=== PATIENT | male | born 1960 ===

== ENCOUNTER 2024-10-18 16:15 | Inpatient (IN) | payer MEDICAID, SELFPAY ==
--- NOTE | ~2024-10-18 | CT_ITS ---
EXAMINATION: CT HEAD WITHOUT CONTRAST CLINICAL INFORMATION: Altered mental status, anticoagulated, Eloquis COMPARISON: 01/27/2016 TECHNIQUE: Contiguous axial imaging was performed from the skull base to vertex without intravenous administration of contrast. This CT examination was performed using dose optimization techniques as appropriate, variously including the following: *Automated exposure control *Adjustment of mA and/or kV according to patient size (this includes techniques or standardized protocols for targeted exams where dose is matched to indication/reason for exam; i.e. extremities or head) *Use of iterative reconstruction technique DLP: 703 mGY*cm FINDINGS: Chronic encephalomalacia is present in the posterior left frontal lobe, not present on the prior from 9 years ago. Bilobed fluid attenuation is present in the right thalamus, consistent with chronic lacunar infarct. Focal hypoattenuation in the left thalamus is indeterminate. There is no intracranial hemorrhage. There is no mass-effect or midline shift. Basal cisterns and ventricles are within normal limits for age/cerebral volume. Orbits are symmetrical and unremarkable. Paranasal sinuses and mastoid air cells are pneumatized. There are no bony abnormalities. CT/CT head/brain wo IV con IMPRESSION: Focal hypoattenuation in the left thalamus is consistent with an age indeterminate lacunar infarct, acute versus chronic. There is evidence of chronic encephalomalacia the posterior left frontal lobe and a focal right thalamic fluid attenuation, that have developed since the prior study 9 years ago. Electronically signed by: Forrest Hauser MD 10/24/2024 02:15 PM EDT
[2024-10-18 16:31] VITALS: BP 130/97; BP 160/94; PULSE 74; PULSE 77; RESP 16; TEMP 36.3; O2SAT 98; O2SAT 99; BMI 18.6
--- NOTE | 2024-10-18 17:25 | ED.GENADULT ---
HPI - General Adult General Chief complaint: Behavioral Concerns Stated complaint: BEHAVIORAL EVAL FROM SNF PER EMS Time Seen by Provider: 10/18/24 17:25 Source: patient and EMS Mode of arrival: EMS Limitations: no limitations History of Present Illness ED Provider: Frieda Castro PA-C HPI narrative: Patient is a 64 year old assigned male at with a history of CVA with left-sided hemiparesis, A-fib on Eliquis, nonischemic cardiomyopathy, peptic ulcer disease, hypertension, history of polysubstance use, CKD, DVT, type II DM, and tobacco use presenting to the emergency department today after [facility] out [facility] and getting aggressive with staff when asked to come back inside. Patient states that he doesn't like it there and does not want to be there. Patient states that he would like to be somewhere that allows him to smoke cigarettes. Patient was at [facility] before he was transferred to [facility]. Patient denies any dizziness, lightheadedness, abdominal pain, nausea, vomiting, fever, chills, blurry vision, double vision, loss of vision, chest pain, difficulty breathing, shortness of breath, back pain, night sweats, pain with urination, increased urinary frequency, increased urinary urgency, blood in his urine or stool, syncope or a near syncopal episode, recent trauma or falls, bowel incontinence, bladder incontinence, or any other complaints at this time. Relieving factors: none Exacerbating factors: none Associated symptoms: denies other symptoms Treatments prior to arrival: none Related Data Home Medications ?Medication ?Instructions ?Recorded ?Confirmed alprazolam 1 mg tablet 1 mg PO BID 10/18/24 10/18/24 alprazolam 1 mg tablet 2 mg PO BEDTIME 10/18/24 10/18/24 aluminum-mag hydroxide-simethicone 15 ml Q6H 10/18/24 10/18/24 200 mg-200 mg-20 mg/5 mL oral susp apixaban 5 mg tablet (Eliquis) 5 mg PO BID 10/18/24 10/18/24 atorvastatin 80 mg tablet 80 mg PO BEDTIME 10/18/24 10/18/24 bisacodyl 10 mg rectal suppository 10 mg SC DAILY PRN Constipation 10/18/24 10/18/24 brimonidine 0.2 % eye drops 1 drp ophthalmic (eye) BID 10/18/24 10/18/24 carvedilol 25 mg tablet 25 mg PO BID 10/18/24 10/18/24 dapagliflozin propanediol 10 mg 10 mg PO DAILY 10/18/24 10/18/24 tablet (Farxiga) dicyclomine 10 mg capsule 10 mg PO QID 10/18/24 10/18/24 duloxetine 30 mg capsule,delayed 30 mg PO DAILY 10/18/24 10/18/24 release esomeprazole magnesium 40 mg 40 mg PO DAILY 10/18/24 10/18/24 capsule,delayed release gabapentin 800 mg tablet 800 mg PO TID 10/18/24 10/18/24 hydralazine 10 mg tablet 10 mg PO BID 10/18/24 10/18/24 latanoprost 0.005 % eye drops 1 drp ophthalmic (eye) BEDTIME 10/18/24 10/18/24 magnesium hydroxide 400 mg/5 mL 30 ml PO DAILY PRN Constipation 10/18/24 10/18/24 oral suspension (Milk of Magnesia) melatonin 3 mg tablet 3 mg PO BEDTIME PRN Sleep 10/18/24 10/18/24 nicotine (polacrilex) 2 mg gum 2 mg PO Q2H PRN Smoking Cessation 10/18/24 10/18/24 oxycodone 5 mg tablet 2.5 mg PO Q6H PRN severe pain 10/18/24 10/19/24 prednisolone acetate 1 % eye 1 drp ophthalmic (eye) QID 10/18/24 10/18/24 drops,suspension simethicone 180 mg capsule 180 mg PO BID 10/18/24 10/18/24 sodium phosphates 19 gram-7 118 ml SC DAILY PRN Constipation 10/18/24 10/18/24 gram/118 mL enema (Fleet Enema) Allergies Allergy/AdvReac Type Severity Reaction Status Date / Time acetaminophen [From TYLENOL] Allergy Unknown CAN'T TAKE Verified 10/18/24 16:35 PER PT aspirin [ASPIRIN] Allergy Unknown BLEEDING Verified 10/18/24 16:35 calcium carbonate Allergy Unknown Unknown Verified 10/18/24 17:37 fish derived [fish] Allergy Unknown Unknown Verified 10/18/24 17:37 NSAIDS (Non-Steroidal AdvReac Severe STOMACH Verified 06/04/25 16:35 Anti-Inflamma UPSET [NSAIDS (NON-STEROIDAL ANTI-INFLAMMA] Review of Systems Constitutional: Constitutional: Reports no additional constitutional complaints, Denies chills, Denies fever(s) and Denies night sweats Eyes: Eyes: Reports no additional eye complaints, Denies blurry vision, Denies change in vision, Denies diplopia, Denies eye discharge, Denies loss of vision and Denies eye pain ENT: Denies dizziness Cardiovascular: Cardiovascular: Reports no additional cardiovascular complaints, Denies chest pain, Denies lightheadedness, Denies Loss of Consciousness and Denies dyspnea Respiratory: Respiratory: Reports no additional respiratory complaints and Denies dyspnea Gastrointestinal: Gastrointestinal: Reports no additional gastrointestinal complaints, Denies abdominal pain, Denies melena, Denies hematochezia, Denies change in bowel habits and Denies change in stool character Genitourinary: Genitourinary: Reports no additional male genitourinary complaints, Denies hematuria, Denies oliguria, Denies difficulty urinating, Denies dysuria, Denies urinary frequency, Denies urinary hesitancy, Denies urinary incontinence and Denies urinary urgency Musculoskeletal: Musculoskeletal: Reports no additional musculoskeletal complaints, Denies numbness and Denies tingling Neurologic: Denies dizziness, Denies loss of vision, Denies numbness and Denies tingling Psychiatric: Psychiatric: Reports no additional psychiatric complaints Endocrine: Endocrine: Reports no additional endocrine complaints Hematologic/Lymphatic: Hematologic/Lymphatic: Reports no additional hematologic/lymphatic complaints Allergic/Immunologic: Allergic/Immunologic: Reports no additional allergic/immunologic complaints [facility] Past Medical History Attestation statement: The following information was validated with the patient. Source: old records reviewed and nursing notes reviewed Medical History (Updated 10/29/24 @ 14:57 by Jc Govea DO) Depression GERD (gastroesophageal reflux disease) Atrial fibrillation CVA (cerebral vascular accident) Polysubstance abuse CKD (chronic kidney disease), stage IV HFrEF (heart failure with reduced ejection fraction) Essential hypertension Type 2 diabetes mellitus Social History Social History Household Members: Other Housing: Assisted Living Facility Do you presently have visiting nurse or other home services: No Comment: has a sitter Patient Tobacco Use Status: Tobacco use Unknown Smoked in Last 30 Days: Yes Use of substances other than those prescribed or required for medical reasons: Yes Substance Use Type: Crack/Cocaine Substance Use Frequency: Occasionally Currently Displaying Signs/Symptoms of Drug Intoxication Withdrawal: No Advance Directives: Yes Advance Directives on File: Yes Advance Directives Date on File: 10/19/24 Do you have a plan to hurt others: No Plan Nutrition Risks: On aspiration precautions service: No Physical Exam ED Vital Signs: Vital Signs - 24 hr 10/25/24 14:15 10/25/24 15:30 10/25/24 22:00 Temperature 97.3 F Pulse Rate 100 96 Respiratory Rate 16 18 16 Blood Pressure 144/102 H 144/105 H Pulse Oximetry 93 96 Oxygen Delivery Method Room Air Room Air 10/26/24 06:45 10/26/24 07:17 Temperature Pulse Rate 114 H Respiratory Rate 20 18 Blood Pressure 132/99 H Pulse Oximetry 95 Oxygen Delivery Method Room Air BMI result Body Mass Index 18.6 Const General: cooperative, no acute distress, alert and awake Nutritional Appearance: well nourished Orientation/consciousness: patient oriented x3 HENMT Head: Yes normal to inspection and Yes atraumatic Ears: hearing grossly normal bilaterally and external ears normal General nose exam: Normal external nose present, no nasal discharge noted and no epistaxis Face and sinus: Yes normal facial exam, No abrasion and No laceration Mouth: Normal oral and palatal mucosa present, no drooling and no muffled voice Eyes General: appearance normal, both eyes and all related structures Periorbital: periorbital findings normal Eyelids: Yes eyelids normal Conjunctivae: conjunctivae normal Pupils: Equal, round and reactive pupils present EOM: EOMs intact bilaterally Neck Neck: Yes normal visual inspection, Yes full ROM and Yes no lymphadenopathy Resp Effort & Inspection: normal respiratory effort and able to speak in complete sentences Neuro General: patient oriented x3, moves all extremities and CN's II-XI intact bilaterally Cranial nerves: Yes Equal, round and reactive pupils present Cognition (Neuro): normal cognition Extrem General: Yes normal to inspection, Yes full ROM and Yes capillary refill normal Psych Appearance: grossly normal Mental Status: mental status grossly normal Affect: normal affect Attitude: cooperative Thought process: Normal thought process present Thought content: Normal thought content present Insight: Good insight present (Psych) Course Reevaluation(s) Reevaluation #1: Physician observation continued. Vital signs remained stable. Patient is complaining of back pain and requesting lidocaine patch and morphine. They report that the oxycodone does not work as good as morphine. Given his likely chronic kidney disease & elevated SCr will avoid using morphine and continue oxycodone. Will add lidocaine patches daily. There is an allergy listed to Tylenol, unclear reaction. Case management on board and additional referrals broad casted locally to other assisted facilities. [facility]. Will continue to monitor. Time: 11:08 Reevaluation #2: Nursing reported inappropriate behaviors today, aggression, sexually inappropriate comments. Psych was consulted. They are recommending olanzapine p.r.n. agitation Security was called for aggression and inappropriate behaviors. He was willing to take oral Zyprexa. Time: 16:00 Reevaluation #3: Time: 11:11 Date: 10/20/24 Provider: Danita Javed CNP Patient in physician observation for case management needs.? overnight had agitation and restlessness overnight which she willingly accepted ODT Zyprexa remained otherwise calm without acute events. No current complaints. VS stable.? psychiatry was consulted yesterday recommendation at this time did not meet criteria for inpatient psychiatric admission, not currently delirious but should have outpatient assessment for cognitive impairment, advised olanzapine 10 mg every 6 hours as needed for agitation. pending placement. Will continue to monitor. Time: 20:17 Additional Reevaluation(s): At 8:17 p.m. on October 20, the patient became quite combative, he has a attempted multiple times to physically strike staff, he is yelling profanities at staff, we are having to medicate, giving 5 mg of intramuscular Haldol and 2.5 mg of intramuscular Versed Time: 17:50 Date: 10/21/24 Provider: ASHLEY Douglas Patient in physician observation for case management needs. No acute events reported overnight.? No current issues or complaints. VS stable. Pending case management disposition. Will continue to monitor. Time: 11:09 Date: 10/22/24 Provider: ASHLEY Douglas Patient in physician observation for case management needs.Patient escalating, trying to assault staff, unable to be redirected, given this, Zyprexa 10 mg IM ordered. 10/23/24 09:45 Rajesh, DEBEAKER: Physician observation continued, no overnight events reported by nursing. No current behavioral issues. CM following for disposition. it is 630 pm on October 23, nursing staff just brought to my attention that the patient has not voided today, he is retaining urine, per their bladder scan he is just under 500 mL, placing a Ponce. Amendment, it is midnight on October 24, the Ponce catheter did not require placement, the patient was able to void appropriately Time: 15:51 Date: 10/24/24 Provider: ASHLEY Douglas Patient in physician observation for case management needs. Patient was very aggressive this morning, requiring to be medicated with IM Haldol, Versed, and Benadryl. I did order a head CT as patient has not been seen here, and concerned for changes in agitation per transition social worker per case management. Patient is on anticoagulation therefore ordered a dry CT to rule out ICH. Head CT reveals focal hypoattenuation in the left thalamus consistent with an age indeterminate lacunar infarct acute versus chronic. Patient is already on anticoagulation. I discussed case with my attending physician, Dr. Titus, Unclear if this is acute or chronic however there is no additional medical management at this time if this were to be acute. He is already on anticoagulation and this is a small lacunar infarct and this would not be the source of causing change in mental status and aggression. We will continue to monitor pending overall case management and disposition. 221 am on October 25, the patient's behaviors escalating, he does have p.r.n. meds for his agitation, he has already received them, we are going to try oral Geodon at this time. Can not use Geodon we do not have it in the picks his, we will give a mix of Haldol and Ativan p.o. Time: 10:25 Date: 10/25/24 Provider: ASHLEY Herring Patient in physician observation for case management needs. Patient has been more combative, psychiatry evaluated patient yesterday, medication recommendations in provider note. VS stable. Patient is pending placement/CM. Will continue to monitor. Time: 08:21 Date: 10/26/24 Provider: ASHLEY Herring Patient in physician observation for case management needs. VS stable. Patient became agitated/combative yesterday, multiple IM medications given. [facility] will take patient back when he has not received IM medications for 24 hours. IM restrained should be avoided. Patient is pending placement. Will continue to monitor. patient is more delerious today not eating or drinking was getting multiple medications it looks like he was not getting his typical benzo dose. He is having mild AVIS and dehydration. Rigo DEBEAKER put him on TID valium. He is very aggressive but is more delerious than yesterday this could be med related. His VS are concerning for some form of benzo withdrawal. SHON 10/26/24 216pm, I think the patient needs IVF and possible admit for delerium and IV benzos. Will discuss with hospitalist end physician observation at 223pm 11/04/24 Consultations Consultation #1: Psychiatry Time: 13:13 Consultation #2: patient with increased aggression, combative with staff, unable to calm down. Security at bedside, not redirectable, trying to get out of bed. Ordered 2mg Versed, 5mL haloperidol, 2 mL midazolam, 50mL Benadryl for sedation Medications Administered Generic Name Dose Route Start Last Admin Trade Name Freq PRN Reason Stop Dose Admin Al Hydroxide/Mg Hydroxide 15 ml 10/18/24 19:00 10/30/24 09:04 Magnesium Hydrox/Alum Hydrox 30 Ml Oral.Susp PO Not Given Q6H AAMIR Amlodipine Besylate 10 mg 10/28/24 13:55 10/30/24 10:05 Amlodipine Besylate 10 Mg Tablet PO Not Given DAILY AAMIR Protocol Apixaban 5 mg 10/18/24 21:00 10/30/24 09:14 Apixaban 5 Mg Tablet PO 5 mg BID AAMIR Administration Atorvastatin Calcium 80 mg 10/18/24 21:00 10/29/24 20:43 Atorvastatin Calcium 80 Mg Tablet PO 80 mg BEDTIME AAMIR Administration Brimonidine Tartrate 1 drop 10/18/24 21:00 10/30/24 09:18 Brimonidine Tartrate 0.2% Oph 5 Ml Bottle EYE-BOTH 1 drop BID AAMIR Administration Carvedilol 25 mg 10/18/24 21:00 10/30/24 10:05 Carvedilol 25 Mg Tablet PO Not Given BID AAMIR Protocol Dextrose 25 gm 10/26/24 19:36 10/29/24 19:48 Dextrose 50 % 25 Gm/50 Ml Syringe IVPUSH 25 gm Q15M PRN Administration per Hypoglycemia Standing Ord. Protocol Diazepam 5 mg 10/26/24 15:00 10/30/24 09:14 Diazepam 5 Mg Tablet PO 5 mg TID AAMIR Administration Dicyclomine HCl 10 mg 10/18/24 21:00 10/30/24 09:14 Dicyclomine Hcl 10 Mg Capsule PO 10 mg QID AAMIR Administration Divalproex Sodium 250 mg 10/27/24 21:00 10/30/24 09:15 Divalproex Sodium Sprinkles 125 Mg Cap.Spr PO 250 mg BID AAMIR Administration Duloxetine HCl 30 mg 10/19/24 09:00 10/30/24 09:14 Duloxetine Hcl 30 Mg Capsule.Dr PO 30 mg DAILY AAMIR Administration Empagliflozin 10 mg 10/19/24 09:00 10/30/24 09:14 Empagliflozin 10 Mg Tablet PO 10 mg DAILY AAMIR Administration Gabapentin 800 mg 10/18/24 21:00 10/30/24 09:14 Gabapentin 400 Mg Capsule PO 800 mg TID AAMIR Administration Haloperidol 2 mg 10/26/24 10:35 10/30/24 10:05 Haloperidol 1 Mg Tablet PO Not Given TID AAMIR Hydralazine HCl 10 mg 10/18/24 21:00 10/30/24 10:05 Hydralazine Hcl 10 Mg Tablet PO Not Given BID [facility] Protocol Insulin Human Lispro 0 unit 10/26/24 21:00 10/30/24 07:58 Insulin Lispro 100 Unit/Ml 3 Ml Vial SUBCUT Not Given QIDACHS [facility] Protocol Latanoprost 1 drop 10/18/24 21:00 10/29/24 21:07 Latanoprost 0.005 % Ophth Shanti 2.5 Ml Drops EYE-BOTH 1 drop BEDTIME AAMIR Administration Lidocaine 1 patch 10/19/24 11:10 10/30/24 09:35 Lidocaine 4 % Patch Adh..Patch TRANSDERMA 1 patch DAILY AAMIR Administration Protocol Melatonin 3 mg 10/18/24 18:59 10/25/24 01:52 Melatonin 3 Mg Tablet PO 3 mg BEDTIME PRN Administration Sleep Nicotine Polacrilex 2 mg 10/18/24 18:59 10/25/24 06:07 Nicotine Polacrilex 2 Mg Gum BUCCAL 2 mg Q2H PRN Administration Smoking Cessation Olanzapine 10 mg 10/19/24 15:27 10/27/24 04:16 Olanzapine Odt 10 Mg Tab.Rapdis TRANSLINGU 10 mg Q6H PRN Administration agitation Omeprazole 20 mg 10/19/24 06:30 10/30/24 07:11 Omeprazole 20 Mg Capsule.Dr PO 20 mg DAILY@0630 AAMIR Administration Prednisolone Acetate 1 drop 10/18/24 21:00 10/30/24 09:36 Prednisolone Acetate 1 % Oph Susp 5 Ml Drpbtl EYE-BOTH 1 drop QID AAMIR Administration Simethicone 160 mg 10/18/24 21:00 10/30/24 11:01 Simethicone 80 Mg Tab.Chew PO Not Given BID AAMIR Discontinued Medications Generic Name Dose Route Start Last Admin Trade Name Freq PRN Reason Stop Dose Admin Alprazolam 1 mg 10/18/24 21:00 10/23/24 08:07 Alprazolam 0.5 Mg Tablet PO 1 mg BID AAMIR Administration Alprazolam 2 mg 10/18/24 21:00 10/22/24 23:27 Alprazolam 0.5 Mg Tablet PO 2 mg BEDTIME AAMIR Administration Alprazolam 2 mg 10/20/24 22:27 10/20/24 22:38 Alprazolam 0.5 Mg Tablet PO 10/20/24 22:28 2 mg ONCE ONE Administration Diazepam 2.5 mg 10/26/24 14:22 10/26/24 15:16 Diazepam 10 Mg/2 Ml Cartridge IM 10/26/24 14:23 2.5 mg STAT STA Administration Diazepam 2.5 mg 10/26/24 16:41 10/26/24 16:45 Diazepam 10 Mg/2 Ml Cartridge IVPUSH 10/26/24 16:42 2.5 mg STAT STA Administration Diazepam 2.5 mg 10/26/24 20:00 10/27/24 12:10 Diazepam 10 Mg/2 Ml Cartridge IVPUSH Not Given Q8H AAMIR Diazepam 5 mg 10/27/24 04:03 10/27/24 04:10 Diazepam 10 Mg/2 Ml Cartridge IVPUSH 10/27/24 04:04 5 mg STAT STA Administration Diazepam 5 mg 10/27/24 06:28 10/27/24 06:35 Diazepam 10 Mg/2 Ml Cartridge IM 10/27/24 06:29 5 mg STAT STA Administration Diphenhydramine HCl 50 mg 10/24/24 08:57 10/24/24 09:08 Diphenhydramine Hcl 50 Mg/Ml Vial IM 10/24/24 08:58 50 mg ONCE ONE Administration Diphenhydramine HCl 50 mg 10/25/24 13:16 10/25/24 13:15 Diphenhydramine Hcl 50 Mg/Ml Vial IM 10/25/24 13:17 50 mg ONCE ONE Administration Divalproex Sodium 250 mg 10/23/24 21:00 10/26/24 10:47 Divalproex Sodium 250 Mg Tablet.Dr PO Not Given BID AAMIR Haloperidol 5 mg 10/25/24 02:25 10/25/24 02:33 Haloperidol 5 Mg Tablet PO 10/25/24 02:26 5 mg ONCE ONE Administration Haloperidol Lactate 5 mg 10/20/24 20:16 10/20/24 20:20 Haloperidol Lactate 5 Mg/Ml Vial IM 10/20/24 20:17 5 mg STAT STA Administration Haloperidol Lactate 10 mg 10/24/24 08:57 10/24/24 09:09 Haloperidol Lactate 5 Mg/Ml Vial IM 10/24/24 08:58 10 mg ONCE ONE Administration Haloperidol Lactate 5 mg 10/25/24 13:16 10/25/24 13:15 Haloperidol Lactate 5 Mg/Ml Vial IM 10/25/24 13:17 5 mg ONCE ONE Administration Haloperidol Lactate 5 mg 10/27/24 05:55 10/27/24 06:00 Haloperidol Lactate 5 Mg/Ml Vial IM 10/27/24 05:56 5 mg STAT STA Administration Sodium Chloride 500 mls @ 500 mls/hr 10/18/24 18:45 10/19/24 05:54 Ns IV 10/18/24 19:44 Infused .Q1H AAMIR Infusion Lactated Ringer's 1,000 mls @ 80 mls/hr 10/26/24 14:30 10/27/24 23:10 Lr IVCONT Infused .[id number] AAMIR Infusion Lactated Ringer's 1,000 mls @ 999 mls/hr 10/26/24 16:14 10/26/24 18:36 Lr IV 10/26/24 17:14 Infused .Q1H1M ONE Infusion Sodium Chloride 500 mls @ 500 mls/hr 10/26/24 16:52 10/26/24 18:35 Ns IV 10/26/24 17:51 Infused .Q1H STA Infusion Valproic Acid 250 mg/ Dextrose 52.5 mls @ 52.5 mls/hr 10/26/24 21:00 10/27/24 11:39 IV Not Given Q12H AAMIR Lorazepam 2 mg 10/25/24 02:25 10/25/24 02:34 Lorazepam 1 Mg Tablet PO 10/25/24 02:26 2 mg ONCE ONE Administration Lorazepam 2 mg 10/26/24 09:52 10/26/24 10:03 Lorazepam 1 Mg Tablet PO 10/26/24 09:53 2 mg ONCE ONE Administration Midazolam HCl 2.5 mg 10/20/24 20:16 10/20/24 20:20 Midazolam Hcl 5 Mg/Ml Vial IM 10/20/24 20:17 2.5 mg ONCE ONE Administration Midazolam HCl 4 mg 10/24/24 08:57 10/24/24 09:08 Midazolam Hcl 2 Mg/2 Ml Vial IM 10/24/24 08:58 4 mg ONCE ONE Administration Midazolam HCl 2 mg 10/25/24 13:16 10/25/24 13:15 Midazolam Hcl 2 Mg/2 Ml Vial IM 10/25/24 13:17 2 mg ONCE ONE Administration Nicotine 14 mg 10/18/24 17:36 10/18/24 18:26 Nicotine 14 Mg Patch.Td24 TRANSDERMA 10/18/24 17:37 Not Given ONCE ONE Olanzapine 10 mg 10/22/24 11:01 10/22/24 11:05 Olanzapine 10 Mg Vial IM 10/22/24 11:02 10 mg ONCE ONE Administration Olanzapine 5 mg 10/24/24 15:00 10/26/24 08:17 Olanzapine Odt 10 Mg Tab.Rapdis TRANSLINGU 5 mg TID AAMIR Administration Olanzapine 5 mg 10/27/24 04:56 10/27/24 05:05 Olanzapine 10 Mg Vial IM 10/27/24 04:57 5 mg STAT STA Administration Oxycodone HCl 5 mg 10/18/24 17:32 10/18/24 18:25 Oxycodone Hcl Immed Release 5 Mg Tablet PO 10/18/24 17:33 5 mg ONCE ONE Administration Oxycodone HCl 5 mg 10/18/24 18:59 10/19/24 08:57 Oxycodone Hcl Immed Release 5 Mg Tablet PO 5 mg Q8H PRN Administration severe pain Oxycodone HCl 5 mg 10/19/24 17:00 10/23/24 21:51 Oxycodone Hcl Immed Release 5 Mg Tablet PO 5 mg Q8H PRN Administration severe pain Quetiapine Fumarate 50 mg 10/23/24 15:00 10/24/24 07:54 Quetiapine Fumarate 50 Mg Tablet PO 50 mg TID AAMIR Administration Sodium Chloride 3 ml 10/27/24 00:00 10/29/24 17:18 0.9 % Sodium Chloride Flush 3 Ml Syringe IVFLUSH Not Given QSHIFT AAMIR Tramadol HCl 50 mg 10/30/24 05:45 10/30/24 07:12 Tramadol Hcl 50 Mg Tablet PO 10/30/24 05:46 50 mg ONCE ONE Administration Medical Decision Making Medical Decision Making [facility] Narrative: Patient is a 64 year old assigned male at with a history of CVA with left-sided hemiparesis, A-fib on Eliquis, nonischemic cardiomyopathy, peptic ulcer disease, hypertension, history of polysubstance use, CKD, DVT, type II DM, and tobacco use presenting to the emergency department today after walking out of [facility] and getting aggressive with staff when asked to come back inside. Patient's physical exam was unremarkable. Patient's blood work showed an elevated CR of 2.19 (was 1.66 on 10/17/2024) but were otherwise unremarkable. Patient's urine showed no acute process. Given patient's mildly elevated CR - small fluid bolus ordered. I spoke with the hospitalist team who stated upon further review of [facility] records - the patient's baseline CR is 2 and they do not feel he has an AVIS at this time or needs hospital admission. Patient will remain in the department to be evaluated by physical therapy and case management for placement outside of [facility] given his request not to return there. I explained my physical exam findings as well as all test results to the patient. I answered all questions asked by the patient. Patient verbalized agreement and understanding with this treatment plan and remaining in the department to be evaluated by physical therapy and case management. Differential Diagnosis Differential Diagnoses: The differential diagnosis associated with the presentation includes Aggression Unhappiness with living situation Chronic kidney disease Admission/Observation Consideration of admission/observation: Escalation of care including admission/observation considered Attempted to admit the patient for possible AVIS however - was declined by hospitalist team upon further review of outside hospital records. Patient to remain in the department for physical therapy and case management evaluation. Consult Healthcare Provider Management of the patient was discussed with: Hospitalist (Declined admission citing the patient's outside records have his baseline CR around 2.0 ) Lab Data [facility] Lab Attestation statement: I reviewed the patient's lab results. My interpretation of these results are in the MDM Rationale portion of this note. 10/29/24 05:31 10/29/24 05:31 Labs: Lab Results 10/18/24 10/18/24 10/18/24 Range/Units 18:06 18:15 20:15 WBC 4.5 L (4.8-10.8) X10*3/uL RBC 4.80 (4.60-5.80) X10*6/uL Hgb 15.1 (14.0-18.0) g/dl Hct 44.2 (42.0-52.0) % MCV 92.1 (80.0-98.0) fL MCH 31.5 (27.0-33.0) pg MCHC 34.2 (31.0-36.0) g/dl RDW 15.0 (11.0-16.0) % Plt Count 120 L (160-400) X10*3/uL MPV 11.3 (9.4-12.4) fL Immature Gran % (Auto) 0.2 (0.0-0.4) % Neut % (Auto) 53.6 (45-73) % Lymph % (Auto) 29.5 (20-40) % [place] % (Auto) 10.5 (2-11) % Eos % (Auto) 5.8 H (0-4) % Baso % (Auto) 0.4 (0-2) % Lymph # (Auto) 1.3 (1.2-4.9) X10*3/uL [place] # (Auto) 0.5 (0.1-1.2) X10*3/uL Eos # (Auto) 0.3 (0.0-0.4) X10*3/uL Baso # (Auto) 0.0 (0.0-0.2) X10*3/uL Abs Immat Gran (auto) 0.01 (0.00-0.03) X10*3/uL Absolute Neuts (auto) 2.4 (2.0-8.3) x10*3/uL Absolute Nucleated RBC 0.000 (0.0-0.012) X10*3/uL Nucleated RBC % (auto) 0.0 (0.0-0.2) /100WBC Sodium 140 141 (135-145) mmol/L Potassium 4.9 4.5 (3.3-5.1) mmol/L Chloride 109 H 108 (96-108) mmol/L Carbon Dioxide 26 29 (22-29) mmol/L Anion Gap 10 L 9 L (12-20) BUN 12 12 (9-16) mg/dL Creatinine 2.19 H 2.20 H (0.5-1.4) mg/dL Estim Creat Clear Calc 25.1 25.0 Estimated GFR 30 30 POC Glucose 112 (60-115) mg/dL Random Glucose 94 77 (60-115) mg/dL Calcium 8.5 8.3 L (8.4-10.2) mg/dL Total Bilirubin 0.6 0.6 (0.0-1.0) mg/dL AST 21 22 (5-37) U/L ALT 13 12 (0-40) U/L Alkaline Phosphatase 109 109 (39-117) U/L Ammonia (13-55) umol/L Total Protein 6.1 L 6.2 L (6.5-8.0) g/dL Albumin 3.4 L 3.3 L (3.5-5.0) g/dL TSH (0.32-4.0) uIU/mL Urine Color Yellow Urine Appearance Clear Urine pH 5.5 (5.0-9.0) Ur Specific [place] 1.010 (1.005-1.025) Urine Protein 300 (3+) H (Neg-Trace) mg/dL Urine Glucose (UA) Negative (Negative) mg/dL Urine Ketones Negative (Negative) mg/dL Urine Blood Negative (Negative) Urine Nitrite Negative (Negative) Ur Leukocyte Esterase Negative (Negative) Urine RBC 0-2 (0-2) /HPF Urine WBC 0-5 (0-5) /HPF Ur Squamous Epith Cells 0-2 (0-2) /HPF Urine Bacteria None Seen (None Seen) Hyaline Casts 0-2 (0-2) /LPF Influenza Type A (PCR) (Negative) Influenza Type B (PCR) (Negative) RSV RNA Qual (PCR) (Negative) SARS-CoV-2 RNA (RT-PCR) (Negative) 10/19/24 10/23/24 10/23/24 Range/Units 11:25 07:10 17:30 WBC (4.8-10.8) X10*3/uL RBC (4.60-5.80) X10*6/uL Hgb (14.0-18.0) g/dl Hct (42.0-52.0) % MCV (80.0-98.0) fL MCH (27.0-33.0) pg MCHC (31.0-36.0) g/dl RDW (11.0-16.0) % Plt Count (160-400) X10*3/uL MPV (9.4-12.4) fL Immature Gran % (Auto) (0.0-0.4) % Neut % (Auto) (45-73) % Lymph % (Auto) (20-40) % [place] % (Auto) (2-11) % Eos % (Auto) (0-4) % Baso % (Auto) (0-2) % Lymph # (Auto) (1.2-4.9) X10*3/uL [place] # (Auto) (0.1-1.2) X10*3/uL Eos # (Auto) (0.0-0.4) X10*3/uL Baso # (Auto) (0.0-0.2) X10*3/uL Abs Immat Gran (auto) (0.00-0.03) X10*3/uL Absolute Neuts (auto) (2.0-8.3) x10*3/uL Absolute Nucleated RBC (0.0-0.012) X10*3/uL Nucleated RBC % (auto) (0.0-0.2) /100WBC Sodium (135-145) mmol/L Potassium (3.3-5.1) mmol/L Chloride (96-108) mmol/L Carbon Dioxide (22-29) mmol/L Anion Gap (12-20) BUN (9-16) mg/dL Creatinine (0.5-1.4) mg/dL Estim Creat Clear Calc Estimated GFR POC Glucose 98 89 (60-115) mg/dL Random Glucose (60-115) mg/dL Calcium (8.4-10.2) mg/dL Total Bilirubin (0.0-1.0) mg/dL AST (5-37) U/L ALT (0-40) U/L Alkaline Phosphatase (39-117) U/L Ammonia (13-55) umol/L Total Protein (6.5-8.0) g/dL Albumin (3.5-5.0) g/dL TSH (0.32-4.0) uIU/mL Urine Color Urine Appearance Urine pH (5.0-9.0) Ur Specific [place] (1.005-1.025) Urine Protein (Neg-Trace) mg/dL Urine Glucose (UA) (Negative) mg/dL Urine Ketones (Negative) mg/dL Urine Blood (Negative) Urine Nitrite (Negative) Ur Leukocyte Esterase (Negative) Urine RBC (0-2) /HPF Urine WBC (0-5) /HPF Ur Squamous Epith Cells (0-2) /HPF Urine Bacteria (None Seen) Hyaline Casts (0-2) /LPF Influenza Type A (PCR) NEGATIVE (Negative) Influenza Type B (PCR) NEGATIVE (Negative) RSV RNA Qual (PCR) NEGATIVE (Negative) SARS-CoV-2 RNA (RT-PCR) NEGATIVE (Negative) 10/24/24 10/26/24 Range/Units 12:55 08:02 WBC (4.8-10.8) X10*3/uL RBC (4.60-5.80) X10*6/uL Hgb (14.0-18.0) g/dl Hct (42.0-52.0) % MCV (80.0-98.0) fL MCH (27.0-33.0) pg MCHC (31.0-36.0) g/dl RDW (11.0-16.0) % Plt Count (160-400) X10*3/uL MPV (9.4-12.4) fL Immature Gran % (Auto) (0.0-0.4) % Neut % (Auto) (45-73) % Lymph % (Auto) (20-40) % [place] % (Auto) (2-11) % Eos % (Auto) (0-4) % Baso % (Auto) (0-2) % Lymph # (Auto) (1.2-4.9) X10*3/uL [place] # (Auto) (0.1-1.2) X10*3/uL Eos # (Auto) (0.0-0.4) X10*3/uL Baso # (Auto) (0.0-0.2) X10*3/uL Abs Immat Gran (auto) (0.00-0.03) X10*3/uL Absolute Neuts (auto) (2.0-8.3) x10*3/uL Absolute Nucleated RBC (0.0-0.012) X10*3/uL Nucleated RBC % (auto) (0.0-0.2) /100WBC Sodium 142 143 (135-145) mmol/L Potassium 4.2 4.7 (3.3-5.1) mmol/L Chloride 110 H 107 (96-108) mmol/L Carbon Dioxide 22 21 L (22-29) mmol/L Anion Gap 14 20 (12-20) BUN 26 H 31 H (9-16) mg/dL Creatinine 2.20 H 2.63 H (0.5-1.4) mg/dL Estim Creat Clear Calc 25.0 20.9 Estimated GFR 30 25 POC Glucose (60-115) mg/dL Random Glucose 98 79 (60-115) mg/dL Calcium 9.0 D 9.5 (8.4-10.2) mg/dL Total Bilirubin 1.1 H 1.3 H (0.0-1.0) mg/dL AST 40 H 79 H (5-37) U/L ALT 15 21 (0-40) U/L Alkaline Phosphatase 121 H 119 H (39-117) U/L Ammonia 32 (13-55) umol/L Total Protein 6.9 7.5 (6.5-8.0) g/dL Albumin 3.8 4.1 (3.5-5.0) g/dL TSH 0.66 (0.32-4.0) uIU/mL Urine Color Urine Appearance Urine pH (5.0-9.0) Ur Specific [place] (1.005-1.025) Urine Protein (Neg-Trace) mg/dL Urine Glucose (UA) (Negative) mg/dL Urine Ketones (Negative) mg/dL Urine Blood (Negative) Urine Nitrite (Negative) Ur Leukocyte Esterase (Negative) Urine RBC (0-2) /HPF Urine WBC (0-5) /HPF Ur Squamous Epith Cells (0-2) /HPF Urine Bacteria (None Seen) Hyaline Casts (0-2) /LPF Influenza Type A (PCR) (Negative) Influenza Type B (PCR) (Negative) RSV RNA Qual (PCR) (Negative) SARS-CoV-2 RNA (RT-PCR) (Negative) Independent Historian Clinical information obtained from an independent historian. History obtained from or confirmed by: EMS (EMS provided additional history and confirmed the history provided by the patient. ) External Record Review External record reviewed: Inpatient record ([facility] records), Outpatient record ([facility] records) and Outside ED record ([facility] records) Chronic Conditions Patient?s care impacted by: Diabetes and Other (Chronic Kidney disease) Critical Care Time Critical Care Time Critical Care Time: Yes Total Critical Care Time: 31 Attestation: I spent 31 minutes of Critical Care Time with this patient. This does not include time spent on separately reported billable procedures. Discharge Plan Discharge Clinical Impression: Cognitive impairment, Mood disorder, Acute kidney injury superimposed on chronic kidney disease, Delirium due to another medical condition, acute, hyperactive Patient Disposition: Admitted As Inpatient Interventions: Admission Worksheet (ED) Last Done: 10/26/24 17:24 Discharge Date/Time: 10/26/24 18:16
[2024-10-18 18:09] LABS: MANUAL DIFF FLAG NO
[2024-10-18 18:17] VITALS: BP 126/92; PULSE 92; RESP 16; TEMP 36.8; O2SAT 96
[2024-10-18 18:18] LABS: Basophils Percent Auto 0.4 % (0-2); Eosinophils Absolute Auto 0.3 X10*3/uL (0.0-0.4); Eosinophils Percent Auto 5.8 % (0-4); Hematocrit 44.2 % (42.0-52.0); Hemoglobin 15.1 g/dl (14.0-18.0); Imm Gran Abs Auto 0.01 X10*3/uL (0.00-0.03); Imm Gran Pct Auto 0.2 % (0.0-0.4); Lymphocytes Absolute Auto 1.3 X10*3/uL (1.2-4.9); Lymphocytes Percent Auto 29.5 % (20-40); Mean Corpuscular HGB Conc 34.2 g/dl (31.0-36.0); Mean Corpuscular Hemoglobin 31.5 pg (27.0-33.0); Mean Corpuscular Volume 92.1 fL (80.0-98.0); Mean Platelet Volume 11.3 fL (9.4-12.4); Monocytes Absolute Auto 0.5 X10*3/uL (0.1-1.2); Monocytes Percent Auto 10.5 % (2-11); Neutrophils Absolute Auto 2.4 x10*3/uL (2.0-8.3); Neutrophils Percent Auto 53.6 % (45-73); Platelet Count 120 X10*3/uL (160-400); White Blood Count 4.5 X10*3/uL (4.8-10.8)
[2024-10-18] MEDS: oxyCODONE HCl Immed Release 5 MG TABLET PO (18:25)
[2024-10-18 18:27] LABS: Appearance Urine Clear; Color Urine Yellow; Glucose Urine UA Negative (Negative); Leukocyte Esterase Urine Negative (Negative); Nitrite Urine Negative (Negative); PH 5.5 (5.0-9.0); UMIC TRIGGER UACC YES; Urine Blood Negative (Negative); Urine Ketones Negative (Negative); Urine Protein 300 (3+) mg/dL (Neg-Trace)
[2024-10-18 18:29] LABS: Alanine Aminotransferase 13 U/L (0-40); Albumin Level 3.4 g/dL (3.5-5.0); Alkaline Phosphatase 109 U/L (39-117); Anion Gap 10 (12-20); Aspartate Amino Transferase 21 U/L (5-37); Bilirubin Total 0.6 mg/dL (0.0-1.0); Blood Urea Nitrogen 12 mg/dL (9-16); Calcium 8.5 mg/dL (8.4-10.2); Carbon Dioxide 26 mmol/L (22-29); Chloride 109 mmol/L (96-108); Creatinine Clr Calc Pharmacy 25.1; Estimated Glomerular Filt Rate 30; Glucose Random 94 mg/dL (60-115); Potassium 4.9 mmol/L (3.3-5.1); Sodium 140 mmol/L (135-145); Total Protein 6.1 g/dL (6.5-8.0)
[2024-10-18 18:33] LABS: Bacteria Urine None Seen (None Seen); Hyaline Casts Urine 0-2 /LPF (0-2); RBC Urine 0-2 /HPF (0-2); Squamous Epithelial Cell Urine 0-2 /HPF (0-2); WBC Urine 0-5 /HPF (0-5)
--- NOTE | 2024-10-18 18:50 | MHC.EDTECH ---
Patient was biba from snf ,Vitals taken ,blood drawn ,urine sample collected and sent to lab .Patient was given dinner ,Patient very un cooperative and yelling and cursing at staff ,Patient kept on getting out of bed ,with out help was about fall 2 times , ,demanding to smoke ,Security was called to bedside 1 :[address] .
--- NOTE | 2024-10-18 18:54 | P.EN_ITS ---
Event Note Date of Service: 10/18/24 Event Note: Pt is a 64-year-old male with a PMH significant for AFib on Eliquis, CVA with residual left-sided hemiparesis, nonischemic cardiomyopathy, PUD, HTN, CKD 3, and hx of polysubstance use disorder who had recent admission to [facility] for workup for chest, abdominal, and back pain. Serial troponins were flat, EKG nonischemic, and nuclear stress test negative. Pt was discharged yesterday to [facility] where pt apparently became agitated and aggr essive toward staff when he attempted to go outside to smoke. Pt was sent to the ED due to aggressiveness where his obly complaint was requesting IV morphine for chronic lower back pain. Workup in the ED was unremarkable except for an elevated creatinine of 2.19. However, review of records from [facility] for the past year indicate pt's baseline creatinine around 1.9-2.0, even though last reading 1.66. Currently no indication to admit for inpatient hospitalization due to AVIS. If pt does not wish to go back to [facility], then should be seen and evaluated by case management for possible placement elsewhere. Time Spent With Patient Time: Total time managing care of this patient today ____ minutes.
--- NOTE | 2024-10-18 19:07 | PC.NURSE ---
Delayed note by this RN: Around 17:30, upon entering the room with ASHLEY Castro, patient was found to have left the room (ED 28). Bed rails were up, call francisco was within reach, patient appears to have left the bed via the foot of the bed and used the door and walked into the waiting room. Patient was able to be redirected back into the room for examination. Patient voided urine on himself/bedding, and he changed. Unsteady gait (baseline d/t TIA with left side deficit), but no fall with 1-2 assist by this RN & Luanne FOSTER. Redirected back to bed. Verbalized expectations at that time. Since then, patient is frequently demanding, yelling occasionally. Requested sitter, but no staff available. Moved to ED 27 for safety (no door with direct access to waiting room). Medicated with Oxycodone 5mg for chronic pain, refused Nicotine patch stating it makes me sick, can I have a jig boring machine operator for metal and a cigarette ? Explained that that's not safe or allowed on hospital grounds. At approximately 19:00, security called to bedside due to patient standing, yelling at staff (especially Katerin) regarding his diabetic diet order tray. Pt states I'm not a diabetic! Look at my records! explained that on file, per facility, he is a Type 2 Diabetic, and offered to speak with provider regarding order changes. Patient continues arguing with staff, at times inappropriately touching female staff (rubbing arms, rubbing legs during lab draw, grabbing shoulders, making comments such as you are a beautiful looking woman, you know that? I'm trying to get myself a ! ). Explained that per labs, IV access & IV fluids were ordered by provider due to worsening kidney function. Pt continues arguing stating that my kidneys are always bad . Kept referring to [facility] as [facility]. Eventually, able to calm patient, but patient refused to let staff obtain IV access. Sitter (Habiba) available and came to bedside during this interaction. ASHLEY Castro aware of all incidents. Moved to [facility] 6 via wheelchair, by transport staff (Darwin), Luanne FOSTER, & security (Curtis). Report given to Madhavi Buckley RN & Oksana Segovia RN, who assumes care of the patient at this time.
[2024-10-18 19:09] LABS: Glucose, Whole Blood 112 mg/dL (60-115)
[2024-10-18] MEDS: 0.9 % Sodium Chloride 500 ML IV (19:32)
[2024-10-18 20:04] VITALS: BP 153/107; PULSE 84; RESP 20; TEMP 36.6; O2SAT 95
[2024-10-18 20:06] VITALS: BP 153/107; PULSE 84
[2024-10-18] MEDS: Dicyclomine HCl 10 MG CAPSULE PO (20:06)
[2024-10-18] MEDS: Simethicone 80 MG TAB.CHEW 160 MG PO (20:06)
[2024-10-18] MEDS: carvediloL 25 MG TABLET PO (20:06)
[2024-10-18] MEDS: Apixaban 5 MG TABLET PO (20:06)
[2024-10-18] MEDS: Atorvastatin Calcium 80 MG TABLET PO (20:07)
[2024-10-18] MEDS: Magnesium Hydrox/Alum Hydrox 30 ML ORAL.SUSP 15 ML PO (20:07)
[2024-10-18 20:34] LABS: Alanine Aminotransferase 12 U/L (0-40); Albumin Level 3.3 g/dL (3.5-5.0); Alkaline Phosphatase 109 U/L (39-117); Anion Gap 9 (12-20); Aspartate Amino Transferase 22 U/L (5-37); Bilirubin Total 0.6 mg/dL (0.0-1.0); Blood Urea Nitrogen 12 mg/dL (9-16); Calcium 8.3 mg/dL (8.4-10.2); Carbon Dioxide 29 mmol/L (22-29); Chloride 108 mmol/L (96-108); Estimated Glomerular Filt Rate 30; Glucose Random 77 mg/dL (60-115); Potassium 4.5 mmol/L (3.3-5.1); Sodium 141 mmol/L (135-145); Total Protein 6.2 g/dL (6.5-8.0)
[2024-10-18] MEDS: Latanoprost 0.005 % Ophth Sol 2.5 ML DROPS 1 DROP EYE-BOTH (20:45)
[2024-10-18] MEDS: Brimonidine Tartrate 0.2% Oph 5 ML BOTTLE 1 DROP EYE-BOTH (20:45)
[2024-10-18] MEDS: prednisoLONE Acetate 1 % Oph Susp 5 ML DRPBTL 1 DROP EYE-BOTH (20:45)
[2024-10-18] MEDS: ALPRAZolam 0.5 MG TABLET 1 MG PO (20:56)
[2024-10-18] MEDS: ALPRAZolam 0.5 MG TABLET 2 MG PO (20:56)
[2024-10-18 20:57] VITALS: BP 153/107
[2024-10-18] MEDS: Gabapentin 400 MG CAPSULE 800 MG PO (20:57)
[2024-10-18] MEDS: hydrALAZINE HCl 10 MG TABLET PO (20:57)
--- NOTE | 2024-10-19 00:26 | PC.NURSE ---
late entry from 1900. patient cigarettes were taken by security. patient can have them returned upon DC.
[2024-10-19 04:44] VITALS: BP 142/111; PULSE 91; RESP 18; TEMP 36.8; O2SAT 97
[2024-10-19] MEDS: Magnesium Hydrox/Alum Hydrox 30 ML ORAL.SUSP 15 ML PO ×3 (05:22→19:58)
[2024-10-19] MEDS: Omeprazole 20 MG CAPSULE.DR PO (05:22)
--- NOTE | 2024-10-19 08:50 | MHC.CM.ED ---
Addendum entered by Bev Davis 10/19/24 12:55: Psych consult ordered at this time. Original Note: Received case management consult overnight. Patient came to the ER d/t behavioral issues from SNF . Patient was inpatient at [facility] from 10/12/24-10/17/24. Patient was [facility]. Patient came to ER from [facility]. Patient states he was told her could smoke at SNF and facility would not let him smoke. Work up essentially negative. Patient was moved to overflow overnight. No sitter bedside as previously documented. Patient stated to Frieda RAMIREZ that he does not want to return to [facility]. Referral will be broadcasted locally. Continue to monitor for d/c needs.
[2024-10-19 08:51] VITALS: BP 142/111; PULSE 91
[2024-10-19] MEDS: Gabapentin 400 MG CAPSULE 800 MG PO ×3 (08:51→22:06)
[2024-10-19] MEDS: Dicyclomine HCl 10 MG CAPSULE PO ×3 (08:51→19:58)
[2024-10-19] MEDS: Apixaban 5 MG TABLET PO ×2 (08:51→21:49)
[2024-10-19] MEDS: DULoxetine HCl 30 MG CAPSULE.DR PO (08:51)
[2024-10-19] MEDS: carvediloL 25 MG TABLET PO ×2 (08:51→21:49)
[2024-10-19] MEDS: hydrALAZINE HCl 10 MG TABLET PO ×2 (08:51→21:49)
[2024-10-19] MEDS: ALPRAZolam 0.5 MG TABLET 1 MG PO ×2 (08:52→21:48)
[2024-10-19] MEDS: Simethicone 80 MG TAB.CHEW 160 MG PO (08:52)
[2024-10-19] MEDS: Brimonidine Tartrate 0.2% Oph 5 ML BOTTLE 1 DROP EYE-BOTH (08:53)
[2024-10-19] MEDS: prednisoLONE Acetate 1 % Oph Susp 5 ML DRPBTL 1 DROP EYE-BOTH ×3 (08:53→19:58)
[2024-10-19] MEDS: oxyCODONE HCl Immed Release 5 MG TABLET PO ×2 (08:57→15:43)
--- NOTE | 2024-10-19 09:07 | PC.NURSE ---
awaiting missing med from pharmacy
--- NOTE | 2024-10-19 09:42 | PC.NURSE ---
messaged pharmacy for missing medication
--- NOTE | 2024-10-19 09:42 | PC.NURSE ---
patient a&ox2, rr equal/non labored, lungs clear, pt medicated per order- requesting pain medication for 9-1010 back pain, pt medicated with oxycodone per his request. Pt also stated can you get me a lidocaine patch and some morphine for my back, I have too much pain the provider was notified of the patient request, call fracnisco within reach, plan of care ongoing.
--- NOTE | 2024-10-19 10:24 | PC.NURSE ---
patient refusing the jardiance, pt states Im not taking that shit, I have no blood sugar problems and if I take it I will
--- NOTE | 2024-10-19 12:44 | PC.NURSE ---
behaviors throughout this shift pt has been sexually inappropriate with staff especially the tech that was working 7a-11a, additionally has become inappropriately aggressive- pt grabbed this nurses arm trying to pull this nurse into the bed with him- this nurse had just brought the patient safety camera into the room as patient repeatedly has been attempting to get oob and setting off the bed alarm- the patient was grabbing at this nurse and was being told no that he had to let this nurse go as the camera activated. He was also told that this nurse does NOT wish to have a hug or be pulled into his bed. Additionally the new tech from the ED that started in the floor at 11 stated the patient was being inappropriate with her as well. The provider and charge nurse were notified of this. Camera is in tact, a sitter will be coming to the floor for the patient and a psych consult to be ordered by provider.
--- NOTE | 2024-10-19 12:52 | MHC.EDTECH ---
Patient was yelling for help when I arrived on shift. I went to see what the patient need and he was trying to grab my arm and wanted me to get close to him. I said please don't do that or I will call security. He continues to try and get out of bed repeatedly and almost fell 2x. Nurse aware of the situation. She requested a sitter to charge nurse.
[2024-10-19 12:57] LABS: Influenza A PCR NEGATIVE (Negative); Influenza B PCR NEGATIVE (Negative); Resp Syncy Virus RNA Qual PCR NEGATIVE (Negative); SARS COV2 PCR INHOUSE NEGATIVE (Negative)
[2024-10-19] MEDS: Lidocaine 4 % Patch ADH..PATCH 1 PATCH TRANSDERMA (13:10)
--- NOTE | 2024-10-19 13:15 | PC.NURSE ---
pt asking this nurse to get into his bed and give him a back massage. this nurse told the patient we do not do that in the hospital. additionaly, pt stated with all these beautiful girls here, I need to get my game on there is now a female sitter at bedside, this nurse inquired to the [facility] about possibly having a male sitter- have not yet heard back from them. additionally charge was made aware we have a female sitter.
[2024-10-19 13:27] VITALS: BP 141/114; PULSE 88; RESP 16; TEMP 36.4; O2SAT 100
[2024-10-19 13:28] VITALS: BP 140/100
--- NOTE | 2024-10-19 13:31 | MHC.EDTECH ---
Went to do patient vitals and he tried to pull on me but I moved my arm
--- NOTE | 2024-10-19 14:23 | P.CNPS_ITS ---
History of Present Illness Date of Service: 10/19/2024 Chief Complaint: BEHAVIORAL EVAL FROM SNF PER EMS Requesting physician: Mary Lou Quezada Discussed with referring provider: Yes Sources of Information: patient interviewed, chart reviewed and crisis/core team assessment reviewed HPI Narrative: Mr. Finney is a 64 year-old male with hx of CVA with left side hemeparesis, polysubstance hx in remission (hx of cocaine/alcohol use) who was sent via EMS from [facility] where he was receiving STR due to increase combative behaviors, attempting to leave the facility and demanding to smoke a cigarette. He was sent there from [facility] on the day he was sent here to [facility]. Pertinent labs include cbc without leukocytosis, mild leukopenia (4.5), no anemia, mild thrombocytopenia (120). CMP without electrolyte abnormalities, BUN 12, Cr 2.12 (Hx of CKD stage 3, unclear baseline creatinine). LFTs wnl. UA without signs UTI, with protein. Utox not completed. In the ED, pt has been presenting with poor boundaries with females (attepting to yoon LOBO, inviting to lay in bed with him, overly friendly and flirtatious with female staff), asking to let him go to smoke. Somewhat impulsive attempting to ambulate when he is not safe to do so on his own. Pt seen in his bed. He reports he is at [facility]. He tells this insurance underwriter that he was supposed to have knee surgery but was told he needs to stop using substances, although he reports he has not used in some years. He also reports he had hypertension. He is not sure where he was prior to coming to the hospital. Initially reporting he came from home in [place], which is not the case. He then reports he was at [facility] which is a dual dx program, but again he did not come from that facility. He is not sure why he is here. He does know the month, October and the year. He was reoriented to place, [place].He does not appear with s/s of psychosis. No overt delusional content noted or reported but he does seem to confabulate. He denies SI/HI. He continues to ask to go outside to smoke. He reports he does not like the patch nor nicotine gum. He is attempting to get out of bed and asking this insurance underwriter to assist him get out of bed, despite reminding him that he is not safe to ambulate on his own and that he can't smoke in the hospital. Collateral information gathered from his mother, Polina ([phone]): Mother reports that he had extensive hx of substance use and until in the past 3 years after the CVA he stopped. She reports she has not seen him in a while and is not sure about changes in memory or cognition. She reports she does not know much about his psychiatric hx as he was not in contact with them when he was using substances. Discussed with mother that patient presents with s/s of memory/cog impairments but unclear extend of it. 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 He did not report hx of inpt psychiatric admission. He is currently prescribed xanax bt his PCP Tanvir Shi MD. He does have services through [facility] with field nurse case manager- Yael ([phone])-> called unable to reach her. No know hx of suicide attempts. Medical Evaluation Reviewed: Yes Diagnostics Vital Signs (24Hr): Vital Signs - 24 hr 10/18/24 16:31 10/18/24 18:17 10/18/24 20:04 Temperature 97.4 F 98.2 F 97.8 F Pulse Rate 77 92 84 Respiratory Rate 16 16 20 Blood Pressure 130/97 H 126/92 H 153/107 H Pulse Oximetry 98 96 95 Oxygen Delivery Method Room Air Room Air Room Air 10/18/24 20:06 10/18/24 20:57 10/19/24 04:44 Temperature 98.2 F Pulse Rate 84 91 Respiratory Rate 18 Blood Pressure 153/107 H 153/107 H 142/111 H Pulse Oximetry 97 Oxygen Delivery Method Room Air 10/19/24 08:51 10/19/24 08:51 10/19/24 13:27 Temperature 97.5 F Pulse Rate 91 88 Respiratory Rate 16 Blood Pressure 142/111 H 142/111 H 141/114 H Pulse Oximetry 100 Oxygen Delivery Method Room Air 10/19/24 13:28 Temperature Pulse Rate Respiratory Rate Blood Pressure 140/100 H Pulse Oximetry Oxygen Delivery Method BMI result Body Mass Index 18.6 Labs 10/18/24 18:06 10/18/24 20:15 Labs: Laboratory Results - last 48 hr 10/18/24 10/18/24 10/18/24 18:06 18:15 20:15 WBC 4.5 L RBC 4.80 Hgb 15.1 Hct 44.2 MCV 92.1 MCH 31.5 MCHC 34.2 RDW 15.0 Plt Count 120 L MPV 11.3 Immature Gran % (Auto) 0.2 Neut % (Auto) 53.6 Lymph % (Auto) 29.5 Heard % (Auto) 10.5 Eos % (Auto) 5.8 H Baso % (Auto) 0.4 Lymph # (Auto) 1.3 Heard # (Auto) 0.5 Eos # (Auto) 0.3 Baso # (Auto) 0.0 Abs Immat Gran (auto) 0.01 Absolute Neuts (auto) 2.4 Absolute Nucleated RBC 0.000 Nucleated RBC % (auto) 0.0 Sodium 140 141 Potassium 4.9 4.5 Chloride 109 H 108 Carbon Dioxide 26 29 Anion Gap 10 L 9 L BUN 12 12 Creatinine 2.19 H 2.20 H Estim Creat Clear Calc 25.1 25.0 Estimated GFR 30 30 POC Glucose 112 Random Glucose 94 77 Calcium 8.5 8.3 L Total Bilirubin 0.6 0.6 AST 21 22 ALT 13 12 Alkaline Phosphatase 109 109 Total Protein 6.1 L 6.2 L Albumin 3.4 L 3.3 L Urine Color Yellow Urine Appearance Clear Urine pH 5.5 Ur Specific [place] 1.010 Urine Protein 300 (3+) H Urine Glucose (UA) Negative Urine Ketones Negative Urine Blood Negative Urine Nitrite Negative Ur Leukocyte Esterase Negative Urine RBC 0-2 Urine WBC 0-5 Ur Squamous Epith Cells 0-2 Urine Bacteria None Seen Hyaline Casts 0-2 Influenza Type A (PCR) Influenza Type B (PCR) RSV RNA Qual (PCR) SARS-CoV-2 RNA (RT-PCR) 10/19/24 11:25 WBC RBC Hgb Hct MCV MCH MCHC RDW Plt Count MPV Immature Gran % (Auto) Neut % (Auto) Lymph % (Auto) Heard % (Auto) Eos % (Auto) Baso % (Auto) Lymph # (Auto) Heard # (Auto) Eos # (Auto) Baso # (Auto) Abs Immat Gran (auto) Absolute Neuts (auto) Absolute Nucleated RBC Nucleated RBC % (auto) Sodium Potassium Chloride Carbon Dioxide Anion Gap BUN Creatinine Estim Creat Clear Calc Estimated GFR POC Glucose Random Glucose Calcium Total Bilirubin AST ALT Alkaline Phosphatase Total Protein Albumin Urine Color Urine Appearance Urine pH Ur Specific [place] Urine Protein Urine Glucose (UA) Urine Ketones Urine Blood Urine Nitrite Ur Leukocyte Esterase Urine RBC Urine WBC Ur Squamous Epith Cells Urine Bacteria Hyaline Casts Influenza Type A (PCR) NEGATIVE Influenza Type B (PCR) NEGATIVE RSV RNA Qual (PCR) NEGATIVE SARS-CoV-2 RNA (RT-PCR) NEGATIVE Mental Status Exam Mental Status Exam Narrative: Appearance: wearing hospital gown, fair hygiene, in NAD Behavior:cooperative, friendly Psychomotor:no agitation or retardation noted, only towards the end that he attempted to get out of bed and needed redirection. Speech:mostly clear, regular rate/rhythm/volume, spontaneous TP:disorganized at times. some confabulation noted TC: wanting to smoke Mood: good Affect:brighter, somewhat expanded Si:none HI: none VH/AH: no signs Delusions: no overt delusional content Insight/judgment: impaired x 2. Memory/cog: alert, oriented to month and year, not to place (other than knowing he is at a hospital setting), not to situation, difficulty telling events leading to this admission including why he is here, where he was prior to coming here. Pending MOCA/ACL. Medications Medications Current Medications Al Hydroxide/Mg Hydroxide (Magnesium Hydrox/Alum Hydrox 30 Ml Oral.Susp) 15 ml PO Q6H [facility] Last Admin: 10/19/24 13:09 Dose: 15 ml Alprazolam (Alprazolam 0.5 Mg Tablet) 1 mg PO BID [facility] Last Admin: 10/19/24 08:52 Dose: 1 mg Alprazolam (Alprazolam 0.5 Mg Tablet) 2 mg PO BEDTIME [facility] Last Admin: 10/18/24 20:56 Dose: 2 mg Apixaban (Apixaban 5 Mg Tablet) 5 mg PO BID [facility] Last Admin: 10/19/24 08:51 Dose: 5 mg Atorvastatin Calcium (Atorvastatin Calcium 80 Mg Tablet) 80 mg PO BEDTIME [facility] Last Admin: 10/18/24 20:07 Dose: 80 mg Bisacodyl (Bisacodyl 10 Mg Supp.Rect) 10 mg MI DAILY PRN PRN Reason: Constipation Brimonidine Tartrate (Brimonidine Tartrate 0.2% Oph 5 Ml Bottle) 1 drop EYE- BOTH BID [facility] Last Admin: 10/19/24 08:53 Dose: 1 drop Carvedilol (Carvedilol 25 Mg Tablet) 25 mg PO BID [facility]; Protocol Last Admin: 10/19/24 08:51 Dose: 25 mg Dicyclomine HCl (Dicyclomine Hcl 10 Mg Capsule) 10 mg PO QID [facility] Last Admin: 10/19/24 13:09 Dose: 10 mg Duloxetine HCl (Duloxetine Hcl 30 Mg Capsule.Dr) 30 mg PO DAILY [facility] Last Admin: 10/19/24 08:51 Dose: 30 mg Empagliflozin (Empagliflozin 10 Mg Tablet) 10 mg PO DAILY [facility] Last Admin: 10/19/24 10:21 Dose: Not Given Gabapentin (Gabapentin 400 Mg Capsule) 800 mg PO TID [facility] Last Admin: 10/19/24 08:51 Dose: 800 mg Hydralazine HCl (Hydralazine Hcl 10 Mg Tablet) 10 mg PO BID [facility]; Protocol Last Admin: 10/19/24 08:51 Dose: 10 mg Latanoprost (Latanoprost 0.005 % Ophth Shanti 2.5 Ml Drops) 1 drop EYE-BOTH BEDTIME [facility] Last Admin: 10/18/24 20:45 Dose: 1 drop Lidocaine (Lidocaine 4 % Patch Adh..Patch) 1 patch TRANSDERMA DAILY [facility]; Protocol Last Admin: 10/19/24 13:10 Dose: 1 patch Magnesium Hydroxide (Milk Of Magnesia 30 Ml Oral.Susp) 30 ml PO DAILY PRN PRN Reason: Constipation Melatonin (Melatonin 3 Mg Tablet) 3 mg PO BEDTIME PRN PRN Reason: Sleep Nicotine Polacrilex (Nicotine Polacrilex 2 Mg Gum) 2 mg BUCCAL Q2H PRN PRN Reason: Smoking Cessation Omeprazole (Omeprazole 20 Mg Capsule.Dr) 20 mg PO DAILY@0630 [facility] Last Admin: 10/19/24 05:22 Dose: 20 mg Oxycodone HCl (Oxycodone Hcl Immed Release 5 Mg Tablet) 5 mg PO Q8H PRN PRN Reason: severe pain Prednisolone Acetate (Prednisolone Acetate 1 % Oph Susp 5 Ml Drpbtl) 1 drop EYE-BOTH QID [facility] Last Admin: 10/19/24 13:12 Dose: 1 drop Simethicone (Simethicone 80 Mg Tab.Chew) 160 mg PO BID [facility] Last Admin: 10/19/24 08:52 Dose: 160 mg Sodium Biphosphate/Sodium Phosphate (Sodium Phosphate,Heard-Dibasic 133 Ml Enema) 118 ml MI DAILY PRN PRN Reason: Constipation Allergies Allergies Allergy/AdvReac Type Severity Reaction Status Date / Time acetaminophen [From TYLENOL] Allergy Unknown CAN'T TAKE Verified 10/18/24 16:35 PER PT aspirin [ASPIRIN] Allergy Unknown BLEEDING Verified 10/18/24 16:35 calcium carbonate Allergy Unknown Unknown Verified 10/18/24 17:37 fish derived [fish] Allergy Unknown Unknown Verified 10/18/24 17:37 NSAIDS (Non-Steroidal AdvReac Severe STOMACH Verified 10/18/24 16:35 Anti-Inflamma UPSET [NSAIDS (NON-STEROIDAL ANTI-INFLAMMA] Assessment & Plan Assessment & Plan (1) Mood disorder: Status: Acute Code(s): F39 - Unspecified mood [affective] disorder (2) Cognitive impairment: Status: Acute Code(s): R41.89 - Other symptoms and signs involving cognitive functions and awareness Plan Mr. Finney is a 64 year-old male with hx of CVA w/left hemiparesis, who was sent from [facility] to [facility] ED due to increase combative behaviors, attempting to leave the facility demanding to let him smoke. In the ED, pt presents with memory/cognitive issues, including not oriented to situation nor able to tell events leading to this ED admission. He does not remember where he came from. He does appear with impulsive and poor boundaries with female staff. He does not present as delirium. He does not appear with s/s of psychosis or overt delusional content. He does seem to confabulate at times. Collateral information from mother who reports he stopped using substance for the past 3 years after CVA. She does not see him regularly and can't tell if he has underlying memory/cognitive impairments.Called A worker Yael but unable to reach her for additional information. Per mother no prior psych hx but extensive substance use. PLAN 1. I do not recommend inpatient psychiatric admission at this time. No acute psychosis or delusions. No SI/HI. 2. Underlying cognitive impairments- extend unknown at this point but he should follow up with OP to assess memory/cog. He does not present as delirious. 3. Olanzapine 10mg po q6h prn agitation. He may benefit from referral to psychiartic provider and work on impulsive/explosive behaviors seems related to sequela of CVA. May benefit from mood stabilizer. Total time managing care of this patient today ____ minutes.
--- NOTE | 2024-10-19 14:55 | MHC.EDTECH ---
patient sheets was changed and jose armando
--- NOTE | 2024-10-19 15:00 | PC.NURSE ---
behaviors with sitter the 1:1 sitter Lynn stated the patient was inappropriate with her, stating he wanted her to be his and making other statements to her. the observer states he wasnt appropriate with her.
[2024-10-19] MEDS: OLANZapine ODT 10 MG TAB.RAPDIS TRANSLINGU (15:40)
--- NOTE | 2024-10-19 15:40 | MHC.EDTECH ---
Patient is very unsteady with ambulation. Patient insists that he can walk and moved the sitter out the way so he can walk. I walked him and told him he can't walk due to being unsteady. He started yelling and being combative. Security was called and patient still being aggressive. PA ordered meds for patient
--- NOTE | 2024-10-19 15:59 | PC.NURSE ---
security security was called for increased aggressiveness, pt was oob- unsteady- helicopter technician/observer was attempting to prevent patient from falling- pt was pushing the sitter to let him go, this nurse and the tech attempted to calm the patient and have him sit on the bed, patients aggressiveness continued as he was threatening to staff, this nurse pressed the badge button for assistance, additionally provider was notified via tiger text for medicaitons for the patient. security arrived to assist in de-escalating the situation, our transportation department head as well as CC and provider came to bedside. pt was willing to take po zyprexa for increased agitation and pain medicaiton. additionally it was told to CC by psych provider that the patient does not have capacity- provider was notified that we need to envoke the HCP.
--- NOTE | 2024-10-19 16:12 | MHC.CM.ED ---
No bed offers at this time. Referral resent to [facility].
--- NOTE | 2024-10-19 17:17 | PC.NURSE ---
patient currently sleeping 1:1 sitter at bedside, patient safety camera intact, this nurse opted against waking the patient for dinner- it will be saved for him, additionally the 5pm medications are being held- provider [place] notified. call francisco within reach, plan of care ongoing
--- NOTE | 2024-10-19 18:12 | PHA.MEDREC ---
Pharmacy Consult ? Medication Reconciliation Pharmacy has reviewed the medication reconciliation completed by nursing. Edited the oxycodone order based on [facility] list to oxycodone 2.5mg q6h prn pain.
--- NOTE | 2024-10-19 19:39 | PC.NURSE ---
sleepy but arousable, calm. security on standby. transporter taking to ED21 now
--- NOTE | 2024-10-19 21:04 | MHC.EDTECH ---
patient was incontinent of urine as well as urine in the urinal. Bed change was completed and repositioned. RN aware
[2024-10-19 21:06] VITALS: BP 159/116; PULSE 73; RESP 18; TEMP 36.7; O2SAT 95
[2024-10-19] MEDS: ALPRAZolam 0.5 MG TABLET 2 MG PO (21:48)
[2024-10-20] MEDS: OLANZapine ODT 10 MG TAB.RAPDIS TRANSLINGU ×2 (02:43→17:41)
--- NOTE | 2024-10-20 02:52 | PC.NURSE ---
pt had two large episodes of urinary incontinence. cleaned up. purewick in place. pt restless, agitated. accepted willingly odt zyprexa. now in bed calmly watching tv in semi fowlers. sitter remains in place
[2024-10-20] MEDS: Omeprazole 20 MG CAPSULE.DR PO (06:59)
[2024-10-20 07:18] VITALS: BP 177/116; PULSE 70; RESP 18; O2SAT 96
[2024-10-20 07:23] VITALS: BP 164/117
[2024-10-20] MEDS: Magnesium Hydrox/Alum Hydrox 30 ML ORAL.SUSP 15 ML PO ×2 (07:42→17:13)
--- NOTE | 2024-10-20 07:48 | PC.NURSE ---
Addendum entered by Melyssa Sutton RN 10/20/24 07:49: Patient is a 64 year-old male with hx of CVA with left side hemeparesis, polysubstance hx in remission (hx of cocaine/alcohol use) who was sent via EMS from [facility] where he was receiving STR due to increase combative behaviors, attempting to leave the facility and demanding to smoke a cigarette. In the ED, pt has been presenting with poor boundaries with females (attempting to grab RN, inviting to lay in bed with him, overly friendly and flirtatious with female staff), asking to let him go to smoke. Somewhat impulsive attempting to ambulate when he is not safe to do so on his own. He denies SI/HI. He continues to ask to go outside to smoke. Patient resting quietly. Lungs coarse throughout. Respirations even and non-labored. Abdomen flat, soft, non-tender with positive bowel sounds. No LE edema noted. Pending PT/Case managment. Remains on constant observation for patient safety. Original Note: PMH of CVA with left-sided hemiparesis, A-fib on Eliquis, nonischemic cardiomyopathy, peptic ulcer disease, hypertension, history of polysubstance use, CKD, DVT, type II DM, and tobacco use
[2024-10-20] MEDS: ALPRAZolam 0.5 MG TABLET 1 MG PO (08:19)
[2024-10-20] MEDS: Dicyclomine HCl 10 MG CAPSULE PO ×3 (08:20→22:38)
[2024-10-20] MEDS: Apixaban 5 MG TABLET PO ×2 (08:20→22:38)
[2024-10-20] MEDS: Empagliflozin 10 MG TABLET PO (08:20)
[2024-10-20] MEDS: Simethicone 80 MG TAB.CHEW 160 MG PO ×2 (08:20→22:38)
[2024-10-20] MEDS: Gabapentin 400 MG CAPSULE 800 MG PO ×3 (08:20→22:38)
[2024-10-20] MEDS: carvediloL 25 MG TABLET PO ×2 (08:20→22:46)
[2024-10-20] MEDS: hydrALAZINE HCl 10 MG TABLET PO ×2 (08:20→22:46)
[2024-10-20] MEDS: DULoxetine HCl 30 MG CAPSULE.DR PO (08:20)
[2024-10-20] MEDS: prednisoLONE Acetate 1 % Oph Susp 5 ML DRPBTL 1 DROP EYE-BOTH ×3 (08:21→22:39)
[2024-10-20] MEDS: Brimonidine Tartrate 0.2% Oph 5 ML BOTTLE 1 DROP EYE-BOTH ×2 (08:21→22:40)
[2024-10-20] MEDS: Lidocaine 4 % Patch ADH..PATCH 1 PATCH TRANSDERMA (08:34)
--- NOTE | 2024-10-20 12:49 | MHC.CM.ED ---
Addendum entered by Bev Davis 10/20/24 13:10: DON of [facility] is requesting to monitor patient over the weekend. Facility will re-eval on Wednesday. Original Note: Patient remains in ER. Psych consult completed. PO zyprexa started. [facility] Facility is reviewing to see if they can accept patient back. Continue to monitor for d/c needs.
--- NOTE | 2024-10-20 14:04 | MHC.CM.ED ---
Patient's outpatient case checker,Dang at bedside. T/W met with Dang, gave update of plan. Dang's telephone number is [phone]. Continue to monitor for d/c needs.
--- NOTE | 2024-10-20 14:34 | PC.NURSE ---
Afternoon meds held d/t pt being somnolent/lethargic, arousable to verbal stimuli. Speech mumbled/soft tone, not responding to questions appropriately. PERSONAL CARE AIDE Aayush made aware. Attempt to sit pt upright in bed/wake up, pt remains drowsy/sleeping. 0% of breakfast eaten, pt offered lunch tray- 0% eaten at this time. 1:1 sitter at bedside, call francisco within reach, all needs met at this time.
--- NOTE | 2024-10-20 17:34 | PC.NURSE ---
Pt becoming verbally abusive/demanding with staff, attempting to get out of bed. 1:1 sitter at bedside able to redirect patient- pt becomes agitated/yelling and swearing at staff. Pt medicated with afternoon meds, frequent redirection needed to swallow pills. Took pills whole with water. MD aware.
--- NOTE | 2024-10-20 17:45 | PC.NURSE ---
Pt agitated/irritated with staff, unable to obtain vitals d/t increasing agitation. Pt medicated per MAR with PRN zyprexa, will re-attempt vitals when pt is calm.
--- NOTE | 2024-10-20 17:50 | MHC.EDTECH ---
Patient repositioned and bed pad changed
[2024-10-20] MEDS: Haloperidol Lactate 5 MG/ML VIAL IM (20:20)
[2024-10-20] MEDS: Midazolam HCl 5 MG/ML VIAL 2.5 MG IM (20:20)
--- NOTE | 2024-10-20 20:20 | PC.NURSE ---
pt trying to get oob, swinging feet over side rails, attempting to kick staff. slightly struck the hand of another staff. making inappropriate statements to staff like let me grab your puss and attempt to reach over side rail. refused po meds. multiple attempts for verbal redirection with no improvement in behavior. IM meds given per jul. 1:1 sitter has been at bedside. pt also had been refusing vitals. able to obtain vitals after medicated.
[2024-10-20 20:24] VITALS: BP 180/133; PULSE 98; RESP 16; O2SAT 96
[2024-10-20 22:00] VITALS: BP 188/143; PULSE 84; RESP 16; TEMP 36.1; O2SAT 96
[2024-10-20] MEDS: Atorvastatin Calcium 80 MG TABLET PO (22:38)
[2024-10-20] MEDS: ALPRAZolam 0.5 MG TABLET 2 MG PO (22:38)
[2024-10-20] MEDS: Latanoprost 0.005 % Ophth Sol 2.5 ML DROPS 1 DROP EYE-BOTH (22:39)
[2024-10-20 22:46] VITALS: BP 141/90
--- NOTE | 2024-10-20 22:50 | PC.NURSE ---
pt woke up became agitated again, trying to get oob/kick staff. Per Lynsey RAMIREZ to try po meds again, pt took po meds. 1mg po xanax not given d/t not available in pyxis waiting for pharmacy to bring down to ed. while giving po meds pt became physically aggressive with security stating we took his phone but redirected. pt continues to make inappropriate statements to female staff. 1:1 sitter at bedside.
[2024-10-21 06:00] VITALS: RESP 20
[2024-10-21] MEDS: Magnesium Hydrox/Alum Hydrox 30 ML ORAL.SUSP 15 ML PO ×2 (07:23→13:24)
[2024-10-21] MEDS: Omeprazole 20 MG CAPSULE.DR PO (07:23)
--- NOTE | 2024-10-21 07:38 | PC.NURSE ---
Addendum entered by Melyssa Sutton RN 10/21/24 07:41: PMH of CVA with left-sided hemiparesis, A-fib on Eliquis, nonischemic cardiomyopathy, peptic ulcer disease, hypertension, history of polysubstance use, CKD, DVT, type II DM, and tobacco use Original Note: Patient is a 64 year-old male with hx of CVA w/left hemiparesis, who was sent from [facility] to [facility] ED due to increase combative behaviors, attempting to leave the facility demanding to let him smoke. In the ED, pt presents with memory/cognitive issues, including not oriented to situation nor able to tell events leading to this ED admission. He does not remember where he came from. He does appear with impulsive and poor boundaries with female staff. He does not present as delirium. He does not appear with s/s of psychosis or overt delusional content. He does seem to confabulate at times. Patient resting comfortably at this time. Respirations even and non-labored. Abdomen flat, soft, non-tender with positive bowel sounds. Positive pedal pulses with no edema noted. PLAN 1. I do not recommend inpatient psychiatric admission at this time. No acute psychosis or delusions. No SI/HI. 2. Underlying cognitive impairments- extend unknown at this point but he should follow up with OP to assess memory/cog. He does not present as delirious. 3. Olanzapine 10mg po q6h prn agitation. He may benefit from referral to psychiartic provider and work on impulsive/explosive behaviors seems related to sequela of CVA. May benefit from mood stabilizer.
[2024-10-21] MEDS: Dicyclomine HCl 10 MG CAPSULE PO ×4 (09:03→20:18)
[2024-10-21] MEDS: Gabapentin 400 MG CAPSULE 800 MG PO ×2 (09:03→20:18)
[2024-10-21] MEDS: Simethicone 80 MG TAB.CHEW 160 MG PO ×2 (09:03→20:18)
[2024-10-21] MEDS: Empagliflozin 10 MG TABLET PO (09:04)
[2024-10-21] MEDS: Apixaban 5 MG TABLET PO ×2 (09:04→20:18)
[2024-10-21] MEDS: DULoxetine HCl 30 MG CAPSULE.DR PO (09:04)
[2024-10-21] MEDS: hydrALAZINE HCl 10 MG TABLET PO ×2 (09:04→20:18)
[2024-10-21] MEDS: carvediloL 25 MG TABLET PO ×2 (09:04→20:18)
[2024-10-21] MEDS: ALPRAZolam 0.5 MG TABLET 1 MG PO ×2 (09:04→20:18)
[2024-10-21] MEDS: prednisoLONE Acetate 1 % Oph Susp 5 ML DRPBTL 1 DROP EYE-BOTH ×4 (09:05→20:19)
[2024-10-21] MEDS: Brimonidine Tartrate 0.2% Oph 5 ML BOTTLE 1 DROP EYE-BOTH ×2 (09:05→20:19)
[2024-10-21] MEDS: Lidocaine 4 % Patch ADH..PATCH 1 PATCH TRANSDERMA (09:06)
--- NOTE | 2024-10-21 13:29 | MHC.CM.PN ---
PT REMAINS A BOARDER IN THE ED. PVR WILL RE-ASSESS BEHAVIORS ON WEDNESDAY PT ADJUSTS TO HIS NEW MEDICATION. CM WILL CONTINUE TO UPDATE.
[2024-10-21 14:26] VITALS: BP 148/119; PULSE 80; RESP 16; TEMP 36.6; O2SAT 96
[2024-10-21 19:40] VITALS: BP 165/130; PULSE 96; RESP 18; O2SAT 96
--- NOTE | 2024-10-21 19:41 | PC.NURSE ---
this rn assumed care of pt, pt in hospital bed eating dinner at this time, sitter remains at bedside for safety.
[2024-10-21] MEDS: Atorvastatin Calcium 80 MG TABLET PO (20:18)
[2024-10-21] MEDS: ALPRAZolam 0.5 MG TABLET 2 MG PO (20:18)
[2024-10-21] MEDS: Latanoprost 0.005 % Ophth Sol 2.5 ML DROPS 1 DROP EYE-BOTH (20:19)
--- NOTE | 2024-10-21 20:23 | PC.NURSE ---
pt medicated per jul, pt took pills whole with apple sauce at this time, tolerated well. vss.
--- NOTE | 2024-10-21 23:15 | PC.NURSE ---
camera placed on pt at this time for safety, form faxed, camera room contacted and aware
[2024-10-22] VITALS (7 sets, daily range): BP systolic 139–171; BP diastolic 113–132; PULSE 70–90; RESP 15–18; TEMP 36.3–36.6; O2SAT 95–98
--- NOTE | 2024-10-22 05:41 | PC.NURSE ---
pt screaming out for help, pt assisted with urinal, helped with repositioning in bed,pt requesting breakfast but explained to pt it is too early
--- NOTE | 2024-10-22 06:34 | PC.NURSE ---
pt assisted to bedside commode with 3 person assit. pt had large bowel movement, when pt was getting back into the bed pt got agitated at staff swearing and yelling. staff called to bedside, pt threw self into bed. pt assisted with repositioning and given warm blankets and call francisco
[2024-10-22] MEDS: Magnesium Hydrox/Alum Hydrox 30 ML ORAL.SUSP 15 ML PO ×2 (07:33→15:13)
--- NOTE | 2024-10-22 07:36 | PC.NURSE ---
This Rn assumed care of patient @ 0700. Patient A&O x 3. Upright eating breakfast. Patient accepted and tolerated Maalox. No aggressive behaviors noted at this time. Sitter in place.
[2024-10-22] MEDS: Gabapentin 400 MG CAPSULE 800 MG PO ×3 (08:36→23:35)
[2024-10-22] MEDS: hydrALAZINE HCl 10 MG TABLET PO ×2 (08:36→23:27)
[2024-10-22] MEDS: Dicyclomine HCl 10 MG CAPSULE PO ×4 (08:39→23:28)
[2024-10-22] MEDS: DULoxetine HCl 30 MG CAPSULE.DR PO (08:39)
[2024-10-22] MEDS: Empagliflozin 10 MG TABLET PO (08:39)
[2024-10-22] MEDS: carvediloL 25 MG TABLET PO ×2 (08:39→23:27)
[2024-10-22] MEDS: Apixaban 5 MG TABLET PO ×2 (08:39→23:28)
[2024-10-22] MEDS: Simethicone 80 MG TAB.CHEW 160 MG PO (08:40)
[2024-10-22] MEDS: ALPRAZolam 0.5 MG TABLET 1 MG PO ×2 (08:40→23:27)
[2024-10-22] MEDS: prednisoLONE Acetate 1 % Oph Susp 5 ML DRPBTL 1 DROP EYE-BOTH ×3 (08:41→23:31)
[2024-10-22] MEDS: Brimonidine Tartrate 0.2% Oph 5 ML BOTTLE 1 DROP EYE-BOTH ×2 (08:41→23:32)
[2024-10-22] MEDS: Lidocaine 4 % Patch ADH..PATCH 1 PATCH TRANSDERMA (08:42)
[2024-10-22] MEDS: OLANZapine ODT 10 MG TAB.RAPDIS TRANSLINGU ×2 (10:19→15:29)
--- NOTE | 2024-10-22 10:22 | PC.NURSE ---
pt noted to be increasingly agitated/difficult to redirect. pt continuously attempting to get OOB w/o assistance despite being a high fall risk. prn medication utilized. bed alarm, camera, 1:[address] medication administration effectiveness pending. plan of care ongoing. call francisco placed within reach.
[2024-10-22] MEDS: OLANZapine 10 MG VIAL IM (11:05)
--- NOTE | 2024-10-22 11:40 | PC.NURSE ---
Patient continuously trying to self transfer unassisted, not easily redirectable. Unsteady gait noted, when staff attempted redirected and assist patient became more agitated and aggressive. Patient began throwing punches toward staff and exhibiting aggressive behaviors. Chemical restraint of 10mg zyprexa IM performed @ 1105 in left deltoid. See restraint paperwork for further details. Patient VSS and up to date.
--- NOTE | 2024-10-22 11:45 | PC.NURSE ---
patient having re-evaluation with psych at this time.
[2024-10-22] MEDS: oxyCODONE HCl Immed Release 5 MG TABLET PO (15:28)
--- NOTE | 2024-10-22 15:32 | PC.NURSE ---
Patient displaying signs of restlessness and agitation. Patient attempting to stand up unassisted. Offered patient snacks, toileting, and repositioned patient in bed with no success. Notified provider, early administration of zyprexa sub ling approved. effectiveness pending. 1:[address] with tele monitor.
--- NOTE | 2024-10-22 15:46 | PC.NURSE ---
patient attempted to get out of bed w/ assistance to utilize urinal. patient missed the urinal and became incontinent all over self/bed. full bed change completed. pericare performed. new linens/clothing applied to patient. assisted back into bed. bed alarm/camera/1:[address]
--- NOTE | 2024-10-22 23:25 | PC.NURSE ---
Addendum entered by Adin Serrano RN 10/23/24 01:44: VMT camera also remains in place Original Note: pt unable to follow directions. clenches and moves arm despite request to stay still during BP measurement. otherwise has episodes of ability to lie still on back watching tv and others where he is rambling to himself and tossing back and forth in bed. sitter remains in place. bed alarm on. pills were tolerated whole
[2024-10-22] MEDS: ALPRAZolam 0.5 MG TABLET 2 MG PO (23:27)
[2024-10-22] MEDS: Atorvastatin Calcium 80 MG TABLET PO (23:28)
[2024-10-22] MEDS: Latanoprost 0.005 % Ophth Sol 2.5 ML DROPS 1 DROP EYE-BOTH (23:32)
[2024-10-23] VITALS (9 sets, daily range): BP systolic 141–192; BP diastolic 92–136; PULSE 76–95; RESP 16–20; TEMP 35.9–37; O2SAT 94–96
[2024-10-23] MEDS: oxyCODONE HCl Immed Release 5 MG TABLET PO ×3 (01:02→21:51)
[2024-10-23] MEDS: OLANZapine ODT 10 MG TAB.RAPDIS TRANSLINGU ×3 (01:07→21:51)
[2024-10-23] MEDS: Melatonin 3 MG TABLET PO (01:07)
[2024-10-23 07:16] LABS: Glucose, Whole Blood 98 mg/dL (60-115)
[2024-10-23] MEDS: Magnesium Hydrox/Alum Hydrox 30 ML ORAL.SUSP 15 ML PO ×2 (08:06→20:25)
[2024-10-23] MEDS: Simethicone 80 MG TAB.CHEW 160 MG PO ×2 (08:07→21:37)
[2024-10-23] MEDS: Gabapentin 400 MG CAPSULE 800 MG PO ×2 (08:07→21:38)
[2024-10-23] MEDS: Omeprazole 20 MG CAPSULE.DR PO (08:07)
[2024-10-23] MEDS: ALPRAZolam 0.5 MG TABLET 1 MG PO (08:07)
[2024-10-23] MEDS: Dicyclomine HCl 10 MG CAPSULE PO ×2 (08:07→21:39)
[2024-10-23] MEDS: DULoxetine HCl 30 MG CAPSULE.DR PO (08:07)
[2024-10-23] MEDS: carvediloL 25 MG TABLET PO ×2 (08:08→21:40)
[2024-10-23] MEDS: Apixaban 5 MG TABLET PO ×2 (08:08→21:39)
[2024-10-23] MEDS: Empagliflozin 10 MG TABLET PO (08:08)
[2024-10-23] MEDS: hydrALAZINE HCl 10 MG TABLET PO ×2 (08:08→21:40)
[2024-10-23] MEDS: Brimonidine Tartrate 0.2% Oph 5 ML BOTTLE 1 DROP EYE-BOTH ×2 (08:09→21:41)
[2024-10-23] MEDS: prednisoLONE Acetate 1 % Oph Susp 5 ML DRPBTL 1 DROP EYE-BOTH ×2 (08:09→21:41)
[2024-10-23] MEDS: Lidocaine 4 % Patch ADH..PATCH 1 PATCH TRANSDERMA (08:10)
--- NOTE | 2024-10-23 08:20 | MHC.CM.ED ---
Patient remains in ER. [facility] Patient recieved IM Zyprexa on 10/22 due to attempting to get out of bed while in the ER. Unlikely that [facility] will accept patient back until IM free for 24-48 hours. Shelli, dance historian made aware. Continue to monitor for d/c needs.
--- NOTE | 2024-10-23 10:08 | PC.NURSE ---
BP recheck 141/105, Mellissa CASCARA BARK CUTTER aware Pt more restful s/p Zyprexa given.
--- NOTE | 2024-10-23 10:54 | P.CNPS_ITS ---
History of Present Illness Date of Service: 10/23/2024 Chief Complaint: BEHAVIORAL EVAL FROM SNF PER EMS Reason for Consult: combative behaviors Discussed with referring provider: Yes Sources of Information: patient interviewed, chart reviewed and crisis/core team assessment reviewed HPI Narrative: Interim Hx: pt presenting as more combative and agitated towards staff this morning. He required IM olanzapine, with good effect. At time of assessment pt was asleep after IM medication. Discussed with staff, pt impulsive at times, attempting to ambulate without awareness of unteady gait and risk for falls. Pt does have tendency to impulsive behaviors, poor boundaries, which may be signs of undiagnosed mood disorder in addition to memory/cog impairments secondary to CVA. 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 He did not report hx of inpt psychiatric admission. He is currently prescribed xanax bt his PCP Tanvir Shi MD. He does have services through [facility] with transplant case manager- Yael ([phone])-> called unable to reach her. No know hx of suicide attempts. Diagnostics Vital Signs (24Hr): Vital Signs - 24 hr 10/22/24 11:12 10/22/24 14:10 10/22/24 18:25 Temperature 97.3 F Pulse Rate 90 80 73 Respiratory Rate 18 15 Blood Pressure 151/115 H 139/119 H Pulse Oximetry 98 95 98 Oxygen Delivery Method Room Air Room Air Room Air 10/22/24 23:23 10/23/24 02:02 10/23/24 05:52 Temperature 97.8 F 98 F Pulse Rate 70 76 Respiratory Rate 16 16 16 Blood Pressure 171/126 H 146/92 H Pulse Oximetry 98 96 Oxygen Delivery Method Room Air 10/23/24 07:51 10/23/24 08:03 10/23/24 08:08 Temperature 98.6 F Pulse Rate 87 92 92 Respiratory Rate 20 16 Blood Pressure 147/116 H 192/136 H 192/136 H Pulse Oximetry 95 Oxygen Delivery Method Room Air 10/23/24 08:08 10/23/24 10:05 Temperature Pulse Rate 88 Respiratory Rate 16 Blood Pressure 192/136 H 141/105 H Pulse Oximetry Oxygen Delivery Method BMI result Body Mass Index 18.6 Labs 10/18/24 18:06 10/18/24 20:15 Labs: Laboratory Results - last 48 hr 10/23/24 07:10 POC Glucose 98 Mental Status Exam Mental Status Exam Narrative: Pt asleep. Medications Medications Current Medications Al Hydroxide/Mg Hydroxide (Magnesium Hydrox/Alum Hydrox 30 Ml Oral.Susp) 15 ml PO Q6H [facility] Last Admin: 10/23/24 08:06 Dose: 15 ml Alprazolam (Alprazolam 0.5 Mg Tablet) 1 mg PO BID [facility] Last Admin: 10/23/24 08:07 Dose: 1 mg Alprazolam (Alprazolam 0.5 Mg Tablet) 2 mg PO BEDTIME [facility] Last Admin: 10/22/24 23:27 Dose: 2 mg Apixaban (Apixaban 5 Mg Tablet) 5 mg PO BID [facility] Last Admin: 10/23/24 08:08 Dose: 5 mg Atorvastatin Calcium (Atorvastatin Calcium 80 Mg Tablet) 80 mg PO BEDTIME [facility] Last Admin: 10/22/24 23:28 Dose: 80 mg Bisacodyl (Bisacodyl 10 Mg Supp.Rect) 10 mg ND DAILY PRN PRN Reason: Constipation Brimonidine Tartrate (Brimonidine Tartrate 0.2% Oph 5 Ml Bottle) 1 drop EYE- BOTH BID [facility] Last Admin: 10/23/24 08:09 Dose: 1 drop Carvedilol (Carvedilol 25 Mg Tablet) 25 mg PO BID [facility]; Protocol Last Admin: 10/23/24 08:08 Dose: 25 mg Dicyclomine HCl (Dicyclomine Hcl 10 Mg Capsule) 10 mg PO QID [facility] Last Admin: 10/23/24 08:07 Dose: 10 mg Duloxetine HCl (Duloxetine Hcl 30 Mg Capsule.Dr) 30 mg PO DAILY [facility] Last Admin: 10/23/24 08:07 Dose: 30 mg Empagliflozin (Empagliflozin 10 Mg Tablet) 10 mg PO DAILY [facility] Last Admin: 10/23/24 08:08 Dose: 10 mg Gabapentin (Gabapentin 400 Mg Capsule) 800 mg PO TID [facility] Last Admin: 10/23/24 08:07 Dose: 800 mg Hydralazine HCl (Hydralazine Hcl 10 Mg Tablet) 10 mg PO BID [facility]; Protocol Last Admin: 10/23/24 08:08 Dose: 10 mg Latanoprost (Latanoprost 0.005 % Ophth Shanti 2.5 Ml Drops) 1 drop EYE-BOTH BEDTIME [facility] Last Admin: 06/08/25 23:32 Dose: 1 drop Lidocaine (Lidocaine 4 % Patch Adh..Patch) 1 patch TRANSDERMA DAILY [facility]; Protocol Last Admin: 10/23/24 08:10 Dose: 1 patch Magnesium Hydroxide (Milk Of Magnesia 30 Ml Oral.Susp) 30 ml PO DAILY PRN PRN Reason: Constipation Melatonin (Melatonin 3 Mg Tablet) 3 mg PO BEDTIME PRN PRN Reason: Sleep Last Admin: 10/23/24 01:07 Dose: 3 mg Nicotine Polacrilex (Nicotine Polacrilex 2 Mg Gum) 2 mg BUCCAL Q2H PRN PRN Reason: Smoking Cessation Olanzapine (Olanzapine Odt 10 Mg Tab.Rapdis) 10 mg TRANSLINGU Q6H PRN PRN Reason: agitation Last Admin: 10/23/24 09:11 Dose: 10 mg Omeprazole (Omeprazole 20 Mg Capsule.Dr) 20 mg PO DAILY@0630 [facility] Last Admin: 10/23/24 08:07 Dose: 20 mg Oxycodone HCl (Oxycodone Hcl Immed Release 5 Mg Tablet) 5 mg PO Q8H PRN PRN Reason: severe pain Last Admin: 10/23/24 09:11 Dose: 5 mg Prednisolone Acetate (Prednisolone Acetate 1 % Oph Susp 5 Ml Drpbtl) 1 drop EYE-BOTH QID [facility] Last Admin: 10/23/24 08:09 Dose: 1 drop Simethicone (Simethicone 80 Mg Tab.Chew) 160 mg PO BID [facility] Last Admin: 10/23/24 08:07 Dose: 160 mg Sodium Biphosphate/Sodium Phosphate (Sodium Phosphate,[place]-Dibasic 133 Ml Enema) 118 ml ND DAILY PRN PRN Reason: Constipation Allergies Allergies Allergy/AdvReac Type Severity Reaction Status Date / Time acetaminophen [From TYLENOL] Allergy Unknown CAN'T TAKE Verified 10/18/24 16:35 PER PT aspirin [ASPIRIN] Allergy Unknown BLEEDING Verified 10/18/24 16:35 calcium carbonate Allergy Unknown Unknown Verified 10/18/24 17:37 fish derived [fish] Allergy Unknown Unknown Verified 10/18/24 17:37 NSAIDS (Non-Steroidal AdvReac Severe STOMACH Verified 10/18/24 16:35 Anti-Inflamma UPSET [NSAIDS (NON-STEROIDAL ANTI-INFLAMMA] Assessment & Plan Assessment & Plan (1) Mood disorder: Status: Acute Code(s): F39 - Unspecified mood [affective] disorder (2) Cognitive impairment: Status: Acute Code(s): R41.89 - Other symptoms and signs involving cognitive functions and awareness Plan Mr. Finney is a 64 year-old male with hx of CVA w/left hemiparesis, who was sent from [facility] [place] [facility] [place] due to increase combative behaviors, attempting to leave the facility demanding to let him smoke. In the ED, pt presents with memory/cognitive issues, including not oriented to situation nor able to tell events leading to this ED admission. He does not remember where he came from. He does appear with impulsive and poor boundaries with female staff. He does not present as delirium. He does not appear with s/s of psychosis or overt delusional content. He does seem to confabulate at times. Collateral information from mother who reports he stopped using substance for the past 3 years after CVA. She does not see him regularly and can't tell if he has underlying memory/cognitive impairments.Called [facility] worker Yael but unable to reach her for additional information. Per mother no prior psych hx but extensive substance use. PLAN 10/23 pt combative towards staff attempting to ambulate without awareness of unsteady gait and risk of fall. * start depakote 250mg po BID- for impulsive/explosive behaviors and poor boundaries with females- check level and ammonia within a week. * schedule seroquel 50mg po TID for mood stabilization- irritability/impulsive behaviors. monitor over sedation, monitor EKG, maintain K>4, Mg>2, Qtc<500ms. Total time managing care of this patient today ____ minutes.
--- NOTE | 2024-10-23 14:38 | PC.NURSE ---
Pt resting comfortably in bed, respirations even and unlabored. No apparent s/s of distress, will medicate upon awakening.
--- NOTE | 2024-10-23 17:22 | PC.NURSE ---
Pt resting comfortably in bed, ok per ED provider to not wake pt for scheduled medications.
[2024-10-23 17:33] LABS: Glucose, Whole Blood 89 mg/dL (60-115)
--- NOTE | 2024-10-23 18:15 | PC.NURSE ---
Pt bladder scanned at 1800 for 490mL, pt denies feeling the need to void. Attempting to toilet pt.
--- NOTE | 2024-10-23 19:08 | PC.NURSE ---
Bladder scan 490, attempted to put warren but pt to aggressive and unsafe. Attempted to stand pt with assist and void in urinal however pt remains agressive and difficult to redirect. Unsteady with assist. Attempting to void in bed in urinal and unable at this time. Lynsey BOBBIN FIXER aware and will give pt more time to void.
[2024-10-23] MEDS: Atorvastatin Calcium 80 MG TABLET PO (21:37)
[2024-10-23] MEDS: QUEtiapine Fumarate 50 MG TABLET PO (21:38)
[2024-10-23] MEDS: Divalproex Sodium 250 MG TABLET.DR PO (21:39)
[2024-10-23] MEDS: Latanoprost 0.005 % Ophth Sol 2.5 ML DROPS 1 DROP EYE-BOTH (21:41)
--- NOTE | 2024-10-23 22:00 | PC.NURSE ---
Assumed care of pt at 1900. 1:1 at bedside. PT needing several redirection, unsteady on feet, periods of disorientation and agitation. PT redirectable at times but throwing self into bed, getting up and angry that sitter and tw are holding him due to his unsteadiness. PT medicated as per jul. Two attempts made to urinate however pt reported he urinated earlier- bedside sitter report they did not witness such attempt.
--- NOTE | 2024-10-23 22:17 | PC.NURSE ---
475mls of urine output. noted. pt able to use urinal with success.
--- NOTE | 2024-10-24 00:38 | PC.NURSE ---
PT currently sleeping. respirations even and unlabored. medication not given. provider aware. Plan of care ongoing
[2024-10-24 01:28] VITALS: BP 147/110; PULSE 76; RESP 17
[2024-10-24] MEDS: Melatonin 3 MG TABLET PO (03:00)
[2024-10-24] MEDS: Omeprazole 20 MG CAPSULE.DR PO (07:44)
[2024-10-24 07:48] VITALS: BP 177/142; PULSE 80; RESP 20
[2024-10-24] MEDS: QUEtiapine Fumarate 50 MG TABLET PO (07:54)
[2024-10-24] MEDS: Empagliflozin 10 MG TABLET PO (07:54)
[2024-10-24] MEDS: DULoxetine HCl 30 MG CAPSULE.DR PO (07:55)
[2024-10-24] MEDS: Divalproex Sodium 250 MG TABLET.DR PO (07:56)
[2024-10-24] MEDS: hydrALAZINE HCl 10 MG TABLET PO (07:57)
[2024-10-24] MEDS: carvediloL 25 MG TABLET PO (07:57)
[2024-10-24] MEDS: Apixaban 5 MG TABLET PO (07:58)
[2024-10-24] MEDS: Gabapentin 400 MG CAPSULE 800 MG PO (07:59)
[2024-10-24] MEDS: Dicyclomine HCl 10 MG CAPSULE PO (07:59)
[2024-10-24 08:00] VITALS: PULSE 90; O2SAT 98
[2024-10-24] MEDS: Simethicone 80 MG TAB.CHEW 160 MG PO (08:00)
[2024-10-24] MEDS: Lidocaine 4 % Patch ADH..PATCH 1 PATCH TRANSDERMA (08:01)
--- NOTE | 2024-10-24 08:04 | PC.NURSE ---
64 M presented to ED with aggrasive behavior at his facility after not being able to smoke a cigarette. A+Ox1, refusing to answer questions, confused. RR even and unlabored, denies CP. Pt denies SOB. c/o bilateral knee pain, ongoing. Pt awaiting return to facility.
[2024-10-24] MEDS: Magnesium Hydrox/Alum Hydrox 30 ML ORAL.SUSP 15 ML PO (08:14)
[2024-10-24] MEDS: diphenhydrAMINE HCL 50 MG/ML VIAL IM (09:08)
[2024-10-24] MEDS: Midazolam HCl 2 MG/2 ML VIAL 4 MG IM (09:08)
[2024-10-24] MEDS: Haloperidol Lactate 5 MG/ML VIAL 10 MG IM (09:09)
--- NOTE | 2024-10-24 09:10 | PC.NURSE ---
Pt has been aggressive, swinging at staff and trying to climb out of bed. Pt unable to be consoled at this time, verbal de-escalation not effective. Pt was medicated for agitation and aggressive behavior.
--- NOTE | 2024-10-24 09:15 | PC.NURSE ---
PT agitated and attempting to climb out of bed with poor redirection. he was pushing the tech and was swinging at her. Security was present and pt was resistant to return to his bed. he continued to swing and hit at staff. Pt was medicated as charted with IM medications
--- NOTE | 2024-10-24 10:00 | PC.NURSE ---
pt put on oxygen via nasal cannula at 2l because oxygen dropped to 90% on room air, pt is sleeping comfortably, respirations even and unlabored , sitter in place
--- NOTE | 2024-10-24 12:02 | MHC.CM.ED ---
Addendum entered by Bev Davis 10/24/24 12:51: Patient's community program assistant, Dang, updated via telephone about plan of care. Dang feels patient is not safe to return home at this time. Does receive 40 hours of [facility] hours. However, does not have 24/7 care. Original Note: Patient remains in ER. Received multiple IM medication this morning. Shelli, ingredient mixer aware. Seroquel d/c'd. Scheduled Zyprexa ordered. [facility] unable to accept patient until IM med free for 24-48 hours. Continue to monitor for d/c needs.
[2024-10-24 13:16] LABS: Alanine Aminotransferase 15 U/L (0-40); Albumin Level 3.8 g/dL (3.5-5.0); Alkaline Phosphatase 121 U/L (39-117); Anion Gap 14 (12-20); Aspartate Amino Transferase 40 U/L (5-37); Bilirubin Total 1.1 mg/dL (0.0-1.0); Blood Urea Nitrogen 26 mg/dL (9-16); Carbon Dioxide 22 mmol/L (22-29); Chloride 110 mmol/L (96-108); Estimated Glomerular Filt Rate 30; Glucose Random 98 mg/dL (60-115); Potassium 4.2 mmol/L (3.3-5.1); Sodium 142 mmol/L (135-145); Total Protein 6.9 g/dL (6.5-8.0)
[2024-10-24 14:00] VITALS: BP 120/81; PULSE 90; RESP 16; TEMP 36.3; O2SAT 98
[2024-10-24 16:44] VITALS: BP 98/77; PULSE 78; RESP 18; O2SAT 98
--- NOTE | 2024-10-24 16:45 | PC.NURSE ---
Pt is calm, resting with eyes closed. RR even and unlabored. No visible s/s of distress.
--- NOTE | 2024-10-24 16:52 | PC.NURSE ---
Pt has not urinated all day. Bladder scanned, 539 ml. Printer not working on bladder scanner. Provider aware and requested straight cath.
--- NOTE | 2024-10-24 17:07 | PM.PSYCN ---
History of Present Illness Date of Service: 10/24/2024 Chief Complaint: BEHAVIORAL EVAL FROM SNF PER EMS Sources of Information: patient interviewed, chart reviewed and crisis/core team assessment reviewed HPI Narrative: Interim Hx: pt combative this morning requiring IM Haldol, benadryl, diazepam. He has been asleep all day. Per staff olanzapine seem to work better than seroquel. therefore, will switch seroquel to olanzapine schedule. continue depakote 250mg po BID, will check ammonia level and LFTs within 5 days. 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 He did not report hx of inpt psychiatric admission. He is currently prescribed xanax bt his PCP Tanvir Shi MD. He does have services through [facility] with behavioral health case manager- Yael ([phone])-> called unable to reach her. No know hx of suicide attempts. Review of Systems Constitutional: Reports no additional constitutional complaints, Denies chills, Denies fever(s) and Denies night sweats Eyes: Reports no additional eye complaints, Denies blurry vision, Denies change in vision, Denies diplopia, Denies eye discharge, Denies loss of vision and Denies eye pain Denies dizziness Cardiovascular: Reports no additional cardiovascular complaints, Denies chest pain, Denies lightheadedness, Denies Loss of Consciousness and Denies dyspnea Respiratory: Reports no additional respiratory complaints and Denies dyspnea Gastrointestinal: Reports no additional gastrointestinal complaints, Denies abdominal pain, Denies melena, Denies hematochezia, Denies change in bowel habits and Denies change in stool character Genitourinary: Reports no additional male genitourinary complaints, Denies hematuria, Denies oliguria, Denies difficulty urinating, Denies dysuria, Denies urinary frequency, Denies urinary hesitancy, Denies urinary incontinence and Denies urinary urgency Musculoskeletal: Reports no additional musculoskeletal complaints, Denies numbness and Denies tingling Denies dizziness, Denies loss of vision, Denies numbness and Denies tingling Psychiatric: Reports no additional psychiatric complaints Endocrine: Reports no additional endocrine complaints Hematologic/Lymphatic: Reports no additional hematologic/lymphatic complaints Allergic/Immunologic: Reports no additional allergic/immunologic complaints Diagnostics Vital Signs (24Hr): Vital Signs - 24 hr 10/23/24 17:11 10/23/24 17:28 10/23/24 21:40 Temperature 96.6 F L Pulse Rate 80 95 Respiratory Rate 16 Blood Pressure 148/121 H 143/108 H 166/134 H Pulse Oximetry 94 Oxygen Delivery Method Room Air Oxygen Flow Rate 10/23/24 21:40 10/24/24 01:28 10/24/24 07:48 Temperature Pulse Rate 76 80 Respiratory Rate 17 20 Blood Pressure 166/134 H 147/110 H 177/142 H Pulse Oximetry Oxygen Delivery Method Room Air Oxygen Flow Rate 10/24/24 08:00 10/24/24 14:00 10/24/24 16:44 Temperature 97.4 F Pulse Rate 90 90 78 Respiratory Rate 16 18 Blood Pressure 120/81 98/77 Pulse Oximetry 98 98 98 Oxygen Delivery Method Nasal Cannula Room Air Oxygen Flow Rate 2 BMI result Body Mass Index 18.6 Labs 10/18/24 18:06 10/24/24 12:55 Labs: Laboratory Results - last 48 hr 10/23/24 10/23/24 10/24/24 07:10 17:30 12:55 Sodium 142 Potassium 4.2 Chloride 110 H Carbon Dioxide 22 Anion Gap 14 BUN 26 H Creatinine 2.20 H Estim Creat Clear Calc 25.0 Estimated GFR 30 POC Glucose 98 89 Random Glucose 98 Calcium 9.0 D Total Bilirubin 1.1 H AST 40 H ALT 15 Alkaline Phosphatase 121 H Total Protein 6.9 Albumin 3.8 Imaging Radiology Impressions: ITS Impressions Head CT 10/24/24 12:47 IMPRESSION: Focal hypoattenuation in the left thalamus is consistent with an age indeterminate lacunar infarct, acute versus chronic. There is evidence of chronic encephalomalacia the posterior left frontal lobe and a focal right thalamic fluid attenuation, that have developed since the prior study 9 years ago. Electronically signed by: Forrest Hauser MD 10/24/2024 02:15 PM EDT Mental Status Exam Mental Status Exam Narrative: Pt asleep. Medications Medications Current Medications Al Hydroxide/Mg Hydroxide (Magnesium Hydrox/Alum Hydrox 30 Ml Oral.Susp) 15 ml PO Q6H [facility] Last Admin: 10/24/24 15:02 Dose: Not Given Apixaban (Apixaban 5 Mg Tablet) 5 mg PO BID [facility] Last Admin: 10/24/24 07:58 Dose: 5 mg Atorvastatin Calcium (Atorvastatin Calcium 80 Mg Tablet) 80 mg PO BEDTIME [facility] Last Admin: 10/23/24 21:37 Dose: 80 mg Bisacodyl (Bisacodyl 10 Mg Supp.Rect) 10 mg [place] DAILY PRN PRN Reason: Constipation Brimonidine Tartrate (Brimonidine Tartrate 0.2% Oph 5 Ml Bottle) 1 drop EYE-BOTH BID [facility] Last Admin: 10/24/24 10:55 Dose: Not Given Carvedilol (Carvedilol 25 Mg Tablet) 25 mg PO BID [facility]; Protocol Last Admin: 10/24/24 07:57 Dose: 25 mg Dicyclomine HCl (Dicyclomine Hcl 10 Mg Capsule) 10 mg PO QID [facility] Last Admin: 10/24/24 15:02 Dose: Not Given Divalproex Sodium (Divalproex Sodium 250 Mg Tablet.) 250 mg PO BID [facility] Last Admin: 10/24/24 07:56 Dose: 250 mg Duloxetine HCl (Duloxetine Hcl 30 Mg Capsule.) 30 mg PO DAILY [facility] Last Admin: 10/24/24 07:55 Dose: 30 mg Empagliflozin (Empagliflozin 10 Mg Tablet) 10 mg PO DAILY [facility] Last Admin: 10/24/24 07:54 Dose: 10 mg Gabapentin (Gabapentin 400 Mg Capsule) 800 mg PO TID [facility] Last Admin: 10/24/24 15:03 Dose: Not Given Hydralazine HCl (Hydralazine Hcl 10 Mg Tablet) 10 mg PO BID [facility]; Protocol Last Admin: 10/24/24 07:57 Dose: 10 mg Latanoprost (Latanoprost 0.005 % Ophth Shanti 2.5 Ml Drops) 1 drop EYE-BOTH BEDTIME [facility] Last Admin: 10/23/24 21:41 Dose: 1 drop Lidocaine (Lidocaine 4 % Patch Adh..Patch) 1 patch TRANSDERMA DAILY [facility]; Protocol Last Admin: 10/24/24 08:01 Dose: 1 patch Magnesium Hydroxide (Milk Of Magnesia 30 Ml Oral.Susp) 30 ml PO DAILY PRN PRN Reason: Constipation Melatonin (Melatonin 3 Mg Tablet) 3 mg PO BEDTIME PRN PRN Reason: Sleep Last Admin: 10/24/24 03:00 Dose: 3 mg Nicotine Polacrilex (Nicotine Polacrilex 2 Mg Gum) 2 mg BUCCAL Q2H PRN PRN Reason: Smoking Cessation Olanzapine (Olanzapine Odt 10 Mg Tab.Rapdis) 10 mg TRANSLINGU Q6H PRN PRN Reason: agitation Last Admin: 10/23/24 21:51 Dose: 10 mg Olanzapine (Olanzapine Odt 10 Mg Tab.Rapdis) 5 mg TRANSLINGU TID [facility] Omeprazole (Omeprazole 20 Mg Capsule.Dr) 20 mg PO DAILY@0630 [facility] Last Admin: 10/24/24 07:44 Dose: 20 mg Prednisolone Acetate (Prednisolone Acetate 1 % Oph Susp 5 Ml Drpbtl) 1 drop EYE-BOTH QID [facility] Last Admin: 10/24/24 15:03 Dose: Not Given Simethicone (Simethicone 80 Mg Tab.Chew) 160 mg PO BID [facility] Last Admin: 10/24/24 08:00 Dose: 160 mg Sodium Biphosphate/Sodium Phosphate (Sodium Phosphate,[place]-Dibasic 133 Ml Enema) 118 ml [place] DAILY PRN PRN Reason: Constipation Allergies Allergies Allergy/AdvReac Type Severity Reaction Status Date / Time acetaminophen [From TYLENOL] Allergy Unknown CAN'T TAKE Verified 10/18/24 16:35 PER PT aspirin [ASPIRIN] Allergy Unknown BLEEDING Verified 10/18/24 16:35 calcium carbonate Allergy Unknown Unknown Verified 10/18/24 17:37 fish derived [fish] Allergy Unknown Unknown Verified 10/18/24 17:37 NSAIDS (Non-Steroidal AdvReac Severe STOMACH Verified 10/18/24 16:35 Anti-Inflamma UPSET [NSAIDS (NON-STEROIDAL ANTI-INFLAMMA] Assessment & Plan Assessment & Plan (1) Mood disorder: Status: Acute Code(s): F39 - Unspecified mood [affective] disorder (2) Cognitive impairment: Status: Acute Code(s): R41.89 - Other symptoms and signs involving cognitive functions and awareness Plan Mr. Finney is a 64 year-old male with hx of CVA w/left hemiparesis, who was sent from [facility] to [facility] due to increase combative behaviors, attempting to leave the facility demanding to let him smoke. In the ED, pt presents with memory/cognitive issues, including not oriented to situation nor able to tell events leading to this ED admission. He does not remember where he came from. He does appear with impulsive and poor boundaries with female staff. He does not present as delirium. He does not appear with s/s of psychosis or overt delusional content. He does seem to confabulate at times. Collateral information from mother who reports he stopped using substance for the past 3 years after CVA. She does not see him regularly and can't tell if he has underlying memory/cognitive impairments.Called [facility] worker Yael but unable to reach her for additional information. Per mother no prior psych hx but extensive substance use. PLAN 10/23 pt combative towards staff attempting to ambulate without awareness of unsteady gait and risk of fall. start depakote 250mg po BID- for impulsive/explosive behaviors and poor boundaries with females- check level and ammonia within a week. schedule seroquel 50mg po TID for mood stabilization- irritability/impulsive behaviors. monitor over sedation, monitor EKG, maintain K>4, Mg>2, Qtc<500ms. 10/24 pt more combative this morning, given IM haldol, benadryl. He has been asleep since 9:40am (seen later in afternoon). per staff olanzapine seemed more effective than seroquel, will d/c seroquel and schedule olanzapine 5mg po TID. continue depakote. AVOID OVER SEDATION- it will increase risk of delirium, decrease oral intake, dehydration, AVIS. Total time managing care of this patient today ____ minutes.
--- NOTE | 2024-10-24 17:15 | PC.NURSE ---
Pt was straight cathed, 550 ml voided. Pt bathed and dressed in clean clothes.
[2024-10-25] VITALS (7 sets, daily range): BP systolic 144; BP diastolic 102–105; PULSE 96–100; RESP 16–18; TEMP 36.3; O2SAT 93–96
[2024-10-25] MEDS: hydrALAZINE HCl 10 MG TABLET PO (01:10)
[2024-10-25] MEDS: Gabapentin 400 MG CAPSULE 800 MG PO (01:15)
[2024-10-25] MEDS: OLANZapine ODT 10 MG TAB.RAPDIS 5 MG TRANSLINGU ×3 (01:15→20:32)
[2024-10-25] MEDS: Melatonin 3 MG TABLET PO (01:52)
[2024-10-25] MEDS: carvediloL 25 MG TABLET PO (01:52)
[2024-10-25] MEDS: Apixaban 5 MG TABLET PO (01:52)
[2024-10-25] MEDS: Divalproex Sodium 250 MG TABLET.DR PO (01:52)
[2024-10-25] MEDS: HaloperidoL 5 MG TABLET PO (02:33)
[2024-10-25] MEDS: LORazepam 1 MG TABLET 2 MG PO (02:34)
--- NOTE | 2024-10-25 03:25 | PC.NURSE ---
see mar. pt awoke with agitation, climbing OOB, nonredirectable, loud/disruptive. denies pain. verbally deescalated and willingly accepted PO meds. sitter remains in place. bed alarm on. camera in place.
--- NOTE | 2024-10-25 05:17 | PC.NURSE ---
remains restless. redirectable
[2024-10-25] MEDS: OLANZapine ODT 10 MG TAB.RAPDIS TRANSLINGU (06:07)
[2024-10-25] MEDS: Nicotine Polacrilex 2 MG GUM BUCCAL (06:07)
--- NOTE | 2024-10-25 06:19 | PC.NURSE ---
pt lying at end of bed. when attempting to assist pt gets agitated. states he is comfortable at end of bed at this time. sitter in room
[2024-10-25] MEDS: Midazolam HCl 2 MG/2 ML VIAL IM (13:15)
[2024-10-25] MEDS: Haloperidol Lactate 5 MG/ML VIAL IM (13:15)
[2024-10-25] MEDS: diphenhydrAMINE HCL 50 MG/ML VIAL IM (13:15)
--- NOTE | 2024-10-25 13:15 | PC.NURSE ---
patient increasingly agitated with staff, combative. security at bedside - unable to redirect patient, attempting to get out of bed. verbal order for IM medications, medicated per the MAR
--- NOTE | 2024-10-25 16:07 | MHC.EDTECH ---
Patient inc therefore patient total bed changed
[2024-10-26] MEDS: OLANZapine ODT 10 MG TAB.RAPDIS TRANSLINGU (03:12)
[2024-10-26 06:45] VITALS: RESP 20
[2024-10-26 07:17] VITALS: BP 132/99; PULSE 114; RESP 18; O2SAT 95
[2024-10-26 08:15] LABS: Ammonia 32 umol/L (13-55)
[2024-10-26] MEDS: OLANZapine ODT 10 MG TAB.RAPDIS 5 MG TRANSLINGU (08:17)
[2024-10-26 08:24] LABS: Alanine Aminotransferase 21 U/L (0-40); Albumin Level 4.1 g/dL (3.5-5.0); Alkaline Phosphatase 119 U/L (39-117); Anion Gap 20 (12-20); Aspartate Amino Transferase 79 U/L (5-37); Bilirubin Total 1.3 mg/dL (0.0-1.0); Blood Urea Nitrogen 31 mg/dL (9-16); Calcium 9.5 mg/dL (8.4-10.2); Carbon Dioxide 21 mmol/L (22-29); Chloride 107 mmol/L (96-108); Creatinine Clr Calc Pharmacy 20.9; Estimated Glomerular Filt Rate 25; Glucose Random 79 mg/dL (60-115); Potassium 4.7 mmol/L (3.3-5.1); Sodium 143 mmol/L (135-145); Total Protein 7.5 g/dL (6.5-8.0)
--- NOTE | 2024-10-26 08:47 | MHC.CM.ED ---
Addendum entered by Bev Davis 10/26/24 14:19: Patient's assistant community manager, Dang, bedside. Update given. Original Note: Patient remains in ER. Received IM Haldol, Benadryl and Versed on 10/25 at 1315. Will not be able to return to [facility] until IM free for 24-48 hours. Breanna ER PA and Shelli plate former aware. [facility] aware. Continue to monitor for d/c needs.
--- NOTE | 2024-10-26 09:42 | P.CNPS_ITS ---
History of Present Illness Date of Service: 10/25/2024 Chief Complaint: BEHAVIORAL EVAL FROM SNF PER EMS Discussed with referring provider: Yes Sources of Information: patient interviewed, chart reviewed and crisis/core team assessment reviewed HPI Narrative: Interim Hx: pt seen after receiving haldol, benadryl and versed. Pt had been asleep/very somnolent after receiving haldol 10mg IM, benadryl 50mg IM and versed 4mg IM on 10/24/24 around 8am. Pt somnolent and drowsy, but awake, mumbling words, difficulty to understand, not sure why he is where, does think he is at [facility] but then does say [facility]. Pt presents as deliriuos now, which he was not when he first came in. 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 He did not report hx of inpt psychiatric admission. He is currently prescribed xanax bt his PCP Tanvir Shi MD. He does have services through [facility] with case loader operator- Yael ([phone])-> called unable to reach her. No know hx of suicide attempts. Review of Systems Constitutional: Reports no additional constitutional complaints, Denies chills, Denies fever(s) and Denies night sweats Eyes: Reports no additional eye complaints, Denies blurry vision, Denies change in vision, Denies diplopia, Denies eye discharge, Denies loss of vision and Denies eye pain Denies dizziness Cardiovascular: Reports no additional cardiovascular complaints, Denies chest pain, Denies lightheadedness, Denies Loss of Consciousness and Denies dyspnea Respiratory: Reports no additional respiratory complaints and Denies dyspnea Gastrointestinal: Reports no additional gastrointestinal complaints, Denies abdominal pain, Denies melena, Denies hematochezia, Denies change in bowel habits and Denies change in stool character Genitourinary: Reports no additional male genitourinary complaints, Denies hematuria, Denies oliguria, Denies difficulty urinating, Denies dysuria, Denies urinary frequency, Denies urinary hesitancy, Denies urinary incontinence and Denies urinary urgency Musculoskeletal: Reports no additional musculoskeletal complaints, Denies numbness and Denies tingling Denies dizziness, Denies loss of vision, Denies numbness and Denies tingling Psychiatric: Reports no additional psychiatric complaints Endocrine: Reports no additional endocrine complaints Hematologic/Lymphatic: Reports no additional hematologic/lymphatic complaints Allergic/Immunologic: Reports no additional allergic/immunologic complaints Diagnostics Vital Signs (24Hr): Vital Signs - 24 hr 10/25/24 13:15 10/25/24 13:30 10/25/24 13:45 Temperature Pulse Rate Respiratory Rate 18 16 18 Blood Pressure Pulse Oximetry Oxygen Delivery Method 10/25/24 14:00 10/25/24 14:15 10/25/24 15:30 Temperature Pulse Rate 100 Respiratory Rate 18 16 18 Blood Pressure 144/102 H Pulse Oximetry 93 Oxygen Delivery Method Room Air 10/25/24 22:00 10/26/24 06:45 10/26/24 07:17 Temperature 97.3 F Pulse Rate 96 114 H Respiratory Rate 16 20 18 Blood Pressure 144/105 H 132/99 H Pulse Oximetry 96 95 Oxygen Delivery Method Room Air Room Air BMI result Body Mass Index 18.6 Labs 10/18/24 18:06 10/26/24 08:02 Labs: Laboratory Results - last 48 hr 10/24/24 10/26/24 12:55 08:02 Sodium 142 143 Potassium 4.2 4.7 Chloride 110 H 107 Carbon Dioxide 22 21 L Anion Gap 14 20 BUN 26 H 31 H Creatinine 2.20 H 2.63 H Estim Creat Clear Calc 25.0 20.9 Estimated GFR 30 25 Random Glucose 98 79 Calcium 9.0 D 9.5 Total Bilirubin 1.1 H 1.3 H AST 40 H 79 H ALT 15 21 Alkaline Phosphatase 121 H 119 H Ammonia 32 Total Protein 6.9 7.5 Albumin 3.8 4.1 Imaging Radiology Impressions: ITS Impressions Head CT 10/24/24 12:47 IMPRESSION: Focal hypoattenuation in the left thalamus is consistent with an age indeterminate lacunar infarct, acute versus chronic. There is evidence of chronic encephalomalacia the posterior left frontal lobe and a focal right thalamic fluid attenuation, that have developed since the prior study 9 years ago. Electronically signed by: Forrest Hauser MD 10/24/2024 02:15 PM EDT RP Mental Status Exam Mental Status Exam Narrative: Pt asleep. Medications Medications Current Medications Al Hydroxide/Mg Hydroxide (Magnesium Hydrox/Alum Hydrox 30 Ml Oral.Susp) 15 ml PO Q6H [facility] Last Admin: 10/26/24 00:33 Dose: Not Given Apixaban (Apixaban 5 Mg Tablet) 5 mg PO BID [facility] Last Admin: 10/25/24 20:35 Dose: Not Given Atorvastatin Calcium (Atorvastatin Calcium 80 Mg Tablet) 80 mg PO BEDTIME [facility] Last Admin: 10/25/24 20:35 Dose: Not Given Bisacodyl (Bisacodyl 10 Mg Supp.Rect) 10 mg MD DAILY PRN PRN Reason: Constipation Brimonidine Tartrate (Brimonidine Tartrate 0.2% Oph 5 Ml Bottle) 1 drop EYE- BOTH BID [facility] Last Admin: 10/25/24 20:35 Dose: Not Given Carvedilol (Carvedilol 25 Mg Tablet) 25 mg PO BID [facility]; Protocol Last Admin: 10/25/24 20:36 Dose: Not Given Dicyclomine HCl (Dicyclomine Hcl 10 Mg Capsule) 10 mg PO QID [facility] Last Admin: 10/25/24 20:36 Dose: Not Given Divalproex Sodium (Divalproex Sodium 250 Mg Tablet.) 250 mg PO BID [facility] Last Admin: 10/25/24 20:36 Dose: Not Given Duloxetine HCl (Duloxetine Hcl 30 Mg Capsule.) 30 mg PO DAILY [facility] Last Admin: 10/25/24 13:44 Dose: Not Given Empagliflozin (Empagliflozin 10 Mg Tablet) 10 mg PO DAILY [facility] Last Admin: 10/25/24 13:44 Dose: Not Given Gabapentin (Gabapentin 400 Mg Capsule) 800 mg PO TID [facility] Last Admin: 10/25/24 20:36 Dose: Not Given Hydralazine HCl (Hydralazine Hcl 10 Mg Tablet) 10 mg PO BID [facility]; Protocol Last Admin: 10/25/24 20:36 Dose: Not Given Latanoprost (Latanoprost 0.005 % Ophth Shanti 2.5 Ml Drops) 1 drop EYE-BOTH BEDTIME [facility] Last Admin: 10/25/24 20:36 Dose: Not Given Lidocaine (Lidocaine 4 % Patch Adh..Patch) 1 patch TRANSDERMA DAILY [facility]; Protocol Last Admin: 10/25/24 13:44 Dose: Not Given Magnesium Hydroxide (Milk Of Magnesia 30 Ml Oral.Susp) 30 ml PO DAILY PRN PRN Reason: Constipation Melatonin (Melatonin 3 Mg Tablet) 3 mg PO BEDTIME PRN PRN Reason: Sleep Last Admin: 10/25/24 01:52 Dose: 3 mg Nicotine Polacrilex (Nicotine Polacrilex 2 Mg Gum) 2 mg BUCCAL Q2H PRN PRN Reason: Smoking Cessation Last Admin: 10/25/24 06:07 Dose: 2 mg Olanzapine (Olanzapine Odt 10 Mg Tab.Rapdis) 10 mg TRANSLINGU Q6H PRN PRN Reason: agitation Last Admin: 10/26/24 03:12 Dose: 10 mg Olanzapine (Olanzapine Odt 10 Mg Tab.Rapdis) 5 mg TRANSLINGU TID [facility] Last Admin: 10/26/24 08:17 Dose: 5 mg Omeprazole (Omeprazole 20 Mg Capsule.Dr) 20 mg PO DAILY@30 [facility] Last Admin: 10/26/24 05:43 Dose: Not Given Prednisolone Acetate (Prednisolone Acetate 1 % Oph Susp 5 Ml Drpbtl) 1 drop EYE-BOTH QID [facility] Last Admin: 10/25/24 20:36 Dose: Not Given Simethicone (Simethicone 80 Mg Tab.Chew) 160 mg PO BID [facility] Last Admin: 10/25/24 20:36 Dose: Not Given Sodium Biphosphate/Sodium Phosphate (Sodium Phosphate,Yancey-Dibasic 133 Ml Enema) 118 ml MD DAILY PRN PRN Reason: Constipation Allergies Allergies Allergy/AdvReac Type Severity Reaction Status Date / Time acetaminophen [From TYLENOL] Allergy Unknown CAN'T TAKE Verified 10/18/24 16:35 PER PT aspirin [ASPIRIN] Allergy Unknown BLEEDING Verified 10/18/24 16:35 calcium carbonate Allergy Unknown Unknown Verified 10/18/24 17:37 fish derived [fish] Allergy Unknown Unknown Verified 10/18/24 17:37 NSAIDS (Non-Steroidal AdvReac Severe STOMACH Verified 10/18/24 16:35 Anti-Inflamma UPSET [NSAIDS (NON-STEROIDAL ANTI-INFLAMMA] Assessment & Plan Assessment & Plan (1) Mood disorder: Status: Acute Code(s): F39 - Unspecified mood [affective] disorder (2) Cognitive impairment: Status: Acute Code(s): R41.89 - Other symptoms and signs involving cognitive functions and awareness Plan Mr. Finney is a 64 year-old male with hx of CVA w/left hemiparesis, who was sent from [facility] to [facility] [place] [place] ED due to increase combative behaviors, attempting to leave the facility demanding to let him smoke. In the ED, pt presents with memory/cognitive issues, including not oriented to situation nor able to tell events leading to this ED admission. He does not remember where he came from. He does appear with impulsive and poor boundaries with female staff. He does not present as delirium. He does not appear with s/s of psychosis or overt delusional content. He does seem to confabulate at times. Collateral information from mother who reports he stopped using substance for the past 3 years after CVA. She does not see him regularly and can't tell if he has underlying memory/cognitive impairments.Called [facility] worker Yael but unable to reach her for additional information. Per mother no prior psych hx but extensive substance use. PLAN 10/23 pt combative towards staff attempting to ambulate without awareness of unsteady gait and risk of fall. * start depakote 250mg po BID- for impulsive/explosive behaviors and poor boundaries with females- check level and ammonia within a week. * schedule seroquel 50mg po TID for mood stabilization- irritability/impulsive behaviors. monitor over sedation, monitor EKG, maintain K>4, Mg>2, Qtc<500ms. 10/24 pt more combative this morning, given IM haldol, benadryl. He has been asleep since 9:40am (seen later in afternoon). per staff olanzapine seemed more effective than seroquel, will d/c seroquel and schedule olanzapine 5mg po TID. continue depakote. AVOID OVER SEDATION- it will increase risk of delirium, decrease oral intake, dehydration, AVIS. 10/25 overly medicated, NOW delirious. Has been confined to bed, minimal ambulation while in the ED. poor oral intake. decompensating. Delirium Protocol: * promote daily ambulation, maintain proper hydration and oral intake Total time managing care of this patient today ____ minutes.
[2024-10-26] MEDS: LORazepam 1 MG TABLET 2 MG PO (10:03)
--- NOTE | 2024-10-26 10:27 | P.CNPS_ITS ---
History of Present Illness Date of Service: 10/26/2024 Chief Complaint: BEHAVIORAL EVAL FROM SNF PER EMS Requesting physician: Nanette Cordero Discussed with referring provider: Yes Sources of Information: patient interviewed, chart reviewed and crisis/core team assessment reviewed HPI Narrative: Pt awake, poor attention, disorganized thought process, pointing at floor and wall reporting there is someone there when there is no one standing next to him. Pt paranoid thinking this comic writer trying to kill him and staff having affair with his partner. Very poor attention. Thought process disorganized and overall non sensical. Not oriented to situation. 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 He did not report hx of inpt psychiatric admission. He is currently prescribed xanax bt his PCP Tanvir Shi MD. He does have services through [facility] with piano case maker- Yael ([phone])-> called unable to reach her. No know hx of suicide attempts. Diagnostics Vital Signs (24Hr): Vital Signs - 24 hr 10/25/24 13:15 10/25/24 13:30 10/25/24 13:45 Temperature Pulse Rate Respiratory Rate 18 16 18 Blood Pressure Pulse Oximetry Oxygen Delivery Method 10/25/24 14:00 10/25/24 14:15 10/25/24 15:30 Temperature Pulse Rate 100 Respiratory Rate 18 16 18 Blood Pressure 144/102 H Pulse Oximetry 93 Oxygen Delivery Method Room Air 10/25/24 22:00 10/26/24 06:45 10/26/24 07:17 Temperature 97.3 F Pulse Rate 96 114 H Respiratory Rate 16 20 18 Blood Pressure 144/105 H 132/99 H Pulse Oximetry 96 95 Oxygen Delivery Method Room Air Room Air BMI result Body Mass Index 18.6 Labs 10/18/24 18:06 10/26/24 08:02 Labs: Laboratory Results - last 48 hr 10/24/24 10/26/24 12:55 08:02 Sodium 142 143 Potassium 4.2 4.7 Chloride 110 H 107 Carbon Dioxide 22 21 L Anion Gap 14 20 BUN 26 H 31 H Creatinine 2.20 H 2.63 H Estim Creat Clear Calc 25.0 20.9 Estimated GFR 30 25 Random Glucose 98 79 Calcium 9.0 D 9.5 Total Bilirubin 1.1 H 1.3 H AST 40 H 79 H ALT 15 21 Alkaline Phosphatase 121 H 119 H Ammonia 32 Total Protein 6.9 7.5 Albumin 3.8 4.1 Imaging Radiology Impressions: ITS Impressions Head CT 10/24/24 12:47 IMPRESSION: Focal hypoattenuation in the left thalamus is consistent with an age indeterminate lacunar infarct, acute versus chronic. There is evidence of chronic encephalomalacia the posterior left frontal lobe and a focal right thalamic fluid attenuation, that have developed since the prior study 9 years ago. Electronically signed by: Forrest Hauser MD 10/24/2024 02:15 PM EDT Mental Status Exam Mental Status Exam Narrative: Pt in bed, grabbing at things that are not there. He is alert, not oriented to situation. He presents with paranoid delusions. Very poor attention. TP: disorganized. TC: paranoid ideas. Insight/judgment: impaired x 2. Psychomotor: intermittent agitation attempting to get up of bed. VH/AH: internally preoccupied Delusions: paranoid delusions Medications Medications Current Medications Al Hydroxide/Mg Hydroxide (Magnesium Hydrox/Alum Hydrox 30 Ml Oral.Susp) 15 ml PO Q6H [facility] Last Admin: 10/26/24 00:33 Dose: Not Given Apixaban (Apixaban 5 Mg Tablet) 5 mg PO BID [facility] Last Admin: 10/25/24 20:35 Dose: Not Given Atorvastatin Calcium (Atorvastatin Calcium 80 Mg Tablet) 80 mg PO BEDTIME [facility] Last Admin: 10/25/24 20:35 Dose: Not Given Bisacodyl (Bisacodyl 10 Mg Supp.Rect) 10 mg OK DAILY PRN PRN Reason: Constipation Brimonidine Tartrate (Brimonidine Tartrate 0.2% Oph 5 Ml Bottle) 1 drop EYE- BOTH BID [facility] Last Admin: 10/25/24 20:35 Dose: Not Given Carvedilol (Carvedilol 25 Mg Tablet) 25 mg PO BID [facility]; Protocol Last Admin: 10/25/24 20:36 Dose: Not Given Dicyclomine HCl (Dicyclomine Hcl 10 Mg Capsule) 10 mg PO QID [facility] Last Admin: 10/25/24 20:36 Dose: Not Given Divalproex Sodium (Divalproex Sodium 250 Mg Tablet.) 250 mg PO BID [facility] Last Admin: 10/25/24 20:36 Dose: Not Given Duloxetine HCl (Duloxetine Hcl 30 Mg Capsule.) 30 mg PO DAILY [facility] Last Admin: 10/25/24 13:44 Dose: Not Given Empagliflozin (Empagliflozin 10 Mg Tablet) 10 mg PO DAILY [facility] Last Admin: 10/25/24 13:44 Dose: Not Given Gabapentin (Gabapentin 400 Mg Capsule) 800 mg PO TID [facility] Last Admin: 10/25/24 20:36 Dose: Not Given Hydralazine HCl (Hydralazine Hcl 10 Mg Tablet) 10 mg PO BID [facility]; Protocol Last Admin: 10/25/24 20:36 Dose: Not Given Latanoprost (Latanoprost 0.005 % Ophth Shanti 2.5 Ml Drops) 1 drop EYE-BOTH BEDTIME [facility] Last Admin: 10/25/24 20:36 Dose: Not Given Lidocaine (Lidocaine 4 % Patch Adh..Patch) 1 patch TRANSDERMA DAILY [facility]; Protocol Last Admin: 10/25/24 13:44 Dose: Not Given Magnesium Hydroxide (Milk Of Magnesia 30 Ml Oral.Susp) 30 ml PO DAILY PRN PRN Reason: Constipation Melatonin (Melatonin 3 Mg Tablet) 3 mg PO BEDTIME PRN PRN Reason: Sleep Last Admin: 10/25/24 01:52 Dose: 3 mg Nicotine Polacrilex (Nicotine Polacrilex 2 Mg Gum) 2 mg BUCCAL Q2H PRN PRN Reason: Smoking Cessation Last Admin: 10/25/24 06:07 Dose: 2 mg Olanzapine (Olanzapine Odt 10 Mg Tab.Rapdis) 10 mg TRANSLINGU Q6H PRN PRN Reason: agitation Last Admin: 10/26/24 03:12 Dose: 10 mg Olanzapine (Olanzapine Odt 10 Mg Tab.Rapdis) 5 mg TRANSLINGU TID [facility] Last Admin: 10/26/24 08:17 Dose: 5 mg Omeprazole (Omeprazole 20 Mg Capsule.Dr) 20 mg PO DAILY@0630 [facility] Last Admin: 10/26/24 05:43 Dose: Not Given Prednisolone Acetate (Prednisolone Acetate 1 % Oph Susp 5 Ml Drpbtl) 1 drop EYE-BOTH QID [facility] Last Admin: 10/25/24 20:36 Dose: Not Given Simethicone (Simethicone 80 Mg Tab.Chew) 160 mg PO BID [facility] Last Admin: 10/25/24 20:36 Dose: Not Given Sodium Biphosphate/Sodium Phosphate (Sodium Phosphate,Barbour-Dibasic 133 Ml Enema) 118 ml OK DAILY PRN PRN Reason: Constipation Allergies Allergies Allergy/AdvReac Type Severity Reaction Status Date / Time acetaminophen [From TYLENOL] Allergy Unknown CAN'T TAKE Verified 10/18/24 16:35 PER PT aspirin [ASPIRIN] Allergy Unknown BLEEDING Verified 10/18/24 16:35 calcium carbonate Allergy Unknown Unknown Verified 10/18/24 17:37 fish derived [fish] Allergy Unknown Unknown Verified 10/18/24 17:37 NSAIDS (Non-Steroidal AdvReac Severe STOMACH Verified 10/18/24 16:35 Anti-Inflamma UPSET [NSAIDS (NON-STEROIDAL ANTI-INFLAMMA] Assessment & Plan Assessment & Plan (1) Delirium due to another medical condition, acute, hyperactive: Status: Acute Code(s): F05 - Delirium due to known physiological condition (2) Cognitive impairment: Status: Acute Code(s): R41.89 - Other symptoms and signs involving cognitive functions and awareness (3) Mood disorder: Status: Acute Code(s): F39 - Unspecified mood [affective] disorder Plan Mr. Finney is a 64 year-old male with hx of CVA w/left hemiparesis, who was sent from [facility] to [facility] due to increase combative behaviors, attempting to leave the facility demanding to let him smoke. In the ED, pt presents with memory/cognitive issues, including not oriented to situation nor able to tell events leading to this ED admission. He does not remember where he came from. He does appear with impulsive and poor boundaries with female staff. He does not present as delirium. He does not appear with s/s of psychosis or overt delusional content. He does seem to confabulate at times. Collateral information from mother who reports he stopped using substance for the past 3 years after CVA. She does not see him regularly and can't tell if he has underlying memory/cognitive impairments.Called [facility] worker Yael but unable to reach her for additional information. Per mother no prior psych hx but extensive substance use. PLAN 10/23 pt combative towards staff attempting to ambulate without awareness of unsteady gait and risk of fall. * start depakote 250mg po BID- for impulsive/explosive behaviors and poor boundaries with females- check level and ammonia within a week. * schedule seroquel 50mg po TID for mood stabilization- irritability/impulsive behaviors. monitor over sedation, monitor EKG, maintain K>4, Mg>2, Qtc<500ms. 10/24 pt more combative this morning, given IM haldol, benadryl. He has been asleep since 9:40am (seen later in afternoon). per staff olanzapine seemed more effective than seroquel, will d/c seroquel and schedule olanzapine 5mg po TID. continue depakote. AVOID OVER SEDATION- it will increase risk of delirium, decrease oral intake, dehydration, AVIS. 10/25 overly medicated, NOW delirious. Has been confined to bed, minimal ambulation while in the ED. poor oral intake. decompensating. Delirium Protocol: * promote daily ambulation, maintain proper hydration and oral intake 10/26 pt presents as delirious. Note that pt has had rx for xanax 2mg PO BID for years. It appears it felt off the JUL. Noted tachycardia. I would recommend to switch to diazepam 5mg po TID and monitor s/s of benzo withdrawal. * pt with limited oral intake, elevation in BUN, Cr. HYDRATION IS PARAMOUNT. * AVOID OVER SEDATION- IF NEED IM medication for agitation, can do haldol 5mg IM q6h prn, diazepam 5mg IM BUT DO NOT ADD BENADRYL. * d/c olanzapine scheduled. Start low dose of haldol (this is for perceptual disturbances related to DELIRIUM) 2mg TID. I do not expect pt to be on this medication long-term. Monitor EPS/ dystonic reactions, monitor EKG, maintain Qtc <500ms, K>4, Mg >2. hold DOSE if over sedation noted * D/C depakote for now. * ambulate patient as possible twice or more daily---> this intervention will go a VERY LONG WAY IN HELPING WITH RESOLUTION OF DELIRIUM. Total time managing care of this patient today ____ minutes.
--- NOTE | 2024-10-26 11:51 | PC.NURSE ---
This RN and RN Amber attempt to medicate Pt with scheduled 1035 Haldol 2mg. Pt combative and uncooperative. Unable to medicate Pt as this time. Will attempt at later time. Haldol 2mg wasted in Pyxis.
[2024-10-26] MEDS: diazePAM 10 MG/2 ML CARTRIDGE 2.5 MG IM (15:16)
[2024-10-26] MEDS: Lactated Ringers 1,000 ML 80 ML IVCONT (16:08)
[2024-10-26 16:12] VITALS: PULSE 78; RESP 16; TEMP 37.1; O2SAT 92
[2024-10-26] MEDS: diazePAM 10 MG/2 ML CARTRIDGE 2.5 MG IVPUSH ×2 (16:45→20:16)
--- NOTE | 2024-10-26 17:18 | PC.NURSE ---
Pt aggitated and striking staff. Uncooperative with care, not able to tolerate PO meds at this time. MD aware, orders to place IV and medications ordered. #20 placed to LUE.
[2024-10-26] MEDS: 0.9 % Sodium Chloride 500 ML IV (17:35)
[2024-10-26] MEDS: Lactated Ringers 1,000 ML 999 ML IV (17:35)
[2024-10-26 17:38] VITALS: BP 148/119
--- NOTE | 2024-10-26 18:14 | PC.NURSE ---
ED Charge called BMT room to DC ED camera at this time d/t pt being brought up stairs
[2024-10-26 18:19] VITALS: BMI 24.6
--- NOTE | 2024-10-26 18:21 | P.HPHOSP_ITS ---
History of Present Illness Date of Service: 10/26/24 Attending physician on admission: Romeo Segal Chief Complaint: Agitation Mitchell Finney 64 years old man with PMHx significant for CVA with left-sided hemiparesis, atrial fibrillation, GERD/PUD, HFrEF, nonischemic cardiomyopathy due to cocaine, depression, essential hypertension, type 2 diabetes mellitus anxiety and erythrocytosis was brought to the ED 8 days ago from his rehab ([facility] center for agitation evaluation. HPI was obtained from ED provider and medical record review. On my evaluation patient was sedated after receiving Valium IV. The patient has been followed by psychiatry service. But has been asked to admit this patient by Dr. Cordero for delirium evaluation. It was also mentioned that patient's Xanax dropped off so there was a concern open so diazepam withdrawals. Treatment with Valium t.i.d. was started by ED. He was also mentioned that his creatinine has been increasing over the last 8 days from 2.1 to 2.6. On admission to the emergency department a CT scan of the head was performed showing possible lacunar infarct chronic versus acute. No evidence of acute infection has been found so far. I was informed that the patient mental status has been getting worse despite be receiving multiple doses psych meds. And IV access was obtained today and the patient received 2.5 mg IV on Valium which was successful in controlling patient's agitation. I have expressed my concern about admitting this patient to the medical service/regular as it seems that patient's agitation is secondary to cognitive issues with behavioral disturbances possibly triggered by a recent stroke. [facility] discharge summary 10/12/2024: Recent hospitalization due to abdominal pain, typical chest pain and nausea. Abdominal pelvis CT scan showed no acute abnormalities, LFTs were unremarkable, troponins were flat. New medication started was oxycodone and Eliquis was resumed. Medication list according to [facility] discharge summary: Xanax 1 mg in the afternoon 2 at bedtime Eliquis 5 mg p.o. b.i.d. Atorvastatin 80 mg at bedtime Brimonidine ophthalmic 1 drop both eyes twice daily. Carvedilol 25 mg p.o. b.i.d. Farxiga 10 mg p.o. daily Dicyclomine tid 10 mg TID X 7 daily Duloxetine 30 mg p.o. daily Esomeprazole 40 mg p.o. daily Gabapentin 800 mg p.o. t.i.d. Hydralazine 10 mg p.o. b.i.d. Latanoprost ophthalmic 0.005% 1 drop both eyes at bedtime Melatonin 3 mg p.o. bedtime oxycodone 2.5 mg every 6 hours Prednisolone ophthalmic 1 drop affected eye t.i.d. Vital signs on admission: BP 143/113, heart rate 93, respiratory rate 18, temperature 97.2 degrees, oxygen saturation 94% on RA. Review of Systems 2 Review of Systems: Yes Unobtainable due to mental status [facility] Medical History (Updated 10/26/24 @ 19:47 by Romeo Segal MD) Depression GERD (gastroesophageal reflux disease) Atrial fibrillation CVA (cerebral vascular accident) Polysubstance abuse CKD (chronic kidney disease), stage IV HFrEF (heart failure with reduced ejection fraction) Essential hypertension Type 2 diabetes mellitus Social History Smoked in Last 30 Days: Yes Use of substances other than those prescribed or required for medical reasons: Yes Substance Use Type: Crack/Cocaine Substance Use Frequency: Occasionally Advance Directives: Yes Advance Directives on File: Yes Advance Directives Date on File: 10/19/24 Meds Allergies Allergy/AdvReac Type Severity Reaction Status Date / Time acetaminophen [From TYLENOL] Allergy Unknown CAN'T TAKE Verified 10/18/24 16:35 PER PT aspirin [ASPIRIN] Allergy Unknown BLEEDING Verified 10/18/24 16:35 calcium carbonate Allergy Unknown Unknown Verified 10/18/24 17:37 fish derived [fish] Allergy Unknown Unknown Verified 10/18/24 17:37 NSAIDS (Non-Steroidal AdvReac Severe STOMACH Verified 10/18/24 16:35 Anti-Inflamma UPSET [NSAIDS (NON-STEROIDAL ANTI-INFLAMMA] Active Medications: Current Medications Acetaminophen (Acetaminophen 325 Mg Tablet) 650 mg PO Q6H PRN PRN Reason: Pain, Mild 1-3,fever,headache Al Hydroxide/Mg Hydroxide (Magnesium Hydrox/Alum Hydrox 30 Ml Oral.Susp) 15 ml PO Q6H [facility] Last Admin: 10/26/24 14:09 Dose: Not Given Apixaban (Apixaban 5 Mg Tablet) 5 mg PO BID [facility] Last Admin: 10/26/24 10:46 Dose: Not Given Atorvastatin Calcium (Atorvastatin Calcium 80 Mg Tablet) 80 mg PO BEDTIME [facility] Last Admin: 10/25/24 20:35 Dose: Not Given Bisacodyl (Bisacodyl 10 Mg Supp.Rect) 10 mg CO DAILY PRN PRN Reason: Constipation Brimonidine Tartrate (Brimonidine Tartrate 0.2% Oph 5 Ml Bottle) 1 drop EYE- BOTH BID [facility] Last Admin: 10/26/24 10:46 Dose: Not Given Calcium Carbonate (Calcium Carbonate 750 Mg Tab.Chew) 750 mg PO Q4H PRN PRN Reason: Heartburn Carvedilol (Carvedilol 25 Mg Tablet) 25 mg PO BID [facility]; Protocol Last Admin: 10/26/24 10:46 Dose: Not Given Diazepam (Diazepam 5 Mg Tablet) 5 mg PO TID [facility] Last Admin: 10/26/24 16:09 Dose: Not Given Diazepam (Diazepam 10 Mg/2 Ml Cartridge) 2.5 mg IVPUSH Q8H [facility] Dicyclomine HCl (Dicyclomine Hcl 10 Mg Capsule) 10 mg PO QID [facility] Last Admin: 10/26/24 18:16 Dose: Not Given Duloxetine HCl (Duloxetine Hcl 30 Mg Capsule.Dr) 30 mg PO DAILY [facility] Last Admin: 10/26/24 10:47 Dose: Not Given Empagliflozin (Empagliflozin 10 Mg Tablet) 10 mg PO DAILY [facility] Last Admin: 10/26/24 10:47 Dose: Not Given Gabapentin (Gabapentin 400 Mg Capsule) 800 mg PO TID [facility] Last Admin: 10/26/24 16:09 Dose: Not Given Haloperidol (Haloperidol 1 Mg Tablet) 2 mg PO TID [facility] Last Admin: 10/26/24 16:09 Dose: Not Given Hydralazine HCl (Hydralazine Hcl 10 Mg Tablet) 10 mg PO BID [facility]; Protocol Last Admin: 10/26/24 10:46 Dose: Not Given Lactated Ringer's (Lr) 1,000 mls @ 80 mls/hr IVCONT .[id number] [facility] Last Admin: 10/26/24 16:08 Dose: 80 mls/hr Latanoprost (Latanoprost 0.005 % Ophth Shanti 2.5 Ml Drops) 1 drop EYE-BOTH BEDTIME [facility] Last Admin: 10/25/24 20:36 Dose: Not Given Lidocaine (Lidocaine 4 % Patch Adh..Patch) 1 patch TRANSDERMA DAILY [facility]; Protocol Last Admin: 10/26/24 10:47 Dose: Not Given Magnesium Hydroxide (Milk Of Magnesia 30 Ml Oral.Susp) 30 ml PO DAILY PRN PRN Reason: Constipation Melatonin (Melatonin 3 Mg Tablet) 3 mg PO BEDTIME PRN PRN Reason: Sleep Last Admin: 10/25/24 01:52 Dose: 3 mg Nicotine Polacrilex (Nicotine Polacrilex 2 Mg Gum) 2 mg BUCCAL Q2H PRN PRN Reason: Smoking Cessation Last Admin: 10/25/24 06:07 Dose: 2 mg Olanzapine (Olanzapine Odt 10 Mg Tab.Rapdis) 10 mg TRANSLINGU Q6H PRN PRN Reason: agitation Last Admin: 10/26/24 03:12 Dose: 10 mg Omeprazole (Omeprazole 20 Mg Capsule.Dr) 20 mg PO DAILY@0630 [facility] Last Admin: 10/26/24 05:43 Dose: Not Given Prednisolone Acetate (Prednisolone Acetate 1 % Oph Susp 5 Ml Drpbtl) 1 drop EYE-BOTH QID [facility] Last Admin: 10/26/24 18:16 Dose: Not Given Simethicone (Simethicone 80 Mg Tab.Chew) 160 mg PO BID [facility] Last Admin: 10/26/24 10:46 Dose: Not Given Sodium Biphosphate/Sodium Phosphate (Sodium Phosphate,[place]-Dibasic 133 Ml Enema) 118 ml CO DAILY PRN PRN Reason: Constipation Sodium Chloride (0.9 % Sodium Chloride Flush 3 Ml Syringe) 3 ml IVFLUSH QSHIFT [facility] Home Medications ?Medication ?Instructions ?Recorded ?Confirmed ?Last Taken ?Type alprazolam 1 mg tablet 1 mg PO BID 10/18/24 10/18/24 10/18/24 13:46 History alprazolam 1 mg tablet 2 mg PO BEDTIME 10/18/24 10/18/24 Unknown History aluminum-mag hydroxide-simethicone 15 ml Q6H 10/18/24 10/18/24 10/18/24 13:46 History 200 mg-200 mg-20 mg/5 mL oral susp apixaban 5 mg tablet (Eliquis) 5 mg PO BID 10/18/24 10/18/24 10/18/24 09:42 History atorvastatin 80 mg tablet 80 mg PO BEDTIME 10/18/24 10/18/24 10/17/24 19:34 History bisacodyl 10 mg rectal suppository 10 mg CO DAILY PRN Constipation 10/18/24 10/18/24 Unknown History brimonidine 0.2 % eye drops 1 drp ophthalmic (eye) BID 10/18/24 10/18/24 10/18/24 12:30 History carvedilol 25 mg tablet 25 mg PO BID 10/18/24 10/18/24 10/18/24 09:41 History dapagliflozin propanediol 10 mg 10 mg PO DAILY 10/18/24 10/18/24 Unknown History tablet (Farxiga) dicyclomine 10 mg capsule 10 mg PO QID 10/18/24 10/18/24 10/18/24 13:46 History duloxetine 30 mg capsule,delayed 30 mg PO DAILY 10/18/24 10/18/24 10/18/24 09:42 History release esomeprazole magnesium 40 mg 40 mg PO DAILY 10/18/24 10/18/24 10/18/24 09:42 History capsule,delayed release gabapentin 800 mg tablet 800 mg PO TID 10/18/24 10/18/24 10/18/24 13:46 History hydralazine 10 mg tablet 10 mg PO BID 10/18/24 10/18/24 10/18/24 09:43 History latanoprost 0.005 % eye drops 1 drp ophthalmic (eye) BEDTIME 10/18/24 10/18/24 Unknown History magnesium hydroxide 400 mg/5 mL 30 ml PO DAILY PRN Constipation 10/18/24 10/18/24 Unknown History oral suspension (Milk of Magnesia) melatonin 3 mg tablet 3 mg PO BEDTIME PRN Sleep 10/18/24 10/18/24 Unknown History nicotine (polacrilex) 2 mg gum 2 mg PO Q2H PRN Smoking Cessation 10/18/24 10/18/24 Unknown History oxycodone 5 mg tablet 2.5 mg PO Q6H PRN severe pain 10/18/24 10/19/24 10/18/24 13:46 History prednisolone acetate 1 % eye 1 drp ophthalmic (eye) QID 10/18/24 10/18/24 10/18/24 12:30 History drops,suspension simethicone 180 mg capsule 180 mg PO BID 10/18/24 10/18/24 Unknown History sodium phosphates 19 gram-7 118 ml CO DAILY PRN Constipation 10/18/24 10/18/24 Unknown History gram/118 mL enema (Fleet Enema) Physical Exam 2 Vital Signs and Narrative: Vital Signs: Last Vital Signs Temp 98.7 F 10/26/24 16:12 Pulse 78 10/26/24 16:12 Resp 16 10/26/24 16:12 BP 148/119 H 10/26/24 17:38 Pulse Ox 92 10/26/24 16:12 O2 Del Method Room Air 10/26/24 16:12 O2 Flow Rate 2 10/24/24 14:00 BMI result Body Mass Index 18.6 Patient is sedated. Unable to perform a meaningful physical examination. Results Labs 10/18/24 18:06 10/26/24 08:02 Labs: Laboratory Results - last 24 hr 10/26/24 08:02 Anion Gap 20 Estim Creat Clear Calc 20.9 Estimated GFR 25 Random Glucose 79 Calcium 9.5 Total Bilirubin 1.3 H AST 79 H ALT 21 Alkaline Phosphatase 119 H Ammonia 32 Total Protein 7.5 Albumin 4.1 Assessment and Plan (1) Agitation: Status: Acute (2) Acute kidney injury superimposed on chronic kidney disease: Status: Acute Plan Mitchell Finney 64 years old man with admitted with: * Agitation, currently sedated after Ativan IV by ED. on Valium 5 mg p.o. b.i.d. (switched to IV, due to agitation patient is not tolerating p.o.). Will also switch divalproex to IV form.. Patient had received multiple doses of Haldol, benzodiazepine, olanzapine, Ativan, Seroquel, Xanax, Benadryl and divalproex. Continue to monitor for symptoms. Psychiatry consult, appreciate daily follow- ups. * Acute on chronic CKD. Likely secondary to poor p.o. intake. NS 500 mL bolus. Continue to monitor renal function. Avoid nephrotoxic agents. * Hx of CVA with residual left hemiparesis. Head CT scan - age indeterminate lacunar infarct to the thalamus acute versus chronic. Continue Eliquis and statin. * Essential hypertension. Continue hydralazine and carvedilol. * Type 2 diabetes mellitus. BG checks before meals at bedtime. Insulin sliding scale. * HFrEF, EF 35-40%/Nonischemic cardiomyopathy due to cocaine. Continue carvedilol, atorvastatin, hydralazine. * Atrial fibrillation. Continue Eliquis and carvedilol. * Depression. Continue duloxetine. * PUD. Continue PPI. * DVT. Continue Eliquis. * History of polysubstance abuse. DVT prophylaxis: On Eliquis Code status: Full Patient will need hospitalization for at least 2 midnights for agitation management, ongoing evaluation by psychiatric service and close monitoring mental status. Quality Stroke Does the patient have a stroke diagnosis?: No VTE Prior VTE?: No VTE Risk Level:: Medical - moderate - high VTE Device Contraindication: Treatment Not Indicated VTE Drug Contraindication: Treatment Not Indicated
[2024-10-26 18:36] VITALS: BP 143/113; PULSE 93; RESP 18; TEMP 36.2; O2SAT 94
--- NOTE | 2024-10-26 19:10 | PC.NURSE ---
Patient arrived to unit in hospital bed sleeping, but arousable. Vital signs obtained. Skin warm and dry. Patient medicated in ED for behavioral outbursts and aggressive behaviors prior to admission to medical floor. Dr. Miguel Clark notified of patient status. IVF infusing at ordered rate. Unable to perform full physical assessment at this time. Respirations even and unlabored. No signs or symptoms of distress present. 1:1 sitter at bedside. Report given to oncoming RN Niki Baxter
[2024-10-26 19:36] LABS: Thyroid Stimulating Hormone 0.66 uIU/mL (0.32-4.0)
[2024-10-26 20:00] VITALS: BP 120/89; PULSE 96; RESP 18; TEMP 36.1; O2SAT 95
[2024-10-26] MEDS: 0.9 % Sodium Chloride Flush 3 ML SYRINGE IVFLUSH (20:16)
[2024-10-26 21:08] LABS: Glucose, Whole Blood 96 mg/dL (60-115)
[2024-10-26] MEDS: Valproic Acid (as Sodium Salt) 250 MG in Dextrose 5 % 50 ML 52.5 MG IV (21:22)
[2024-10-27] MEDS: Lactated Ringers 1,000 ML 80 ML IVCONT (03:54)
[2024-10-27] MEDS: diazePAM 10 MG/2 ML CARTRIDGE 2.5 MG IVPUSH (03:56)
[2024-10-27] MEDS: diazePAM 10 MG/2 ML CARTRIDGE 5 MG IVPUSH (04:10)
[2024-10-27] MEDS: OLANZapine ODT 10 MG TAB.RAPDIS TRANSLINGU (04:16)
[2024-10-27] MEDS: OLANZapine 10 MG VIAL 5 MG IM (05:05)
--- NOTE | 2024-10-27 05:42 | PC.NURSE ---
Addendum entered by Niki Cordero RN 10/27/24 06:46: Pt threw himself over the bed railings onto the floor around 0625, staff able to assist him back into bed. Dr. Patterson made aware. 5 mg IM Valium given at 0635. Dr. Patterson at bedside. Addendum entered by Niki Cordero RN 10/27/24 06:10: 5 mg IM haldol given at 0600. Addendum entered by Niki Cordero RN 10/27/24 05:56: pt pulled IV out at some point, unable to get another IV d/t him being combative, Dr. Patterson aware. Original Note: pt became agitated around 0350, scheduled 2.5 mg IV valium given at 0356 with no effect. pt became more agitated and became combative with staff - kicking, hitting, punching, biting. Dr. Patterson made aware and one time dose of 5 mg IV valium given with not much pt became more agitated and prn 10 mg PO zyprexa given at 0416. pt became more agitated, 5 mg IM Zyprexa given at 0505. Pt settled down somewhat unitl 0545 when pt got up out of bed, tried to hit the DEPUTY CHIEF MAGISTRATE and the RN and then fell onto the floor, we were able to get him up with assistance and back into bed. pt refusing vitals, hitting and kicking again. Dr. Patterson made aware.
[2024-10-27] MEDS: Haloperidol Lactate 5 MG/ML VIAL IM (06:00)
[2024-10-27] MEDS: diazePAM 10 MG/2 ML CARTRIDGE 5 MG IM (06:35)
[2024-10-27 07:36] LABS: Glucose, Whole Blood 113 mg/dL (60-115)
[2024-10-27 08:00] VITALS: TEMP 37.1
[2024-10-27 09:27] VITALS: RESP 20
--- NOTE | 2024-10-27 09:41 | P.PNIM_ITS ---
Subjective Subjective Date of Service: 10/27/24 Interval History: annoyed that he is in hospital, had APPLICATION PACKAGER for vomiting/choking event, per report appeared to be swallowing without enough chewing. recovered quicklty Physical Exam 2 Vital Signs: Vital Signs: Last Vital Signs Temp 98.8 F 10/27/24 08:00 Pulse 96 10/26/24 20:00 Resp 18 10/26/24 20:00 BP 120/89 10/26/24 20:00 Pulse Ox 95 10/26/24 20:00 O2 Del Method Room Air 10/26/24 20:00 O2 Flow Rate 2 10/24/24 14:00 BMI result Body Mass Index 24.6 alert, oriented to person, place, inconsistent with time, knows year, president, various details of admission, but has pressured speech, tangential, occasionally non sensical. lungs clear, abd soft non tender, no acute distress Objective Data Active Medications Acetaminophen (Acetaminophen 325 Mg Tablet) 650 mg PO Q6H PRN PRN Reason: Pain, Mild 1-3,fever,headache Al Hydroxide/Mg Hydroxide (Magnesium Hydrox/Alum Hydrox 30 Ml Oral.Susp) 15 ml PO Q6H [facility] Last Admin: 10/27/24 06:11 Dose: Not Given Documented By: FLASH Non-Admin Reason: Patient Refused Apixaban (Apixaban 5 Mg Tablet) 5 mg PO BID [facility] Last Admin: 10/26/24 20:36 Dose: Not Given Documented By: FLASH Non-Admin Reason: pt too drowsy, unable to foow directions. Atorvastatin Calcium (Atorvastatin Calcium 80 Mg Tablet) 80 mg PO BEDTIME [facility] Last Admin: 10/26/24 20:37 Dose: Not Given Documented By: FLASH Non-Admin Reason: pt too drowsy, unable to follow directions. Bisacodyl (Bisacodyl 10 Mg Supp.Rect) 10 mg CO DAILY PRN PRN Reason: Constipation Brimonidine Tartrate (Brimonidine Tartrate 0.2% Oph 5 Ml Bottle) 1 drop EYE- BOTH BID [facility] Last Admin: 10/26/24 22:54 Dose: Not Given Documented By: FLASH Non-Admin Reason: Patient Refused Calcium Carbonate (Calcium Carbonate 750 Mg Tab.Chew) 750 mg PO Q4H PRN PRN Reason: Heartburn Carvedilol (Carvedilol 25 Mg Tablet) 25 mg PO BID [facility]; Protocol Last Admin: 10/26/24 20:37 Dose: Not Given Documented By: FLASH Non-Admin Reason: pt too drowsy, unable to follow directions. Dextrose (Dextrose 50 % 25 Gm/50 Ml Syringe) 25 gm IVPUSH Q15M PRN; Protocol PRN Reason: per Hypoglycemia Standing Ord. Diazepam (Diazepam 5 Mg Tablet) 5 mg PO TID [facility] Last Admin: 10/26/24 16:09 Dose: Not Given Documented By: MARGARET Non-Admin Reason: Previously Administered Diazepam (Diazepam 10 Mg/2 Ml Cartridge) 2.5 mg IVPUSH Q8H [facility] Last Admin: 10/27/24 03:56 Dose: 2.5 mg Documented By: FLASH Dicyclomine HCl (Dicyclomine Hcl 10 Mg Capsule) 10 mg PO QID [facility] Last Admin: 10/26/24 20:37 Dose: Not Given Documented By: FLASH Non-Admin Reason: pt too drowsy, unable to follow directions. Duloxetine HCl (Duloxetine Hcl 30 Mg Capsule.Dr) 30 mg PO DAILY [facility] Last Admin: 10/26/24 10:47 Dose: Not Given Documented By: MARGARET Non-Admin Reason: Agitation Empagliflozin (Empagliflozin 10 Mg Tablet) 10 mg PO DAILY [facility] Last Admin: 10/26/24 10:47 Dose: Not Given Documented By: MARGARET Non-Admin Reason: Agitation Gabapentin (Gabapentin 400 Mg Capsule) 800 mg PO TID [facility] Last Admin: 10/26/24 20:38 Dose: Not Given Documented By: FLASH Non-Admin Reason: pt too drowsy, unable to follow directions. Glucose (Glucose Gel 15 Gm Gel..Gram.) 15 gm PO Q15M PRN; Protocol PRN Reason: per Hypoglycemia Standing Ord. Haloperidol (Haloperidol 1 Mg Tablet) 2 mg PO TID [facility] Last Admin: 10/26/24 20:38 Dose: Not Given Documented By: FLASH Non-Admin Reason: pt too drowsy, unable to follow directions. Hydralazine HCl (Hydralazine Hcl 10 Mg Tablet) 10 mg PO BID [facility]; Protocol Last Admin: 10/26/24 20:38 Dose: Not Given Documented By: FLASH Non-Admin Reason: pt too drowsy, unable to follow directions. Lactated Ringer's (Lr) 1,000 mls @ 80 mls/hr IVCONT .[id number] [facility] Last Infusion: 10/27/24 06:23 Dose: 0 mls/hr Documented By: FLASH Valproic Acid 250 mg/ Dextrose 52.5 mls @ 52.5 mls/hr IV Q12H [facility] Last Infusion: 10/26/24 22:29 Dose: Infused Documented By: FLASH Insulin Human Lispro (Insulin Lispro 100 Unit/Ml 3 Ml Vial) 0 unit SUBCUT QIDACHS [facility]; Protocol Last Admin: 10/27/24 08:36 Dose: Not Given Documented By: CB Non-Admin Reason: No Insulin Coverage Latanoprost (Latanoprost 0.005 % Ophth Shanti 2.5 Ml Drops) 1 drop EYE-BOTH BEDTIME [facility] Last Admin: 10/26/24 22:54 Dose: Not Given Documented By: FLASH Non-Admin Reason: Patient Refused Lidocaine (Lidocaine 4 % Patch Adh..Patch) 1 patch TRANSDERMA DAILY [facility]; Protocol Last Admin: 10/26/24 10:47 Dose: Not Given Documented By: MARGARET Non-Admin Reason: Agitation Magnesium Hydroxide (Milk Of Magnesia 30 Ml Oral.Susp) 30 ml PO DAILY PRN PRN Reason: Constipation Melatonin (Melatonin 3 Mg Tablet) 3 mg PO BEDTIME PRN PRN Reason: Sleep Last Admin: 10/25/24 01:52 Dose: 3 mg Documented By: SARA Nicotine Polacrilex (Nicotine Polacrilex 2 Mg Gum) 2 mg BUCCAL Q2H PRN PRN Reason: Smoking Cessation Last Admin: 10/25/24 06:07 Dose: 2 mg Documented By: SARA Olanzapine (Olanzapine Odt 10 Mg Tab.Rapdis) 10 mg TRANSLINGU Q6H PRN PRN Reason: agitation Last Admin: 10/27/24 04:16 Dose: 10 mg Documented By: FLASH Omeprazole (Omeprazole 20 Mg Capsule.Dr) 20 mg PO DAILY@0630 [facility] Last Admin: 10/27/24 05:55 Dose: Not Given Documented By: FLASH Non-Admin Reason: Patient Refused Prednisolone Acetate (Prednisolone Acetate 1 % Oph Susp 5 Ml Drpbtl) 1 drop EYE-BOTH QID [facility] Last Admin: 10/26/24 22:55 Dose: Not Given Documented By: FLASH Non-Admin Reason: Patient Refused Simethicone (Simethicone 80 Mg Tab.Chew) 160 mg PO BID [facility] Last Admin: 10/26/24 20:39 Dose: Not Given Documented By: FLASH Non-Admin Reason: pt too drowsy, unable to follow directions. Sodium Biphosphate/Sodium Phosphate (Sodium Phosphate,[place]-Dibasic 133 Ml Enema) 118 ml CO DAILY PRN PRN Reason: Constipation Sodium Chloride (0.9 % Sodium Chloride Flush 3 Ml Syringe) 3 ml IVFLUSH QSHIFT [facility] Last Admin: 10/27/24 09:09 Dose: Not Given Documented By: CB Non-Admin Reason: No Access Labs 10/18/24 18:06 10/26/24 08:02 Labs: Laboratory Results - last 24 hr 10/26/24 10/26/24 10/27/24 08:02 20:54 07:15 POC Glucose 96 113 TSH 0.66 Assessment and Plan (1) Acute kidney injury superimposed on chronic kidney disease: Status: Acute Plan 64M PMH cva with left hemiparesis, paroxysmal AFib, GERD/peptic ulcer disease, history of DVT, chronic systolic CHF, polysubstance dependence, mood disorder, hypertension, diabetes, initially presented on 10/18/2024 to ER from [facility] for agitation. In ED patient became increasingly delirious and creatinine increased so medical admission was requested. Acute delirium Suspicion for benzodiazepine withdrawal Recommendations to avoid over-sedation, psychiatry following Depakote discontinued, continue Haldol p.r.n., diazepam Avoid Benadryl Ambulation encouraged Acute kidney injury on CKD 3 IV hydration, monitor Choking episode Resolved, likely due to impulsive eating, speech eval History of CVA Continue Eliquis and statin Hypertension Hydralazine and carvedilol Diabetes Insulin sliding scale Chronic systolic CHF with nonischemic cardiomyopathy Coreg, atorvastatin, hydralazine Paroxysmal AFib Eliquis and carvedilol Depression Duloxetine History of DVT Apixaban Full code reason for continued hospitalization:agitation Quality Stroke Does the patient have a stroke diagnosis?: No VTE Prior VTE?: No VTE Risk Level:: Medical - moderate - high VTE Device Contraindication: Treatment Not Indicated VTE Drug Contraindication: Treatment Not Indicated
[2024-10-27 09:46] VITALS: BP 144/93; PULSE 121; RESP 18; O2SAT 96
--- NOTE | 2024-10-27 10:05 | PC.NURSE ---
Addendum entered by Jose Henderson RN 10/27/24 10:11: 0946- patient allowed DEBI Ba to obtain vital signs. Dr. Mojica notified. Patient resting in bed with HOB elevated. Patient is requesting to eat. Educated on NPO status until further evaluated by speech therapy. Speech is clear. Respirations even and unlabored. Original Note: 914- SLICE CUTTING MACHINE OPERATOR called due to patient observed to be choking on breakfast and vomiting. HOB further elevated and patient repositioned. Continued actively vomiting and coughing. Dr. Mary Ann Moser, Dr. Mojica, and RT Esperanza Vaughn arrived to bedside. dental assistant Kailash Baxter setup suction. Patient with strong cough and able to clear contents and secretions. Suction not needed. Attempted to obtain vitals signs during and upon completion of event, patient refused. 1:1 sitter reports patient was taking large bites of his breakfast and not chewing thoroughly prior to event. Patient temporarily made NPO. No signs of respiratory distress upon completion of SLICE CUTTING MACHINE OPERATOR. Respirations even and unlabored. Speech clear with patient demanding staff to leave the room. Patient uncooperative and agitated throughout and upon completion of event. 1:1 sitter remains at bedside and patient's HOB elevated. Speech Therapy consult placed by Dr. Mojica.
--- NOTE | 2024-10-27 11:14 | MHC.SL.SWA ---
Speech Pathologist Impression: Risk of Aspiration, Oral Phase Dysphagia Risk of Aspiration Due to: Behavioral Challenges, Hx CVA Dysphasia Diet Status: Start on NDD3/THIN Liquid Consistency and Strategies for Safe Swallow: Liquid Intake Recommendation: Thin Solid Food Consistency: Dietary Recommendations: Chopped/Advanced (NDD3) Additional Modifications to Solid Foods: Patient presents with moderate oral phase dysphagia in setting of previous CVA w/ L-hemiparesis, GERD, and polysubstance dependence. Difficulties are characterized by weak labial seal and poor oral control with spillage on both sides of the mouth when drinking from a cup and slowed/ incomplete mastication. Most notably, patient is very impulsive with feeding and behaviorally difficult to redirect. SAMPLE DYE MIXER was called early this a.m. after patient choked/vomited on breakfast, w/ staff reporting patient was taking large bites and not adequately chewing food. On assessment today, patient was speaking with solid, unchewed food in his mouth, packing mouth, and attempting to take large quantities. Patient is at heightened risk of choking/aspiration d/t behavioral challenges. Recommend upgrade from NPO, start on CHOPPED/ADVANCED (NDD3) diet and THIN liquids, pills WHOLE in LIQUID. It is crucial patient be directly supervised at meals, manage tray as needed (i.e. only make small quantities available at a time by pouring small amount of liquid in cup, replenishing cup once patient consumed). Ensure patient is sitting upright at 90 degrees while eating, cue as needed for small bites, chew food, alternate with sips of liquid, swallow before speaking. Per RN, is more responsive and less combative with male staff. Oral Medication Intake: Whole with Liquid Please contact the pharmacy regarding appropriate crushable or liquid drug formulations that are available whenever modified delivery is recommended. Supervision While Eating and Drinking for Safe Swallow: Total Assistance (1:1) Recommendation for Speech: Inpatient Speech Therapy Comment: DIGITAL ASSOCIATE will continue to follow to monitor tolerance of PO diet and re-assess feeding needs. Frequency/Duration: M-F daily Date Range for Service Req: Timeline to reassess: Customer Solutions Supervisor Clinican/Clinical Fellow: No Supervisory Statement: I have reviewed and agree with the student/clinical fellow's documentation: N/A Speech Language Pathologist: Esther Lomax M.A., CCC-DIGITAL ASSOCIATE
[2024-10-27 11:21] LABS: Glucose, Whole Blood 130 mg/dL (60-115)
--- NOTE | 2024-10-27 11:37 | MHC.CM.PN ---
CM assessment completed via chart review and via telephone conversation w/ mother/HCP Polina [phone] and [facility] ([facility] Community CM Dang [phone]. Patient comes [facility], where he [facility] for [facility] after an admission at [facility]. Patient lives alone in an apartment provided by [facility] (hx depression/JOSETTE). 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 Hx CVA 3 years ago w/ L sided weakness. Per Dang, patient ambulates w/ walker and cane. Mostly independent w/ care. [employer] assists w/ cleaning, shopping, etc. HCP on file listing patient's mother, Polina, as HCA. PCP Tanvir Shi MD Per Polina, patient's adult son has been missing for 3 weeks, and she is wondering if behaviors may be related to this. DP: Goal is return to [facility], +bed hold, once behaviors controlled. Must be without IM's 24-48 hrs. If refuses rehab and returns home, [facility] CM will transport. CM will continue to follow.
--- NOTE | 2024-10-27 13:25 | PM.PSYCN ---
History of Present Illness Date of Service: 10/27/2024 Chief Complaint: Acute on Chronic AVIS Requesting physician: Thomas Mojica Discussed with referring provider: Yes Sources of Information: patient interviewed, chart reviewed and crisis/core team assessment reviewed HPI Narrative: Interim hx: pt sitting in bed. He asks this teletypewriter installer that he wants to drink johnathon ahmet. He also ask this teletypewriter installer about food- reports feeling very hungry. His attention is slightly improved, but still showing signs of delirium. He is not sure why he is here. He is able to tell he is in a hospital, he is not sure which one and asks if it is Wing. He does not know the day nor how long he has been here. He reports he has to make phone calls. when asked what phone calls he has to do, he states Ok, I see, you can't help me. He asked this teletypewriter installer again what the day is this teletypewriter installer oriented him to day, he asked again and then stated oh, my mind is messed up! Pt reassured he is getting better. He tells this teletypewriter installer that he knows the staff who is with him for a long time and that he thought he was trying to harm him, none of that is true. 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 He did not report hx of inpt psychiatric admission. He is currently prescribed xanax by his PCP Tanvir Shi MD. He does have services through [facility] with case manager- Estee; DARLENE Yael ([phone]). No know hx of suicide attempts. [facility] Medical History (Updated 10/26/24 @ 19:47 by Romeo Segal MD) Depression GERD (gastroesophageal reflux disease) Atrial fibrillation CVA (cerebral vascular accident) Polysubstance abuse CKD (chronic kidney disease), stage IV HFrEF (heart failure with reduced ejection fraction) Essential hypertension Type 2 diabetes mellitus Diagnostics Vital Signs (24Hr): Vital Signs - 24 hr 10/26/24 16:12 10/26/24 17:38 10/26/24 18:36 Temperature 98.7 F 97.2 F Pulse Rate 78 93 Respiratory Rate 16 18 Blood Pressure 148/119 H 143/113 H Pulse Oximetry 92 94 Oxygen Delivery Method Room Air Room Air 10/26/24 20:00 10/27/24 08:00 10/27/24 09:27 Temperature 96.9 F 98.8 F Pulse Rate 96 Respiratory Rate 18 20 Blood Pressure 120/89 Pulse Oximetry 95 Oxygen Delivery Method Room Air Room Air 10/27/24 09:46 Temperature Pulse Rate 121 H Respiratory Rate 18 Blood Pressure 144/93 H Pulse Oximetry 96 Oxygen Delivery Method Room Air BMI result Body Mass Index 24.6 Labs 10/18/24 18:06 10/26/24 08:02 Labs: Laboratory Results - last 48 hr 10/26/24 10/26/24 10/27/24 08:02 20:54 07:15 Sodium 143 Potassium 4.7 Chloride 107 Carbon Dioxide 21 L Anion Gap 20 BUN 31 H Creatinine 2.63 H Estim Creat Clear Calc 20.9 Estimated GFR 25 POC Glucose 96 113 Random Glucose 79 Calcium 9.5 Total Bilirubin 1.3 H AST 79 H ALT 21 Alkaline Phosphatase 119 H Ammonia 32 Total Protein 7.5 Albumin 4.1 TSH 0.66 10/27/24 11:07 Sodium Potassium Chloride Carbon Dioxide Anion Gap BUN Creatinine Estim Creat Clear Calc Estimated GFR POC Glucose 130 H Random Glucose Calcium Total Bilirubin AST ALT Alkaline Phosphatase Ammonia Total Protein Albumin TSH Imaging Radiology Impressions: ITS Impressions Head CT 10/24/24 12:47 IMPRESSION: Focal hypoattenuation in the left thalamus is consistent with an age indeterminate lacunar infarct, acute versus chronic. There is evidence of chronic encephalomalacia the posterior left frontal lobe and a focal right thalamic fluid attenuation, that have developed since the prior study 9 years ago. Electronically signed by: Forrest Hauser MD 10/24/2024 02:15 PM EDT RP Mental Status Exam Mental Status Exam Narrative: Appearance: wearing hospital gown, sitting in bed, in NAD Behavior: guarded but more cooperative Psychomotor: less agitation Speech: mumbles at times, hyperverbal, loud at times, spontaneous TP: disorganized TC: feeling hungry Mood: hungry Affect: smiles at times, some irritability and suspiciousness SI: none HI: none VH/AH: less reports of seeing someone who is not there Delusions: some residual suspiciousness. Insight/judgment: impaired x 2. memory/cog: alert, not oriented to month, day/date, or situation. does know on and off that he is in the hospital but doesn't know which one or why. continues to present with poor attention. Medications Medications Current Medications Acetaminophen (Acetaminophen 325 Mg Tablet) 650 mg PO Q6H PRN PRN Reason: Pain, Mild 1-3,fever,headache Al Hydroxide/Mg Hydroxide (Magnesium Hydrox/Alum Hydrox 30 Ml Oral.Susp) 15 ml PO Q6H [facility] Last Admin: 10/27/24 06:11 Dose: Not Given Apixaban (Apixaban 5 Mg Tablet) 5 mg PO BID [facility] Last Admin: 10/27/24 12:08 Dose: Not Given Atorvastatin Calcium (Atorvastatin Calcium 80 Mg Tablet) 80 mg PO BEDTIME [facility] Last Admin: 10/26/24 20:37 Dose: Not Given Bisacodyl (Bisacodyl 10 Mg Supp.Rect) 10 mg WV DAILY PRN PRN Reason: Constipation Brimonidine Tartrate (Brimonidine Tartrate 0.2% Oph 5 Ml Bottle) 1 drop EYE-BOTH BID [facility] Last Admin: 10/27/24 12:09 Dose: Not Given Calcium Carbonate (Calcium Carbonate 750 Mg Tab.Chew) 750 mg PO Q4H PRN PRN Reason: Heartburn Carvedilol (Carvedilol 25 Mg Tablet) 25 mg PO BID [facility]; Protocol Last Admin: 10/27/24 12:09 Dose: Not Given Dextrose (Dextrose 50 % 25 Gm/50 Ml Syringe) 25 gm IVPUSH Q15M PRN; Protocol PRN Reason: per Hypoglycemia Standing Ord. Diazepam (Diazepam 5 Mg Tablet) 5 mg PO TID [facility] Last Admin: 10/26/24 16:09 Dose: Not Given Diazepam (Diazepam 10 Mg/2 Ml Cartridge) 2.5 mg IVPUSH Q8H [facility] Last Admin: 10/27/24 12:10 Dose: Not Given Dicyclomine HCl (Dicyclomine Hcl 10 Mg Capsule) 10 mg PO QID [facility] Last Admin: 10/27/24 12:09 Dose: Not Given Duloxetine HCl (Duloxetine Hcl 30 Mg Capsule.Dr) 30 mg PO DAILY [facility] Last Admin: 10/27/24 12:09 Dose: Not Given Empagliflozin (Empagliflozin 10 Mg Tablet) 10 mg PO DAILY [facility] Last Admin: 10/27/24 12:09 Dose: Not Given Gabapentin (Gabapentin 400 Mg Capsule) 800 mg PO TID [facility] Last Admin: 10/27/24 12:09 Dose: Not Given Glucose (Glucose Gel 15 Gm Gel..Gram.) 15 gm PO Q15M PRN; Protocol PRN Reason: per Hypoglycemia Standing Ord. Haloperidol (Haloperidol 1 Mg Tablet) 2 mg PO TID [facility] Last Admin: 10/27/24 12:09 Dose: Not Given Hydralazine HCl (Hydralazine Hcl 10 Mg Tablet) 10 mg PO BID [facility]; Protocol Last Admin: 10/27/24 12:09 Dose: Not Given Lactated Ringer's (Lr) 1,000 mls @ 80 mls/hr IVCONT .[id number] [facility] Last Infusion: 10/27/24 06:23 Dose: 0 mls/hr Valproic Acid 250 mg/ Dextrose 52.5 mls @ 52.5 mls/hr IV Q12H [facility] Last Admin: 10/27/24 11:39 Dose: Not Given Insulin Human Lispro (Insulin Lispro 100 Unit/Ml 3 Ml Vial) 0 unit SUBCUT QIDACHS [facility]; Protocol Last Admin: 10/27/24 08:36 Dose: Not Given Latanoprost (Latanoprost 0.005 % Ophth Shanti 2.5 Ml Drops) 1 drop EYE-BOTH BEDTIME [facility] Last Admin: 10/26/24 22:54 Dose: Not Given Lidocaine (Lidocaine 4 % Patch Adh..Patch) 1 patch TRANSDERMA DAILY [facility]; Protocol Last Admin: 10/27/24 12:09 Dose: Not Given Magnesium Hydroxide (Milk Of Magnesia 30 Ml Oral.Susp) 30 ml PO DAILY PRN PRN Reason: Constipation Melatonin (Melatonin 3 Mg Tablet) 3 mg PO BEDTIME PRN PRN Reason: Sleep Last Admin: 10/25/24 01:52 Dose: 3 mg Nicotine Polacrilex (Nicotine Polacrilex 2 Mg Gum) 2 mg BUCCAL Q2H PRN PRN Reason: Smoking Cessation Last Admin: 10/25/24 06:07 Dose: 2 mg Olanzapine (Olanzapine Odt 10 Mg Tab.Rapdis) 10 mg TRANSLINGU Q6H PRN PRN Reason: agitation Last Admin: 10/27/24 04:16 Dose: 10 mg Omeprazole (Omeprazole 20 Mg Capsule.Dr) 20 mg PO DAILY@0630 [facility] Last Admin: 10/27/24 05:55 Dose: Not Given Prednisolone Acetate (Prednisolone Acetate 1 % Oph Susp 5 Ml Drpbtl) 1 drop EYE-BOTH QID [facility] Last Admin: 10/27/24 12:10 Dose: Not Given Simethicone (Simethicone 80 Mg Tab.Chew) 160 mg PO BID [facility] Last Admin: 10/27/24 12:10 Dose: Not Given Sodium Biphosphate/Sodium Phosphate (Sodium Phosphate,[place]-Dibasic 133 Ml Enema) 118 ml WV DAILY PRN PRN Reason: Constipation Sodium Chloride (0.9 % Sodium Chloride Flush 3 Ml Syringe) 3 ml IVFLUSH QSHIFT [facility] Last Admin: 10/27/24 09:09 Dose: Not Given Allergies Allergies Allergy/AdvReac Type Severity Reaction Status Date / Time acetaminophen [From TYLENOL] Allergy Unknown CAN'T TAKE Verified 10/18/24 16:35 PER PT aspirin [ASPIRIN] Allergy Unknown BLEEDING Verified 10/18/24 16:35 calcium carbonate Allergy Unknown Unknown Verified 10/18/24 17:37 fish derived [fish] Allergy Unknown Unknown Verified 10/18/24 17:37 NSAIDS (Non-Steroidal AdvReac Severe STOMACH Verified 10/18/24 16:35 Anti-Inflamma UPSET [NSAIDS (NON-STEROIDAL ANTI-INFLAMMA] Assessment & Plan Assessment & Plan (1) Delirium due to another medical condition, acute, hyperactive: Status: Acute Code(s): F05 - Delirium due to known physiological condition (2) Cognitive impairment: Status: Acute Code(s): R41.89 - Other symptoms and signs involving cognitive functions and awareness (3) Mood disorder: Status: Acute Code(s): F39 - Unspecified mood [affective] disorder Plan Mr. Finney is a 64 year-old male with hx of CVA w/left hemiparesis, who was sent from [facility] to [facility] ED due to increase combative behaviors, attempting to leave the facility demanding to let him smoke. In the ED, pt presents with memory/cognitive issues, including not oriented to situation nor able to tell events leading to this ED admission. He does not remember where he came from. He does appear with impulsive and poor boundaries with female staff. He does not present as delirium. He does not appear with s/s of psychosis or overt delusional content. He does seem to confabulate at times. Collateral information from mother who reports he stopped using substance for the past 3 years after CVA. She does not see him regularly and can't tell if he has underlying memory/cognitive impairments.Called A worker Yael but unable to reach her for additional information. Per mother no prior psych hx but extensive substance use. PLAN 10/23 pt combative towards staff attempting to ambulate without awareness of unsteady gait and risk of fall. start depakote 250mg po BID- for impulsive/explosive behaviors and poor boundaries with females- check level and ammonia within a week. schedule seroquel 50mg po TID for mood stabilization- irritability/impulsive behaviors. monitor over sedation, monitor EKG, maintain K>4, Mg>2, Qtc<500ms. 10/24 pt more combative this morning, given IM haldol, benadryl. He has been asleep since 9:40am (seen later in afternoon). per staff olanzapine seemed more effective than seroquel, will d/c seroquel and schedule olanzapine 5mg po TID. continue depakote. AVOID OVER SEDATION- it will increase risk of delirium, decrease oral intake, dehydration, AVIS. 10/25 overly medicated, NOW delirious. Has been confined to bed, minimal ambulation while in the ED. poor oral intake. decompensating. Delirium Protocol: promote daily ambulation, maintain proper hydration and oral intake 10/26 pt presents as delirious. Note that pt has had rx for xanax 2mg PO BID for years. It appears it felt off the JUL. Noted tachycardia. I would recommend to switch to diazepam 5mg po TID and monitor s/s of benzo withdrawal. pt with limited oral intake, elevation in BUN, Cr. HYDRATION IS PARAMOUNT. AVOID OVER SEDATION- IF NEED IM medication for agitation, can do haldol 5mg IM q6h prn, diazepam 5mg IM BUT DO NOT ADD BENADRYL. d/c olanzapine scheduled. Start low dose of haldol (this is for perceptual disturbances related to DELIRIUM) 2mg TID. I do not expect pt to be on this medication half-way. Monitor EPS/ dystonic reactions, monitor EKG, maintain Qtc <500ms, K>4, Mg >2. hold DOSE if over sedation noted D/C depakote for now. ambulate patient as possible twice or more daily---> this intervention will go a VERY LONG WAY IN HELPING WITH RESOLUTION OF DELIRIUM. 10/27 attention slightly improved. still presenting with s/s of delirium. Pending CBC, CMP- monitor renal function, liver function (given poor oral intake) Continue haldol 2mg po TID. Monnitor EKG, Qtc<500ms, K>4, Mg>2. MOnitor s/s of dystonia or EPS. diazepam 2mg po TID- used to be on xanax scheduled, abrupt discontinuation will lead to benzo withdrawal. can re try depakote 250mg po BID- sprinkle can be mixed with apple sauce. monitor BIlirubin, LFT, ammonia levels. Adequate nutrition and hydration ambulation with assistance as he is not steady on his feet. avoid benadryl for sedation Total time managing care of this patient today __45__ minutes.
[2024-10-27] MEDS: Gabapentin 400 MG CAPSULE 800 MG PO (15:14)
[2024-10-27] MEDS: diazePAM 5 MG TABLET PO (15:14)
[2024-10-27 16:00] VITALS: BP 148/102; PULSE 113; RESP 18; TEMP 36.6; O2SAT 100
[2024-10-27 16:55] LABS: Glucose, Whole Blood 172 mg/dL (60-115)
--- NOTE | 2024-10-27 17:22 | PC.NURSE ---
Pt throwing feces after BM. Security called.
--- NOTE | 2024-10-27 19:12 | PC.NURSE ---
1715- patient incontinent of large bowel movement. CNAs and 1:1 at bedside notified this RN that patient was covering self in feces and threatening to throw feces at staff. Security called and arrived to bedside. Staff applied PPE and cleaned patient. Patient agitated during care. Initially resistive to care, but allowed staff to clean him up. Dr. Mojica notified. Patient resting comfortably in bed after care.
[2024-10-27 20:00] VITALS: BP 138/87; PULSE 95; RESP 18; TEMP 36.6; O2SAT 98
[2024-10-27 20:12] LABS: Glucose, Whole Blood 146 mg/dL (60-115)
--- NOTE | 2024-10-27 20:35 | MHC.PIE ---
p; pt refused any care or meds once again tonight i; dr winchester notified e; will cont to monitor
[2024-10-28 03:05] VITALS: RESP 16
[2024-10-28] MEDS: Omeprazole 20 MG CAPSULE.DR PO (05:47)
[2024-10-28 06:19] LABS: Hematocrit 54.2 % (42.0-52.0); Hemoglobin 18.2 g/dl (14.0-18.0); Mean Corpuscular HGB Conc 33.6 g/dl (31.0-36.0); Mean Corpuscular Hemoglobin 30.6 pg (27.0-33.0); Mean Corpuscular Volume 91.2 fL (80.0-98.0); Mean Platelet Volume 11.3 fL (9.4-12.4); Platelet Count 154 X10*3/uL (160-400); Red Blood Count 5.94 X10*6/uL (4.60-5.80); Red Cell Distribution Width 15.4 % (11.0-16.0)
[2024-10-28 06:39] LABS: Albumin Level 4.2 g/dL (3.5-5.0); Alkaline Phosphatase 135 U/L (39-117); Anion Gap 14 (12-20); Aspartate Amino Transferase 69 U/L (5-37); Bilirubin Direct 0.5 mg/dL (0.0-0.5); Bilirubin Total 1.2 mg/dL (0.0-1.0); Blood Urea Nitrogen 23 mg/dL (9-16); Calcium 9.6 mg/dL (8.4-10.2); Carbon Dioxide 26 mmol/L (22-29); Chloride 106 mmol/L (96-108); Creatinine Clr Calc Pharmacy 33.3; Estimated Glomerular Filt Rate 33; Glucose Random 89 mg/dL (60-115); Magnesium 2.2 mg/dL (1.6-2.6); Potassium 4.1 mmol/L (3.3-5.1); Sodium 142 mmol/L (135-145); Total Protein 7.8 g/dL (6.5-8.0)
[2024-10-28 06:41] LABS: Alanine Aminotransferase 32 U/L (0-40); Albumin Level 4.1 g/dL (3.5-5.0); Alkaline Phosphatase 123 U/L (39-117); Anion Gap 15 (12-20); Aspartate Amino Transferase 69 U/L (5-37); Bilirubin Total 1.2 mg/dL (0.0-1.0); Blood Urea Nitrogen 23 mg/dL (9-16); Calcium 9.7 mg/dL (8.4-10.2); Carbon Dioxide 25 mmol/L (22-29); Chloride 106 mmol/L (96-108); Creatinine Clr Calc Pharmacy 32.8; Estimated Glomerular Filt Rate 33; Glucose Random 89 mg/dL (60-115); Magnesium 2.3 mg/dL (1.6-2.6); Potassium 4.2 mmol/L (3.3-5.1); Sodium 142 mmol/L (135-145); Total Protein 7.8 g/dL (6.5-8.0)
[2024-10-28 06:50] LABS: Alanine Aminotransferase 34 U/L (0-40)
[2024-10-28 07:12] LABS: Folate 5.1 ng/mL (> or = 4.0); Vitamin B12 742 pg/mL (200-900)
[2024-10-28 07:27] LABS: Glucose, Whole Blood 119 mg/dL (60-115)
--- NOTE | 2024-10-28 08:18 | P.CNPS_ITS ---
History of Present Illness Date of Service: [id number] Chief Complaint: Acute on Chronic AVIS Reason for Consult: follow up on delerium- Discussed with referring provider: No Sources of Information: patient interviewed and chart reviewed HPI Narrative: Patient reports feeling much more himself - went on to tell long story of having been sober since stroke but recent conflicts with 45 yo son- who came to stay and patient had to throw out immediately- and then phone call with son's mother- threw him into mental breakdown denied si but did relapse ? with cocaine- Reports it is October and he is at [facility], and is in having medical issues- but can't specify beyond s/p cva, chf.. 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 He did not report hx of inpt psychiatric admission. He is currently prescribed xanax by his PCP Tanvir Shi MD. He does have services through [facility] with machine adjuster leader case trim- Est[place]; DARLENE Yael ([phone]). No know hx of suicide attempts. 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- denies current PI around cadd manager feels it was the situation he was in Review of Systems Psychiatric: Reports anxiety (stress) and Reports paranoia (feels it is resolved) Comments: denies si/hi [facility] Medical History (Updated 10/28/24 @ 14:03 by Jc Govea DO) Depression GERD (gastroesophageal reflux disease) Atrial fibrillation CVA (cerebral vascular accident) Polysubstance abuse CKD (chronic kidney disease), stage IV HFrEF (heart failure with reduced ejection fraction) Essential hypertension Type 2 diabetes mellitus Family History: son with substance? mental health issues Social History: hx of substance used never found AA helpful due to those who attended ; he found praying and going to latter day helpful-= sober since cva - Substance History: hx alcohol, hx of cocaine Trauma History: not reviewed this visit Diagnostics Vital Signs (24Hr): Vital Signs - 24 hr 10/27/24 09:27 10/27/24 09:46 10/27/24 16:00 Temperature 97.9 F Pulse Rate 121 H 113 H Respiratory Rate 20 18 18 Blood Pressure 144/93 H 148/102 H Pulse Oximetry 96 100 Oxygen Delivery Method Room Air Room Air Room Air 10/27/24 20:00 10/28/24 03:05 Temperature 97.8 F Pulse Rate 95 Respiratory Rate 18 16 Blood Pressure 138/87 Pulse Oximetry 98 Oxygen Delivery Method Room Air BMI result Body Mass Index 24.6 Labs 10/28/24 05:56 10/28/24 05:56 Labs: Laboratory Results - last 48 hr 10/26/24 10/26/24 10/27/24 08:02 20:54 07:15 WBC RBC Hgb Hct MCV MCH MCHC RDW Plt Count MPV Absolute Nucleated RBC Nucleated RBC % (auto) Sodium 143 Potassium 4.7 Chloride 107 Carbon Dioxide 21 L Anion Gap 20 BUN 31 H Creatinine 2.63 H Estim Creat Clear Calc 20.9 Estimated GFR 25 POC Glucose 96 113 Random Glucose 79 Calcium 9.5 Magnesium Total Bilirubin 1.3 H Direct Bilirubin AST 79 H ALT 21 Alkaline Phosphatase 119 H Total Protein 7.5 Albumin 4.1 Vitamin B12 Folate TSH 0.66 10/27/24 10/27/24 10/27/24 11:07 16:51 19:59 WBC RBC Hgb Hct MCV MCH MCHC RDW Plt Count MPV Absolute Nucleated RBC Nucleated RBC % (auto) Sodium Potassium Chloride Carbon Dioxide Anion Gap BUN Creatinine Estim Creat Clear Calc Estimated GFR POC Glucose 130 H 172 H 146 H Random Glucose Calcium Magnesium Total Bilirubin Direct Bilirubin AST ALT Alkaline Phosphatase Total Protein Albumin Vitamin B12 Folate TSH 10/28/24 10/28/24 10/28/24 05:56 05:56 05:56 WBC 6.0 RBC 5.94 H D Hgb 18.2 H D Hct 54.2 H D MCV 91.2 MCH 30.6 MCHC 33.6 RDW 15.4 Plt Count 154 L D MPV 11.3 Absolute Nucleated RBC 0.000 Nucleated RBC % (auto) 0.0 Sodium 142 142 Potassium 4.2 4.1 Chloride 106 Carbon Dioxide Anion Gap BUN Creatinine Estim Creat Clear Calc Estimated GFR POC Glucose Random Glucose Calcium Magnesium Total Bilirubin Direct Bilirubin AST ALT Alkaline Phosphatase Total Protein Albumin Vitamin B12 Folate TSH 10/28/24 10/28/24 10/28/24 05:56 05:56 05:56 WBC RBC Hgb Hct MCV MCH MCHC RDW Plt Count MPV Absolute Nucleated RBC Nucleated RBC % (auto) Sodium Potassium Chloride 106 Carbon Dioxide 25 26 Anion Gap 15 14 BUN 23 H Creatinine Estim Creat Clear Calc Estimated GFR POC Glucose Random Glucose Calcium Magnesium Total Bilirubin Direct Bilirubin AST ALT Alkaline Phosphatase Total Protein Albumin Vitamin B12 Folate [facility] 10/28/24 10/28/24 10/28/24 05:56 05:56 05:56 WBC RBC Hgb Hct MCV MCH MCHC RDW Plt Count MPV Absolute Nucleated RBC Nucleated RBC % (auto) Sodium Potassium Chloride Carbon Dioxide Anion Gap BUN 23 H Creatinine 2.05 H 2.02 H Estim Creat Clear Calc 32.8 33.3 Estimated GFR 33 POC Glucose Random Glucose Calcium Magnesium Total Bilirubin Direct Bilirubin AST ALT Alkaline Phosphatase Total Protein Albumin Vitamin B12 Folate [facility] 10/28/24 10/28/24 10/28/24 05:56 05:56 05:56 WBC RBC Hgb Hct MCV MCH MCHC RDW Plt Count MPV Absolute Nucleated RBC Nucleated RBC % (auto) Sodium Potassium Chloride Carbon Dioxide Anion Gap BUN Creatinine Estim Creat Clear Calc Estimated GFR 33 POC Glucose Random Glucose 89 89 Calcium 9.7 9.6 Magnesium 2.3 Total Bilirubin Direct Bilirubin AST ALT Alkaline Phosphatase Total Protein Albumin Vitamin B12 Folate [facility] 10/28/24 10/28/24 10/28/24 05:56 05:56 05:56 WBC RBC Hgb Hct MCV MCH MCHC RDW Plt Count MPV Absolute Nucleated RBC Nucleated RBC % (auto) Sodium Potassium Chloride Carbon Dioxide Anion Gap BUN Creatinine Estim Creat Clear Calc Estimated GFR POC Glucose Random Glucose Calcium Magnesium 2.2 Total Bilirubin 1.2 H 1.2 H Direct Bilirubin 0.5 AST 69 H 69 H ALT 32 Alkaline Phosphatase Total Protein Albumin Vitamin B12 Folate [facility] 10/28/24 10/28/24 10/28/24 05:56 05:56 05:56 WBC RBC Hgb Hct MCV MCH MCHC RDW Plt Count MPV Absolute Nucleated RBC Nucleated RBC % (auto) Sodium Potassium Chloride Carbon Dioxide Anion Gap BUN Creatinine Estim Creat Clear Calc Estimated GFR POC Glucose Random Glucose Calcium Magnesium Total Bilirubin Direct Bilirubin AST ALT 34 Alkaline Phosphatase 123 H 135 H Total Protein 7.8 7.8 Albumin 4.1 Vitamin B12 Folate [facility] 10/28/24 10/28/24 05:56 07:22 WBC RBC Hgb Hct MCV MCH MCHC RDW Plt Count MPV Absolute Nucleated RBC Nucleated RBC % (auto) Sodium Potassium Chloride Carbon Dioxide Anion Gap BUN Creatinine Estim Creat Clear Calc Estimated GFR POC Glucose 119 H Random Glucose Calcium Magnesium Total Bilirubin Direct Bilirubin AST ALT Alkaline Phosphatase Total Protein Albumin 4.2 Vitamin B12 742 Folate 5.1 TSH Imaging Radiology Impressions: ITS Impressions Head CT 10/24/24 12:47 IMPRESSION: Focal hypoattenuation in the left thalamus is consistent with an age indeterminate lacunar infarct, acute versus chronic. There is evidence of chronic encephalomalacia the posterior left frontal lobe and a focal right thalamic fluid attenuation, that have developed since the prior study 9 years ago. Electronically signed by: Forrest Hauser MD 10/24/2024 02:15 PM EDT RP Mental Status Exam Mental Status Exam Narrative: Older than state age looking male in bed- dressed in Nathan, cooperative engaging, with provider and with 1:1- Talkative and gesturing- seems appropriate- non combatiave at moment Judgement and Insight: fair Medications Medications Current Medications Acetaminophen (Acetaminophen 325 Mg Tablet) 650 mg PO Q6H PRN PRN Reason: Pain, Mild 1-3,fever,headache Al Hydroxide/Mg Hydroxide (Magnesium Hydrox/Alum Hydrox 30 Ml Oral.Susp) 15 ml PO Q6H [facility] Last Admin: 10/27/24 23:09 Dose: Not Given Apixaban (Apixaban 5 Mg Tablet) 5 mg PO BID [facility] Last Admin: 10/27/24 20:32 Dose: Not Given Atorvastatin Calcium (Atorvastatin Calcium 80 Mg Tablet) 80 mg PO BEDTIME [facility] Last Admin: 10/27/24 20:32 Dose: Not Given Bisacodyl (Bisacodyl 10 Mg Supp.Rect) 10 mg OH DAILY PRN PRN Reason: Constipation Brimonidine Tartrate (Brimonidine Tartrate 0.2% Oph 5 Ml Bottle) 1 drop EYE- BOTH BID [facility] Last Admin: 10/27/24 20:32 Dose: Not Given Calcium Carbonate (Calcium Carbonate 750 Mg Tab.Chew) 750 mg PO Q4H PRN PRN Reason: Heartburn Carvedilol (Carvedilol 25 Mg Tablet) 25 mg PO BID [facility]; Protocol Last Admin: 10/27/24 20:32 Dose: Not Given Dextrose (Dextrose 50 % 25 Gm/50 Ml Syringe) 25 gm IVPUSH Q15M PRN; Protocol PRN Reason: per Hypoglycemia Standing Ord. Diazepam (Diazepam 5 Mg Tablet) 5 mg PO TID [facility] Last Admin: 10/27/24 20:32 Dose: Not Given Dicyclomine HCl (Dicyclomine Hcl 10 Mg Capsule) 10 mg PO QID [facility] Last Admin: 10/27/24 20:33 Dose: Not Given Divalproex Sodium (Divalproex Sodium Sprinkles 125 Mg Cap.) 250 mg PO BID [facility] Last Admin: 10/27/24 20:33 Dose: Not Given Duloxetine HCl (Duloxetine Hcl 30 Mg Capsule.Dr) 30 mg PO DAILY [facility] Last Admin: 10/27/24 12:09 Dose: Not Given Empagliflozin (Empagliflozin 10 Mg Tablet) 10 mg PO DAILY [facility] Last Admin: 10/27/24 12:09 Dose: Not Given Gabapentin (Gabapentin 400 Mg Capsule) 800 mg PO TID [facility] Last Admin: 10/27/24 20:33 Dose: Not Given Glucose (Glucose Gel 15 Gm Gel..Gram.) 15 gm PO Q15M PRN; Protocol PRN Reason: per Hypoglycemia Standing Ord. Haloperidol (Haloperidol 1 Mg Tablet) 2 mg PO TID [facility] Last Admin: 10/27/24 20:33 Dose: Not Given Hydralazine HCl (Hydralazine Hcl 10 Mg Tablet) 10 mg PO BID [facility]; Protocol Last Admin: 10/27/24 20:33 Dose: Not Given Lactated Ringer's (Lr) 1,000 mls @ 80 mls/hr IVCONT .[id number] [facility] Last Infusion: 10/27/24 23:10 Dose: Infused Insulin Human Lispro (Insulin Lispro 100 Unit/Ml 3 Ml Vial) 0 unit SUBCUT QIDACHS [facility]; Protocol Last Admin: 10/27/24 20:15 Dose: Not Given Latanoprost (Latanoprost 0.005 % Ophth Shanti 2.5 Ml Drops) 1 drop EYE-BOTH BEDTIME [facility] Last Admin: 10/27/24 20:33 Dose: Not Given Lidocaine (Lidocaine 4 % Patch Adh..Patch) 1 patch TRANSDERMA DAILY [facility]; Protocol Last Admin: 10/27/24 12:09 Dose: Not Given Magnesium Hydroxide (Milk Of Magnesia 30 Ml Oral.Susp) 30 ml PO DAILY PRN PRN Reason: Constipation Melatonin (Melatonin 3 Mg Tablet) 3 mg PO BEDTIME PRN PRN Reason: Sleep Last Admin: 10/25/24 01:52 Dose: 3 mg Nicotine Polacrilex (Nicotine Polacrilex 2 Mg Gum) 2 mg BUCCAL Q2H PRN PRN Reason: Smoking Cessation Last Admin: 10/25/24 06:07 Dose: 2 mg Olanzapine (Olanzapine Odt 10 Mg Tab.Rapdis) 10 mg TRANSLINGU Q6H PRN PRN Reason: agitation Last Admin: 10/27/24 04:16 Dose: 10 mg Omeprazole (Omeprazole 20 Mg Capsule.Dr) 20 mg PO DAILY@0630 [facility] Last Admin: 10/28/24 05:47 Dose: 20 mg Prednisolone Acetate (Prednisolone Acetate 1 % Oph Susp 5 Ml Drpbtl) 1 drop EYE-BOTH QID [facility] Last Admin: 10/27/24 20:33 Dose: Not Given Simethicone (Simethicone 80 Mg Tab.Chew) 160 mg PO BID [facility] Last Admin: 10/27/24 20:33 Dose: Not Given Sodium Biphosphate/Sodium Phosphate (Sodium Phosphate,[place]-Dibasic 133 Ml Enema) 118 ml OH DAILY PRN PRN Reason: Constipation Sodium Chloride (0.9 % Sodium Chloride Flush 3 Ml Syringe) 3 ml IVFLUSH QSHIFT [facility] Last Admin: 10/27/24 20:34 Dose: Not Given Allergies Allergies Allergy/AdvReac Type Severity Reaction Status Date / Time acetaminophen [From TYLENOL] Allergy Unknown CAN'T TAKE Verified 10/18/24 16:35 PER PT aspirin [ASPIRIN] Allergy Unknown BLEEDING Verified 10/18/24 16:35 calcium carbonate Allergy Unknown Unknown Verified 10/18/24 17:37 fish derived [fish] Allergy Unknown Unknown Verified 10/18/24 17:37 NSAIDS (Non-Steroidal AdvReac Severe STOMACH Verified 10/18/24 16:35 Anti-Inflamma UPSET [NSAIDS (NON-STEROIDAL ANTI-INFLAMMA] Assessment & Plan Assessment & Plan (1) Acute kidney injury superimposed on chronic kidney disease: Status: Acute Code(s): N17.9 - Acute kidney failure, unspecified; N18.9 - Chronic kidney disease, unspecified Assessment and Plan: 3+ protein in urine (2) Cognitive impairment: Status: Acute Code(s): R41.89 - Other symptoms and signs involving cognitive functions and awareness Assessment and Plan: hx cva- (3) Delirium due to another medical condition, acute, hyperactive: Status: Acute Code(s): F05 - Delirium due to known physiological condition Assessment and Plan: seems to be resolving- on depakote low dose, haldol low dose and diazepam low dose continuing to follow with you Plan no acute change , keep 1:1 keep current meds will follow Total time managing care of this patient today ____ minutes. Patient educated on: medical condition Informed Consent: further education needed
[2024-10-28 09:49] VITALS: BP 160/122; PULSE 95; RESP 20; TEMP 37; O2SAT 95
[2024-10-28] MEDS: HaloperidoL 1 MG TABLET 2 MG PO ×3 (10:01→19:55)
[2024-10-28] MEDS: Apixaban 5 MG TABLET PO ×2 (10:02→19:55)
[2024-10-28] MEDS: carvediloL 25 MG TABLET PO ×2 (10:02→19:56)
[2024-10-28] MEDS: Dicyclomine HCl 10 MG CAPSULE PO ×4 (10:02→19:56)
[2024-10-28] MEDS: diazePAM 5 MG TABLET PO ×3 (10:02→19:55)
[2024-10-28] MEDS: Gabapentin 400 MG CAPSULE 800 MG PO ×3 (10:02→19:55)
[2024-10-28] MEDS: hydrALAZINE HCl 10 MG TABLET PO ×2 (10:02→19:56)
[2024-10-28 11:28] LABS: Glucose, Whole Blood 165 mg/dL (60-115)
[2024-10-28 12:40] VITALS: PULSE 95; O2SAT 95
--- NOTE | 2024-10-28 13:50 | HO.PM.IMPN ---
Subjective Subjective Date of Service: 10/28/24 Interval History: No acute issues overnight. No IM given Review of Systems Denies chest pain Denies shortness of breath Denies nausea vomiting diarrhea Denies fever and chills Physical Exam Vital Signs: Vital Signs: Last Vital Signs Temp 98.6 F 10/28/24 09:49 Pulse 95 10/28/24 12:40 Resp 20 10/28/24 09:49 BP 160/122 H 10/28/24 09:49 Pulse Ox 95 10/28/24 12:40 O2 Del Method Room Air 10/28/24 09:49 O2 Flow Rate 2 10/24/24 14:00 BMI result Body Mass Index 24.6 Const: Other: Awake alert no acute distress Resp: Other: Clear to auscultation bilaterally no rales rhonchi or wheezes Cardio: Other: No S4; positive S1-S2; no S3 murmurs rubs or gallops GI: Other: Soft nontender nondistended normoactive bowel sounds Extrem: Other: No edema bilaterally Objective Data Active Medications Acetaminophen (Acetaminophen 325 Mg Tablet) 650 mg PO Q6H PRN PRN Reason: Pain, Mild 1-3,fever,headache Al Hydroxide/Mg Hydroxide (Magnesium Hydrox/Alum Hydrox 30 Ml Oral.Susp) 15 ml PO Q6H [facility] Last Admin: 10/28/24 10:13 Dose: Not Given Documented By: CUBA Non-Admin Reason: Patient Refused Apixaban (Apixaban 5 Mg Tablet) 5 mg PO BID [facility] Last Admin: 10/28/24 10:02 Dose: 5 mg Documented By: CUBA Atorvastatin Calcium (Atorvastatin Calcium 80 Mg Tablet) 80 mg PO BEDTIME [facility] Last Admin: 10/27/24 20:32 Dose: Not Given Documented By: PASHA Non-Admin Reason: Patient Refused Bisacodyl (Bisacodyl 10 Mg Supp.Rect) 10 mg NM DAILY PRN PRN Reason: Constipation Brimonidine Tartrate (Brimonidine Tartrate 0.2% Oph 5 Ml Bottle) 1 drop EYE-BOTH BID [facility] Last Admin: 10/28/24 10:14 Dose: Not Given Documented By: CUBA Non-Admin Reason: Patient Refused Calcium Carbonate (Calcium Carbonate 750 Mg Tab.Chew) 750 mg PO Q4H PRN PRN Reason: Heartburn Carvedilol (Carvedilol 25 Mg Tablet) 25 mg PO BID [facility]; Protocol Last Admin: 10/28/24 10:02 Dose: 25 mg Documented By: CUBA Dextrose (Dextrose 50 % 25 Gm/50 Ml Syringe) 25 gm IVPUSH Q15M PRN; Protocol PRN Reason: per Hypoglycemia Standing Ord. Diazepam (Diazepam 5 Mg Tablet) 5 mg PO TID [facility] Last Admin: 10/28/24 10:02 Dose: 5 mg Documented By: CUBA Dicyclomine HCl (Dicyclomine Hcl 10 Mg Capsule) 10 mg PO QID [facility] Last Admin: 10/28/24 10:02 Dose: 10 mg Documented By: CUBA Divalproex Sodium (Divalproex Sodium Sprinkles 125 Mg Cap.Spr) 250 mg PO BID [facility] Last Admin: 10/28/24 10:10 Dose: Not Given Documented By: CUBA Non-Admin Reason: Patient Refused Duloxetine HCl (Duloxetine Hcl 30 Mg Tez.) 30 mg PO DAILY [facility] Last Admin: 10/28/24 10:09 Dose: Not Given Documented By: CUBA Non-Admin Reason: Patient Refused Empagliflozin (Empagliflozin 10 Mg Tablet) 10 mg PO DAILY [facility] Last Admin: 10/28/24 10:10 Dose: Not Given Documented By: CUBA Non-Admin Reason: Patient Refused Gabapentin (Gabapentin 400 Mg Capsule) 800 mg PO TID [facility] Last Admin: 10/28/24 10:02 Dose: 800 mg Documented By: CUBA Glucose (Glucose Gel 15 Gm Gel..Gram.) 15 gm PO Q15M PRN; Protocol PRN Reason: per Hypoglycemia Standing Ord. Haloperidol (Haloperidol 1 Mg Tablet) 2 mg PO TID [facility] Last Admin: 10/28/24 10:01 Dose: 2 mg Documented By: CUBA Hydralazine HCl (Hydralazine Hcl 10 Mg Tablet) 10 mg PO BID [facility]; Protocol Last Admin: 10/28/24 10:02 Dose: 10 mg Documented By: CUBA Lactated Ringer's (Lr) 1,000 mls @ 80 mls/hr IVCONT .[id number] [facility] Last Admin: 10/27/24 23:10 Dose: Not Given Documented By: PASHA Non-Admin Reason: No Access Insulin Human Lispro (Insulin Lispro 100 Unit/Ml 3 Ml Vial) 0 unit SUBCUT QIDACHS [facility]; Protocol Last Admin: 10/28/24 12:31 Dose: Not Given Documented By: CUBA Non-Admin Reason: Patient Refused Latanoprost (Latanoprost 0.005 % Ophth Shanti 2.5 Ml Drops) 1 drop EYE-BOTH BEDTIME [facility] Last Admin: 10/27/24 20:33 Dose: Not Given Documented By: PASHA Non-Admin Reason: Patient Refused Lidocaine (Lidocaine 4 % Patch Adh..Patch) 1 patch TRANSDERMA DAILY [facility]; Protocol Last Admin: 10/28/24 10:14 Dose: Not Given Documented By: CUBA Non-Admin Reason: Patient Refused Magnesium Hydroxide (Milk Of Magnesia 30 Ml Oral.Susp) 30 ml PO DAILY PRN PRN Reason: Constipation Melatonin (Melatonin 3 Mg Tablet) 3 mg PO BEDTIME PRN PRN Reason: Sleep Last Admin: 10/25/24 01:52 Dose: 3 mg Documented By: SARA Nicotine Polacrilex (Nicotine Polacrilex 2 Mg Gum) 2 mg BUCCAL Q2H PRN PRN Reason: Smoking Cessation Last Admin: 10/25/24 06:07 Dose: 2 mg Documented By: SARA Olanzapine (Olanzapine Odt 10 Mg Tab.Rapdis) 10 mg TRANSLINGU Q6H PRN PRN Reason: agitation Last Admin: 10/27/24 04:16 Dose: 10 mg Documented By: FLASH Omeprazole (Omeprazole 20 Mg Capsule.Dr) 20 mg PO DAILY@0630 [facility] Last Admin: 10/28/24 05:47 Dose: 20 mg Documented By: PASHA Prednisolone Acetate (Prednisolone Acetate 1 % Oph Susp 5 Ml Drpbtl) 1 drop EYE-BOTH QID [facility] Last Admin: 10/28/24 10:14 Dose: Not Given Documented By: CUBA Non-Admin Reason: Patient Refused Simethicone (Simethicone 80 Mg Tab.Chew) 160 mg PO BID [facility] Last Admin: 10/28/24 10:14 Dose: Not Given Documented By: CUBA Non-Admin Reason: Patient Refused Sodium Biphosphate/Sodium Phosphate (Sodium Phosphate,[place]-Dibasic 133 Ml Enema) 118 ml NM DAILY PRN PRN Reason: Constipation Sodium Chloride (0.9 % Sodium Chloride Flush 3 Ml Syringe) 3 ml IVFLUSH QSHIFT [facility] Last Admin: 10/28/24 10:14 Dose: Not Given Documented By: CUBA Non-Admin Reason: No Access Labs 10/28/24 05:56 10/28/24 05:56 Labs: Laboratory Results - last 24 hr 10/27/24 10/27/24 10/28/24 16:51 19:59 05:56 MCV 91.2 MCH 30.6 MCHC 33.6 RDW 15.4 Plt Count 154 L D MPV 11.3 Absolute Nucleated RBC 0.000 Nucleated RBC % (auto) 0.0 Anion Gap 15 Estim Creat Clear Calc Estimated GFR POC Glucose 172 H 146 H Random Glucose Calcium Magnesium Total Bilirubin Direct Bilirubin AST ALT Alkaline Phosphatase Total Protein Albumin Vitamin B12 Folate 10/28/24 10/28/24 10/28/24 05:56 05:56 05:56 MCV MCH MCHC RDW Plt Count MPV Absolute Nucleated RBC Nucleated RBC % (auto) Anion Gap 14 Estim Creat Clear Calc 32.8 33.3 Estimated GFR 33 33 POC Glucose Random Glucose 89 Calcium Magnesium Total Bilirubin Direct Bilirubin AST ALT Alkaline Phosphatase Total Protein Albumin Vitamin B12 Folate 10/28/24 10/28/24 10/28/24 05:56 05:56 05:56 MCV MCH MCHC RDW Plt Count MPV Absolute Nucleated RBC Nucleated RBC % (auto) Anion Gap Estim Creat Clear Calc Estimated GFR POC Glucose Random Glucose 89 Calcium 9.7 9.6 Magnesium 2.3 2.2 Total Bilirubin 1.2 H Direct Bilirubin AST ALT Alkaline Phosphatase Total Protein Albumin Vitamin B12 Folate 10/28/24 10/28/24 10/28/24 05:56 05:56 05:56 MCV MCH MCHC RDW Plt Count MPV Absolute Nucleated RBC Nucleated RBC % (auto) Anion Gap Estim Creat Clear Calc Estimated GFR POC Glucose Random Glucose Calcium Magnesium Total Bilirubin 1.2 H Direct Bilirubin 0.5 AST 69 H 69 H ALT 32 34 Alkaline Phosphatase 123 H Total Protein Albumin Vitamin B12 Folate 10/28/24 10/28/24 10/28/24 05:56 05:56 05:56 MCV MCH MCHC RDW Plt Count MPV Absolute Nucleated RBC Nucleated RBC % (auto) Anion Gap Estim Creat Clear Calc Estimated GFR POC Glucose Random Glucose Calcium Magnesium Total Bilirubin Direct Bilirubin AST ALT Alkaline Phosphatase 135 H Total Protein 7.8 7.8 Albumin 4.1 4.2 Vitamin B12 742 Folate 5.1 10/28/24 10/28/24 07:22 11:24 MCV MCH MCHC RDW Plt Count MPV Absolute Nucleated RBC Nucleated RBC % (auto) Anion Gap Estim Creat Clear Calc Estimated GFR POC Glucose 119 H 165 H Random Glucose Calcium Magnesium Total Bilirubin Direct Bilirubin AST ALT Alkaline Phosphatase Total Protein Albumin Vitamin B12 Folate Assessment and Plan (1) Delirium due to another medical condition, acute, hyperactive: Status: Acute (2) Acute kidney injury superimposed on chronic kidney disease: Status: Acute (3) CKD (chronic kidney disease), stage IV: Status: Acute (4) Atrial fibrillation: Status: Acute Plan 64M PMH cva with left hemiparesis, paroxysmal AFib, GERD/peptic ulcer disease, history of DVT, chronic systolic CHF, polysubstance dependence, mood disorder, hypertension, diabetes, initially presented on 10/18/2024 to ER from [facility] for agitation. In ED patient became increasingly delirious and creatinine increased so medical admission was requested. 1.Acute delirium (resolving; likely secondary to benzo withdrawal) -continue Valium 5 mg t.i.d. -continue Haldol; Depakote -ambulated with PT; will require rehab (please see note) 2.Acute kidney injury on CKD 3 -stabilize with volume -follow renal/divalents 3.Dysphagia -seen by speech; NDD3 advanced/thin 4.History of CVA -stable and well compensated -continue Eliquis/statin 5.Hypertension -acceptable control on current therapies -adjust as indicated 5.Diabetes Type II -lispro correctional scale -Jardiance as ordered -adjust as indicated 6.Chronic systolic CHF/nonischemic cardiomyopathy -stable and well compensated 7.Paroxysmal AFib -remains in sinus rhythm -Eliquis as ordered Eliquis Full code reason for continued hospitalization:agitation Quality Stroke Does the patient have a stroke diagnosis?: No VTE Prior VTE?: No VTE Risk Level:: Medical - moderate - high VTE Device Contraindication: Treatment Not Indicated VTE Drug Contraindication: Treatment Not Indicated
[2024-10-28 14:31] VITALS: BP 118/84
[2024-10-28] MEDS: amLODIPine Besylate 10 MG TABLET PO (14:31)
[2024-10-28 15:14] VITALS: BP 112/88; PULSE 94; RESP 16; TEMP 37.4; O2SAT 96
[2024-10-28 16:11] LABS: Glucose, Whole Blood 116 mg/dL (60-115)
[2024-10-28] MEDS: prednisoLONE Acetate 1 % Oph Susp 5 ML DRPBTL 1 DROP EYE-BOTH (18:24)
[2024-10-28 19:39] VITALS: BP 116/69; PULSE 100; RESP 18; TEMP 36.2; O2SAT 96
[2024-10-28] MEDS: Atorvastatin Calcium 80 MG TABLET PO (19:55)
[2024-10-28] MEDS: Divalproex Sodium Sprinkles 125 MG CAP.DR.SPR 250 MG PO (19:56)
[2024-10-28 20:10] LABS: Glucose, Whole Blood 123 mg/dL (60-115)
[2024-10-29 03:09] VITALS: RESP 16
[2024-10-29 05:45] LABS: MANUAL DIFF FLAG NO
[2024-10-29 05:48] LABS: Basophils Percent Auto 0.6 % (0-2); Eosinophils Absolute Auto 0.4 X10*3/uL (0.0-0.4); Eosinophils Percent Auto 6.8 % (0-4); Hematocrit 41.9 % (42.0-52.0); Hemoglobin 14.4 g/dl (14.0-18.0); Lymphocytes Absolute Auto 1.9 X10*3/uL (1.2-4.9); Lymphocytes Percent Auto 35.6 % (20-40); Mean Corpuscular HGB Conc 34.4 g/dl (31.0-36.0); Mean Corpuscular Hemoglobin 30.8 pg (27.0-33.0); Mean Corpuscular Volume 89.7 fL (80.0-98.0); Mean Platelet Volume 10.7 fL (9.4-12.4); Monocytes Absolute Auto 0.7 X10*3/uL (0.1-1.2); Monocytes Percent Auto 13.6 % (2-11); Neutrophils Absolute Auto 2.3 x10*3/uL (2.0-8.3); Neutrophils Percent Auto 43.4 % (45-73); Platelet Count 131 X10*3/uL (160-400); Red Blood Count 4.67 X10*6/uL (4.60-5.80); White Blood Count 5.3 X10*3/uL (4.8-10.8)
[2024-10-29 06:07] LABS: Alanine Aminotransferase 19 U/L (0-40); Albumin Level 2.9 g/dL (3.5-5.0); Alkaline Phosphatase 88 U/L (39-117); Anion Gap 11 (12-20); Aspartate Amino Transferase 36 U/L (5-37); Bilirubin Total 0.7 mg/dL (0.0-1.0); Blood Urea Nitrogen 20 mg/dL (9-16); Calcium 8.4 mg/dL (8.4-10.2); Carbon Dioxide 24 mmol/L (22-29); Chloride 110 mmol/L (96-108); Creatinine Clr Calc Pharmacy 31.3; Estimated Glomerular Filt Rate 31; Glucose Fasting 94 mg/dL (60-99); Potassium 4.1 mmol/L (3.3-5.1); Sodium 141 mmol/L (135-145); Total Protein 5.8 g/dL (6.5-8.0)
[2024-10-29] MEDS: Omeprazole 20 MG CAPSULE.DR PO (06:26)
[2024-10-29 07:46] LABS: Glucose, Whole Blood 97 mg/dL (60-115)
[2024-10-29 08:00] VITALS: BP 119/80; PULSE 93; RESP 18; TEMP 36.7; O2SAT 96
[2024-10-29] MEDS: HaloperidoL 1 MG TABLET 2 MG PO ×3 (09:17→20:48)
[2024-10-29] MEDS: Gabapentin 400 MG CAPSULE 800 MG PO ×3 (09:17→20:48)
[2024-10-29] MEDS: Dicyclomine HCl 10 MG CAPSULE PO ×4 (09:18→20:43)
[2024-10-29] MEDS: hydrALAZINE HCl 10 MG TABLET PO (09:18)
[2024-10-29] MEDS: diazePAM 5 MG TABLET PO ×3 (09:18→20:43)
[2024-10-29] MEDS: Divalproex Sodium Sprinkles 125 MG CAP.DR.SPR 250 MG PO ×2 (09:18→20:48)
[2024-10-29] MEDS: Empagliflozin 10 MG TABLET PO (09:18)
[2024-10-29] MEDS: amLODIPine Besylate 10 MG TABLET PO (09:18)
[2024-10-29] MEDS: carvediloL 25 MG TABLET PO (09:18)
[2024-10-29] MEDS: Apixaban 5 MG TABLET PO ×2 (09:19→20:48)
--- NOTE | 2024-10-29 09:46 | PC.NURSE ---
0930 Pt eating breakfast with supervision of ASSISTANCE SPECIALIST, at this time pt began choking, pt was able top clear food with back slaps and coughing. MD Govea made aware, per MD Govea follow o2 saturations, report any low readings. Pt currently 95-98% on room air. Pt continues to cough periodically after incident. No new orders at this time, on going education with pt regarding eating slowly.
[2024-10-29 10:00] VITALS: RESP 18; O2SAT 95
[2024-10-29 11:36] LABS: Glucose, Whole Blood 146 mg/dL (60-115)
[2024-10-29] MEDS: prednisoLONE Acetate 1 % Oph Susp 5 ML DRPBTL 1 DROP EYE-BOTH ×3 (14:12→21:07)
[2024-10-29 14:16] VITALS: BP 132/97
--- NOTE | 2024-10-29 14:54 | HO.PM.IMPN ---
Subjective Subjective Date of Service: 10/29/24 Interval History: No behavioral issues overnight. Last translingual PRN 48 hours prior Review of Systems Denies chest pain Denies shortness of breath Denies nausea vomiting diarrhea Denies fever and chills Physical Exam Vital Signs: Vital Signs: Last Vital Signs Temp 98.1 F 10/29/24 08:00 Pulse 93 10/29/24 08:00 Resp 18 10/29/24 10:00 BP 132/97 H 10/29/24 14:16 Pulse Ox 95 10/29/24 10:00 O2 Del Method Room Air 10/29/24 10:00 O2 Flow Rate 2 10/24/24 14:00 BMI result Body Mass Index 24.6 Const: Other: Awake alert no acute distress Resp: Other: Clear to auscultation bilaterally no rales rhonchi or wheezes Cardio: Other: No S4; positive S1-S2; no S3 murmurs rubs or gallops GI: Other: Soft nontender nondistended normoactive bowel sounds Extrem: Other: No edema bilaterally Objective Data Active Medications Acetaminophen (Acetaminophen 325 Mg Tablet) 650 mg PO Q6H PRN PRN Reason: Pain, Mild 1-3,fever,headache Al Hydroxide/Mg Hydroxide (Magnesium Hydrox/Alum Hydrox 30 Ml Oral.Susp) 15 ml PO Q6H [facility] Last Admin: 10/29/24 14:06 Dose: Not Given Documented By: CUBA Non-Admin Reason: Patient Refused Amlodipine Besylate (Amlodipine Besylate 10 Mg Tablet) 10 mg PO DAILY [facility]; Protocol Last Admin: 10/29/24 09:18 Dose: 10 mg Documented By: CUBA Apixaban (Apixaban 5 Mg Tablet) 5 mg PO BID [facility] Last Admin: 10/29/24 09:19 Dose: 5 mg Documented By: CUBA Atorvastatin Calcium (Atorvastatin Calcium 80 Mg Tablet) 80 mg PO BEDTIME [facility] Last Admin: 10/28/24 19:55 Dose: 80 mg Documented By: PASHA Bisacodyl (Bisacodyl 10 Mg Supp.Rect) 10 mg KS DAILY PRN PRN Reason: Constipation Brimonidine Tartrate (Brimonidine Tartrate 0.2% Oph 5 Ml Bottle) 1 drop EYE-BOTH BID [facility] Last Admin: 10/29/24 09:54 Dose: Not Given Documented By: CUBA Non-Admin Reason: Patient Refused Calcium Carbonate (Calcium Carbonate 750 Mg Tab.Chew) 750 mg PO Q4H PRN PRN Reason: Heartburn Carvedilol (Carvedilol 25 Mg Tablet) 25 mg PO BID [facility]; Protocol Last Admin: 10/29/24 09:18 Dose: 25 mg Documented By: CUBA Dextrose (Dextrose 50 % 25 Gm/50 Ml Syringe) 25 gm IVPUSH Q15M PRN; Protocol PRN Reason: per Hypoglycemia Standing Ord. Diazepam (Diazepam 5 Mg Tablet) 5 mg PO TID [facility] Last Admin: 10/29/24 14:07 Dose: 5 mg Documented By: CUBA Dicyclomine HCl (Dicyclomine Hcl 10 Mg Capsule) 10 mg PO QID [facility] Last Admin: 10/29/24 14:07 Dose: 10 mg Documented By: CUBA Divalproex Sodium (Divalproex Sodium Sprinkles 125 Mg Cap.Spr) 250 mg PO BID [facility] Last Admin: 10/29/24 09:18 Dose: 250 mg Documented By: CUBA Duloxetine HCl (Duloxetine Hcl 30 Mg Capsule.Dr) 30 mg PO DAILY [facility] Last Admin: 10/29/24 09:54 Dose: Not Given Documented By: CUBA Non-Admin Reason: Patient Refused Empagliflozin (Empagliflozin 10 Mg Tablet) 10 mg PO DAILY [facility] Last Admin: 10/29/24 09:18 Dose: 10 mg Documented By: CUBA Gabapentin (Gabapentin 400 Mg Capsule) 800 mg PO TID [facility] Last Admin: 10/29/24 14:07 Dose: 800 mg Documented By: CUBA Glucose (Glucose Gel 15 Gm Gel..Gram.) 15 gm PO Q15M PRN; Protocol PRN Reason: per Hypoglycemia Standing Ord. Haloperidol (Haloperidol 1 Mg Tablet) 2 mg PO TID [facility] Last Admin: 10/29/24 14:07 Dose: 2 mg Documented By: CUBA Hydralazine HCl (Hydralazine Hcl 10 Mg Tablet) 10 mg PO BID [facility]; Protocol Last Admin: 10/29/24 09:18 Dose: 10 mg Documented By: CUBA Insulin Human Lispro (Insulin Lispro 100 Unit/Ml 3 Ml Vial) 0 unit SUBCUT QIDACHS [facility]; Protocol Last Admin: 10/29/24 12:31 Dose: Not Given Documented By: CUBA Non-Admin Reason: No Insulin Coverage Latanoprost (Latanoprost 0.005 % Ophth Shanti 2.5 Ml Drops) 1 drop EYE-BOTH BEDTIME [facility] Last Admin: 10/28/24 20:22 Dose: Not Given Documented By: PASHA Non-Admin Reason: Patient Refused Lidocaine (Lidocaine 4 % Patch Adh..Patch) 1 patch TRANSDERMA DAILY [facility]; Protocol Last Admin: 10/29/24 09:54 Dose: Not Given Documented By: CUBA Non-Admin Reason: Patient Refused Magnesium Hydroxide (Milk Of Magnesia 30 Ml Oral.Susp) 30 ml PO DAILY PRN PRN Reason: Constipation Melatonin (Melatonin 3 Mg Tablet) 3 mg PO BEDTIME PRN PRN Reason: Sleep Last Admin: 10/25/24 01:52 Dose: 3 mg Documented By: SARA Nicotine Polacrilex (Nicotine Polacrilex 2 Mg Gum) 2 mg BUCCAL Q2H PRN PRN Reason: Smoking Cessation Last Admin: 10/25/24 06:07 Dose: 2 mg Documented By: SARA Olanzapine (Olanzapine Odt 10 Mg Tab.Rapdis) 10 mg TRANSLINGU Q6H PRN PRN Reason: agitation Last Admin: 10/27/24 04:16 Dose: 10 mg Documented By: FLASH Omeprazole (Omeprazole 20 Mg Capsule.Dr) 20 mg PO DAILY@0630 [facility] Last Admin: 10/29/24 06:26 Dose: 20 mg Documented By: PASHA Prednisolone Acetate (Prednisolone Acetate 1 % Oph Susp 5 Ml Drpbtl) 1 drop EYE-BOTH QID [facility] Last Admin: 10/29/24 14:12 Dose: 1 drop Documented By: CUBA Simethicone (Simethicone 80 Mg Tab.Chew) 160 mg PO BID [facility] Last Admin: 10/29/24 09:55 Dose: Not Given Documented By: CUBA Non-Admin Reason: Patient Refused Sodium Biphosphate/Sodium Phosphate (Sodium Phosphate,Coryell-Dibasic 133 Ml Enema) 118 ml KS DAILY PRN PRN Reason: Constipation Sodium Chloride (0.9 % Sodium Chloride Flush 3 Ml Syringe) 3 ml IVFLUSH QSHIFT [facility] Last Admin: 10/29/24 09:27 Dose: Not Given Documented By: CUBA Non-Admin Reason: No Access Labs 10/29/24 05:31 10/29/24 05:31 Labs: Laboratory Results - last 24 hr 10/28/24 10/28/24 10/29/24 16:08 19:43 05:31 MCV 89.7 MCH 30.8 MCHC 34.4 RDW 15.0 Plt Count 131 L MPV 10.7 Immature Gran % (Auto) 0.0 Neut % (Auto) 43.4 L Lymph % (Auto) 35.6 Coryell % (Auto) 13.6 H Eos % (Auto) 6.8 H Baso % (Auto) 0.6 Lymph # (Auto) 1.9 Coryell # (Auto) 0.7 Eos # (Auto) 0.4 Baso # (Auto) 0.0 Abs Immat Gran (auto) 0.00 Absolute Neuts (auto) 2.3 Absolute Nucleated RBC 0.000 Nucleated RBC % (auto) 0.0 Anion Gap 11 L Estim Creat Clear Calc 31.3 Estimated GFR 31 POC Glucose 116 H 123 H Fasting Glucose 94 Calcium 8.4 D Total Bilirubin 0.7 AST 36 ALT 19 Alkaline Phosphatase 88 Total Protein 5.8 L Albumin 2.9 L 10/29/24 10/29/24 07:36 11:31 MCV MCH MCHC RDW Plt Count MPV Immature Gran % (Auto) Neut % (Auto) Lymph % (Auto) Coryell % (Auto) Eos % (Auto) Baso % (Auto) Lymph # (Auto) Coryell # (Auto) Eos # (Auto) Baso # (Auto) Abs Immat Gran (auto) Absolute Neuts (auto) Absolute Nucleated RBC Nucleated RBC % (auto) Anion Gap Estim Creat Clear Calc Estimated GFR POC Glucose 97 146 H Fasting Glucose Calcium Total Bilirubin AST ALT Alkaline Phosphatase Total Protein Albumin Assessment and Plan (1) Delirium due to another medical condition, acute, hyperactive: Status: Acute (2) CKD (chronic kidney disease), stage IV: Status: Acute (3) Type 2 diabetes mellitus: Status: Acute Plan 64M PMH cva with left hemiparesis, paroxysmal AFib, GERD/peptic ulcer disease, history of DVT, chronic systolic CHF, polysubstance dependence, mood disorder, hypertension, diabetes, initially presented on 10/18/2024 to ER from [facility] for agitation. In ED patient became increasingly delirious and creatinine increased so medical admission was requested. 1.Acute delirium (resolving; likely secondary to benzo withdrawal) -continue Valium 5 mg t.i.d. -continue Haldol; Depakote.. No PRN times 48 hours -ambulated with PT; will require rehab (please see note) 2.Acute kidney injury on CKD 3 -stabilize with volume -follow renal/divalents 3.Dysphagia -seen by speech; NDD3 advanced/thin 4.History of CVA -stable and well compensated -continue Eliquis/statin 5.Hypertension -acceptable control on current therapies -adjust as indicated 5.Diabetes Type II -lispro correctional scale -Jardiance as ordered -adjust as indicated 6.Chronic systolic CHF/nonischemic cardiomyopathy -stable and well compensated 7.Paroxysmal AFib -remains in sinus rhythm -Eliquis as ordered Eliquis Full code reason for continued hospitalization:agitation Quality Stroke Does the patient have a stroke diagnosis?: No VTE Prior VTE?: No VTE Risk Level:: Medical - moderate - high VTE Device Contraindication: Treatment Not Indicated VTE Drug Contraindication: Treatment Not Indicated
--- NOTE | 2024-10-29 17:19 | PC.NURSE ---
Pt refusing vital signs and blood sugar check pt educated on importance of both for monitoring changes. Pt also refusing thorough skin assessment this AM and again later in shift, pt is able to change position in bed but requires frequent boots up in the bed. Pt was offered to get OOB to chair with assistance, is currently refusing. All safety measures in place.
--- NOTE | 2024-10-29 18:56 | PC.NURSE ---
Pt agreeable to pericare, pt spilled urinal on self. Skin on backside appears intact upon assessment, heels intact. One small abrasion noted on left leggett.
[2024-10-29 19:34] VITALS: BP 97/57; PULSE 91; RESP 18; TEMP 36.2; O2SAT 93
[2024-10-29 19:48] LABS: Glucose, Whole Blood 85 mg/dL (60-115)
[2024-10-29] MEDS: Dextrose 50 % 25 GM/50 ML SYRINGE IVPUSH (19:48)
[2024-10-29 20:36] LABS: Glucose, Whole Blood 144 mg/dL (60-115)
[2024-10-29] MEDS: Atorvastatin Calcium 80 MG TABLET PO (20:43)
[2024-10-29] MEDS: Magnesium Hydrox/Alum Hydrox 30 ML ORAL.SUSP 15 ML PO (20:57)
[2024-10-29] MEDS: Brimonidine Tartrate 0.2% Oph 5 ML BOTTLE 1 DROP EYE-BOTH (21:04)
[2024-10-29] MEDS: Latanoprost 0.005 % Ophth Sol 2.5 ML DROPS 1 DROP EYE-BOTH (21:07)
[2024-10-29] MEDS: Simethicone 80 MG TAB.CHEW 160 MG PO (21:34)
[2024-10-30 03:36] VITALS: BP 124/84; PULSE 77; RESP 18; TEMP 36.5; O2SAT 94
--- NOTE | 2024-10-30 05:51 | PC.NURSE ---
at 1940 blood sugar was 85 but pt was lethargic, clammy not able to take any snack d/t risk of aspiration. given dextrose 25 G PER PROTOCOL . After received dextrose he was awake more talkative rechecke blood sugar was 144 will monitor
--- NOTE | 2024-10-30 06:35 | PC.NURSE ---
held HS bp meds coreg and hydralazine d/t B/P 97/57
[2024-10-30 07:06] LABS: Glucose, Whole Blood 113 mg/dL (60-115)
[2024-10-30 07:09] VITALS: BP 107/70; PULSE 74; RESP 17; TEMP 36.3; O2SAT 93
[2024-10-30] MEDS: Omeprazole 20 MG CAPSULE.DR PO (07:11)
[2024-10-30] MEDS: traMADoL HCL 50 MG TABLET PO (07:12)
[2024-10-30] MEDS: Empagliflozin 10 MG TABLET PO (09:14)
[2024-10-30] MEDS: Gabapentin 400 MG CAPSULE 800 MG PO ×2 (09:14→14:49)
[2024-10-30] MEDS: Dicyclomine HCl 10 MG CAPSULE PO ×2 (09:14→12:43)
[2024-10-30] MEDS: DULoxetine HCl 30 MG CAPSULE.DR PO (09:14)
[2024-10-30] MEDS: Apixaban 5 MG TABLET PO (09:14)
[2024-10-30] MEDS: diazePAM 5 MG TABLET PO ×2 (09:14→14:49)
[2024-10-30] MEDS: Divalproex Sodium Sprinkles 125 MG CAP.DR.SPR 250 MG PO (09:15)
[2024-10-30] MEDS: Brimonidine Tartrate 0.2% Oph 5 ML BOTTLE 1 DROP EYE-BOTH (09:18)
[2024-10-30] MEDS: Lidocaine 4 % Patch ADH..PATCH 1 PATCH TRANSDERMA (09:35)
[2024-10-30] MEDS: prednisoLONE Acetate 1 % Oph Susp 5 ML DRPBTL 1 DROP EYE-BOTH ×2 (09:36→12:44)
[2024-10-30] MEDS: oxyCODONE HCl Immed Release 5 MG TABLET PO (12:43)
[2024-10-30 13:11] LABS: Glucose, Whole Blood 130 mg/dL (60-115)
--- NOTE | 2024-10-30 13:15 | MHC.CM.PN ---
PT CLEARED TO DC BACK TO [facility] TO COMPLETE STR TODAY MOTHER/HCP, [place], NOTIFIED VIA T/C BLS TRANSPORT BOOKED WITH [facility] FOR 1500 HOURS
--- NOTE | 2024-10-30 13:21 | P.DS_ITS ---
DS: Providers Provider Date of Service: 10/30/24 Date of admission: 10/26/24 16:46 Date of discharge: 10/30/24 Primary care physician: Tanvir Shi MD Consults: 10/19/24 12:33 Consult to Psychiatry Stat Consulting Provider: Shelli Sierra Reason for consultation: aggressive behavior Has provider been notified: Yes 10/22/24 11:00 Consult to Psychiatry Stat Consulting Provider: [facility] [place] Psych Covering Reason for consultation: meds - aggression 10/26/24 17:19 Consult to Psychiatry Routine Consulting Provider: [facility] [place] Psych Covering Reason for consultation: Agitation Has provider been notified: Yes DS: Diagnosis Discharge Diagnosis (1) Delirium due to another medical condition, acute, hyperactive: Status: Acute (2) CKD (chronic kidney disease), stage IV: Status: Acute (3) Type 2 diabetes mellitus: Status: Acute DS: Summary Hospital Course Hospital Course: 64 years old man with PMHx significant for CVA with left-sided hemiparesis, atrial fibrillation, GERD/PUD, HFrEF, 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 HPI was obtained from ED provider and medical record review. On my evaluation patient was sedated after receiving Valium IV. The patient has been followed by psychiatry service. But has been asked to admit this patient by Dr. Cordero for delirium evaluation. It was also mentioned that patient's Xanax dropped off so there was a concern open so diazepam withdrawals. Treatment with Valium t.i.d. was started by ED. He was also mentioned that his creatinine has been increasing over the last 8 days from 2.1 to 2.6. On admission to the emergency department a CT scan of the head was performed showing possible lacunar infarct chronic versus acute. No evidence of acute infection has been found so far. I was informed that the patient mental status has been getting worse despite be receiving multiple doses psych meds. And IV access was obtained today and the patient received 2.5 mg IV on Valium which was successful in controlling patient's agitation. Hospital course Patient admitted to general medical floor. Seen by Psychiatry and started on olanzapine and Seroquel. Initially exhibited behaviors that required sitter; information obtained that patient has been on Xanax 2 mg t.i.d. for several years and had not taken it recently. Timeframe unclear. It was thought that his symptoms were related to benzodiazepine withdrawal. He was started on t.i.d. Valium with marked improvement of his behaviors. Over the last several days he has been cooperative but mildly confused. At this point in time believe he is back to baseline he is medically acceptable for discharge to nursing home facility. He will be discharged on Valium as ordered and a small script of oxycodone for bilateral knee pain. Time Attestation Discharge Coordination Time (in mins): 35 Quality: Safe Use of Opioids Does Pt have an Active Cancer Diagnosis on the Problem List?: No Quality: Stroke Does the patient have a stroke diagnosis?: No Physical Exam Vital Signs: Vital Signs: Last Vital Signs Temp 97.3 F 10/30/24 07:09 Pulse 74 10/30/24 07:09 Resp 17 10/30/24 07:09 BP 107/70 10/30/24 07:09 Pulse Ox 93 10/30/24 07:09 O2 Del Method Room Air 10/30/24 07:09 O2 Flow Rate 2 10/24/24 14:00 BMI result Body Mass Index 24.6 Const: Other: Awake alert no acute distress Resp: Other: Clear to auscultation bilaterally no rales rhonchi or wheezes Cardio: Other: No S4; positive S1-S2; no S3 murmurs rubs or gallops GI: Other: Soft nontender nondistended normoactive bowel sounds Extrem: Other: No edema bilaterally DS: Data Data Completed and Pending Labs on day of discharge: Laboratory Results - last 24 hr 10/29/24 10/29/24 10/30/24 19:40 20:32 07:03 POC Glucose 85 144 H 113 10/30/24 13:08 POC Glucose 130 H Discharge Plan Discharge Anticipated Discharge Date/Time: 10/30/24 13:13 Patient Disposition: [facility] Discharge Diagnosis: Delirium Referrals: [facility] [Outside] Tanvir Shi MD [Primary Care Provider] - 1 Week Discharge Medications: New haloperidol 1 mg Tablet 2 mg PO TID Qty: 90 0RF diazepam 2 mg Tablet 5 mg PO TID Qty: 90 0RF amlodipine 10 mg Tablet 10 mg PO DAILY Qty: 30 0RF Protocol: Hold for SBP< HOLD for SBP < : 90 divalproex 125 mg Capsule, Delayed Rel Sprinkle 250 mg PO BID Qty: 60 0RF oxycodone 5 mg Tablet 5 mg PO Q4H PRN (Reason: Pain, Moderate(Pain Scale 4-6)) Qty: 30 0RF Rx Instructions: Partial Fill upon patient request. Continued latanoprost 0.005 % drops 1 drp ophthalmic (eye) BEDTIME hydralazine 10 mg tablet 10 mg PO BID atorvastatin 80 mg tablet 80 mg PO BEDTIME carvedilol 25 mg tablet 25 mg PO BID nicotine (polacrilex) 2 mg gum 2 mg PO Q2H PRN (Reason: Smoking Cessation) simethicone 180 mg capsule 180 mg PO BID prednisolone acetate 1 % drops,suspension 1 drp ophthalmic (eye) QID magnesium hydroxide [Milk of Magnesia] 400 mg/5 mL Suspension 30 ml PO DAILY PRN (Reason: Constipation) gabapentin 800 mg tablet 800 mg PO TID bisacodyl 10 mg Suppository 10 mg UT DAILY PRN (Reason: Constipation) esomeprazole magnesium 40 mg capsule,delayed release(DR/EC) 40 mg PO DAILY brimonidine 0.2 % drops 1 drp ophthalmic (eye) BID Fleet Enema 19-7 gram/118 mL Enema 118 ml UT DAILY PRN (Reason: Constipation) alum-mag hydroxide-simeth 200-200-20 mg/5 mL Suspension 15 ml Q6H dicyclomine 10 mg capsule 10 mg PO QID duloxetine 30 mg capsule,delayed release(DR/EC) 30 mg PO DAILY Eliquis 5 mg tablet 5 mg PO BID dapagliflozin propanediol [Farxiga] 10 mg tablet 10 mg PO DAILY Discontinued alprazolam 1 mg tablet 1 mg PO BID alprazolam 1 mg tablet 2 mg PO BEDTIME melatonin 3 mg Tablet 3 mg PO BEDTIME PRN (Reason: Sleep) oxycodone 5 mg tablet 2.5 mg PO Q6H PRN (Reason: severe pain) Discharge Orders: Discharge Order (Routine); Ordered 10/30/24 Ordered By: Jc Govea Diet: Advance to usual diet Activity on Discharge: As tolerated Stand Alone Forms: Patient Portal Discharge page Print Language: Polish Care Plan Goals: Continue all medicines as outlined on transfer sheet Health Concerns: Further plans as per receiving facility Plan of Treatment: Physical therapy as outlined by receiving facility Assessment: See discharge summary
--- NOTE | 2024-10-30 14:33 | MHC.SL.SWA ---
Speech Pathologist Impression: Mild to moderate oropharyngeal dysphagia d/t hx of L sided facial weakness, decreased sensation on L side of cheek, recent hx of choking on regular solids Risk of Aspiration Due to: Post CVA residual L sided weakness Dysphasia Diet Status: Liquid Consistency and Strategies for Safe Swallow: Liquid Intake Recommendation: Thin Liquid Intake Strategies: Solid Food Consistency: Dietary Recommendations: Chopped/Advanced (NDD3) Additional Modifications to Solid Foods: Oral Medication Intake: Whole with Liquid Please contact the pharmacy regarding appropriate crushable or liquid drug formulations that are available whenever modified delivery is recommended. Compensatory Strategies and Precautions to be Taken for Safe Swallow: Sitting Upright (90 deg) Small Bites and Sips Alternate Liquids/Solids Rate of Ingestion Change Supervision While Eating and Drinking for Safe Swallow: Direct Supervision (1:1) Foods to Avoid: Achille hard, tough to chew solids Swallowing Recommended Treatments: Compens. Strategy Educat. Recommendation for Speech: Inpatient Speech Therapy Comment: Pt seen for dysphagia tx 10/30/24. Pt eating sincere crackers and hard candy, partner at bedside. Pt expressed dissatisfaction with pureed diet. Pt partner at bedside reporting she would bring him food he likes. No overt s/s of aspiration with thins, regular solids. REGIONAL HR MANAGER provided recommendations for safety and diet modifications to reduce risk for aspiration. MD notified. Recc regular diet, thin liquids. REGIONAL HR MANAGER treatment may be indicated d/t nature and location of neck mass. Pt endorsed changes to his voice but feels voicing has improved. Pt voice absent of wetness when speaking, audible, mildly harsh, volume low. Frequency/Duration: M-F daily Date Range for Service Req: Timeline to reassess: Program Production Specialist Clinican/Clinical Fellow: No Supervisory Statement: I have reviewed and agree with the student/clinical fellow's documentation: N/A Speech Language Pathologist: Sada Mayers M.S., CCC-REGIONAL HR MANAGER
[2024-10-30 14:50] VITALS: BP 122/85; PULSE 93; RESP 18; TEMP 36.4; O2SAT 100
== END 2024-10-30 15:06 | disposition skilled nursing facility (03) | DRG 776 ==
LOC: HO.ED 10-26 14:24 → HO.EDOVER 10-26 16:55 → HO.S3 10-26 17:14
PROVIDERS: Internal Medicine; Physician Assistant; Physician Assistant Medical; Social Worker; Admitting Provider Internal Medicine; Emergency Provider Emergency Medicine; PCP Internal Medicine; Visit Provider Hospitalist
DX: F13.939 Sedative, hypnotic or anxiolytic use, unspecified with withdrawal, unspecified (principal); F05 Delirium due to known physiological condition; N17.9 Acute kidney failure, unspecified; I42.8 Other cardiomyopathies; I13.0 Hypertensive heart and chronic kidney disease with heart failure and stage 1 through stage 4 chronic kidney disease, or unspecified chronic kidney disease; R41.89 Other symptoms and signs involving cognitive functions and awareness; E11.22 Type 2 diabetes mellitus with diabetic chronic kidney disease; F32.A Depression, unspecified; R13.10 Dysphagia, unspecified; I69.354 Hemiplegia and hemiparesis following cerebral infarction affecting left non-dominant side; I50.22 Chronic systolic (congestive) heart failure; N18.30 Chronic kidney disease, stage 3 unspecified; I48.0 Paroxysmal atrial fibrillation; Z20.822 Contact with and (suspected) exposure to COVID-19; Z79.01 Long term (current) use of anticoagulants; Z79.899 Other long term (current) drug therapy
CPT/HCPCS: 0241U; 36415; 70450; 80048; 80053; 80076; 81001; 82140; 82607; 82746; 82947; 83735; 84443; 85025; 85027; 92526; 92610; 97162; 97166; 99285; J1200; J1630; J2250; J2359; J3360; J7120

== ENCOUNTER → 2024-10-18 16:41 | Outpatient (BNV) | payer MEDICAID, SELFPAY | PROVIDERS: Emergency Provider Emergency Medicine; Visit Provider Student in an Organized Health Care Education/Training Program | DX: N17.9 Acute kidney failure, unspecified (principal); N18.9 Chronic kidney disease, unspecified | CPT/HCPCS: 99223; 99233; 99499 ==

== ENCOUNTER → 2024-10-18 16:41 | Outpatient (BNV) | payer OTHER, SELFPAY | PROVIDERS: Emergency Provider Emergency Medicine; Visit Provider Social Worker | DX: F39 Unspecified mood [affective] disorder (principal); R41.89 Other symptoms and signs involving cognitive functions and awareness | CPT/HCPCS: 99232; 99285 ==

== ENCOUNTER → 2024-10-24 12:46 | Outpatient (BNV) | payer MEDICAID, SELFPAY | PROVIDERS: Emergency Provider Emergency Medicine; PCP Internal Medicine; Visit Provider Radiology Diagnostic Radiology | DX: G93.89 Other specified disorders of brain (principal) | CPT/HCPCS: 70450 ==

== ENCOUNTER 2024-10-30 19:03 | Inpatient (IN) | payer MEDICAID, SELFPAY ==
--- NOTE | ~2024-10-30 | CT_ITS ---
CLINICAL HISTORY: fall CT head without contrast Comparison: CT/SR - CT HEAD/BRAIN WO IV CON - 10/24/24 13:47 EDT Findings: No evidence of acute territorial infarct. Old small posterior left frontal infarct with encephalomalacia. There is patchy low density in the periventricular and subcortical white matter. Mild volume loss is noted. No hydrocephalus. No hemorrhage, mass effect, mass lesion, or midline shift. No abnormal extra-axial fluid. No acute calvarial fracture. Old nasal bone fracture. Paranasal sinuses and mastoid air cells are clear. Impression: No acute intracranial process. Chronic changes as detailed. This document has been electronically signed by: Chau Huizar MD on 11/04/2024 09:39:51
--- NOTE | ~2024-10-30 | XR_ITS ---
CLINICAL HISTORY: fall, pain 1 view chest x-ray Comparison: None provided Findings: No consolidation or effusion. Normal size heart. No acute fracture. Prominent degenerative changes at both shoulders. Portions of the lower left-sided ribs are obscured by the patient's electronic device. IMPRESSION: 1. No acute findings. This document has been electronically signed by: Chau Huizar MD on 11/04/2024 09:46:12
--- NOTE | ~2024-10-30 | XR_ITS ---
CLINICAL HISTORY: pain, fall 5 view, pelvis and bilateral hip Comparison: None provided Findings: The bones are intact. Mild degenerative changes at both hips and visualized sacroiliac joints. The soft tissues are unremarkable. IMPRESSION: No acute findings. Chronic changes. This document has been electronically signed by: Chau Huizar MD on 11/04/2024 09:45:31
--- NOTE | ~2024-10-30 | CT_ITS ---
CLINICAL HISTORY: traumatic fall CT cervical spine without contrast Comparison: None Findings: There is straightening of the normal cervical lordosis. No fracture or acute malalignment. Multilevel degenerative changes with disc space narrowing throughout the cervical spine. The facet joints are normally imbricated. No prevertebral soft tissue edema. Lung apicies demonstrate chronic changes of emphysema and scarring. Motion artifact limits interpretation. Impression: Multilevel degenerative changes without evidence of acute fracture or acute malalignment. This document has been electronically signed by: Chau Huizar MD on 11/04/2024 09:44:36
[2024-10-30 19:14] VITALS: BP 121/97; PULSE 93; RESP 16; TEMP 36.7; O2SAT 98; BMI 21.8
--- NOTE | 2024-10-30 19:32 | PC.NURSE ---
assumed care of pt
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
--- NOTE | 2024-10-30 19:42 | ED.GENADULT ---
HPI - General Adult General Chief complaint: Behavioral Concerns Stated complaint: combative w/ staff @[facility], psych eval Time Seen by Provider: 10/30/24 19:25 Source: patient, EMS and old records reviewed Mode of arrival: EMS Limitations: no limitations History of Present Illness ED Provider: DR. Arredondo HPI narrative: 64-year-old male with PMH significant for CVA with left hemiparesis, AFib, GERD, HFrEF, nonischemic cardiomyopathy due to cocaine use, depression, HTN, T2 DM, anxiety came in from [facility] for evaluation of being agitated and combative with staff earlier today, patient stated that he was not combative or agitated and he did not mean to hurt anybody physically or verbally. Patient is known to have history of agitation, patient was discharged from the medical floor today to rehab. Patient now is calm, and follow directions. Related Data Home Medications ?Medication ?Instructions ?Recorded ?Confirmed aluminum-mag hydroxide-simethicone 15 ml Q6H 10/18/24 10/31/24 200 mg-200 mg-20 mg/5 mL oral susp apixaban 5 mg tablet (Eliquis) 5 mg PO BID 10/18/24 10/31/24 atorvastatin 80 mg tablet 80 mg PO BEDTIME 10/18/24 10/31/24 bisacodyl 10 mg rectal suppository 10 mg AR DAILY PRN Constipation 10/18/24 10/31/24 brimonidine 0.2 % eye drops 1 drp ophthalmic (eye) BID 10/18/24 10/31/24 carvedilol 25 mg tablet 25 mg PO BID 10/18/24 10/31/24 dapagliflozin propanediol 10 mg 10 mg PO DAILY 10/18/24 10/31/24 tablet (Farxiga) duloxetine 30 mg capsule,delayed 30 mg PO DAILY 10/18/24 10/31/24 release esomeprazole magnesium 40 mg 40 mg PO DAILY 10/18/24 10/31/24 capsule,delayed release gabapentin 800 mg tablet 800 mg PO TID 10/18/24 10/31/24 hydralazine 10 mg tablet 10 mg PO BID 10/18/24 10/31/24 latanoprost 0.005 % eye drops 1 drp ophthalmic (eye) BEDTIME 10/18/24 10/31/24 magnesium hydroxide 400 mg/5 mL 30 ml PO DAILY PRN Constipation 10/18/24 10/31/24 oral suspension (Milk of Magnesia) nicotine (polacrilex) 2 mg gum 2 mg PO Q2H PRN Smoking Cessation 10/18/24 10/31/24 prednisolone acetate 1 % eye 1 drp ophthalmic (eye) QID 10/18/24 10/31/24 drops,suspension simethicone 180 mg capsule 180 mg PO BID 10/18/24 10/31/24 sodium phosphates 19 gram-7 118 ml AR DAILY PRN Constipation 10/18/24 10/31/24 gram/118 mL enema (Fleet Enema) alprazolam 1 mg tablet 1 mg PO BID@0600,1400 10/31/24 10/31/24 alprazolam 1 mg tablet 2 mg PO DAILY@199910/31/24 10/31/24 Previous Rx's ?Medication ?Instructions ?Recorded amlodipine 10 mg tablet 10 mg PO DAILY #30 tabs 10/30/24 diazepam 2 mg tablet 5 mg (2.5 x 2 mg) PO TID #90 tabs 10/30/24 divalproex 125 mg capsule,delayed 250 mg (2 x 125 mg) PO BID #60 caps 10/30/24 release sprinkle haloperidol 1 mg tablet 2 mg (2 x 1 mg) PO TID #90 tabs 10/30/24 oxycodone 5 mg tablet 5 mg PO Q4H PRN Pain, 10/30/24 Moderate(Pain Scale 4-6) #30 tabs Allergies Allergy/AdvReac Type Severity Reaction Status Date / Time acetaminophen (From TYLENOL) Allergy Unknown CAN'T TAKE Verified 10/30/24 19:22 PER PT aspirin (ASPIRIN) Allergy Unknown BLEEDING Verified 10/30/24 19:22 calcium carbonate Allergy Unknown Unknown Verified 10/30/24 19:22 fish derived (fish) Allergy Unknown Unknown Verified 10/30/24 19:22 NSAIDS (Non-Steroidal AdvReac Severe STOMACH Verified 10/30/24 19:22 Anti-Inflamma (NSAIDS UPSET (NON-STEROIDAL ANTI-INFLAMMA) Review of Systems Review of Systems: All other systems are reviewed and are negative Constitutional: Reports as per HPI and Reports no additional constitutional complaints Eyes: Reports as per HPI and Reports no additional eye complaints Reports system reviewed and no additional complaints, except as documented Cardiovascular: Reports as per HPI and Reports no additional cardiovascular complaints Respiratory: Reports as per HPI and Reports no additional respiratory complaints Gastrointestinal: Reports as per HPI and Reports no additional gastrointestinal complaints Genitourinary: Reports no additional female genitourinary complaints Musculoskeletal: Reports no additional musculoskeletal complaints Skin/Breast: Reports system reviewed and no additional complaints, except as docu Psychiatric: Reports no additional psychiatric complaints Endocrine: Reports no additional endocrine complaints Hematologic/Lymphatic: Reports no additional hematologic/lymphatic complaints Allergic/Immunologic: Reports no additional allergic/immunologic complaints Reports system reviewed and no additional complaints, except as documented and Reports Abnormal speech present [facility] Past Medical History Medical History Depression GERD (gastroesophageal reflux disease) Atrial fibrillation CVA (cerebral vascular accident) Polysubstance abuse CKD (chronic kidney disease), stage IV HFrEF (heart failure with reduced ejection fraction) Essential hypertension Type 2 diabetes mellitus Social History Social History Household Members: None Housing: Apartment Unable to assess alcohol history related to: Unknown Comment: 1:1 sitter at bedside Patient Tobacco Use Status: Current everyday Tobacco user Cigarettes Per Day: 5 Years Smoked: 40 Smoked in Last 30 Days: Yes Patient Interested in Nicotine Replacement: No Patient Given Instructions on How to Stop Smoking: Yes Date Education Initiated: 11/03/24 Second Hand Smoke Exposure: No Use of substances other than those prescribed or required for medical reasons: No Substance Use Type: Crack/Cocaine Currently Displaying Signs/Symptoms of Drug Intoxication Withdrawal: No Have you been hit, kicked, punched, or otherwise hurt by someone within the past year? If so, by whom?: No Do you feel safe in your current relationship?: Yes Is there a partner from a previous relationship who is making you feel unsafe now?: No Are you made to feel afraid or neglected: No Advance Directives: Yes Advance Directives on File: Yes Advance Directives Date on File: 10/19/24 Do you have a plan to hurt others: No Plan Recently lost weight without trying: Unsure Nutrition Risks: No Nutritional Risk service: No Physical Exam ED Vital Signs: Vital Signs - 24 hr 11/02/24 14:46 11/02/24 15:38 11/02/24 20:00 Temperature 96.8 F 97.8 F Pulse Rate 69 88 Respiratory Rate 18 14 18 Blood Pressure 103/70 96/76 Pulse Oximetry 95 98 Oxygen Delivery Method Room Air Room Air 11/02/24 21:01 11/02/24 21:03 11/03/24 00:47 Temperature 97.1 F Pulse Rate 89 Respiratory Rate 18 Blood Pressure 96/76 96/76 125/85 Pulse Oximetry 94 Oxygen Delivery Method Room Air 11/03/24 07:54 Temperature 98.1 F Pulse Rate 99 Respiratory Rate 15 Blood Pressure 112/85 Pulse Oximetry Oxygen Delivery Method Room Air BMI result Body Mass Index 21.8 Vital signs have been reviewed and appear to be correct. Blood pressure elevated. Heart rate normal. Respiratory rate normal. Temperature normal. Oxygen saturation normal. Appearance: Alert. Oriented X3. No acute distress. Head: Normal external exam. Normocephalic. Atraumatic. No Rivers signs noted. No raccoon eyes noted Eyes: PERRLA. EOMI. Conjunctiva and sclera normal. Eyelids normal. ENT: TM's Normal. Pharynx normal. Uvula midline. Moist mucous membranes. No trismus noted. No drooling noted. No muffled voice noted. Neck: Normal inspection. Neck supple. FROM. No adenopathy. Thyroid Normal. No meningeal signs. No neck mass noted. CVS: Normal heart rate and rhythm. Heart sound normal. No murmurs noted. Pulses normal throughout. Respiratory: No respiratory distress. Painless inspiration. Breath sounds normal. No wheezes/rales/rhonchi noted. Chest nontender. No accessory muscle usage noted or decreased air movement noted. Abdomen: Soft and nontender. Bowel sounds normal in all 4 quadrants. No distention noted. No organomegaly noted. No visible injury noted. Back: No CVA tenderness. Full range of motion noted. Skin: Skin warm and dry. Normal skin color. Normal skin turgor. No rashes/lesions/lacerations noted. Extremities: No lower extremity edema. Extremities exhibit normal range of motion. Extremities nontender. Neuro: Oriented X 3. Cranial nerve exam: II-XII are grossly intact No motor deficit. No sensory deficit. Reflexes normal. Patient Orientation: Person, Place, Time and Situation, okay hygiene and grooming. Fair eye contact, attentive, no tics or tremors. Level of Consciousness: Awake, Appropriate and Alert Patient Behavior: Appropriate, Guarded, Cooperative and Anxious Mood Description: Constricted, Blunted and Apprehensive Affect Description: Constricted, Blunted and Apprehensive Patient Cognition Impaired: No Ability to Follow Directions: Excellent Speech Pattern: Clear, Appropriate and Spontaneous Speech, nonpressured, spontaneous with regular rate and rhythm, normal volume and prosody. No dysarthria. Memory Description: Intact, Immediate Intact and Short Term Intact Hallucinations: None Delusions: Not Present Thought Process: Intact Thought Content: positive for Intact, positive for Logical, denies Suicidal Ideation and denies Homicidal Ideation. Depressive Symptoms: Not present. Judgement and Insight: Limited but adequate. Course Reevaluation(s) Reevaluation #1: Came in from rehab for agitation and being combative. [facility] insisting for a psych evaluation Before going back to them. Workup reveals UTI. Will start on Ceftin x1 week. medically cleared, await for care team evaluation. Will start physician observation now.Time: 03:05 Date: 10/31/24 Provider: ASHLEY Moreno Patient in physician observation for psychiatric evaluation.? No acute events reported overnight. No current complaints. VS stable.? Patient is in bed search status/pending CARE team evaluation. Will continue to monitor. Time: 20:30 Reevaluation #2: Time: 08:43 Date: 10/31/24 Provider: Alvaro Fulton MD Patient in physician observation for psychiatric evaluation.? No acute events reported overnight. No current complaints. VS stable.? Patient is in bed search status/pending CARE team evaluation. Will continue to monitor. Reevaluation #3: 11/01/2024 07:45 Dr. Fulton Patient was seen by corrections caseworker also by psych team is Negin psych level of care, bed search continue. No event reported overnight Time: 07:44 Additional Reevaluation(s): NOVEMBER 02 2024 08:30 DR. FULTON STABLE OVERNIGHT NO NEW COMPLAINT, VITAL SIGN STABLE 07:47 A.M. BLOOD PRESSURE 103/77 PULSE 83 AFEBRILE SAT 97% PATIENT CONTINUED TO BE NEGIN PSYCH LEVEL CARE BED SEARCH Time: 10:23 Date: 11/03/24 Provider: Danita Javed CNP Patient in physician observation Negin psych bed search. He was agitated this morning requiring frequent verbal redirection, who was requesting medication to help him to relax, he was amenable to receiving oral medication, he was given Zyprexa 10 mg or good effect.? VS stable. Consultations Time: 10:56 (The patient will be admitted for UTI, metabolic encephalopathy,) Medications Administered Generic Name Dose Route Start Last Admin Trade Name Blaineq PRN Reason Stop Dose Admin Al Hydroxide/Mg Hydroxide 15 ml 10/31/24 09:30 11/06/24 09:35 Magnesium Hydrox/Alum Hydrox 30 Ml Oral.Susp PO 15 ml Q6H AAMIR Administration Amlodipine Besylate 10 mg 10/31/24 09:30 11/06/24 09:35 Amlodipine Besylate 10 Mg Tablet PO 10 mg DAILY AAMIR Administration Protocol Apixaban 5 mg 10/31/24 09:30 11/06/24 09:35 Apixaban 5 Mg Tablet PO 5 mg BID AAMIR Administration Atorvastatin Calcium 80 mg 10/31/24 21:00 11/05/24 22:26 Atorvastatin Calcium 80 Mg Tablet PO Not Given BEDTIME AAMIR Brimonidine Tartrate 1 drop 10/31/24 09:30 11/06/24 10:34 Brimonidine Tartrate 0.2% Oph 5 Ml Bottle EYE-BOTH Not Given BID AAMIR Carvedilol 25 mg 10/31/24 09:30 11/06/24 09:34 Carvedilol 25 Mg Tablet PO 25 mg BID AAMIR Administration Protocol Divalproex Sodium 250 mg 10/31/24 21:00 11/06/24 09:36 Divalproex Sodium Sprinkles 125 Mg Cap. PO 250 mg BID AAMIR Administration Duloxetine HCl 30 mg 11/01/24 09:00 11/06/24 09:35 Duloxetine Hcl 30 Mg Capsule. PO 30 mg DAILY AAMIR Administration Empagliflozin 10 mg 10/31/24 09:00 11/06/24 09:34 Empagliflozin 10 Mg Tablet PO 10 mg DAILY AAMIR Administration Enoxaparin Sodium 30 mg 11/03/24 11:15 11/05/24 11:32 Enoxaparin Sodium 30 Mg/0.3 Ml Syringe SUBCUT Not Given Q24H AAMIR Gabapentin 800 mg 10/31/24 15:00 11/06/24 09:34 Gabapentin 400 Mg Capsule PO 800 mg TID AAMIR Administration Haloperidol 2 mg 10/31/24 15:00 11/06/24 09:34 Haloperidol 1 Mg Tablet PO 2 mg TID AAMIR Administration Hydralazine HCl 10 mg 10/31/24 21:00 11/06/24 09:31 Hydralazine Hcl 10 Mg Tablet PO 10 mg BID AAMIR Administration Protocol Latanoprost 1 drop 10/31/24 21:00 11/05/24 22:27 Latanoprost 0.005 % Ophth Shanti 2.5 Ml Drops EYE-BOTH Not Given BEDTIME AAMIR Omeprazole 20 mg 11/01/24 06:30 11/06/24 06:13 Omeprazole 20 Mg Capsule.Dr PO 20 mg DAILY@0630 AAMIR Administration Prednisolone Acetate 1 drop 10/31/24 13:00 11/06/24 10:30 Prednisolone Acetate 1 % Oph Susp 5 Ml Drpbtl EYE-BOTH 1 drop QID AAMIR Administration Simethicone 160 mg 10/31/24 21:00 11/06/24 09:35 Simethicone 80 Mg Tab.Chew PO 160 mg BID AAMIR Administration Sodium Chloride 3 ml 11/03/24 16:00 11/06/24 09:42 0.9 % Sodium Chloride Flush 3 Ml Syringe IVFLUSH Not Given QSHIFT AAMIR Discontinued Medications Generic Name Dose Route Start Last Admin Trade Name Freq PRN Reason Stop Dose Admin Alprazolam 1 mg 10/31/24 14:00 10/31/24 14:34 Alprazolam 0.5 Mg Tablet PO 1 mg BID@0600,1400 AAMIR Administration Cefuroxime Axetil 250 mg 10/30/24 21:00 11/05/24 09:28 Cefuroxime Axetil 250 Mg Tablet PO 11/05/24 20:00 250 mg BID AAMIR Administration Clonazepam 1 mg 10/31/24 21:00 11/05/24 09:28 Clonazepam 1 Mg Tablet PO 1 mg BID AAMIR Administration Olanzapine 10 mg 11/03/24 08:42 11/03/24 08:47 Olanzapine 10 Mg Tablet PO 11/03/24 08:43 10 mg ONCE ONE Administration Oxycodone HCl 5 mg 10/31/24 09:16 11/04/24 10:51 Oxycodone Hcl Immed Release 5 Mg Tablet PO 5 mg Q4H PRN Administration Pain, Moderate(Pain Scale 4-6) Medical Decision Making Differential Diagnosis Differential Diagnoses: The differential diagnosis associated with the presentation includes ( Delirium, acute psychosis, agitation, electrolyte derangement, severe anemia, UTI.) Admission/Observation Consideration of admission/observation: Escalation of care including admission/observation considered Lab Data MDM Lab Attestation statement: I reviewed the patient's lab results. 11/04/24 07:59 11/04/24 07:59 Labs: Lab Results 10/30/24 Range/Units 20:00 WBC 6.6 (4.8-10.8) X10*3/uL RBC 4.90 (4.60-5.80) X10*6/uL Hgb 15.0 (14.0-18.0) g/dl Hct 45.4 (42.0-52.0) % MCV 92.7 (80.0-98.0) fL MCH 30.6 (27.0-33.0) pg MCHC 33.0 (31.0-36.0) g/dl RDW 15.3 (11.0-16.0) % Plt Count 186 D (160-400) X10*3/uL MPV 10.1 (9.4-12.4) fL Immature Gran % (Auto) 0.2 (0.0-0.4) % Neut % (Auto) 46.2 (45-73) % Lymph % (Auto) 34.6 (20-40) % Terry % (Auto) 8.8 (2-11) % Eos % (Auto) 9.6 H (0-4) % Baso % (Auto) 0.6 (0-2) % Lymph # (Auto) 2.3 (1.2-4.9) X10*3/uL Terry # (Auto) 0.6 (0.1-1.2) X10*3/uL Eos # (Auto) 0.6 H (0.0-0.4) X10*3/uL Baso # (Auto) 0.0 (0.0-0.2) X10*3/uL Abs Immat Gran (auto) 0.01 (0.00-0.03) X10*3/uL Absolute Neuts (auto) 3.1 (2.0-8.3) x10*3/uL Absolute Nucleated RBC 0.000 (0.0-0.012) X10*3/uL Nucleated RBC % (auto) 0.0 (0.0-0.2) /100WBC Sodium 139 (135-145) mmol/L Potassium 4.3 (3.3-5.1) mmol/L Chloride 107 (96-108) mmol/L Carbon Dioxide 23 (22-29) mmol/L Anion Gap 13 (12-20) BUN 18 H (9-16) mg/dL Creatinine 2.01 H (0.5-1.4) mg/dL Estim Creat Clear Calc 38.3 Estimated GFR 34 Random Glucose 92 (60-115) mg/dL Calcium 9.0 D (8.4-10.2) mg/dL Total Bilirubin 0.5 (0.0-1.0) mg/dL Direct Bilirubin 0.3 (0.0-0.5) mg/dL AST 37 (5-37) U/L ALT 27 (0-40) U/L Alkaline Phosphatase 105 (39-117) U/L Total Protein 7.1 (6.5-8.0) g/dL Albumin 3.7 (3.5-5.0) g/dL Urine Color Yellow Urine Appearance Clear Urine pH 6.0 (5.0-9.0) Ur Specific [place] 1.025 (1.005-1.025) Urine Protein 300 (3+) H (Neg-Trace) mg/dL Urine Glucose (UA) >=1000 H (Negative) mg/dL Urine Ketones Trace (Negative) mg/dL Urine Blood Negative (Negative) Urine Nitrite Negative (Negative) Ur Leukocyte Esterase Moderate (2+) H (Negative) Urine RBC 0-2 (0-2) /HPF Urine WBC >50 H (0-5) /HPF Ur Squamous Epith Cells 0-2 (0-2) /HPF Urine Bacteria 4+ (None Seen) Hyaline Casts 0-2 (0-2) /LPF Urine Yeast Present Urine Opiates Screen Not Detected (Not Detect) Ur Buprenorphine Scrn Not Detected (Not Detect) ng/mL Ur Oxycodone Screen Positive H (Not Detect) ng/mL Urine Methadone Screen Not Detected (Not Detect) ng/mL Urine Fentanyl Screen Not Detected (Not Detect) Ur Barbiturates Screen Not Detected (Not Detect) Ur Phencyclidine Scrn Not Detected (Not Detect) Ur Amphetamines Screen Not Detected (Not Detect) U Benzodiazepines Scrn POSITIVE H (Not Detect) Urine Cocaine Screen Not Detected (Not Detect) U Marijuana (THC) Screen POSITIVE H (Not Detect) Ethyl Alcohol < 10 mg/dL Discharge Plan Discharge Clinical Impression: Agitation, Acute UTI Patient Disposition: Admitted As Inpatient Interventions: Admission Worksheet (ED) Last Done: 11/03/24 12:13 Discharge Date/Time: 11/03/24 14:50
[2024-10-30 20:05] LABS: MANUAL DIFF FLAG NO
[2024-10-30 20:07] LABS: Basophils Percent Auto 0.6 % (0-2); Eosinophils Absolute Auto 0.6 X10*3/uL (0.0-0.4); Eosinophils Percent Auto 9.6 % (0-4); Hematocrit 45.4 % (42.0-52.0); Imm Gran Abs Auto 0.01 X10*3/uL (0.00-0.03); Imm Gran Pct Auto 0.2 % (0.0-0.4); Lymphocytes Absolute Auto 2.3 X10*3/uL (1.2-4.9); Lymphocytes Percent Auto 34.6 % (20-40); Mean Corpuscular Hemoglobin 30.6 pg (27.0-33.0); Mean Corpuscular Volume 92.7 fL (80.0-98.0); Mean Platelet Volume 10.1 fL (9.4-12.4); Monocytes Absolute Auto 0.6 X10*3/uL (0.1-1.2); Monocytes Percent Auto 8.8 % (2-11); Neutrophils Absolute Auto 3.1 x10*3/uL (2.0-8.3); Neutrophils Percent Auto 46.2 % (45-73); Platelet Count 186 X10*3/uL (160-400); Red Cell Distribution Width 15.3 % (11.0-16.0); White Blood Count 6.6 X10*3/uL (4.8-10.8)
[2024-10-30 20:08] LABS: Appearance Urine Clear; Color Urine Yellow; Glucose Urine UA >=1000 mg/dL (Negative); Leukocyte Esterase Urine Moderate (2+) (Negative); Nitrite Urine Negative (Negative); Specific Gravity - Urine 1.025 (1.005-1.025); UMIC TRIGGER UACC YES; Urine Blood Negative (Negative); Urine Ketones Trace mg/dL (Negative); Urine Protein 300 (3+) mg/dL (Neg-Trace)
[2024-10-30 20:18] LABS: Amphetamine Screen Urine Not Detected (Not Detect); Barbiturates, Urine Not Detected (Not Detect); Benzodiazepines Screen Urine POSITIVE (Not Detect); Buprenorphine Scr Not Detected (Not Detect); Cannabinoid Screen Urine POSITIVE (Not Detect); Cocaine Screen Urine Not Detected (Not Detect); Fentanyl, urine Not Detected (Not Detect); Methadone Screen, Urine Not Detected (Not Detect); Opiate Screen Urine Not Detected (Not Detect); Oxycodone Screen Urine Positive (Not Detect); Phencyclidine Screen Urine Not Detected (Not Detect)
[2024-10-30 20:21] LABS: Alanine Aminotransferase 27 U/L (0-40); Albumin Level 3.7 g/dL (3.5-5.0); Alkaline Phosphatase 105 U/L (39-117); Anion Gap 13 (12-20); Aspartate Amino Transferase 37 U/L (5-37); Bilirubin Direct 0.3 mg/dL (0.0-0.5); Bilirubin Total 0.5 mg/dL (0.0-1.0); Blood Urea Nitrogen 18 mg/dL (9-16); Carbon Dioxide 23 mmol/L (22-29); Chloride 107 mmol/L (96-108); Creatinine Clr Calc Pharmacy 38.3; Estimated Glomerular Filt Rate 34; Ethanol < 10 mg/dL; Glucose Random 92 mg/dL (60-115); Potassium 4.3 mmol/L (3.3-5.1); Sodium 139 mmol/L (135-145); Total Protein 7.1 g/dL (6.5-8.0)
[2024-10-30 20:29] LABS: Bacteria Urine 4+ (None Seen); Hyaline Casts Urine 0-2 /LPF (0-2); RBC Urine 0-2 /HPF (0-2); Squamous Epithelial Cell Urine 0-2 /HPF (0-2); UACC Culture Trigger YES; WBC Urine >50 /HPF (0-5)
[2024-10-30] MEDS: cefuroxime axetiL 250 MG TABLET PO (22:33)
[2024-10-31] VITALS (9 sets, daily range): BP systolic 113–149; BP diastolic 87–114; PULSE 79–96; RESP 14–20; TEMP 36.1–36.8; O2SAT 96–98
--- NOTE | 2024-10-31 03:02 | PC.NURSE ---
Pt appears to be sleeping, equal, non labored respirations. Sitter at bedside.
--- NOTE | 2024-10-31 08:51 | PHA.MEDREC ---
Pharmacy Consult ? Medication Reconciliation Pharmacy has reviewed the medication reconciliation done by RN. Patient was from [facility]. RN omitted alprazolam and included divalproex, oxycodone, amlodipine, haloperidol which were all prescribed by Dr Govea during admission on 10/30 however patient has not started medication yet. RN also included dicyclomine which was noted on the list to be completed.
[2024-10-31] MEDS: cefuroxime axetiL 250 MG TABLET PO ×2 (10:07→20:18)
[2024-10-31] MEDS: amLODIPine Besylate 10 MG TABLET PO (10:08)
[2024-10-31] MEDS: Apixaban 5 MG TABLET PO ×2 (10:08→20:09)
[2024-10-31] MEDS: carvediloL 25 MG TABLET PO ×2 (10:09→20:08)
[2024-10-31] MEDS: Magnesium Hydrox/Alum Hydrox 30 ML ORAL.SUSP 15 ML PO ×3 (10:09→20:09)
[2024-10-31] MEDS: oxyCODONE HCl Immed Release 5 MG TABLET PO ×2 (10:18→14:51)
--- NOTE | 2024-10-31 13:07 | MHC.CM.ED ---
Received case management consult from Dr Gould. Patient came to the ER from [facility]. Patient is well known to T/W from last admission. Patient was living in his apartment in [place]. Had home [employer], Yael for 40 hours a week. Dang is patient's outpatient [facility] caseworker. Patient was inpatient at [facility] from 10/12-10/17. At that time patient was d/c'd to [facility]. Came to [facility] ER on 10/18 due to aggression/agitation at [facility]. Patient was found to be delirious and was admitted to [facility]. Patient was d/c'd back to [facility] on 10/30 and returned to ER due to aggression and agitation. [facility] is not able to accept patient back. Patient has been cleared by Care Team. Psych consult is pending. Continue to monitor for d/c needs.
--- NOTE | 2024-10-31 13:08 | P.CNPS_ITS ---
History of Present Illness Date of Service: 10/31/2024 Chief Complaint: combative w/ staff @[facility], psych eval Reason for Consult: combative behaviors Discussed with referring provider: Yes Sources of Information: patient interviewed, chart reviewed and crisis/core team assessment reviewed Additional Sources of Information: Dang- Hardy disease case manager HPI Narrative: Mr. Finney is a 64 year-old male with hx CVA, seems also underlying neurocognitive disorder who was sent via EMS from [facility], where he was sent yesterday from [facility] [place] [facility] to receive STR, due to increase combative behaviors towards staff. Pt is known to this technical proposal writer after he had extended admission initially in the ED after he was sent from same facility also due to combative behaviors asking to leave and smoke a cigarette. He was from 10/18/2024 to 10/30/2024. He initially presented with evident memory/cognitive impairments and while awaiting in the ED he became delirious. He was medically admitted for tx of delirium. He seemed to have improved and was sent back to on 10/31/2024 and sent back hours after. Pertinent labs completed in the ED include cmp with no electrolyte abnormalities. BUN 18, Cr 2.01, creatinine clearance 38.3. LFT wnl. UA suggestive of UTI (+protein, +glucose, +leukocytes, +blood, +bacteria). He was started on ceftin 250mg po BID. Utox positive for oxycodone which he was prescribed for pain, benzo which he has been prescribed, recently switched from xanax to diazepam while in the hospital and cannabinoids. Pt seen in the ED with case packer and sealer from [facility]. Pt presents with some difficulty recalling events that led to this ED admission. He is not sure how long he was here before he was discharged or where exactly he was yesterday before he was sent back here. He tells this technical proposal writer that he thinks he relapsed on cocaine last night which this technical proposal writer explained he was in the hospital for the past 2 weeks and has not relapsed on cocaine. Pt was surprised to hear that and asked few times to clarify that he had not relapsed. Pt seemed happy to here that he has not relapsed on cocaine. He does correctly remember that he had surgery some weeks ago but was cancelled. He thinks is because he used cocaine, but again this is inaccurate. It appeared it had been cancelled because his BP was too high. He vaguely remembers that he was at a facility last evening and that staff were trying to help him clean up and he got confused and upset. He does remember that he was discharged yesterday by Dr. Govea. He reports today that he is very sorry about incident at and his intention was not to be rude or aggressive towards anyone. He does not appear internally preoccupied. He does seem to present with some degree of confabulation but no overt delusional content. He asks again if he can have a cigarette which pt was informed he is not able to smoke in hospital grounds. He was offered nicotine patch but he declined. 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 He did not report hx of inpt psychiatric admission. He is currently prescribed xanax by his PCP Tanvir Shi MD. He does have services through [facility] with disease case manager- Estee; SWITCHER Yael ([phone]). No know hx of suicide attempts. [facility] Medical History Depression GERD (gastroesophageal reflux disease) Atrial fibrillation CVA (cerebral vascular accident) Polysubstance abuse CKD (chronic kidney disease), stage IV HFrEF (heart failure with reduced ejection fraction) Essential hypertension Type 2 diabetes mellitus Family History: son with substance? mental health issues Social History: hx of substance used never found AA helpful due to those who attended ; he found praying and going to yazdanism helpful-= sober since cva - Trauma History: not reviewed this visit Diagnostics Vital Signs (24Hr): Vital Signs - 24 hr 10/30/24 19:14 10/31/24 04:00 10/31/24 09:36 Temperature 98.0 F 97 F Pulse Rate 93 79 Respiratory Rate 16 16 20 Blood Pressure 121/97 H 149/114 H Pulse Oximetry 98 96 Oxygen Delivery Method Room Air Room Air 10/31/24 10:08 10/31/24 10:09 Temperature Pulse Rate 79 Respiratory Rate Blood Pressure 149/114 H 149/114 H Pulse Oximetry Oxygen Delivery Method BMI result Body Mass Index 21.8 Labs 10/30/24 20:00 10/30/24 20:00 Labs: Laboratory Results - last 48 hr 10/30/24 20:00 WBC 6.6 RBC 4.90 Hgb 15.0 Hct 45.4 MCV 92.7 MCH 30.6 MCHC 33.0 RDW 15.3 Plt Count 186 D MPV 10.1 Immature Gran % (Auto) 0.2 Neut % (Auto) 46.2 Lymph % (Auto) 34.6 Willacy % (Auto) 8.8 Eos % (Auto) 9.6 H Baso % (Auto) 0.6 Lymph # (Auto) 2.3 Willacy # (Auto) 0.6 Eos # (Auto) 0.6 H Baso # (Auto) 0.0 Abs Immat Gran (auto) 0.01 Absolute Neuts (auto) 3.1 Absolute Nucleated RBC 0.000 Nucleated RBC % (auto) 0.0 Sodium 139 Potassium 4.3 Chloride 107 Carbon Dioxide 23 Anion Gap 13 BUN 18 H Creatinine 2.01 H Estim Creat Clear Calc 38.3 Estimated GFR 34 Random Glucose 92 Calcium 9.0 D Total Bilirubin 0.5 Direct Bilirubin 0.3 AST 37 ALT 27 Alkaline Phosphatase 105 Total Protein 7.1 Albumin 3.7 Urine Color Yellow Urine Appearance Clear Urine pH 6.0 Ur Specific [place] 1.025 Urine Protein 300 (3+) H Urine Glucose (UA) >=1000 H Urine Ketones Trace Urine Blood Negative Urine Nitrite Negative Ur Leukocyte Esterase Moderate (2+) H Urine RBC 0-2 Urine WBC >50 H Ur Squamous Epith Cells 0-2 Urine Bacteria 4+ Hyaline Casts 0-2 Urine Yeast Present Urine Opiates Screen Not Detected Ur Buprenorphine Scrn Not Detected Ur Oxycodone Screen Positive H Urine Methadone Screen Not Detected Urine Fentanyl Screen Not Detected Ur Barbiturates Screen Not Detected Ur Phencyclidine Scrn Not Detected Ur Amphetamines Screen Not Detected U Benzodiazepines Scrn POSITIVE H Urine Cocaine Screen Not Detected U Marijuana (THC) Screen POSITIVE H Ethyl Alcohol < 10 Mental Status Exam Mental Status Exam Narrative: Appearance: wearing hospital gown, fair hygiene, in NAD Behavior: cooperative, overly friendly Psychomotor: no agitation or retardation noted Speech: mostly clear, regular rate/rhythm/volume, spontaneous TP: circumstantial TC: wanting to smoke, hoping to go home soon Mood: okay Affect: congruent SI: denies HI: none VH/AH: no overt signs Delusions: none, but noted some confabulation (in context of memory impairments and thinking he used cocaine last evening). Insight/judgment: impaired x 2. Memory/cog: alert, oriented to idea of hospital, not sure why he is here. Not oriented to situation. noted significant gaps in memory but attention much improved and not suggestive of active delirium. Medications Medications Current Medications Al Hydroxide/Mg Hydroxide (Magnesium Hydrox/Alum Hydrox 30 Ml Oral.Susp) 15 ml PO Q6H [facility] Last Admin: 10/31/24 10:09 Dose: 15 ml Alprazolam (Alprazolam 0.5 Mg Tablet) 1 mg PO BID@0600,1400 [facility] Alprazolam (Alprazolam 0.5 Mg Tablet) 2 mg PO DAILY@2000 [facility] Amlodipine Besylate (Amlodipine Besylate 10 Mg Tablet) 10 mg PO DAILY [facility]; Protocol Last Admin: 10/31/24 10:08 Dose: 10 mg Apixaban (Apixaban 5 Mg Tablet) 5 mg PO BID [facility] Last Admin: 10/31/24 10:08 Dose: 5 mg Atorvastatin Calcium (Atorvastatin Calcium 80 Mg Tablet) 80 mg PO BEDTIME [facility] Bisacodyl (Bisacodyl 10 Mg Supp.Rect) 10 mg AK DAILY PRN PRN Reason: Constipation Brimonidine Tartrate (Brimonidine Tartrate 0.2% Oph 5 Ml Bottle) 1 drop EYE- BOTH BID [facility] Carvedilol (Carvedilol 25 Mg Tablet) 25 mg PO BID [facility]; Protocol Last Admin: 10/31/24 10:09 Dose: 25 mg Cefuroxime Axetil (Cefuroxime Axetil 250 Mg Tablet) 250 mg PO BID [facility] Stop: 11/05/24 20:00 Last Admin: 10/31/24 10:07 Dose: 250 mg Divalproex Sodium (Divalproex Sodium Sprinkles 125 Mg Cap..Spr) 250 mg PO BID [facility] Duloxetine HCl (Duloxetine Hcl 30 Mg Capsule.Dr) 30 mg PO DAILY [facility] Empagliflozin (Empagliflozin 10 Mg Tablet) 10 mg PO DAILY [facility] Gabapentin (Gabapentin 400 Mg Capsule) 800 mg PO TID [facility] Haloperidol (Haloperidol 1 Mg Tablet) 2 mg PO TID [facility] Hydralazine HCl (Hydralazine Hcl 10 Mg Tablet) 10 mg PO BID [facility]; Protocol Latanoprost (Latanoprost 0.005 % Ophth Shanti 2.5 Ml Drops) 1 drop EYE-BOTH BEDTIME [facility] Magnesium Hydroxide (Milk Of Magnesia 30 Ml Oral.Susp) 30 ml PO DAILY PRN PRN Reason: Constipation Nicotine Polacrilex (Nicotine Polacrilex 2 Mg Gum) 2 mg BUCCAL Q2H PRN PRN Reason: Smoking Cessation Omeprazole (Omeprazole 20 Mg Capsule.Dr) 20 mg PO DAILY@0630 [facility] Oxycodone HCl (Oxycodone Hcl Immed Release 5 Mg Tablet) 5 mg PO Q4H PRN PRN Reason: Pain, Moderate(Pain Scale 4-6) Last Admin: 10/31/24 10:18 Dose: 5 mg Prednisolone Acetate (Prednisolone Acetate 1 % Oph Susp 5 Ml Drpbtl) 1 drop EYE-BOTH QID [facility] Simethicone (Simethicone 80 Mg Tab.Chew) 160 mg PO BID [facility] Sodium Biphosphate/Sodium Phosphate (Sodium Phosphate,Willacy-Dibasic 133 Ml Enema) 118 ml AK DAILY PRN PRN Reason: Constipation Allergies Allergies Allergy/AdvReac Type Severity Reaction Status Date / Time acetaminophen [From TYLENOL] Allergy Unknown CAN'T TAKE Verified 10/30/24 19:22 PER PT aspirin [ASPIRIN] Allergy Unknown BLEEDING Verified 10/30/24 19:22 calcium carbonate Allergy Unknown Unknown Verified 10/30/24 19:22 fish derived [fish] Allergy Unknown Unknown Verified 10/30/24 19:22 NSAIDS (Non-Steroidal AdvReac Severe STOMACH Verified 10/30/24 19:22 Anti-Inflamma UPSET [NSAIDS (NON-STEROIDAL ANTI-INFLAMMA] Assessment & Plan Assessment & Plan (1) Major 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 Finney is a 64 year-old male with hx of CVA, underlying cognitive and memory impairments. He had prolonged admission from 10/18 to 10/30/24 initially due to combative behaviors, then complicated by pt becoming delirius and eventually admitted to medical floor. Signs/symptoms of delirium cleared and he was sent to [facility] for STR. He was sent back hours after discharged due to combative behaviors towards staff. He currently does not appear to be deliriums. Pertient labs include cbc/ cmp mostly unremarkable at seemed baseline (especially renal function with BUN 18, Cr 2.01). UA does show UTI, started on ceftin but do not think this is culprit. I suspect he may be sun downing and becoming even more confused later in the evening when he tends to be more combative. Would recommend geriatric admission for assessment and management of agitation in setting of dementia. PLAN 1. Inpatient anatoliy psych for management of combative behaviors. Although he currently does not present as combative, seems to struggle later in the evening. 2. Continue depakote 250mg po BID. For now continue haldol 2mg po TID- monitor EKG, maintain Qtc<500ms, K>4, Mg>2. hold for over sedation. Haldol 5mg IM/PO for acute agitation q8h prn. DO NOT ADD BENADRYL. 3. He had been switched from xanax to diazepam. continue diazepam 2mg po TID- monitor oversedation, disinhibition. 4. Avoid oversedation while awaiting anatoliy psych bed in the ED (this was main contributor to him becoming delirious last admission). 5. Maintain adequate hydration/nutrition. Total time managing care of this patient today ____ minutes.
[2024-10-31] MEDS: HaloperidoL 1 MG TABLET 2 MG PO ×2 (14:31→20:09)
[2024-10-31] MEDS: Empagliflozin 10 MG TABLET PO (14:31)
[2024-10-31] MEDS: ALPRAZolam 0.5 MG TABLET 1 MG PO (14:34)
[2024-10-31] MEDS: Gabapentin 400 MG CAPSULE 800 MG PO ×2 (14:51→20:07)
--- NOTE | 2024-10-31 14:54 | PC.NURSE ---
Pt not aggressive at this time; pt continuously yelling out for food, drinks, help with the TV remote, etc; pt cooperative with care; medicated per orders for pain; remote camera in place in room for pt safety
--- NOTE | 2024-10-31 15:44 | MHC.EDTECH ---
pt was found clean and skin dry. vitals obtained
--- NOTE | 2024-10-31 17:10 | MHC.CM.ED ---
Per psych evaluation, patient will be a anatoliy psych admission for medication management of behaviors. CM will defer to psych.
[2024-10-31] MEDS: prednisoLONE Acetate 1 % Oph Susp 5 ML DRPBTL 1 DROP EYE-BOTH ×2 (19:01→20:15)
--- NOTE | 2024-10-31 19:28 | PC.NURSE ---
Notified Charge nurse/ Clinical coordinator, pt was not ion exchange operator, Security coming to completed ion exchange operator.
[2024-10-31] MEDS: Divalproex Sodium Sprinkles 125 MG CAP.DR.SPR 250 MG PO (20:07)
[2024-10-31] MEDS: Simethicone 80 MG TAB.CHEW 160 MG PO (20:08)
[2024-10-31] MEDS: Atorvastatin Calcium 80 MG TABLET PO (20:08)
[2024-10-31] MEDS: clonazePAM 1 MG TABLET PO (20:08)
[2024-10-31] MEDS: hydrALAZINE HCl 10 MG TABLET PO (20:09)
[2024-10-31] MEDS: Latanoprost 0.005 % Ophth Sol 2.5 ML DROPS 1 DROP EYE-BOTH (20:15)
[2024-10-31] MEDS: Brimonidine Tartrate 0.2% Oph 5 ML BOTTLE 1 DROP EYE-BOTH (20:15)
--- NOTE | 2024-10-31 20:26 | PC.NURSE ---
Pt medicated per mar, dinner warmed up and placed at the bedside.
--- NOTE | 2024-10-31 22:01 | MHC.EDTECH ---
pt was checked for any incontinence, pt was found clean, dinner tray untouched, under warm blankets, vitals obtained. pt had an output of 200mL of yellow urine in urinal.
[2024-11-01] MEDS: Magnesium Hydrox/Alum Hydrox 30 ML ORAL.SUSP 15 ML PO (06:26)
[2024-11-01] MEDS: Omeprazole 20 MG CAPSULE.DR PO (06:26)
[2024-11-01 06:31] VITALS: BP 114/74; PULSE 86; RESP 17; TEMP 36.8; O2SAT 95
--- NOTE | 2024-11-01 07:21 | PC.NURSE ---
Pt refer to pt paper chart for not regarding pt lowering himself to the ground to the bathroom. Incident report completed.
[2024-11-01 09:03] VITALS: BP 138/108; PULSE 91; RESP 20; O2SAT 95
[2024-11-01] MEDS: Apixaban 5 MG TABLET PO ×2 (09:05→20:22)
[2024-11-01] MEDS: Empagliflozin 10 MG TABLET PO (09:05)
[2024-11-01] MEDS: carvediloL 25 MG TABLET PO ×2 (09:06→20:22)
[2024-11-01] MEDS: clonazePAM 1 MG TABLET PO ×2 (09:06→20:19)
[2024-11-01] MEDS: DULoxetine HCl 30 MG CAPSULE.DR PO (09:06)
[2024-11-01] MEDS: hydrALAZINE HCl 10 MG TABLET PO ×2 (09:07→20:19)
[2024-11-01] MEDS: Gabapentin 400 MG CAPSULE 800 MG PO ×3 (09:07→20:19)
[2024-11-01] MEDS: amLODIPine Besylate 10 MG TABLET PO (09:08)
[2024-11-01] MEDS: Divalproex Sodium Sprinkles 125 MG CAP.DR.SPR 250 MG PO ×2 (09:08→20:22)
[2024-11-01] MEDS: cefuroxime axetiL 250 MG TABLET PO ×2 (09:08→20:22)
[2024-11-01] MEDS: Simethicone 80 MG TAB.CHEW 160 MG PO ×2 (09:10→20:19)
[2024-11-01] MEDS: HaloperidoL 1 MG TABLET 2 MG PO ×3 (09:10→20:19)
[2024-11-01] MEDS: prednisoLONE Acetate 1 % Oph Susp 5 ML DRPBTL 1 DROP EYE-BOTH ×3 (09:11→20:19)
[2024-11-01] MEDS: Brimonidine Tartrate 0.2% Oph 5 ML BOTTLE 1 DROP EYE-BOTH ×2 (09:11→20:19)
--- NOTE | 2024-11-01 09:55 | MHC.CARE ---
Pt seen by CARE team and Terri Sierra PRINCIPAL ARCHITECT, pt will be inpatient level of care for [facility] inpatient [facility].
--- NOTE | 2024-11-01 11:29 | ECG_ITS ---
Test Reason : qt check Blood Pressure : */* mmHG Vent. Rate : 102 BPM Atrial Rate : * BPM P-R Int : * ms QRS Dur : 76 ms QT Int : 344 ms P-R-T Axes : * -33 94 degrees QTcB Int : 448 ms Atrial fibrillation with rapid ventricular response Left axis deviation Nonspecific T wave abnormality Abnormal ECG When compared with ECG of 27-Aug-2016 15:09, Atrial fibrillation has replaced Sinus rhythm QRS voltage has decreased T wave inversion less evident in Lateral leads Referred By: Shelli Sierra Electronically Signed By: Keith Molina
[2024-11-01 11:56] VITALS: BP 135/104; PULSE 100; RESP 20; O2SAT 97
[2024-11-01 16:26] VITALS: BP 130/101; PULSE 82; RESP 16; TEMP 36.9; O2SAT 97
[2024-11-01] MEDS: oxyCODONE HCl Immed Release 5 MG TABLET PO (17:38)
--- NOTE | 2024-11-01 17:41 | PC.NURSE ---
the RN was late with admin of 1300 eye drop. Given late and 1700 dose held. Nexts dose 2100
--- NOTE | 2024-11-01 17:43 | PC.NURSE ---
no behavioral concerns today. pt redirectable and cooperative with care.
[2024-11-01 20:19] VITALS: BP 137/89
[2024-11-01] MEDS: Atorvastatin Calcium 80 MG TABLET PO (20:19)
[2024-11-01] MEDS: Latanoprost 0.005 % Ophth Sol 2.5 ML DROPS 1 DROP EYE-BOTH (20:19)
[2024-11-01 20:22] VITALS: BP 137/89; PULSE 83
--- NOTE | 2024-11-01 20:46 | MHC.EDTECH ---
Patient observed lying in bed with clean sheets. Sitter present at bedside. Cheikh Riley and Errol collected the patient's belongings from his room , placed soiled clothes in the pod washer, and completed a belongings list. All belongings have been placed on uParts shelf 2.
--- NOTE | 2024-11-01 23:03 | MHC.EDTECH ---
Clean Clothes putted in the shelf 2 with patient's belongings.
--- NOTE | 2024-11-01 23:31 | PC.NURSE ---
assumed care for pt at 1900. pt was noted to be sleeping in bed, symmetrical rise and fall of chest and unlabored respirations noted. pt noted to be wearing regular hospital attire. EDT placed belongings in sallyport, shelf 2. sitter in place at bedside. pt awoke for 2099 med pass. pt calm and cooperative, conversing well, and took medications. 2129 pt refused maalox. pt is now sleeping in bed in no notable distress, symmetrical rise and fall of chest and unlabored respirations. sitter in place. plan of care ongoing.
[2024-11-02] VITALS (9 sets, daily range): BP systolic 96–103; BP diastolic 70–77; PULSE 69–88; RESP 14–18; TEMP 36–36.6; O2SAT 95–98
[2024-11-02] MEDS: oxyCODONE HCl Immed Release 5 MG TABLET PO ×2 (03:49→11:13)
--- NOTE | 2024-11-02 04:29 | MHC.EDTECH ---
This prior authorization technician gave patient two ice cream cups and sincere crackers. Patient is pleasant, no agitation was noted.
--- NOTE | 2024-11-02 06:19 | MHC.EDTECH ---
Patient is pleasant, no signs of agitation towards staff. This phlebotomy tech emptied 425 cc of clear yellow urine from urinal.
[2024-11-02] MEDS: Omeprazole 20 MG CAPSULE.DR PO (06:30)
[2024-11-02] MEDS: cefuroxime axetiL 250 MG TABLET PO ×2 (09:39→21:02)
[2024-11-02] MEDS: HaloperidoL 1 MG TABLET 2 MG PO ×3 (09:39→21:02)
[2024-11-02] MEDS: Simethicone 80 MG TAB.CHEW 160 MG PO (09:39)
[2024-11-02] MEDS: clonazePAM 1 MG TABLET PO ×2 (09:40→20:59)
[2024-11-02] MEDS: Apixaban 5 MG TABLET PO ×2 (09:41→21:02)
[2024-11-02] MEDS: Empagliflozin 10 MG TABLET PO (09:42)
[2024-11-02] MEDS: hydrALAZINE HCl 10 MG TABLET PO (09:43)
[2024-11-02] MEDS: carvediloL 25 MG TABLET PO (09:44)
[2024-11-02] MEDS: Gabapentin 400 MG CAPSULE 800 MG PO ×3 (09:44→20:59)
[2024-11-02] MEDS: Divalproex Sodium Sprinkles 125 MG CAP.DR.SPR 250 MG PO ×2 (09:46→21:02)
[2024-11-02] MEDS: amLODIPine Besylate 10 MG TABLET PO (09:46)
[2024-11-02] MEDS: prednisoLONE Acetate 1 % Oph Susp 5 ML DRPBTL 1 DROP EYE-BOTH ×4 (09:49→21:09)
[2024-11-02] MEDS: Brimonidine Tartrate 0.2% Oph 5 ML BOTTLE 1 DROP EYE-BOTH ×2 (09:49→21:09)
--- NOTE | 2024-11-02 10:25 | PC.NURSE ---
Pt has been cooperative throughout the morning with lots of attention/assist from PCT for cleaning and linen change. Was helped to a recliner but preferred bed once it was cleansed. Pt has been axox4. Aware of plan for anatoliy psych placement. stated he wants to go back home. Ate well. States he had a BM 2 days ago. Moist mm.
--- NOTE | 2024-11-02 11:14 | PC.NURSE ---
Mediatdfor pain in LLE and right shoulder. states he has increased pain when it's humid. Sitter now at bedside. Pt has been mostly calm this am and rdirectable when he tried to get out of bed only once. needs frequent reminders of plan of care.
--- NOTE | 2024-11-02 15:17 | PC.NURSE ---
Pt has been sleeping.
--- NOTE | 2024-11-02 15:52 | MHC.EDTECH ---
obtained vitals, pt boosted and sat upright to eat lunch tray, all needs were met call francisco within reach, camera on
--- NOTE | 2024-11-02 19:03 | MHC.EDTECH ---
pt was assisted with feeding for dinner. pt consumed 90% of dinner tray.
[2024-11-02] MEDS: Atorvastatin Calcium 80 MG TABLET PO (20:59)
--- NOTE | 2024-11-02 21:02 | MHC.EDTECH ---
pt has a slightly open wound on sacrum, RN made aware, alleyvn dressing placed, pt laying left lateral with pillows placed behind him with relief
[2024-11-02] MEDS: Latanoprost 0.005 % Ophth Sol 2.5 ML DROPS 1 DROP EYE-BOTH (21:09)
--- NOTE | 2024-11-02 21:36 | PC.NURSE ---
pt medicated per JUL. Pt declined malox, and gas X, documented in JUL. HTN medication held per provider, b/p WNL, documented in JUL. . Pt given red velvet cake and milk.
--- NOTE | 2024-11-02 21:39 | PC.NURSE ---
Pt assigned a in person bed side sitte, after attempting to get out of bed. Pt states Im leaving .
[2024-11-03 00:47] VITALS: BP 125/85; PULSE 89; RESP 18; TEMP 36.2; O2SAT 94
--- NOTE | 2024-11-03 03:29 | PC.NURSE ---
pt seen on camera alarm to be getting out of bed. pt attempting to stand up to urinate. pt began spraying urine around room. pt states I'm not meaning to do this pt assisted with use of urinal linens replaced and pt repositioned back to bed
[2024-11-03] MEDS: Omeprazole 20 MG CAPSULE.DR PO (06:34)
[2024-11-03 07:54] VITALS: BP 112/85; PULSE 99; RESP 15; TEMP 36.7
[2024-11-03] MEDS: HaloperidoL 1 MG TABLET 2 MG PO ×3 (07:54→23:23)
[2024-11-03] MEDS: Gabapentin 400 MG CAPSULE 800 MG PO ×3 (07:55→23:24)
[2024-11-03] MEDS: Divalproex Sodium Sprinkles 125 MG CAP.DR.SPR 250 MG PO ×2 (07:55→23:23)
[2024-11-03] MEDS: cefuroxime axetiL 250 MG TABLET PO ×2 (07:56→23:24)
[2024-11-03] MEDS: DULoxetine HCl 30 MG CAPSULE.DR PO (07:56)
[2024-11-03] MEDS: Empagliflozin 10 MG TABLET PO (07:56)
[2024-11-03] MEDS: clonazePAM 1 MG TABLET PO ×2 (07:56→23:24)
--- NOTE | 2024-11-03 08:06 | PC.NURSE ---
720 am- pt was on commode to have BM, this nurse was in another patients room, pt has camera in room, pt stood up while on commode and was found yelling on the floor- provider was notified and came to see the patient who stated he slipped, charge was notified and camera room was called as camera alarm was not activated when patient stood up. additionally patient needing to be medicated- pt refusing eliquis, refusing gas x, and all BP medications- pts bp at this time 112/85
[2024-11-03] MEDS: OLANZapine 10 MG TABLET PO (08:47)
--- NOTE | 2024-11-03 08:59 | PC.NURSE ---
This RN received report from Angela LOBO. Patient is agitated, swearing at staff, accusing staff of lying to him . Demanding Gabapentin. Patient shown that he was medicated as ordered, and refused BP meds with Angela LOBO (as documented). [facility] PCT remains at bedside for 1:1 sitter, camera also in place.
--- NOTE | 2024-11-03 09:08 | PC.NURSE ---
patient medicated with po meds he was willing to take for anxiety and agitation.
--- NOTE | 2024-11-03 09:46 | PC.NURSE ---
pt was oob on commode for BM, pt safety camera was on, pt had bm- stood up and fell to his knees- camera alarm never sounded that he was attempting to stand. this nurse was in another patients room who was short of breath at time of incident. pt continues to repeatedly tell staff I am just going to keep falling on the floor on purpose so you help me pts needs are attempting to be met at all times, pt continues to yell at staff and is angry wanting to talk with Dr. Govea. ED provider evaluated patient- he was uninjured.
--- NOTE | 2024-11-03 10:42 | PC.NURSE ---
Assisted out of bed to commode. Patient argumentative with staff stating no, you don't need to hold me or touch me or nothing! back the fuck up! This RN & ED PCT explained safety risk of falls, and patient was assisted to commode. Linens changed, requested & given coffee. Plan for social admission with extermination supervisor care/locked facility bedsearch as discussed with Shelli Sierra,STONE FABRICATOR & ED staff. Katie Boudreaux agreed to this per Noemi Huang. Care ongoing by this RN. 1:1 sitter & camera in place.
--- NOTE | 2024-11-03 10:46 | PM.PSYCN ---
History of Present Illness Date of Service: 11/03/2024 Chief Complaint: combative w/ staff @[facility], psych eval Discussed with referring provider: Yes Sources of Information: patient interviewed, chart reviewed and crisis/core team assessment reviewed HPI Narrative: Interim Hx: Pt has not needed an IM since he returned from [facility] due to combative behaviors. He is confused as to why is he in the hospital. 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 He asks why he can't return back home, several concerns about his poor ambulation, dementia which affects his ability to care for himself. He is impulsive and attempts to ambulate, can be loud but is able to be redirectable. He has poor boundaries with staff, attempting to hold their hands and hug them or kiss there hands. he is taking medications as prescribed. 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 He did not report hx of inpt psychiatric admission. He is currently prescribed xanax by his PCP Tanvir Shi MD. He does have services through [facility] with hospice case manager- Estee; [facility] Yael ([phone]). No know hx of suicide attempts. Review of Systems Review of Systems All other systems are reviewed and are negative Constitutional: Reports as per HPI and Reports no additional constitutional complaints Eyes: Reports as per HPI and Reports no additional eye complaints Reports system reviewed and no additional complaints, except as documented Cardiovascular: Reports as per HPI and Reports no additional cardiovascular complaints Respiratory: Reports as per HPI and Reports no additional respiratory complaints Gastrointestinal: Reports as per HPI and Reports no additional gastrointestinal complaints Genitourinary: Reports no additional female genitourinary complaints Musculoskeletal: Reports no additional musculoskeletal complaints Skin/Breast: Reports system reviewed and no additional complaints, except as docu Psychiatric: Reports no additional psychiatric complaints Endocrine: Reports no additional endocrine complaints Hematologic/Lymphatic: Reports no additional hematologic/lymphatic complaints Allergic/Immunologic: Reports no additional allergic/immunologic complaints Reports system reviewed and no additional complaints, except as documented and Reports Abnormal speech present [facility] Medical History Depression GERD (gastroesophageal reflux disease) Atrial fibrillation CVA (cerebral vascular accident) Polysubstance abuse CKD (chronic kidney disease), stage IV HFrEF (heart failure with reduced ejection fraction) Essential hypertension Type 2 diabetes mellitus Family History: son with substance? mental health issues Social History: hx of substance used never found AA helpful due to those who attended ; he found praying and going to [facility]aker helpful-= sober since cva - Trauma History: not reviewed this visit Diagnostics Vital Signs (24Hr): Vital Signs - 24 hr 11/02/24 14:46 11/02/24 15:38 11/02/24 20:00 Temperature 96.8 F 97.8 F Pulse Rate 69 88 Respiratory Rate 18 14 18 Blood Pressure 103/70 96/76 Pulse Oximetry 95 98 Oxygen Delivery Method Room Air Room Air 11/02/24 21:01 11/02/24 21:03 11/03/24 00:47 Temperature 97.1 F Pulse Rate 89 Respiratory Rate 18 Blood Pressure 96/76 96/76 125/85 Pulse Oximetry 94 Oxygen Delivery Method Room Air 11/03/24 07:54 Temperature 98.1 F Pulse Rate 99 Respiratory Rate 15 Blood Pressure 112/85 Pulse Oximetry Oxygen Delivery Method Room Air BMI result Body Mass Index 21.8 Labs 10/30/24 20:00 10/30/24 20:00 Mental Status Exam Mental Status Exam Narrative: Appearance: wearing hospital gown, fair hygiene, in NAD Behavior: cooperative, overly friendly Psychomotor: no agitation or retardation noted Speech: mostly clear, regular rate/rhythm/volume, spontaneous TP: circumstantial TC: wanting to know why he is in the hospital and when can he return home Mood: okay Affect: congruent SI: denies HI: none VH/AH: no overt signs Delusions: none, but noted some confabulation (in context of memory impairments and thinking he used cocaine last evening). Insight/judgment: impaired x 2. Memory/cog: alert, oriented to idea of hospital, not sure why he is here. Not oriented to situation. noted significant gaps in memory but attention much improved and not suggestive of active delirium. Medications Medications Current Medications Al Hydroxide/Mg Hydroxide (Magnesium Hydrox/Alum Hydrox 30 Ml Oral.Susp) 15 ml PO Q6H [facility] Last Admin: 11/03/24 08:02 Dose: Not Given Amlodipine Besylate (Amlodipine Besylate 10 Mg Tablet) 10 mg PO DAILY [facility]; Protocol Last Admin: 11/03/24 08:03 Dose: Not Given Apixaban (Apixaban 5 Mg Tablet) 5 mg PO BID [facility] Last Admin: 11/03/24 08:04 Dose: Not Given Atorvastatin Calcium (Atorvastatin Calcium 80 Mg Tablet) 80 mg PO BEDTIME [facility] Last Admin: 11/02/24 20:59 Dose: 80 mg Bisacodyl (Bisacodyl 10 Mg Supp.Rect) 10 mg ID DAILY PRN PRN Reason: Constipation Brimonidine Tartrate (Brimonidine Tartrate 0.2% Oph 5 Ml Bottle) 1 drop EYE-BOTH BID [facility] Last Admin: 11/03/24 08:04 Dose: Not Given Carvedilol (Carvedilol 25 Mg Tablet) 25 mg PO BID [facility]; Protocol Last Admin: 11/03/24 08:03 Dose: Not Given Cefuroxime Axetil (Cefuroxime Axetil 250 Mg Tablet) 250 mg PO BID [facility] Stop: 11/05/24 20:00 Last Admin: 11/03/24 07:56 Dose: 250 mg Clonazepam (Clonazepam 1 Mg Tablet) 1 mg PO BID [facility] Last Admin: 11/03/24 07:56 Dose: 1 mg Divalproex Sodium (Divalproex Sodium Sprinkles 125 Mg Cap.Dr.Spr) 250 mg PO BID [facility] Last Admin: 11/03/24 07:55 Dose: 250 mg Duloxetine HCl (Duloxetine Hcl 30 Mg Capsule.Dr) 30 mg PO DAILY [facility] Last Admin: 11/03/24 07:56 Dose: 30 mg Empagliflozin (Empagliflozin 10 Mg Tablet) 10 mg PO DAILY [facility] Last Admin: 11/03/24 07:56 Dose: 10 mg Gabapentin (Gabapentin 400 Mg Capsule) 800 mg PO TID [facility] Last Admin: 11/03/24 07:55 Dose: 800 mg Haloperidol (Haloperidol 1 Mg Tablet) 2 mg PO TID [facility] Last Admin: 11/03/24 07:54 Dose: 2 mg Hydralazine HCl (Hydralazine Hcl 10 Mg Tablet) 10 mg PO BID [facility]; Protocol Last Admin: 11/03/24 08:03 Dose: Not Given Latanoprost (Latanoprost 0.005 % Ophth Shanti 2.5 Ml Drops) 1 drop EYE-BOTH BEDTIME [facility] Last Admin: 11/02/24 21:09 Dose: 1 drop Magnesium Hydroxide (Milk Of Magnesia 30 Ml Oral.Susp) 30 ml PO DAILY PRN PRN Reason: Constipation Nicotine Polacrilex (Nicotine Polacrilex 2 Mg Gum) 2 mg BUCCAL Q2H PRN PRN Reason: Smoking Cessation Omeprazole (Omeprazole 20 Mg Capsule.Dr) 20 mg PO DAILY@0630 [facility] Last Admin: 11/03/24 06:34 Dose: 20 mg Oxycodone HCl (Oxycodone Hcl Immed Release 5 Mg Tablet) 5 mg PO Q4H PRN PRN Reason: Pain, Moderate(Pain Scale 4-6) Last Admin: 11/02/24 11:13 Dose: 5 mg Prednisolone Acetate (Prednisolone Acetate 1 % Oph Susp 5 Ml Drpbtl) 1 drop EYE-BOTH QID [facility] Last Admin: 11/03/24 08:02 Dose: Not Given Simethicone (Simethicone 80 Mg Tab.Chew) 160 mg PO BID [facility] Last Admin: 11/03/24 08:02 Dose: Not Given Sodium Biphosphate/Sodium Phosphate (Sodium Phosphate,[place]-Dibasic 133 Ml Enema) 118 ml ID DAILY PRN PRN Reason: Constipation Allergies Allergies Allergy/AdvReac Type Severity Reaction Status Date / Time acetaminophen (From TYLENOL) Allergy Unknown CAN'T TAKE Verified 10/30/24 19:22 PER PT aspirin (ASPIRIN) Allergy Unknown BLEEDING Verified 10/30/24 19:22 calcium carbonate Allergy Unknown Unknown Verified 10/30/24 19:22 fish derived (fish) Allergy Unknown Unknown Verified 10/30/24 19:22 NSAIDS (Non-Steroidal AdvReac Severe STOMACH Verified 10/30/24 19:22 Anti-Inflamma (NSAIDS UPSET (NON-STEROIDAL ANTI-INFLAMMA) Assessment & Plan Assessment & Plan (1) Major 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 Finney is a 64 year-old male with hx of CVA, underlying cognitive and memory impairments. He had prolonged admission from 10/18 to 10/30/24 initially due to combative behaviors, then complicated by pt becoming delirious and eventually admitted to medical floor. Signs/symptoms of delirium cleared and he was sent to [facility] for STR. He was sent back hours after discharged due to combative behaviors towards staff. He currently does not appear to be deliriums. Pertient labs include cbc/ cmp mostly unremarkable at seemed baseline (especially renal function with BUN 18, Cr 2.01). UA does show UTI, started on ceftin but do not think this is culprit. I suspect he may be sun downing and becoming even more confused later in the evening when he tends to be more combative. Would recommend geriatric admission for assessment and management of agitation in setting of dementia. PLAN 1. Inpatient anatoliy psych for management of combative behaviors. Although he currently does not present as combative, seems to struggle later in the evening. 2. Continue depakote 250mg po BID. For now continue haldol 2mg po TID- monitor EKG, maintain Qtc<500ms, K>4, Mg>2. hold for over sedation. Haldol 5mg IM/PO for acute agitation q8h prn. DO NOT ADD BENADRYL. 3. He had been switched from xanax to diazepam. continue diazepam 2mg po TID- monitor oversedation, disinhibition. 4. Avoid oversedation while awaiting anatoliy psych bed in the ED (this was main contributor to him becoming delirious last admission). 5. Maintain adequate hydration/nutrition. 11/03 continue tx--> continue haldol 2mg po TID, depakote 250mg po BID, will lower clonazepam 0.5mg po BID. AVOID OVER MEDICATING HIM. Maintain adequate hydration. can do olanzapine prn 10mg po q8h prn agitation. DO NOT give BENADRYL Total time managing care of this patient today ____ minutes.
--- NOTE | 2024-11-03 10:58 | MHC.CM.ED ---
Received telephone number from patient's PCP Dr Shi. Patient was supposed to have an appointment today. Dr Shi made aware of plan of care to admit to anatoliy psych. Dr Shi requesting notification when patient is [place]'d [place] [facility]
--- NOTE | 2024-11-03 11:18 | PM.IMHP ---
History of Present Illness Date of Service: 11/03/24 Chief Complaint: cognitive disorder, delerium A 64 years old male with PMH Aifb , CVA w Lt hemiparesis, HfrEF, DM2, Afib, CKD4, cognitive impairment, Mood disorder among others who presented to the hospital from [facility] for combative behaviour. The patient was asking to leave and smoke a cigarette. was aggressive toward staff. he was recently discharged [place] [facility] after hospitalization discharged on 10/30 for similar presentation requiring Psychiatry evaluation and management. Has been waiting placement in ED since 10/31 complicated with delerium. Admitted for management of delerium and behavioural problems pending safe discharge plan. Review of Systems Review of Systems: No fever, chills or weakness No chest pain, palpitation No shortness of breath or coughing No abdominal pain, nausea or vomiting No urinary symptoms PMFSH Medical History Depression GERD (gastroesophageal reflux disease) Atrial fibrillation CVA (cerebral vascular accident) Polysubstance abuse CKD (chronic kidney disease), stage IV HFrEF (heart failure with reduced ejection fraction) Essential hypertension Type 2 diabetes mellitus Social History Household Members: None Housing: Apartment Unable to assess alcohol history related to: Unknown Comment: 1:1 at bedside. Patient Tobacco Use Status: Current everyday Tobacco user Cigarettes Per Day: 5 Years Smoked: 40 Smoked in Last 30 Days: Yes Patient Interested in Nicotine Replacement: No Patient Given Instructions on How to Stop Smoking: Yes Date Education Initiated: 11/03/24 Second Hand Smoke Exposure: No Use of substances other than those prescribed or required for medical reasons: No Substance Use Type: Crack/Cocaine Have you been hit, kicked, punched, or otherwise hurt by someone within the past year? If so, by whom?: No Do you feel safe in your current relationship?: Yes Is there a partner from a previous relationship who is making you feel unsafe now?: No Are you made to feel afraid or neglected: No Advance Directives: Yes Advance Directives on File: Yes Advance Directives Date on File: 10/19/24 Do you have a plan to hurt others: No Plan Recently lost weight without trying: Unsure Nutrition Risks: No Nutritional Risk service: No Meds Allergies Allergy/AdvReac Type Severity Reaction Status Date / Time acetaminophen (From TYLENOL) Allergy Unknown CAN'T TAKE Verified 10/30/24 19:22 PER PT aspirin (ASPIRIN) Allergy Unknown BLEEDING Verified 10/30/24 19:22 calcium carbonate Allergy Unknown Unknown Verified 10/30/24 19:22 fish derived (fish) Allergy Unknown Unknown Verified 10/30/24 19:22 NSAIDS (Non-Steroidal AdvReac Severe STOMACH Verified 10/30/24 19:22 Anti-Inflamma (NSAIDS UPSET (NON-STEROIDAL ANTI-INFLAMMA) Active Medications: Current Medications Acetaminophen (Acetaminophen 325 Mg Tablet) 650 mg PO Q6H PRN PRN Reason: Pain, Mild 1-3,fever,headache Al Hydroxide/Mg Hydroxide (Magnesium Hydrox/Alum Hydrox 30 Ml Oral.Susp) 15 ml PO Q6H [facility] Last Admin: 11/03/24 08:02 Dose: Not Given Amlodipine Besylate (Amlodipine Besylate 10 Mg Tablet) 10 mg PO DAILY [facility]; Protocol Last Admin: 11/03/24 08:03 Dose: Not Given Apixaban (Apixaban 5 Mg Tablet) 5 mg PO BID [facility] Last Admin: 11/03/24 08:04 Dose: Not Given Atorvastatin Calcium (Atorvastatin Calcium 80 Mg Tablet) 80 mg PO BEDTIME [facility] Last Admin: 11/02/24 20:59 Dose: 80 mg Bisacodyl (Bisacodyl 10 Mg Supp.Rect) 10 mg SD DAILY PRN PRN Reason: Constipation Brimonidine Tartrate (Brimonidine Tartrate 0.2% Oph 5 Ml Bottle) 1 drop EYE-BOTH BID [facility] Last Admin: 11/03/24 08:04 Dose: Not Given Calcium Carbonate (Calcium Carbonate 750 Mg Tab.Chew) 750 mg PO Q4H PRN PRN Reason: Heartburn Carvedilol (Carvedilol 25 Mg Tablet) 25 mg PO BID [facility]; Protocol Last Admin: 11/03/24 08:03 Dose: Not Given Cefuroxime Axetil (Cefuroxime Axetil 250 Mg Tablet) 250 mg PO BID [facility] Stop: 11/05/24 20:00 Last Admin: 11/03/24 07:56 Dose: 250 mg Clonazepam (Clonazepam 1 Mg Tablet) 1 mg PO BID [facility] Last Admin: 11/03/24 07:56 Dose: 1 mg Divalproex Sodium (Divalproex Sodium Sprinkles 125 Mg Cap.) 250 mg PO BID [facility] Last Admin: 11/03/24 07:55 Dose: 250 mg Duloxetine HCl (Duloxetine Hcl 30 Mg Capsule.) 30 mg PO DAILY [facility] Last Admin: 11/03/24 07:56 Dose: 30 mg Empagliflozin (Empagliflozin 10 Mg Tablet) 10 mg PO DAILY [facility] Last Admin: 11/03/24 07:56 Dose: 10 mg Enoxaparin Sodium (Enoxaparin Sodium 30 Mg/0.3 Ml Syringe) 30 mg SUBCUT Q24H [facility] Gabapentin (Gabapentin 400 Mg Capsule) 800 mg PO TID [facility] Last Admin: 11/03/24 07:55 Dose: 800 mg Haloperidol (Haloperidol 1 Mg Tablet) 2 mg PO TID [facility] Last Admin: 11/03/24 07:54 Dose: 2 mg Hydralazine HCl (Hydralazine Hcl 10 Mg Tablet) 10 mg PO BID [facility]; Protocol Last Admin: 11/03/24 08:03 Dose: Not Given Latanoprost (Latanoprost 0.005 % Ophth Shanti 2.5 Ml Drops) 1 drop EYE-BOTH BEDTIME [facility] Last Admin: 11/02/24 21:09 Dose: 1 drop Magnesium Hydroxide (Milk Of Magnesia 30 Ml Oral.Susp) 30 ml PO DAILY PRN PRN Reason: Constipation Magnesium Hydroxide (Milk Of Magnesia 30 Ml Oral.Susp) 30 ml PO DAILY PRN PRN Reason: Constipation Melatonin (Melatonin 3 Mg Tablet) 6 mg PO BEDTIME PRN PRN Reason: Insomnia Nicotine Polacrilex (Nicotine Polacrilex 2 Mg Gum) 2 mg BUCCAL Q2H PRN PRN Reason: Smoking Cessation Omeprazole (Omeprazole 20 Mg Capsule.) 20 mg PO DAILY@0630 [facility] Last Admin: 11/03/24 06:34 Dose: 20 mg Ondansetron HCl (Ondansetron Hcl 4 Mg/2 Ml Vial) 4 mg IVPUSH Q8H PRN PRN Reason: Nausea and Vomiting Oxycodone HCl (Oxycodone Hcl Immed Release 5 Mg Tablet) 5 mg PO Q4H PRN PRN Reason: Pain, Moderate(Pain Scale 4-6) Last Admin: 11/02/24 11:13 Dose: 5 mg Prednisolone Acetate (Prednisolone Acetate 1 % Oph Susp 5 Ml Drpbtl) 1 drop EYE-BOTH QID [facility] Last Admin: 11/03/24 08:02 Dose: Not Given Simethicone (Simethicone 80 Mg Tab.Chew) 160 mg PO BID [facility] Last Admin: 11/03/24 08:02 Dose: Not Given Sodium Biphosphate/Sodium Phosphate (Sodium Phosphate,[place]-Dibasic 133 Ml Enema) 118 ml SD DAILY PRN PRN Reason: Constipation Sodium Chloride (0.9 % Sodium Chloride Flush 3 Ml Syringe) 3 ml IVFLUSH QSHIFT [facility] Home Medications ?Medication ?Instructions ?Recorded ?Confirmed ?Last Taken ?Type aluminum-mag hydroxide-simethicone 15 ml Q6H 10/18/24 10/31/24 10/18/24 13:46 History 200 mg-200 mg-20 mg/5 mL oral susp apixaban 5 mg tablet (Eliquis) 5 mg PO BID 10/18/24 10/31/24 10/18/24 09:42 History atorvastatin 80 mg tablet 80 mg PO BEDTIME 10/18/24 10/31/24 10/17/24 19:34 History bisacodyl 10 mg rectal suppository 10 mg SD DAILY PRN Constipation 10/18/24 10/31/24 Unknown History brimonidine 0.2 % eye drops 1 drp ophthalmic (eye) BID 10/18/24 10/31/24 10/18/24 12:30 History carvedilol 25 mg tablet 25 mg PO BID 10/18/24 10/31/24 10/18/24 09:41 History dapagliflozin propanediol 10 mg 10 mg PO DAILY 10/18/24 10/31/24 Unknown History tablet (Farxiga) duloxetine 30 mg capsule,delayed 30 mg PO DAILY 10/18/24 10/31/24 10/18/24 09:42 History release esomeprazole magnesium 40 mg 40 mg PO DAILY 10/18/24 10/31/24 10/18/24 09:42 History capsule,delayed release gabapentin 800 mg tablet 800 mg PO TID 10/18/24 10/31/24 10/18/24 13:46 History hydralazine 10 mg tablet 10 mg PO BID 10/18/24 10/31/24 10/18/24 09:43 History latanoprost 0.005 % eye drops 1 drp ophthalmic (eye) BEDTIME 10/18/24 10/31/24 Unknown History magnesium hydroxide 400 mg/5 mL 30 ml PO DAILY PRN Constipation 10/18/24 10/31/24 Unknown History oral suspension (Milk of Magnesia) nicotine (polacrilex) 2 mg gum 2 mg PO Q2H PRN Smoking Cessation 10/18/24 10/31/24 Unknown History prednisolone acetate 1 % eye 1 drp ophthalmic (eye) QID 10/18/24 10/31/24 10/18/24 12:30 History drops,suspension simethicone 180 mg capsule 180 mg PO BID 10/18/24 10/31/24 Unknown History sodium phosphates 19 gram-7 118 ml SD DAILY PRN Constipation 10/18/24 10/31/24 Unknown History gram/118 mL enema (Fleet Enema) alprazolam 1 mg tablet 1 mg PO BID@0600,1400 10/31/24 10/31/24 10/29/24 History alprazolam 1 mg tablet 2 mg PO DAILY@199910/31/24 10/31/24 10/29/24 History Physical Exam Vital Signs and Narrative: Vital Signs: Last Vital Signs Temp 98.1 F 11/03/24 07:54 Pulse 99 11/03/24 07:54 Resp 15 11/03/24 07:54 BP 112/85 11/03/24 07:54 Pulse Ox 94 11/03/24 00:47 O2 Del Method Room Air 11/03/24 07:54 BMI result Body Mass Index 21.8 Const: Other: Constitutional : interactive, not in distress Cardiovascular : no JVP, no lower extremity edema Respiratory : bilateral chest movement, not in resp distress Gastrointestinal: soft, lax, Non tender Skin : Warm, Dry Neurological : Alert & oriented to self and place , No focal deficit Results Labs 10/30/24 20:00 10/30/24 20:00 Assessment and Plan (1) Mood disorder: Status: Acute (2) Agitation: Status: Acute (3) Delirium due to another medical condition, acute, hyperactive: Status: Acute (4) Major neurocognitive disorder due to another medical condition with behavioral disturbance: Status: Acute Plan A 64 years old male with PMH Aifb , CVA w Lt hemiparesis, HfrEF, DM2, Afib, CKD4, cognitive impairment, Mood disorder among others who presented to the hospital from [facility] for combative behaviour. Acute delirium with underlying neurocognitive disorder redirection avoid over-sedation psychiatry consulted Depakote bid continue Haldol p.r.n. and Scheduled 2 mg tid Avoid Benadryl Ambulation encouraged UTI continue Ceftin to finish 7 days History of CVA Continue Eliquis and statin Hypertension Hydralazine and carvedilol Diabetes Patient denies having DM, not on meds at home Chronic systolic CHF with nonischemic cardiomyopathy Coreg, atorvastatin Paroxysmal AFib Eliquis and carvedilol Depression Duloxetine History of DVT Apixaban Full code the patient will need 2 overnight hospital stay for treamtnet of delerium and behavioral difficulties on IM meds and psychiatry follow up Quality Stroke Does the patient have a stroke diagnosis?: No VTE Prior VTE?: No VTE Risk Level:: Medical - moderate - high VTE Device Contraindication: Treatment Not Indicated VTE Drug Contraindication: N/A - Med Ordered
--- NOTE | 2024-11-03 15:47 | PC.NURSE ---
patient refuses to have name band applied at this time
[2024-11-03] MEDS: Magnesium Hydrox/Alum Hydrox 30 ML ORAL.SUSP 15 ML PO (15:58)
[2024-11-03 16:03] VITALS: BP 145/98; PULSE 60; RESP 18; TEMP 36.1; O2SAT 96
--- NOTE | 2024-11-03 16:20 | PC.NURSE ---
patient refused IV at this time
--- NOTE | 2024-11-03 16:25 | HO.SKINPHOTO ---
Location: Category: Stage: Length: Width: Depth: cm Location: Category: Stage: Length: Width: Depth: cm Location: Category: Stage: Length: Width: Depth: cm Location: Category: Stage: Length: Width: Depth: cm Location: Category: Stage: Length: Width: Depth: cm Location: Category: Stage: Length: Width: Depth: cm open area between buttocks
[2024-11-03 20:00] VITALS: BP 128/80; PULSE 73; RESP 16; TEMP 36.6; O2SAT 97
[2024-11-03 23:22] VITALS: BP 113/79; PULSE 73; RESP 16; O2SAT 94
[2024-11-03] MEDS: Apixaban 5 MG TABLET PO (23:24)
[2024-11-03] MEDS: carvediloL 25 MG TABLET PO (23:24)
[2024-11-03] MEDS: hydrALAZINE HCl 10 MG TABLET PO (23:24)
[2024-11-03] MEDS: oxyCODONE HCl Immed Release 5 MG TABLET PO (23:35)
[2024-11-04 03:57] VITALS: BP 132/91; PULSE 90; RESP 18; TEMP 36.6; O2SAT 96
--- NOTE | 2024-11-04 07:31 | HO.PM.IMPN ---
Subjective Subjective Date of Service: 11/04/24 Interval History: Seen and examined this morning Interval history Mechanical fall this morning. Got up from bed walking to bathroom and fell striking left side of head/forehead. No LOC, but unwitnessed. Reports pain left side neck, left lower ribs, left hip. Moving extremities, speaking in full sentences. Otherwise no complaints. Review of Systems Review of Systems: Yes all other systems are reviewed and are negative Physical Exam Vital Signs: Vital Signs: Last Vital Signs Temp 97.8 F 11/04/24 03:57 Pulse 90 11/04/24 03:57 Resp 18 11/04/24 03:57 BP 132/91 H 11/04/24 03:57 Pulse Ox 96 11/04/24 03:57 O2 Del Method Room Air 11/04/24 03:57 BMI result Body Mass Index 21.8 Constitutional - Awake and Alert, No apparent distress Eyes - PERRLA, EOMI Cardiovascular - S1S2, RRR, No edema Respiratory - Normal lung expansion, Normal respiratory effort, No respiratory distress, CTA bilaterally Neck - no midline ttp, left sided paraspinal ttp. Immobilized in cervical collar Chest - ttp left lower ribs, no crepitus Extremities - no calf tenderness bilaterally, no swelling Musculoskeletal - Normal inspection. Ttp lateral aspect left hip into left groin. Pain and limited rom with external rotation. Legs equal in length and lie straight Skin - Warm/Dry Neurological - Alert & oriented x3, CN II-XII in tact, moving extremities independently Psychological - Appropriate affect Objective Data Active Medications Acetaminophen (Acetaminophen 325 Mg Tablet) 650 mg PO Q6H PRN PRN Reason: Pain, Mild 1-3,fever,headache Al Hydroxide/Mg Hydroxide (Magnesium Hydrox/Alum Hydrox 30 Ml Oral.Susp) 15 ml PO Q6H [facility] Last Admin: 11/04/24 03:52 Dose: Not Given Documented By: STEPHANE Non-Admin Reason: Patient Refused Amlodipine Besylate (Amlodipine Besylate 10 Mg Tablet) 10 mg PO DAILY [facility]; Protocol Last Admin: 11/03/24 08:03 Dose: Not Given Documented By: BERNIE Non-Admin Reason: Patient Refused Apixaban (Apixaban 5 Mg Tablet) 5 mg PO BID [facility] Last Admin: 11/03/24 23:24 Dose: 5 mg Documented By: STEPHANE Atorvastatin Calcium (Atorvastatin Calcium 80 Mg Tablet) 80 mg PO BEDTIME [facility] Last Admin: 11/03/24 23:29 Dose: Not Given Documented By: STEPHANE Non-Admin Reason: Patient Refused Bisacodyl (Bisacodyl 10 Mg Supp.Rect) 10 mg [place] DAILY PRN PRN Reason: Constipation Brimonidine Tartrate (Brimonidine Tartrate 0.2% Oph 5 Ml Bottle) 1 drop EYE-BOTH BID [facility] Last Admin: 11/03/24 23:29 Dose: Not Given Documented By: STEPHANE Non-Admin Reason: Patient Refused Calcium Carbonate (Calcium Carbonate 750 Mg Tab.Chew) 750 mg PO Q4H PRN PRN Reason: Heartburn Carvedilol (Carvedilol 25 Mg Tablet) 25 mg PO BID [facility]; Protocol Last Admin: 11/03/24 23:24 Dose: 25 mg Documented By: STEPHANE Cefuroxime Axetil (Cefuroxime Axetil 250 Mg Tablet) 250 mg PO BID [facility] Stop: 11/05/24 20:00 Last Admin: 11/03/24 23:24 Dose: 250 mg Documented By: STEPHANE Clonazepam (Clonazepam 1 Mg Tablet) 1 mg PO BID [facility] Last Admin: 11/03/24 23:24 Dose: 1 mg Documented By: STEPHANE Divalproex Sodium (Divalproex Sodium Sprinkles 125 Mg Cap.Spr) 250 mg PO BID [facility] Last Admin: 11/03/24 23:23 Dose: 250 mg Documented By: STEPHANE Duloxetine HCl (Duloxetine Hcl 30 Mg Tez.) 30 mg PO DAILY [facility] Last Admin: 11/03/24 07:56 Dose: 30 mg Documented By: BERNIE Empagliflozin (Empagliflozin 10 Mg Tablet) 10 mg PO DAILY [facility] Last Admin: 11/03/24 07:56 Dose: 10 mg Documented By: BERNIE Enoxaparin Sodium (Enoxaparin Sodium 30 Mg/0.3 Ml Syringe) 30 mg SUBCUT Q24H [facility] Last Admin: 11/03/24 11:54 Dose: Not Given Documented By: BOSSMAN Non-Admin Reason: Patient Refused Gabapentin (Gabapentin 400 Mg Capsule) 800 mg PO TID [facility] Last Admin: 11/03/24 23:24 Dose: 800 mg Documented By: STEPHANE Haloperidol (Haloperidol 1 Mg Tablet) 2 mg PO TID [facility] Last Admin: 11/03/24 23:23 Dose: 2 mg Documented By: STEPHANE Haloperidol Lactate (Haloperidol Lactate 5 Mg/Ml Vial) 5 mg IM Q8H PRN PRN Reason: anxiety/restlessness Hydralazine HCl (Hydralazine Hcl 10 Mg Tablet) 10 mg PO BID [facility]; Protocol Last Admin: 11/03/24 23:24 Dose: 10 mg Documented By: STEPHANE Latanoprost (Latanoprost 0.005 % Ophth Shanti 2.5 Ml Drops) 1 drop EYE-BOTH BEDTIME [facility] Last Admin: 11/03/24 23:29 Dose: Not Given Documented By: STEPHANE Non-Admin Reason: Patient Refused Magnesium Hydroxide (Milk Of Magnesia 30 Ml Oral.Susp) 30 ml PO DAILY PRN PRN Reason: Constipation Magnesium Hydroxide (Milk Of Magnesia 30 Ml Oral.Susp) 30 ml PO DAILY PRN PRN Reason: Constipation Melatonin (Melatonin 3 Mg Tablet) 6 mg PO BEDTIME PRN PRN Reason: Insomnia Nicotine Polacrilex (Nicotine Polacrilex 2 Mg Gum) 2 mg BUCCAL Q2H PRN PRN Reason: Smoking Cessation Omeprazole (Omeprazole 20 Mg Capsule.Dr) 20 mg PO DAILY@0630 [facility] Last Admin: 11/04/24 06:07 Dose: Not Given Documented By: STEPHANE Non-Admin Reason: Patient Refused Ondansetron HCl (Ondansetron Hcl 4 Mg/2 Ml Vial) 4 mg IVPUSH Q8H PRN PRN Reason: Nausea and Vomiting Oxycodone HCl (Oxycodone Hcl Immed Release 5 Mg Tablet) 5 mg PO Q4H PRN PRN Reason: Pain, Moderate(Pain Scale 4-6) Last Admin: 11/03/24 23:35 Dose: 5 mg Documented By: STEPHANE Comments: per pt request Prednisolone Acetate (Prednisolone Acetate 1 % Oph Susp 5 Ml Drpbtl) 1 drop EYE-BOTH QID [facility] Last Admin: 11/03/24 23:29 Dose: Not Given Documented By: STEPHANE Non-Admin Reason: Patient Refused Simethicone (Simethicone 80 Mg Tab.Chew) 160 mg PO BID [facility] Last Admin: 11/03/24 23:29 Dose: Not Given Documented By: STEPHANE Non-Admin Reason: Patient Refused Sodium Biphosphate/Sodium Phosphate (Sodium Phosphate,[place]-Dibasic 133 Ml Enema) 118 ml [place] DAILY PRN PRN Reason: Constipation Sodium Chloride (0.9 % Sodium Chloride Flush 3 Ml Syringe) 3 ml IVFLUSH QSHIFT [facility] Last Admin: 11/04/24 00:09 Dose: Not Given Documented By: STEPHANE Non-Admin Reason: No Access Labs 11/04/24 07:59 11/04/24 07:59 Assessment and Plan (1) Delirium due to another medical condition, acute, hyperactive: Status: Acute (2) Major neurocognitive disorder due to another medical condition with behavioral disturbance: Status: Acute (3) Agitation: Status: Acute (4) Mood disorder: Status: Acute Plan 64 years old male with PMH Aifb , CVA w Lt hemiparesis, HfrEF, DM2, Afib, CKD4, cognitive impairment, Mood disorder among others who presented to the hospital from [facility] for combative behaviour. Acute delirium with underlying neurocognitive disorder redirection avoid over-sedation psychiatry consulted Depakote bid continue Haldol p.r.n. and Scheduled 2 mg tid Avoid Benadryl Ambulation encouraged Mechanical fall Head ct, Neck Ct negative for acute osseous abnormality of hemorrage Xr ribs negative for fx Xr L hip negative for fx dc cervical collar, continue sitter UTI continue Ceftin to finish 7 days (initiated 10/30) History of CVA Continue Eliquis and statin Hypertension Hydralazine and carvedilol Diabetes Patient denies having DM, not on meds at home Chronic systolic CHF with nonischemic cardiomyopathy Coreg, atorvastatin Paroxysmal AFib Eliquis and carvedilol Depression Duloxetine History of DVT Apixaban Full code Ongoing inpt stay: placement Quality Stroke Does the patient have a stroke diagnosis?: No VTE Prior VTE?: No VTE Risk Level:: Medical - moderate - high VTE Device Contraindication: Treatment Not Indicated VTE Drug Contraindication: N/A - Med Ordered
[2024-11-04 07:39] VITALS: BP 132/92; PULSE 98; RESP 18; TEMP 36.5; O2SAT 94
--- NOTE | 2024-11-04 07:43 | PC.NURSE ---
Staff Jones loud thud from patients room. Patient noted to be on the floor, pt stated I wanted to walk around. No bed alarm sounded, Camera did not alarm when patient got oob. C/O Neck pain, MD notified, Clin Sup Notified, VSS. ASHLEY Bailey came to see patient, applied neck collar. She will order images. Patient ambulated back to bed, no c/o pain when ambulating. Primary RN aware and Overnight RN Aware.
[2024-11-04 08:04] LABS: MANUAL DIFF FLAG NO
[2024-11-04 08:06] LABS: Basophils Percent Auto 0.2 % (0-2); Eosinophils Absolute Auto 0.5 X10*3/uL (0.0-0.4); Eosinophils Percent Auto 9.1 % (0-4); Hematocrit 43.4 % (42.0-52.0); Hemoglobin 14.5 g/dl (14.0-18.0); Imm Gran Abs Auto 0.01 X10*3/uL (0.00-0.03); Imm Gran Pct Auto 0.2 % (0.0-0.4); Lymphocytes Absolute Auto 1.5 X10*3/uL (1.2-4.9); Mean Corpuscular HGB Conc 33.4 g/dl (31.0-36.0); Mean Corpuscular Volume 92.9 fL (80.0-98.0); Mean Platelet Volume 10.1 fL (9.4-12.4); Monocytes Absolute Auto 0.8 X10*3/uL (0.1-1.2); Monocytes Percent Auto 13.7 % (2-11); Neutrophils Percent Auto 50.8 % (45-73); Platelet Count 224 X10*3/uL (160-400); Red Blood Count 4.67 X10*6/uL (4.60-5.80); Red Cell Distribution Width 15.2 % (11.0-16.0); White Blood Count 5.9 X10*3/uL (4.8-10.8)
[2024-11-04 08:17] LABS: Anion Gap 12 (12-20); Blood Urea Nitrogen 20 mg/dL (9-16); Calcium 8.5 mg/dL (8.4-10.2); Carbon Dioxide 26 mmol/L (22-29); Chloride 106 mmol/L (96-108); Creatinine Clr Calc Pharmacy 39.5; Estimated Glomerular Filt Rate 35; Glucose Random 114 mg/dL (60-115); Potassium 4.4 mmol/L (3.3-5.1); Sodium 140 mmol/L (135-145)
[2024-11-04 08:39] VITALS: BP 124/95; PULSE 96; RESP 18; O2SAT 95
[2024-11-04] MEDS: Gabapentin 400 MG CAPSULE 800 MG PO ×3 (09:49→20:39)
[2024-11-04] MEDS: HaloperidoL 1 MG TABLET 2 MG PO ×3 (09:53→20:39)
[2024-11-04] MEDS: Divalproex Sodium Sprinkles 125 MG CAP.DR.SPR 250 MG PO ×2 (09:53→21:33)
[2024-11-04] MEDS: Simethicone 80 MG TAB.CHEW 160 MG PO ×2 (09:53→20:39)
[2024-11-04] MEDS: clonazePAM 1 MG TABLET PO ×2 (09:53→20:39)
[2024-11-04] MEDS: carvediloL 25 MG TABLET PO ×2 (09:54→20:40)
[2024-11-04] MEDS: Empagliflozin 10 MG TABLET PO (09:54)
[2024-11-04] MEDS: amLODIPine Besylate 10 MG TABLET PO (09:54)
[2024-11-04] MEDS: cefuroxime axetiL 250 MG TABLET PO ×2 (09:54→20:40)
[2024-11-04] MEDS: DULoxetine HCl 30 MG CAPSULE.DR PO (09:54)
[2024-11-04] MEDS: prednisoLONE Acetate 1 % Oph Susp 5 ML DRPBTL 1 DROP EYE-BOTH ×2 (09:54→15:32)
[2024-11-04] MEDS: hydrALAZINE HCl 10 MG TABLET PO ×2 (09:54→20:39)
[2024-11-04] MEDS: Apixaban 5 MG TABLET PO ×2 (09:54→20:40)
[2024-11-04] MEDS: Magnesium Hydrox/Alum Hydrox 30 ML ORAL.SUSP 15 ML PO ×2 (09:55→15:51)
--- NOTE | 2024-11-04 10:00 | PC.NURSE ---
C Collar Removed per Neg imaging
[2024-11-04] MEDS: oxyCODONE HCl Immed Release 5 MG TABLET PO (10:51)
--- NOTE | 2024-11-04 12:40 | PM.PSYCN ---
History of Present Illness Date of Service: 11/04/2024 Chief Complaint: neurocognitive disorder Reason for Consult: Daily follow-up as requested by hospitalist Requesting physician: Lynn Jones Discussed with referring provider: No Sources of Information: patient interviewed and chart reviewed HPI Narrative: Patient was seen and discussed with nursing. He continues to be mostly in bed, on one-to-one observation because of his cognitive impairments and physical impairment. He had a fall this morning. Behaviorally he has been manageable and no eye EOMs were needed. In today's visit he had no complaints and was pleasant and interactive. No changes recommended at this time. Continue current regimen and plans Past Psychiatric History: Pt reports hx of dual dx treatment. He did not report hx of inpt psychiatric admission. He is currently prescribed xanax by his PCP Tanvir Shi MD. He does have services through [facility] with embedded case manager- Estee; DARLENE Yael ([phone]). No know hx of suicide attempts. Review of Systems Review of Systems Left-sided weakness secondary to CVA Yes all other systems are reviewed and are negative [facility] Medical History Depression GERD (gastroesophageal reflux disease) Atrial fibrillation CVA (cerebral vascular accident) Polysubstance abuse CKD (chronic kidney disease), stage IV HFrEF (heart failure with reduced ejection fraction) Essential hypertension Type 2 diabetes mellitus Family History: son with substance? mental health issues Social History: hx of substance used never found AA helpful due to those who attended ; he found praying and going to [place] helpful-= sober since cva - Trauma History: not reviewed this visit Diagnostics Vital Signs (24Hr): Vital Signs - 24 hr 11/03/24 16:03 11/03/24 20:00 11/03/24 23:22 Temperature 97.0 F 97.8 F Pulse Rate 60 73 73 Respiratory Rate 18 16 16 Blood Pressure 145/98 H 128/80 113/79 Pulse Oximetry 96 97 94 Oxygen Delivery Method Room Air Room Air Room Air 11/04/24 03:57 11/04/24 07:39 11/04/24 08:39 Temperature 97.8 F 97.7 F Pulse Rate 90 98 96 Respiratory Rate 18 18 18 Blood Pressure 132/91 H 132/92 H 124/95 H Pulse Oximetry 96 94 95 Oxygen Delivery Method Room Air Room Air Room Air BMI result Body Mass Index 21.8 Labs 11/04/24 07:59 11/04/24 07:59 Labs: Laboratory Results - last 48 hr 11/04/24 07:59 WBC 5.9 RBC 4.67 Hgb 14.5 Hct 43.4 MCV 92.9 MCH 31.0 MCHC 33.4 RDW 15.2 Plt Count 224 MPV 10.1 Immature Gran % (Auto) 0.2 Neut % (Auto) 50.8 Lymph % (Auto) 26.0 [place] % (Auto) 13.7 H Eos % (Auto) 9.1 H Baso % (Auto) 0.2 Lymph # (Auto) 1.5 [place] # (Auto) 0.8 Eos # (Auto) 0.5 H Baso # (Auto) 0.0 Abs Immat Gran (auto) 0.01 Absolute Neuts (auto) 3.0 Absolute Nucleated RBC 0.000 Nucleated RBC % (auto) 0.0 Sodium 140 Potassium 4.4 Chloride 106 Carbon Dioxide 26 Anion Gap 12 BUN 20 H Creatinine 1.95 H Estim Creat Clear Calc 39.5 Estimated GFR 35 Random Glucose 114 Calcium 8.5 Mental Status Exam Mental Status Exam Narrative: Appearance: wearing hospital gown, fair hygiene, in NAD Behavior: cooperative, overly friendly Psychomotor: no agitation or retardation noted Speech: mostly clear, regular rate/rhythm/volume, spontaneous TP: circumstantial TC: wanting to know why he is in the hospital and when can he return home Mood: okay Affect: congruent SI: denies HI: none VH/AH: no overt signs Delusions: none, but noted some confabulation (in context of memory impairments and thinking he used cocaine last evening). Insight/judgment: impaired x 2. Memory/cog: alert, oriented to idea of hospital, not sure why he is here. Not oriented to situation. noted significant gaps in memory but attention much improved and not suggestive of active delirium. Medications Medications Current Medications Acetaminophen (Acetaminophen 325 Mg Tablet) 650 mg PO Q6H PRN PRN Reason: Pain, Mild 1-3,fever,headache Al Hydroxide/Mg Hydroxide (Magnesium Hydrox/Alum Hydrox 30 Ml Oral.Susp) 15 ml PO Q6H [facility] Last Admin: 11/04/24 09:55 Dose: 15 ml Amlodipine Besylate (Amlodipine Besylate 10 Mg Tablet) 10 mg PO DAILY [facility]; Protocol Last Admin: 11/04/24 09:54 Dose: 10 mg Apixaban (Apixaban 5 Mg Tablet) 5 mg PO BID [facility] Last Admin: 11/04/24 09:54 Dose: 5 mg Atorvastatin Calcium (Atorvastatin Calcium 80 Mg Tablet) 80 mg PO BEDTIME [facility] Last Admin: 11/03/24 23:29 Dose: Not Given Bisacodyl (Bisacodyl 10 Mg Supp.Rect) 10 mg [place] DAILY PRN PRN Reason: Constipation Brimonidine Tartrate (Brimonidine Tartrate 0.2% Oph 5 Ml Bottle) 1 drop EYE-BOTH BID [facility] Last Admin: 11/04/24 10:07 Dose: Not Given Calcium Carbonate (Calcium Carbonate 750 Mg Tab.Chew) 750 mg PO Q4H PRN PRN Reason: Heartburn Carvedilol (Carvedilol 25 Mg Tablet) 25 mg PO BID [facility]; Protocol Last Admin: 11/04/24 09:54 Dose: 25 mg Cefuroxime Axetil (Cefuroxime Axetil 250 Mg Tablet) 250 mg PO BID [facility] Stop: 11/05/24 20:00 Last Admin: 11/04/24 09:54 Dose: 250 mg Clonazepam (Clonazepam 1 Mg Tablet) 1 mg PO BID [facility] Last Admin: 11/04/24 09:53 Dose: 1 mg Divalproex Sodium (Divalproex Sodium Sprinkles 125 Mg Cap.Dr.Spr) 250 mg PO BID [facility] Last Admin: 11/04/24 09:53 Dose: 250 mg Duloxetine HCl (Duloxetine Hcl 30 Mg Capsule.Dr) 30 mg PO DAILY [facility] Last Admin: 11/04/24 09:54 Dose: 30 mg Empagliflozin (Empagliflozin 10 Mg Tablet) 10 mg PO DAILY [facility] Last Admin: 11/04/24 09:54 Dose: 10 mg Enoxaparin Sodium (Enoxaparin Sodium 30 Mg/0.3 Ml Syringe) 30 mg SUBCUT Q24H [facility] Last Admin: 11/04/24 10:47 Dose: Not Given Gabapentin (Gabapentin 400 Mg Capsule) 800 mg PO TID [facility] Last Admin: 11/04/24 09:49 Dose: 800 mg Haloperidol (Haloperidol 1 Mg Tablet) 2 mg PO TID [facility] Last Admin: 11/04/24 09:53 Dose: 2 mg Haloperidol Lactate (Haloperidol Lactate 5 Mg/Ml Vial) 5 mg IM Q8H PRN PRN Reason: anxiety/restlessness Hydralazine HCl (Hydralazine Hcl 10 Mg Tablet) 10 mg PO BID [facility]; Protocol Last Admin: 11/04/24 09:54 Dose: 10 mg Latanoprost (Latanoprost 0.005 % Ophth Shanti 2.5 Ml Drops) 1 drop EYE-BOTH BEDTIME [facility] Last Admin: 11/03/24 23:29 Dose: Not Given Magnesium Hydroxide (Milk Of Magnesia 30 Ml Oral.Susp) 30 ml PO DAILY PRN PRN Reason: Constipation Magnesium Hydroxide (Milk Of Magnesia 30 Ml Oral.Susp) 30 ml PO DAILY PRN PRN Reason: Constipation Melatonin (Melatonin 3 Mg Tablet) 6 mg PO BEDTIME PRN PRN Reason: Insomnia Nicotine Polacrilex (Nicotine Polacrilex 2 Mg Gum) 2 mg BUCCAL Q2H PRN PRN Reason: Smoking Cessation Omeprazole (Omeprazole 20 Mg Capsule.Dr) 20 mg PO DAILY@0630 [facility] Last Admin: 11/04/24 06:07 Dose: Not Given Ondansetron HCl (Ondansetron Hcl 4 Mg/2 Ml Vial) 4 mg IVPUSH Q8H PRN PRN Reason: Nausea and Vomiting Oxycodone HCl (Oxycodone Hcl Immed Release 5 Mg Tablet) 5 mg PO Q4H PRN PRN Reason: Pain, Moderate(Pain Scale 4-6) Last Admin: 11/04/24 10:51 Dose: 5 mg Prednisolone Acetate (Prednisolone Acetate 1 % Oph Susp 5 Ml Drpbtl) 1 drop EYE-BOTH QID [facility] Last Admin: 11/04/24 09:54 Dose: 1 drop Simethicone (Simethicone 80 Mg Tab.Chew) 160 mg PO BID [facility] Last Admin: 11/04/24 09:53 Dose: 160 mg Sodium Biphosphate/Sodium Phosphate (Sodium Phosphate,[place]-Dibasic 133 Ml Enema) 118 ml [place] DAILY PRN PRN Reason: Constipation Sodium Chloride (0.9 % Sodium Chloride Flush 3 Ml Syringe) 3 ml IVFLUSH QSHIFT [facility] Last Admin: 11/04/24 10:08 Dose: Not Given Allergies Allergies Allergy/AdvReac Type Severity Reaction Status Date / Time acetaminophen (From TYLENOL) Allergy Unknown CAN'T TAKE Verified 10/30/24 19:22 PER PT aspirin (ASPIRIN) Allergy Unknown BLEEDING Verified 10/30/24 19:22 calcium carbonate Allergy Unknown Unknown Verified 10/30/24 19:22 fish derived (fish) Allergy Unknown Unknown Verified 10/30/24 19:22 NSAIDS (Non-Steroidal AdvReac Severe STOMACH Verified 10/30/24 19:22 Anti-Inflamma (NSAIDS UPSET (NON-STEROIDAL ANTI-INFLAMMA) Assessment & Plan Assessment & Plan (1) Major neurocognitive disorder due to another medical condition with behavioral disturbance: Status: Acute Code(s): F02.818 - Dementia in other diseases classified elsewhere, unspecified severity, with other behavioral disturbance Plan Continue current regimen and plans/ will follow up tomorrow Total time managing care of this patient today ____ minutes.
[2024-11-04 16:22] VITALS: BP 124/89; PULSE 81; RESP 18; TEMP 36.7; O2SAT 94
--- NOTE | 2024-11-04 20:16 | MHC.CARE ---
CARE Team met with Pt for a mental status update and to determine if Pt continued to be appropriate for psychiatric treatment as Pt is currently a geriatric bedsearch. Pt remains appropriate for inpatient level of care at this time. Case was discussed with provider Alex Jones.
[2024-11-04] MEDS: Atorvastatin Calcium 80 MG TABLET PO (20:39)
[2024-11-05 02:52] VITALS: BP 138/90; PULSE 78; RESP 18; TEMP 36; O2SAT 96
--- NOTE | 2024-11-05 07:12 | P.PNIM_ITS ---
Subjective Subjective Date of Service: 11/05/24 Interval History: Seen and examined this morning Interval history: Denies pain. Sitting up in bed, eating breakfast. No complaints Physical Exam 2 Vital Signs: Vital Signs: Last Vital Signs Temp 96.8 F 11/05/24 02:52 Pulse 78 11/05/24 02:52 Resp 18 11/05/24 02:52 BP 138/90 H 11/05/24 02:52 Pulse Ox 96 11/05/24 02:52 O2 Del Method Room Air 11/05/24 02:52 BMI result Body Mass Index 21.8 Constitutional - Awake and Alert, No apparent distress Eyes - PERRLA, EOMI Cardiovascular - S1S2, RRR, No edema Respiratory - Normal lung expansion, Normal respiratory effort, No respiratory distress, CTA bilaterally Gastrointestinal - NT / ND; +BS; No rebound or guarding Extremities - no calf tenderness bilaterally, no swelling Skin - Warm/Dry Neurological - Alert & oriented to self Psychological - Appropriate affect Objective Data Active Medications Acetaminophen (Acetaminophen 325 Mg Tablet) 650 mg PO Q6H PRN PRN Reason: Pain, Mild 1-3,fever,headache Al Hydroxide/Mg Hydroxide (Magnesium Hydrox/Alum Hydrox 30 Ml Oral.Susp) 15 ml PO Q6H [facility] Last Admin: 11/05/24 02:29 Dose: Not Given Documented By: JING Non-Admin Reason: Patient Refused Amlodipine Besylate (Amlodipine Besylate 10 Mg Tablet) 10 mg PO DAILY [facility]; Protocol Last Admin: 11/04/24 09:54 Dose: 10 mg Documented By: VANI Apixaban (Apixaban 5 Mg Tablet) 5 mg PO BID [facility] Last Admin: 11/04/24 20:40 Dose: 5 mg Documented By: JING Atorvastatin Calcium (Atorvastatin Calcium 80 Mg Tablet) 80 mg PO BEDTIME [facility] Last Admin: 11/04/24 20:39 Dose: 80 mg Documented By: JING Bisacodyl (Bisacodyl 10 Mg Supp.Rect) 10 mg DC DAILY PRN PRN Reason: Constipation Brimonidine Tartrate (Brimonidine Tartrate 0.2% Oph 5 Ml Bottle) 1 drop EYE- BOTH BID [facility] Last Admin: 11/04/24 21:02 Dose: Not Given Documented By: JING Non-Admin Reason: Patient Refused Calcium Carbonate (Calcium Carbonate 750 Mg Tab.Chew) 750 mg PO Q4H PRN PRN Reason: Heartburn Carvedilol (Carvedilol 25 Mg Tablet) 25 mg PO BID [facility]; Protocol Last Admin: 11/04/24 20:40 Dose: 25 mg Documented By: JING Cefuroxime Axetil (Cefuroxime Axetil 250 Mg Tablet) 250 mg PO BID [facility] Stop: 11/05/24 20:00 Last Admin: 11/04/24 20:40 Dose: 250 mg Documented By: JING Clonazepam (Clonazepam 1 Mg Tablet) 1 mg PO BID [facility] Last Admin: 11/04/24 20:39 Dose: 1 mg Documented By: JING Divalproex Sodium (Divalproex Sodium Sprinkles 125 Mg Cap.Spr) 250 mg PO BID [facility] Last Admin: 11/04/24 21:33 Dose: 250 mg Documented By: JING Duloxetine HCl (Duloxetine Hcl 30 Mg Capsule.) 30 mg PO DAILY [facility] Last Admin: 11/04/24 09:54 Dose: 30 mg Documented By: VANI Empagliflozin (Empagliflozin 10 Mg Tablet) 10 mg PO DAILY [facility] Last Admin: 11/04/24 09:54 Dose: 10 mg Documented By: VANI Enoxaparin Sodium (Enoxaparin Sodium 30 Mg/0.3 Ml Syringe) 30 mg SUBCUT Q24H [facility] Last Admin: 11/04/24 10:47 Dose: Not Given Documented By: VANI Non-Admin Reason: Patient Refused Gabapentin (Gabapentin 400 Mg Capsule) 800 mg PO TID [facility] Last Admin: 11/04/24 20:39 Dose: 800 mg Documented By: JING Haloperidol (Haloperidol 1 Mg Tablet) 2 mg PO TID [facility] Last Admin: 11/04/24 20:39 Dose: 2 mg Documented By: JING Haloperidol Lactate (Haloperidol Lactate 5 Mg/Ml Vial) 5 mg IM Q8H PRN PRN Reason: anxiety/restlessness Hydralazine HCl (Hydralazine Hcl 10 Mg Tablet) 10 mg PO BID [facility]; Protocol Last Admin: 11/04/24 20:39 Dose: 10 mg Documented By: JING Latanoprost (Latanoprost 0.005 % Ophth Shanti 2.5 Ml Drops) 1 drop EYE-BOTH BEDTIME [facility] Last Admin: 11/04/24 20:47 Dose: Not Given Documented By: JING Non-Admin Reason: Patient Refused Magnesium Hydroxide (Milk Of Magnesia 30 Ml Oral.Susp) 30 ml PO DAILY PRN PRN Reason: Constipation Magnesium Hydroxide (Milk Of Magnesia 30 Ml Oral.Susp) 30 ml PO DAILY PRN PRN Reason: Constipation Melatonin (Melatonin 3 Mg Tablet) 6 mg PO BEDTIME PRN PRN Reason: Insomnia Nicotine Polacrilex (Nicotine Polacrilex 2 Mg Gum) 2 mg BUCCAL Q2H PRN PRN Reason: Smoking Cessation Omeprazole (Omeprazole 20 Mg Capsule.Dr) 20 mg PO DAILY@0630 [facility] Last Admin: 11/05/24 05:34 Dose: Not Given Documented By: JING Non-Admin Reason: Patient Refused Ondansetron HCl (Ondansetron Hcl 4 Mg/2 Ml Vial) 4 mg IVPUSH Q8H PRN PRN Reason: Nausea and Vomiting Oxycodone HCl (Oxycodone Hcl Immed Release 5 Mg Tablet) 5 mg PO Q4H PRN PRN Reason: Pain, Moderate(Pain Scale 4-6) Last Admin: 11/04/24 10:51 Dose: 5 mg Documented By: VANI Prednisolone Acetate (Prednisolone Acetate 1 % Oph Susp 5 Ml Drpbtl) 1 drop EYE-BOTH QID [facility] Last Admin: 11/04/24 20:48 Dose: Not Given Documented By: JING Non-Admin Reason: Patient Refused Simethicone (Simethicone 80 Mg Tab.Chew) 160 mg PO BID [facility] Last Admin: 11/04/24 20:39 Dose: 160 mg Documented By: JING Sodium Biphosphate/Sodium Phosphate (Sodium Phosphate,[place]-Dibasic 133 Ml Enema) 118 ml DC DAILY PRN PRN Reason: Constipation Sodium Chloride (0.9 % Sodium Chloride Flush 3 Ml Syringe) 3 ml IVFLUSH QSHIFT [facility] Last Admin: 11/04/24 23:37 Dose: Not Given Documented By: JING Non-Admin Reason: No Access Labs 11/04/24 07:59 11/04/24 07:59 Labs: Laboratory Results - last 24 hr 11/04/24 07:59 MCV 92.9 MCH 31.0 MCHC 33.4 RDW 15.2 Plt Count 224 MPV 10.1 Immature Gran % (Auto) 0.2 Neut % (Auto) 50.8 Lymph % (Auto) 26.0 [place] % (Auto) 13.7 H Eos % (Auto) 9.1 H Baso % (Auto) 0.2 Lymph # (Auto) 1.5 [place] # (Auto) 0.8 Eos # (Auto) 0.5 H Baso # (Auto) 0.0 Abs Immat Gran (auto) 0.01 Absolute Neuts (auto) 3.0 Absolute Nucleated RBC 0.000 Nucleated RBC % (auto) 0.0 Anion Gap 12 Estim Creat Clear Calc 39.5 Estimated GFR 35 Random Glucose 114 Calcium 8.5 Assessment and Plan (1) Delirium due to another medical condition, acute, hyperactive: Status: Acute (2) Major neurocognitive disorder due to another medical condition with behavioral disturbance: Status: Acute (3) Agitation: Status: Acute (4) Mood disorder: Status: Acute Plan 64 years old male with PMH Aifb , CVA w Lt hemiparesis, HfrEF, DM2, Afib, CKD4, cognitive impairment, Mood disorder among others who presented to the hospital from [facility] for combative behaviour. Acute delirium with underlying neurocognitive disorder redirection avoid over-sedation Depakote bid continue Haldol p.r.n. and Scheduled 2 mg tid Avoid Benadryl Ambulation encouraged Seen by care team/psych- continues to recommend inpt placement. Bed search Mechanical fall 11/[address], Neck Ct negative for acute osseous abnormality of hemorrage Xr ribs negative for fx Xr L hip negative for fx dc cervical collar, continue sitter UTI continue Ceftin to finish 7 days (initiated 10/30) History of CVA Continue Eliquis and statin Hypertension Hydralazine and carvedilol Diabetes Patient denies having DM, not on meds at home Chronic systolic CHF with nonischemic cardiomyopathy Coreg, atorvastatin Paroxysmal AFib Eliquis and carvedilol Depression Duloxetine History of DVT Apixaban Full code Ongoing inpt stay: placement Quality Stroke Does the patient have a stroke diagnosis?: No VTE Prior VTE?: No VTE Risk Level:: Medical - moderate - high VTE Device Contraindication: Treatment Not Indicated VTE Drug Contraindication: N/A - Med Ordered
[2024-11-05 08:40] VITALS: BP 126/99; PULSE 76; RESP 18; TEMP 36.8; O2SAT 99
--- NOTE | 2024-11-05 09:17 | MHC.CM.PN ---
Addendum entered by Ce Ortega 11/05/24 13:24: CM MET WITH PTS COMMUNITY CM RN FROM [facility], OMID BULLARD, WHO REPORTS PT DOES NOT DO WELL ON BENZODIAZEPINES, THAT IS THE ONLY OTHER TIME THEY HAVE SEEN HIM WITH THIS BEHAVIOR. SHE SAYS SHE IS UNSURE IF THERE ARE OTHER PSYCH MEDS THAT WOULD ALSO CAUSE THESE BEHAVIORS BUT FEELS HE SHOULD BE ADMITTED TO A PSYCH FLOOR FOR MED MANAGEMENT/STABILIZATION. SHE UNDERSTANDS THAT IS THE CURRENT PLAN OF CARE. Original Note: PT A READMISSION DUE TO BEHAVIORS AT STR AT BASELINE, PT LIVES ALONE IN AN APARTMENT WITH SUPPORT FROM [facility] HE IS MOSTLY INDEPENDENT BUT HAS 4 HOURS A WEEK OF [employer] TO ASSIST WITH [facility] AND HCP ON FILE, MOTHER [place] [phone] LEFT ON 11/04/24 PCP: [facility] DCP: CURRENTLY, DCP IS IPLOC PENDING [facility] BED IF PT IS CLEARED BY PSYCH, HE CANNOT RETURN TO [facility] THEY DID NOT FEEL HE WAS STABILIZED BEFORE HIS LAST RETURN AND WERE UNABLE TO MANAGE HIS BEHAVIORS STR REFERRALS WILL BE MADE ONCE PT IS MORE STABLE AND APPROPRIATE FOR THAT LOC
[2024-11-05] MEDS: HaloperidoL 1 MG TABLET 2 MG PO ×2 (09:27→15:00)
[2024-11-05] MEDS: Divalproex Sodium Sprinkles 125 MG CAP.DR.SPR 250 MG PO (09:27)
[2024-11-05] MEDS: carvediloL 25 MG TABLET PO (09:27)
[2024-11-05] MEDS: hydrALAZINE HCl 10 MG TABLET PO (09:27)
[2024-11-05] MEDS: Apixaban 5 MG TABLET PO (09:27)
[2024-11-05] MEDS: cefuroxime axetiL 250 MG TABLET PO (09:28)
[2024-11-05] MEDS: clonazePAM 1 MG TABLET PO (09:28)
[2024-11-05] MEDS: Empagliflozin 10 MG TABLET PO (09:28)
[2024-11-05] MEDS: Simethicone 80 MG TAB.CHEW 160 MG PO (09:28)
[2024-11-05] MEDS: amLODIPine Besylate 10 MG TABLET PO (09:28)
[2024-11-05] MEDS: DULoxetine HCl 30 MG CAPSULE.DR PO (09:28)
[2024-11-05] MEDS: Gabapentin 400 MG CAPSULE 800 MG PO ×2 (09:29→15:02)
[2024-11-05] MEDS: prednisoLONE Acetate 1 % Oph Susp 5 ML DRPBTL 1 DROP EYE-BOTH ×2 (09:44→14:58)
[2024-11-05] MEDS: Magnesium Hydrox/Alum Hydrox 30 ML ORAL.SUSP 15 ML PO ×2 (09:44→15:11)
--- NOTE | 2024-11-05 11:37 | P.CNPS_ITS ---
History of Present Illness Date of Service: 11/05/2024 Chief Complaint: neurocognitive disorder Reason for Consult: Psychiatric follow-up Requesting physician: Lynn Jones Discussed with referring provider: No HPI Narrative: Patient was seen today as requested by hospitalist. He continues to be on one-to-one. No major episodes of aggressivity. Has been taking medications. No IM times have been required. Discussed with his nurse. Recommend no changes. Continue current regimen and plans Past Psychiatric History: Pt reports hx of dual dx treatment. He did not report hx of inpt psychiatric admission. He is currently prescribed xanax by his PCP Tanvir Shi MD. He does have services through [facility] with caseworker protective services- Estee; FUDGER Yael ([phone]). No know hx of suicide attempts. Review of Systems Review of Systems Yes all other systems are reviewed and are negative [facility] Medical History Depression GERD (gastroesophageal reflux disease) Atrial fibrillation CVA (cerebral vascular accident) Polysubstance abuse CKD (chronic kidney disease), stage IV HFrEF (heart failure with reduced ejection fraction) Essential hypertension Type 2 diabetes mellitus Family History: son with substance? mental health issues Social History: hx of substance used never found AA helpful due to those who attended ; he found praying and going to hindu helpful-= sober since cva - Trauma History: not reviewed this visit Diagnostics Vital Signs (24Hr): Vital Signs - 24 hr 11/04/24 16:22 11/05/24 02:52 11/05/24 08:40 Temperature 98.0 F 96.8 F 98.2 F Pulse Rate 81 78 76 Respiratory Rate 18 18 18 Blood Pressure 124/89 138/90 H 126/99 H Pulse Oximetry 94 96 99 Oxygen Delivery Method Room Air Room Air Room Air BMI result Body Mass Index 21.8 Labs 11/04/24 07:59 11/04/24 07:59 Labs: Laboratory Results - last 48 hr 11/04/24 07:59 WBC 5.9 RBC 4.67 Hgb 14.5 Hct 43.4 MCV 92.9 MCH 31.0 MCHC 33.4 RDW 15.2 Plt Count 224 MPV 10.1 Immature Gran % (Auto) 0.2 Neut % (Auto) 50.8 Lymph % (Auto) 26.0 [place] % (Auto) 13.7 H Eos % (Auto) 9.1 H Baso % (Auto) 0.2 Lymph # (Auto) 1.5 [place] # (Auto) 0.8 Eos # (Auto) 0.5 H Baso # (Auto) 0.0 Abs Immat Gran (auto) 0.01 Absolute Neuts (auto) 3.0 Absolute Nucleated RBC 0.000 Nucleated RBC % (auto) 0.0 Sodium 140 Potassium 4.4 Chloride 106 Carbon Dioxide 26 Anion Gap 12 BUN 20 H Creatinine 1.95 H Estim Creat Clear Calc 39.5 Estimated GFR 35 Random Glucose 114 Calcium 8.5 Mental Status Exam Mental Status Exam Narrative: Appearance: wearing hospital gown, fair hygiene, in NAD Behavior: cooperative, overly friendly Psychomotor: no agitation or retardation noted Speech: mostly clear, regular rate/rhythm/volume, spontaneous TP: circumstantial TC: wanting to know why he is in the hospital and when can he return home Mood: okay Affect: congruent SI: denies HI: none VH/AH: no overt signs Delusions: none, but noted some confabulation (in context of memory impairments and thinking he used cocaine last evening). Insight/judgment: impaired x 2. Memory/cog: alert, oriented to idea of hospital, not sure why he is here. Not oriented to situation. noted significant gaps in memory but attention much improved and not suggestive of active delirium. Medications Medications Current Medications Acetaminophen (Acetaminophen 325 Mg Tablet) 650 mg PO Q6H PRN PRN Reason: Pain, Mild 1-3,fever,headache Al Hydroxide/Mg Hydroxide (Magnesium Hydrox/Alum Hydrox 30 Ml Oral.Susp) 15 ml PO Q6H [facility] Last Admin: 11/05/24 09:44 Dose: 15 ml Amlodipine Besylate (Amlodipine Besylate 10 Mg Tablet) 10 mg PO DAILY [facility]; Protocol Last Admin: 11/05/24 09:28 Dose: 10 mg Apixaban (Apixaban 5 Mg Tablet) 5 mg PO BID [facility] Last Admin: 11/05/24 09:27 Dose: 5 mg Atorvastatin Calcium (Atorvastatin Calcium 80 Mg Tablet) 80 mg PO BEDTIME [facility] Last Admin: 11/04/24 20:39 Dose: 80 mg Bisacodyl (Bisacodyl 10 Mg Supp.Rect) 10 mg AR DAILY PRN PRN Reason: Constipation Brimonidine Tartrate (Brimonidine Tartrate 0.2% Oph 5 Ml Bottle) 1 drop EYE- BOTH BID [facility] Last Admin: 11/05/24 09:45 Dose: Not Given Calcium Carbonate (Calcium Carbonate 750 Mg Tab.Chew) 750 mg PO Q4H PRN PRN Reason: Heartburn Carvedilol (Carvedilol 25 Mg Tablet) 25 mg PO BID [facility]; Protocol Last Admin: 11/05/24 09:27 Dose: 25 mg Cefuroxime Axetil (Cefuroxime Axetil 250 Mg Tablet) 250 mg PO BID [facility] Stop: 11/05/24 20:00 Last Admin: 11/05/24 09:28 Dose: 250 mg Clonazepam (Clonazepam 1 Mg Tablet) 1 mg PO BID [facility] Last Admin: 11/05/24 09:28 Dose: 1 mg Divalproex Sodium (Divalproex Sodium Sprinkles 125 Mg Cap..Spr) 250 mg PO BID [facility] Last Admin: 11/05/24 09:27 Dose: 250 mg Duloxetine HCl (Duloxetine Hcl 30 Mg Capsule.Dr) 30 mg PO DAILY [facility] Last Admin: 11/05/24 09:28 Dose: 30 mg Empagliflozin (Empagliflozin 10 Mg Tablet) 10 mg PO DAILY [facility] Last Admin: 11/05/24 09:28 Dose: 10 mg Enoxaparin Sodium (Enoxaparin Sodium 30 Mg/0.3 Ml Syringe) 30 mg SUBCUT Q24H [facility] Last Admin: 11/05/24 11:32 Dose: Not Given Gabapentin (Gabapentin 400 Mg Capsule) 800 mg PO TID [facility] Last Admin: 11/05/24 09:29 Dose: 800 mg Haloperidol (Haloperidol 1 Mg Tablet) 2 mg PO TID [facility] Last Admin: 11/05/24 09:27 Dose: 2 mg Haloperidol Lactate (Haloperidol Lactate 5 Mg/Ml Vial) 5 mg IM Q8H PRN PRN Reason: anxiety/restlessness Hydralazine HCl (Hydralazine Hcl 10 Mg Tablet) 10 mg PO BID [facility]; Protocol Last Admin: 11/05/24 09:27 Dose: 10 mg Latanoprost (Latanoprost 0.005 % Ophth Shanti 2.5 Ml Drops) 1 drop EYE-BOTH BEDTIME [facility] Last Admin: 11/04/24 20:47 Dose: Not Given Magnesium Hydroxide (Milk Of Magnesia 30 Ml Oral.Susp) 30 ml PO DAILY PRN PRN Reason: Constipation Magnesium Hydroxide (Milk Of Magnesia 30 Ml Oral.Susp) 30 ml PO DAILY PRN PRN Reason: Constipation Melatonin (Melatonin 3 Mg Tablet) 6 mg PO BEDTIME PRN PRN Reason: Insomnia Nicotine Polacrilex (Nicotine Polacrilex 2 Mg Gum) 2 mg BUCCAL Q2H PRN PRN Reason: Smoking Cessation Omeprazole (Omeprazole 20 Mg Capsule.Dr) 20 mg PO DAILY@0630 [facility] Last Admin: 11/05/24 05:34 Dose: Not Given Ondansetron HCl (Ondansetron Hcl 4 Mg/2 Ml Vial) 4 mg IVPUSH Q8H PRN PRN Reason: Nausea and Vomiting Prednisolone Acetate (Prednisolone Acetate 1 % Oph Susp 5 Ml Drpbtl) 1 drop EYE-BOTH QID [facility] Last Admin: 11/05/24 09:44 Dose: 1 drop Simethicone (Simethicone 80 Mg Tab.Chew) 160 mg PO BID [facility] Last Admin: 11/05/24 09:28 Dose: 160 mg Sodium Biphosphate/Sodium Phosphate (Sodium Phosphate,[place]-Dibasic 133 Ml Enema) 118 ml AR DAILY PRN PRN Reason: Constipation Sodium Chloride (0.9 % Sodium Chloride Flush 3 Ml Syringe) 3 ml IVFLUSH QSHIFT [facility] Last Admin: 11/05/24 09:43 Dose: Not Given Allergies Allergies Allergy/AdvReac Type Severity Reaction Status Date / Time acetaminophen (From TYLENOL) Allergy Unknown CAN'T TAKE Verified 10/30/24 19:22 PER PT aspirin (ASPIRIN) Allergy Unknown BLEEDING Verified 10/30/24 19:22 calcium carbonate Allergy Unknown Unknown Verified 10/30/24 19:22 fish derived (fish) Allergy Unknown Unknown Verified 10/30/24 19:22 NSAIDS (Non-Steroidal AdvReac Severe STOMACH Verified 10/30/24 19:22 Anti-Inflamma (NSAIDS UPSET (NON-STEROIDAL ANTI-INFLAMMA) Assessment & Plan Assessment & Plan (1) Major neurocognitive disorder due to another medical condition with behavioral disturbance: Status: Acute Code(s): F02.818 - Dementia in other diseases classified elsewhere, unspecified severity, with other behavioral disturbance Plan Continue current regimen and plans Total time managing care of this patient today ____ minutes. Patient educated on: medication risk/benefits
--- NOTE | 2024-11-05 13:25 | PC.NURSE ---
Sasha Light the resident program specialist for the [facility] Finney [facility] stopped by. She is hoping to speak with the providers regarding her experience with the pt not responding well to the drug class benzodiazepine. She can be reached at [phone] after hours, work hours.
[2024-11-05 14:00] VITALS: BP 116/71; PULSE 88; RESP 16; TEMP 36.7; O2SAT 94
[2024-11-05 19:31] VITALS: BP 130/100; PULSE 93; RESP 18; TEMP 36.2; O2SAT 97
[2024-11-06] VITALS (7 sets, daily range): BP systolic 101–131; BP diastolic 75–92; PULSE 80–90; RESP 16–18; TEMP 36.2–36.6; O2SAT 94–97
[2024-11-06] MEDS: Omeprazole 20 MG CAPSULE.DR PO (06:13)
[2024-11-06] MEDS: Magnesium Hydrox/Alum Hydrox 30 ML ORAL.SUSP 15 ML PO ×3 (06:19→14:34)
[2024-11-06] MEDS: hydrALAZINE HCl 10 MG TABLET PO (09:31)
[2024-11-06] MEDS: carvediloL 25 MG TABLET PO (09:34)
[2024-11-06] MEDS: Empagliflozin 10 MG TABLET PO (09:34)
[2024-11-06] MEDS: HaloperidoL 1 MG TABLET 2 MG PO ×2 (09:34→14:34)
[2024-11-06] MEDS: Gabapentin 400 MG CAPSULE 800 MG PO ×2 (09:34→14:33)
[2024-11-06] MEDS: amLODIPine Besylate 10 MG TABLET PO (09:35)
[2024-11-06] MEDS: Simethicone 80 MG TAB.CHEW 160 MG PO (09:35)
[2024-11-06] MEDS: DULoxetine HCl 30 MG CAPSULE.DR PO (09:35)
[2024-11-06] MEDS: Apixaban 5 MG TABLET PO (09:35)
[2024-11-06] MEDS: Divalproex Sodium Sprinkles 125 MG CAP.DR.SPR 250 MG PO (09:36)
[2024-11-06] MEDS: prednisoLONE Acetate 1 % Oph Susp 5 ML DRPBTL 1 DROP EYE-BOTH ×3 (10:30→17:11)
[2024-11-06] MEDS: Enoxaparin Sodium 30 MG/0.3 ML SYRINGE SUBCUT (11:52)
--- NOTE | 2024-11-06 13:16 | PC.NURSE ---
Pt. started coughing and drooling during lunch, stating that he was choking, patient was able to cough forcefully along with back blows, pt. spitted out a piece of hamburger. Pt. is talking and joking, vitals T 97.6, BP 118/87, HR 76, 95%RA.
--- NOTE | 2024-11-06 14:14 | MHC.CM.PN ---
EMR REVIEWED AND PER MD ROUNDS, PT IS AWAITING [facility] BED. CM WILL CONTINUE TO FOLLOW.
--- NOTE | 2024-11-06 14:51 | HO.WOUND ---
Wound Consult: Initial 64yr old?male admitted to [facility] on 11/03/24 - See progress notes and H&P for detailed history.? Wound consult placed for buttock.? Patient agreeable to assessment and photo documentation.? Coccyx / Gluteal base Etiology: ?MASD - Intertrigo ?Present on Admission Measurements: 3cm x 0.3cm x 0.1cm Wound Bed: pink moist wound bed Drainage / Odor: None Edges: ? Linear and attached Gabrielle wound: Intact ? No Induration, Fluctuance or Warmth noted Pain: denies Goals of Treatment: ? Barrier cream to protect from friction and moisture Recommendations: 1. Turn and Reposition every 2 hours and as needed for patient comfort.? Use pillows or wedges to support off loading positions. 2. Off Load all bony prominences with use of pillows and heel boots if needed.? Apply Preventative foams where needed. ? 3. Monitor for incontinence and moisture control, use barrier creams when needed for prevention and treatment. 4. Provide adequate and supplemental nutrition.? 5. Order low air loss mattress. 6. When applicable maintain blood glucose levels per Providers order. Coccyx - Off Load Pressure with Q2 hr turns and use of pillows - Cleanse with PH balance spray or wipes, pat dry. ?Apply thin layer of barrier cream to affected area.? Apply twice daily and Reapply thin layer PRN after each episode of incontinence. Re-consult wound care Nurse for wound deterioration or wound changes.
--- NOTE | 2024-11-06 15:29 | MHC.CARE ---
Patient reassessed by the CARE Team, disposition remains inpatient psychiatric admission.
--- NOTE | 2024-11-06 15:50 | P.PNIM_ITS ---
Subjective Subjective Date of Service: 11/06/24 Interval History: No acute concerns. No chest pain, shortness of breath, nausea or vomiting. Lying in bed, requesting breakfast. Constitutional Constitutional: Denies body ache(s), Denies chills and Denies fever(s) ENT Ears, Nose, Mouth, and Throat: Denies nasal discharge and Denies sore throat Cardiovascular Cardiovascular: Denies chest pain and Denies dyspnea Respiratory Respiratory: Denies cough and Denies dyspnea Gastrointestinal Gastrointestinal: Denies abdominal pain Genitourinary Genitourinary: Denies dysuria Physical Exam 2 Vital Signs: Vital Signs: Last Vital Signs Temp 97.5 F 11/06/24 14:00 Pulse 84 11/06/24 14:00 Resp 16 11/06/24 14:00 BP 129/92 H 11/06/24 14:00 Pulse Ox 96 11/06/24 14:00 O2 Del Method Room Air 11/06/24 14:00 BMI result Body Mass Index 21.8 General: Awake and alert, no acute distress Resp: CTA bilaterally CVS: S1, S2, RRR GI: +BS, NT, no distention Skin: Warm, dry Neuro: Cranial nerves II-XII grossly intact bilaterally. Motor grossly intact bilaterally Extremities: No edema Psych: Confused Objective Data Active Medications Acetaminophen (Acetaminophen 325 Mg Tablet) 650 mg PO Q6H PRN PRN Reason: Pain, Mild 1-3,fever,headache Al Hydroxide/Mg Hydroxide (Magnesium Hydrox/Alum Hydrox 30 Ml Oral.Susp) 15 ml PO Q6H [facility] Last Admin: 11/06/24 14:34 Dose: 15 ml Documented By: ILENE Amlodipine Besylate (Amlodipine Besylate 10 Mg Tablet) 10 mg PO DAILY [facility]; Protocol Last Admin: 11/06/24 09:35 Dose: 10 mg Documented By: ILENE Apixaban (Apixaban 5 Mg Tablet) 5 mg PO BID [facility] Last Admin: 11/06/24 09:35 Dose: 5 mg Documented By: ILENE Atorvastatin Calcium (Atorvastatin Calcium 80 Mg Tablet) 80 mg PO BEDTIME [facility] Last Admin: 11/05/24 22:26 Dose: Not Given Documented By: MIRTHA Non-Admin Reason: Patient Refused Bisacodyl (Bisacodyl 10 Mg Supp.Rect) 10 mg [place] DAILY PRN PRN Reason: Constipation Brimonidine Tartrate (Brimonidine Tartrate 0.2% Oph 5 Ml Bottle) 1 drop EYE- BOTH BID [facility] Last Admin: 11/06/24 10:34 Dose: Not Given Documented By: ILENE Non-Admin Reason: Med Not Available Calcium Carbonate (Calcium Carbonate 750 Mg Tab.Chew) 750 mg PO Q4H PRN PRN Reason: Heartburn Carvedilol (Carvedilol 25 Mg Tablet) 25 mg PO BID [facility]; Protocol Last Admin: 11/06/24 09:34 Dose: 25 mg Documented By: ILENE Divalproex Sodium (Divalproex Sodium Sprinkles 125 Mg Cap.) 250 mg PO BID [facility] Last Admin: 11/06/24 09:36 Dose: 250 mg Documented By: ILENE Duloxetine HCl (Duloxetine Hcl 30 Mg Capsule.) 30 mg PO DAILY [facility] Last Admin: 11/06/24 09:35 Dose: 30 mg Documented By: ILENE Empagliflozin (Empagliflozin 10 Mg Tablet) 10 mg PO DAILY [facility] Last Admin: 11/06/24 09:34 Dose: 10 mg Documented By: ILENE Enoxaparin Sodium (Enoxaparin Sodium 30 Mg/0.3 Ml Syringe) 30 mg SUBCUT Q24H [facility] Last Admin: 11/06/24 11:52 Dose: 30 mg Documented By: ILENE Gabapentin (Gabapentin 400 Mg Capsule) 800 mg PO TID [facility] Last Admin: 11/06/24 14:33 Dose: 800 mg Documented By: ILENE Haloperidol (Haloperidol 1 Mg Tablet) 2 mg PO TID [facility] Last Admin: 11/06/24 14:34 Dose: 2 mg Documented By: ILENE Haloperidol Lactate (Haloperidol Lactate 5 Mg/Ml Vial) 5 mg IM Q8H PRN PRN Reason: anxiety/restlessness Hydralazine HCl (Hydralazine Hcl 10 Mg Tablet) 10 mg PO BID [facility]; Protocol Last Admin: 11/06/24 09:31 Dose: 10 mg Documented By: ILENE Latanoprost (Latanoprost 0.005 % Ophth Shanti 2.5 Ml Drops) 1 drop EYE-BOTH BEDTIME [facility] Last Admin: 11/05/24 22:27 Dose: Not Given Documented By: MIRTHA Non-Admin Reason: Patient Refused Magnesium Hydroxide (Milk Of Magnesia 30 Ml Oral.Susp) 30 ml PO DAILY PRN PRN Reason: Constipation Magnesium Hydroxide (Milk Of Magnesia 30 Ml Oral.Susp) 30 ml PO DAILY PRN PRN Reason: Constipation Melatonin (Melatonin 3 Mg Tablet) 6 mg PO BEDTIME PRN PRN Reason: Insomnia Nicotine Polacrilex (Nicotine Polacrilex 2 Mg Gum) 2 mg BUCCAL Q2H PRN PRN Reason: Smoking Cessation Omeprazole (Omeprazole 20 Mg Capsule.Dr) 20 mg PO DAILY@0630 [facility] Last Admin: 11/06/24 06:13 Dose: 20 mg Documented By: MIRTHA Ondansetron HCl (Ondansetron Hcl 4 Mg/2 Ml Vial) 4 mg IVPUSH Q8H PRN PRN Reason: Nausea and Vomiting Prednisolone Acetate (Prednisolone Acetate 1 % Oph Susp 5 Ml Drpbtl) 1 drop EYE-BOTH QID [facility] Last Admin: 11/06/24 14:30 Dose: 1 drop Documented By: ILENE Simethicone (Simethicone 80 Mg Tab.Chew) 160 mg PO BID [facility] Last Admin: 11/06/24 09:35 Dose: 160 mg Documented By: ILENE Sodium Biphosphate/Sodium Phosphate (Sodium Phosphate,Emmons-Dibasic 133 Ml Enema) 118 ml [place] DAILY PRN PRN Reason: Constipation Sodium Chloride (0.9 % Sodium Chloride Flush 3 Ml Syringe) 3 ml IVFLUSH QSHIFT [facility] Last Admin: 11/06/24 09:42 Dose: Not Given Documented By: ILENE Non-Admin Reason: No Access Labs 11/04/24 07:59 11/04/24 07:59 Assessment and Plan (1) Delirium due to another medical condition, acute, hyperactive: Status: Acute (2) Major neurocognitive disorder due to another medical condition with behavioral disturbance: Status: Acute (3) Agitation: Status: Acute (4) Mood disorder: Status: Acute Plan 64 years old male with PMH Aifb , CVA w Lt hemiparesis, HfrEF, DM2, Afib, CKD4, cognitive impairment, Mood disorder among others who presented to the hospital from [facility] for combative behaviour. Acute delirium with underlying neurocognitive disorder redirection avoid over-sedation Depakote bid continue Haldol p.r.n. and Scheduled 2 mg tid Avoid Benadryl Ambulation encouraged Seen by care team/psych- continues to recommend inpt placement. Bed search Mechanical fall 11/[address], Neck Ct negative for acute osseous abnormality of hemorrage Xr ribs negative for fx Xr L hip negative for fx dc cervical collar, continue sitter UTI continue Ceftin to finish 7 days (initiated 10/30) History of CVA Continue Eliquis and statin Hypertension Hydralazine and carvedilol Diabetes Patient denies having DM, not on meds at home Chronic systolic CHF with nonischemic cardiomyopathy Coreg, atorvastatin Paroxysmal AFib Eliquis and carvedilol Depression Duloxetine History of DVT Apixaban Full code Ongoing inpt stay: placement Quality Stroke Does the patient have a stroke diagnosis?: No VTE Prior VTE?: No VTE Risk Level:: Medical - moderate - high VTE Device Contraindication: Treatment Not Indicated VTE Drug Contraindication: N/A - Med Ordered
--- NOTE | 2024-11-07 00:37 | PC.NURSE ---
pt asleep in bed sitter at bed side. attempted to wake pt up for PM med pass with pt refusing to wake up/get up, meds held/refused. dr winchester notified.
[2024-11-07] MEDS: Omeprazole 20 MG CAPSULE.DR PO (04:57)
[2024-11-07 06:00] VITALS: BP 134/95; PULSE 84; RESP 16; TEMP 36; O2SAT 98
[2024-11-07 07:21] VITALS: BP 132/80; PULSE 88; RESP 18; TEMP 36.4; O2SAT 96
[2024-11-07] MEDS: carvediloL 25 MG TABLET PO ×2 (08:02→20:11)
[2024-11-07] MEDS: Gabapentin 400 MG CAPSULE 800 MG PO ×3 (08:02→20:10)
[2024-11-07] MEDS: Simethicone 80 MG TAB.CHEW 160 MG PO (08:02)
[2024-11-07] MEDS: Apixaban 5 MG TABLET PO ×2 (08:03→20:11)
[2024-11-07] MEDS: Empagliflozin 10 MG TABLET PO (08:03)
[2024-11-07] MEDS: hydrALAZINE HCl 10 MG TABLET PO ×2 (08:03→20:12)
[2024-11-07] MEDS: HaloperidoL 1 MG TABLET 2 MG PO ×2 (08:03→20:11)
[2024-11-07] MEDS: DULoxetine HCl 30 MG CAPSULE.DR PO (08:03)
[2024-11-07] MEDS: Divalproex Sodium Sprinkles 125 MG CAP.DR.SPR 250 MG PO ×2 (08:03→20:11)
[2024-11-07] MEDS: amLODIPine Besylate 10 MG TABLET PO (08:04)
[2024-11-07] MEDS: Magnesium Hydrox/Alum Hydrox 30 ML ORAL.SUSP 15 ML PO ×3 (08:04→20:12)
[2024-11-07] MEDS: prednisoLONE Acetate 1 % Oph Susp 5 ML DRPBTL 1 DROP EYE-BOTH ×3 (08:08→18:16)
[2024-11-07] MEDS: Brimonidine Tartrate 0.2% Oph 5 ML BOTTLE 1 DROP EYE-BOTH (08:09)
--- NOTE | 2024-11-07 11:41 | P.CNPS_ITS ---
History of Present Illness Date of Service: 11/07/2024 Chief Complaint: neurocognitive disorder Discussed with referring provider: Yes Sources of Information: patient interviewed, chart reviewed and crisis/core team assessment reviewed HPI Narrative: Interim Hx: pt has not had any IM nor agitation since admitted to medical floor. Pt presents as pleasant. 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 He does not present with s/s of psychosis or delusions. He reports he thought he had relapsed and it has been explained to him that he has been in the hospital all along without any use of illicit substances. He denies symptoms of depression. he presents with brighter affect, less labile. Although tendency to have poor boundaries, seemed more aware and able to be redirected. He has been taking medications as prescribed. No side effects noted or reported. He appears less impulsive. 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 He did not report hx of inpt psychiatric admission. He is currently prescribed xanax by his PCP Tanvir Shi MD. He does have services through [facility] with [employer]- Estee ([phone]); [employer] Yael ([phone]). No know hx of suicide attempts. [facility] Medical History (Updated 11/07/24 @ 11:51 by Shelli Sierra NP) Mood disorder Cognitive impairment Depression GERD (gastroesophageal reflux disease) Atrial fibrillation CVA (cerebral vascular accident) Polysubstance abuse CKD (chronic kidney disease), stage IV HFrEF (heart failure with reduced ejection fraction) Essential hypertension Type 2 diabetes mellitus Family History: son with substance? mental health issues Social History: hx of substance used never found AA helpful due to those who attended ; he found praying and going to jainism helpful-= sober since cva - Trauma History: not reviewed this visit Diagnostics Vital Signs (24Hr): Vital Signs - 24 hr 11/06/24 14:00 11/06/24 22:00 11/07/24 06:00 Temperature 97.5 F 97.1 F 96.8 F Pulse Rate 84 81 84 Respiratory Rate 16 18 16 Blood Pressure 129/92 H 104/75 134/95 H Pulse Oximetry 96 94 98 Oxygen Delivery Method Room Air Room Air Room Air 11/07/24 07:21 Temperature 97.6 F Pulse Rate 88 Respiratory Rate 18 Blood Pressure 132/80 Pulse Oximetry 96 Oxygen Delivery Method Room Air BMI result Body Mass Index 21.8 Labs 11/04/24 07:59 11/04/24 07:59 Mental Status Exam Mental Status Exam Narrative: Appearance: wearing hospital gown, fair hygiene, in NAD Behavior: cooperative, overly friendly Psychomotor: no agitation or retardation noted Speech: mostly clear, regular rate/rhythm/volume, spontaneous TP: more linear and coherent. TC: wanting to know why he is in the hospital and when can he return home Mood: okay Affect: congruent SI: denies HI: none VH/AH: no overt signs Delusions: none, but noted some confabulation (in context of memory impairments and thinking he used cocaine last evening). Insight/judgment: impaired x 2. Memory/cog: alert, oriented to idea of hospital, not sure why he is here. Not oriented to situation. noted significant gaps in memory but attention much improved and not suggestive of active delirium. Medications Medications Current Medications Acetaminophen (Acetaminophen 325 Mg Tablet) 650 mg PO Q6H PRN PRN Reason: Pain, Mild 1-3,fever,headache Al Hydroxide/Mg Hydroxide (Magnesium Hydrox/Alum Hydrox 30 Ml Oral.Susp) 15 ml PO Q6H [facility] Last Admin: 11/07/24 08:04 Dose: 15 ml Amlodipine Besylate (Amlodipine Besylate 10 Mg Tablet) 10 mg PO DAILY [facility]; Protocol Last Admin: 11/07/24 08:04 Dose: 10 mg Apixaban (Apixaban 5 Mg Tablet) 5 mg PO BID [facility] Last Admin: 11/07/24 08:03 Dose: 5 mg Atorvastatin Calcium (Atorvastatin Calcium 80 Mg Tablet) 80 mg PO BEDTIME [facility] Last Admin: 11/06/24 22:54 Dose: Not Given Bisacodyl (Bisacodyl 10 Mg Supp.Rect) 10 mg [place] DAILY PRN PRN Reason: Constipation Brimonidine Tartrate (Brimonidine Tartrate 0.2% Oph 5 Ml Bottle) 1 drop EYE- BOTH BID [facility] Last Admin: 11/07/24 08:09 Dose: 1 drop Calcium Carbonate (Calcium Carbonate 750 Mg Tab.Chew) 750 mg PO Q4H PRN PRN Reason: Heartburn Carvedilol (Carvedilol 25 Mg Tablet) 25 mg PO BID [facility]; Protocol Last Admin: 11/07/24 08:02 Dose: 25 mg Divalproex Sodium (Divalproex Sodium Sprinkles 125 Mg Cap.) 250 mg PO BID [facility] Last Admin: 11/07/24 08:03 Dose: 250 mg Duloxetine HCl (Duloxetine Hcl 30 Mg Capsule.) 30 mg PO DAILY [facility] Last Admin: 11/07/24 08:03 Dose: 30 mg Empagliflozin (Empagliflozin 10 Mg Tablet) 10 mg PO DAILY [facility] Last Admin: 11/07/24 08:03 Dose: 10 mg Gabapentin (Gabapentin 400 Mg Capsule) 800 mg PO TID [facility] Last Admin: 11/07/24 08:02 Dose: 800 mg Haloperidol (Haloperidol 1 Mg Tablet) 2 mg PO TID [facility] Last Admin: 11/07/24 08:03 Dose: 2 mg Haloperidol Lactate (Haloperidol Lactate 5 Mg/Ml Vial) 5 mg IM Q8H PRN PRN Reason: anxiety/restlessness Hydralazine HCl (Hydralazine Hcl 10 Mg Tablet) 10 mg PO BID [facility]; Protocol Last Admin: 11/07/24 08:03 Dose: 10 mg Latanoprost (Latanoprost 0.005 % Ophth Shanti 2.5 Ml Drops) 1 drop EYE-BOTH BEDTIME [facility] Last Admin: 11/06/24 22:55 Dose: Not Given Magnesium Hydroxide (Milk Of Magnesia 30 Ml Oral.Susp) 30 ml PO DAILY PRN PRN Reason: Constipation Magnesium Hydroxide (Milk Of Magnesia 30 Ml Oral.Susp) 30 ml PO DAILY PRN PRN Reason: Constipation Melatonin (Melatonin 3 Mg Tablet) 6 mg PO BEDTIME PRN PRN Reason: Insomnia Nicotine Polacrilex (Nicotine Polacrilex 2 Mg Gum) 2 mg BUCCAL Q2H PRN PRN Reason: Smoking Cessation Omeprazole (Omeprazole 20 Mg Capsule.) 20 mg PO DAILY@0630 [facility] Last Admin: 11/07/24 04:57 Dose: 20 mg Ondansetron HCl (Ondansetron Hcl 4 Mg/2 Ml Vial) 4 mg IVPUSH Q8H PRN PRN Reason: Nausea and Vomiting Prednisolone Acetate (Prednisolone Acetate 1 % Oph Susp 5 Ml Drpbtl) 1 drop EYE-BOTH QID [facility] Last Admin: 11/07/24 08:08 Dose: 1 drop Simethicone (Simethicone 80 Mg Tab.Chew) 160 mg PO BID [facility] Last Admin: 11/07/24 08:02 Dose: 160 mg Sodium Biphosphate/Sodium Phosphate (Sodium Phosphate,Smyth-Dibasic 133 Ml Enema) 118 ml [place] DAILY PRN PRN Reason: Constipation Sodium Chloride (0.9 % Sodium Chloride Flush 3 Ml Syringe) 3 ml IVFLUSH QSHIFT [facility] Last Admin: 11/07/24 09:41 Dose: Not Given Allergies Allergies Allergy/AdvReac Type Severity Reaction Status Date / Time acetaminophen (From TYLENOL) Allergy Unknown CAN'T TAKE Verified 10/30/24 19:22 PER PT aspirin (ASPIRIN) Allergy Unknown BLEEDING Verified 10/30/24 19:22 calcium carbonate Allergy Unknown Unknown Verified 10/30/24 19:22 fish derived (fish) Allergy Unknown Unknown Verified 10/30/24 19:22 NSAIDS (Non-Steroidal AdvReac Severe STOMACH Verified 10/30/24 19:22 Anti-Inflamma (NSAIDS UPSET (NON-STEROIDAL ANTI-INFLAMMA) Assessment & Plan Assessment & Plan (1) Major neurocognitive disorder due to another medical condition with behavioral disturbance: Status: Acute Code(s): F02.818 - Dementia in other diseases classified elsewhere, unspecified severity, with other behavioral disturbance (2) Mood disorder: Status: Acute Code(s): F39 - Unspecified mood [affective] disorder Plan Mr. Finney is a 64 year-old male with hx of CVA, underlying cognitive/memory impairments. He had episode of combative behaviors while at [facility] at [facility]. He does seem to have poor boundaries with females at times and impulsive behaviors. He was started on depakote 250mg po BID. He was also started on low dose of haldol 2mg initially TID for impulsive and combative behaviors. He has presented as much calmer, with no incidences of combative behaviors. He denies symptoms of depression or anxiety. He has been switched from xanax to clonazepam and tolerated switch of medications without issues. He is now on clonazepam 0.5mg po BID but may tolerate coming off completely to decrease risk of falls and over sedation. Will continue haldol but lowered dose 2mg po BID. Continue depakote 250mg po BID. PLAN 1. Pt appears to be more stable without incidents of combative behaviors nor agitation. He does have underlying cognitive and memory impairments. He does NO longer meets criteria for inpatient psychiatric admission. 2. 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 PT has no longer recommend STR. 3. Would recommend to continue haldol 2mg po BID. Depakote 250mg po BID. clonazepam 0.5mg po BID x 3 day, then stop. Total time managing care of this patient today ____ minutes.
--- NOTE | 2024-11-07 14:12 | MHC.CM.PN ---
Patient is recommended for 07/12 supervision. T/W spoke with community TRANG Leong. 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 Patient brother Cosme Piedra has agreed to assist. DP return to [facility] with additional help. May need assist with transport home.
--- NOTE | 2024-11-07 14:22 | HO.PM.IMPN ---
Subjective Subjective Date of Service: 11/07/24 Interval History: No acute concerns. No chest pain, shortness of breath, nausea or vomiting. Lying in bed, good insight. requesting to talk to psych provider, wants to go home Review of Systems Review of Systems: Yes all other systems are reviewed and are negative Physical Exam Vital Signs: Vital Signs: Last Vital Signs Temp 97.6 F 11/07/24 07:21 Pulse 88 11/07/24 07:21 Resp 18 11/07/24 07:21 BP 132/80 11/07/24 07:21 Pulse Ox 96 11/07/24 07:21 O2 Del Method Room Air 11/07/24 07:21 BMI result Body Mass Index 21.8 General: AOx3, no acute distress Resp: CTA bilaterally CVS: S1, S2, RRR GI: +BS, NT, no distention Skin: Warm, dry Neuro: Cranial nerves II-XII grossly intact bilaterally. Motor grossly intact bilaterally Extremities: No LE edema Psych: Appropriate affect Objective Data Active Medications Acetaminophen (Acetaminophen 325 Mg Tablet) 650 mg PO Q6H PRN PRN Reason: Pain, Mild 1-3,fever,headache Al Hydroxide/Mg Hydroxide (Magnesium Hydrox/Alum Hydrox 30 Ml Oral.Susp) 15 ml PO Q6H [facility] Last Admin: 11/07/24 14:11 Dose: 15 ml Documented By: ILENE Amlodipine Besylate (Amlodipine Besylate 10 Mg Tablet) 10 mg PO DAILY [facility]; Protocol Last Admin: 11/07/24 08:04 Dose: 10 mg Documented By: ILENE Apixaban (Apixaban 5 Mg Tablet) 5 mg PO BID [facility] Last Admin: 11/07/24 08:03 Dose: 5 mg Documented By: ILENE Atorvastatin Calcium (Atorvastatin Calcium 80 Mg Tablet) 80 mg PO BEDTIME [facility] Last Admin: 11/06/24 22:54 Dose: Not Given Documented By: PASHA Non-Admin Reason: Patient Refused Bisacodyl (Bisacodyl 10 Mg Supp.Rect) 10 mg [place] DAILY PRN PRN Reason: Constipation Brimonidine Tartrate (Brimonidine Tartrate 0.2% Oph 5 Ml Bottle) 1 drop EYE-BOTH BID [facility] Last Admin: 11/07/24 08:09 Dose: 1 drop Documented By: ILENE Calcium Carbonate (Calcium Carbonate 750 Mg Tab.Chew) 750 mg PO Q4H PRN PRN Reason: Heartburn Carvedilol (Carvedilol 25 Mg Tablet) 25 mg PO BID [facility]; Protocol Last Admin: 11/07/24 08:02 Dose: 25 mg Documented By: ILENE Clonazepam (Clonazepam 0.5 Mg Tablet) 0.5 mg PO BID [facility] Divalproex Sodium (Divalproex Sodium Sprinkles 125 Mg Cap.) 250 mg PO BID [facility] Last Admin: 11/07/24 08:03 Dose: 250 mg Documented By: ILENE Duloxetine HCl (Duloxetine Hcl 30 Mg Capsule.) 30 mg PO DAILY [facility] Last Admin: 11/07/24 08:03 Dose: 30 mg Documented By: ILENE Empagliflozin (Empagliflozin 10 Mg Tablet) 10 mg PO DAILY [facility] Last Admin: 11/07/24 08:03 Dose: 10 mg Documented By: ILENE Gabapentin (Gabapentin 400 Mg Capsule) 800 mg PO TID [facility] Last Admin: 11/07/24 14:12 Dose: 800 mg Documented By: ILENE Haloperidol (Haloperidol 1 Mg Tablet) 2 mg PO BID [facility] Haloperidol Lactate (Haloperidol Lactate 5 Mg/Ml Vial) 5 mg IM Q8H PRN PRN Reason: anxiety/restlessness Hydralazine HCl (Hydralazine Hcl 10 Mg Tablet) 10 mg PO BID [facility]; Protocol Last Admin: 11/07/24 08:03 Dose: 10 mg Documented By: ILENE Latanoprost (Latanoprost 0.005 % Ophth Shanti 2.5 Ml Drops) 1 drop EYE-BOTH BEDTIME [facility] Last Admin: 11/06/24 22:55 Dose: Not Given Documented By: PASHA Non-Admin Reason: Patient Refused Magnesium Hydroxide (Milk Of Magnesia 30 Ml Oral.Susp) 30 ml PO DAILY PRN PRN Reason: Constipation Magnesium Hydroxide (Milk Of Magnesia 30 Ml Oral.Susp) 30 ml PO DAILY PRN PRN Reason: Constipation Melatonin (Melatonin 3 Mg Tablet) 6 mg PO BEDTIME PRN PRN Reason: Insomnia Nicotine Polacrilex (Nicotine Polacrilex 2 Mg Gum) 2 mg BUCCAL Q2H PRN PRN Reason: Smoking Cessation Omeprazole (Omeprazole 20 Mg Capsule.) 20 mg PO DAILY@0630 [facility] Last Admin: 11/07/24 04:57 Dose: 20 mg Documented By: PASHA Ondansetron HCl (Ondansetron Hcl 4 Mg/2 Ml Vial) 4 mg IVPUSH Q8H PRN PRN Reason: Nausea and Vomiting Prednisolone Acetate (Prednisolone Acetate 1 % Oph Susp 5 Ml Drpbtl) 1 drop EYE-BOTH QID [facility] Last Admin: 11/07/24 14:14 Dose: 1 drop Documented By: ILENE Simethicone (Simethicone 80 Mg Tab.Chew) 160 mg PO BID [facility] Last Admin: 11/07/24 08:02 Dose: 160 mg Documented By: ILENE Sodium Biphosphate/Sodium Phosphate (Sodium Phosphate,[place]-Dibasic 133 Ml Enema) 118 ml [place] DAILY PRN PRN Reason: Constipation Sodium Chloride (0.9 % Sodium Chloride Flush 3 Ml Syringe) 3 ml IVFLUSH QSHIFT [facility] Last Admin: 11/07/24 09:41 Dose: Not Given Documented By: ILENE Non-Admin Reason: No Access Labs 11/04/24 07:59 11/04/24 07:59 Assessment and Plan (1) Major neurocognitive disorder due to another medical condition with behavioral disturbance: Status: Acute (2) Mood disorder: Status: Acute Plan 64 years old male with PMH Aifb , CVA w Lt hemiparesis, HfrEF, DM2, Afib, CKD4, cognitive impairment, Mood disorder among others who presented to the hospital from [facility] for combative behaviour. Acute delirium with underlying neurocognitive disorder redirection avoid over-sedation Depakote bid continue Haldol p.r.n. and Scheduled 2 mg tid Avoid Benadryl Ambulation encouraged Seen by care team/psych- plan for discharge [facility] tomorrow home to assisted living with 24 hour care Mechanical fall 11/[address], Neck Ct negative for acute osseous abnormality of hemorrage Xr ribs negative for fx Xr L hip negative for fx dc cervical collar, continue sitter UTI Ceftin completed History of CVA Continue Eliquis and statin Hypertension Hydralazine and carvedilol Diabetes Patient denies having DM, not on meds at home Chronic systolic CHF with nonischemic cardiomyopathy Coreg, atorvastatin Paroxysmal AFib Eliquis and carvedilol Depression Duloxetine History of DVT Apixaban Full code Ongoing inpt stay: placement, plan for discharge tomorrow with 24 hour care at assisted living Quality Stroke Does the patient have a stroke diagnosis?: No VTE Prior VTE?: No VTE Risk Level:: Medical - moderate - high VTE Device Contraindication: Treatment Not Indicated VTE Drug Contraindication: N/A - Med Ordered
[2024-11-07 15:29] VITALS: BP 127/83; PULSE 96; RESP 18; TEMP 36.3; O2SAT 98
[2024-11-07 20:11] VITALS: BP 107/74; PULSE 100
[2024-11-07] MEDS: Atorvastatin Calcium 80 MG TABLET PO (20:11)
[2024-11-07 20:12] VITALS: BP 107/74
[2024-11-07] MEDS: clonazePAM 0.5 MG TABLET PO (20:12)
[2024-11-08 04:46] VITALS: BP 144/83; PULSE 87; RESP 18; TEMP 36.5; O2SAT 97
[2024-11-08] MEDS: Omeprazole 20 MG CAPSULE.DR PO (05:28)
[2024-11-08 06:48] LABS: Hematocrit 41.2 % (42.0-52.0); Hemoglobin 13.5 g/dl (14.0-18.0); Mean Corpuscular HGB Conc 32.8 g/dl (31.0-36.0); Mean Corpuscular Hemoglobin 30.5 pg (27.0-33.0); Mean Corpuscular Volume 93.2 fL (80.0-98.0); Mean Platelet Volume 10.3 fL (9.4-12.4); Platelet Count 239 X10*3/uL (160-400); Red Blood Count 4.42 X10*6/uL (4.60-5.80); Red Cell Distribution Width 15.5 % (11.0-16.0); White Blood Count 6.3 X10*3/uL (4.8-10.8)
[2024-11-08 07:11] LABS: Anion Gap 13 (12-20); Blood Urea Nitrogen 19 mg/dL (9-16); Calcium 8.5 mg/dL (8.4-10.2); Carbon Dioxide 24 mmol/L (22-29); Chloride 108 mmol/L (96-108); Creatinine Clr Calc Pharmacy 40.9; Estimated Glomerular Filt Rate 36; Glucose Random 94 mg/dL (60-115); Potassium 4.7 mmol/L (3.3-5.1); Sodium 140 mmol/L (135-145)
[2024-11-08] MEDS: HaloperidoL 1 MG TABLET 2 MG PO (07:59)
[2024-11-08] MEDS: Gabapentin 400 MG CAPSULE 800 MG PO (08:00)
[2024-11-08] MEDS: clonazePAM 0.5 MG TABLET PO (08:00)
[2024-11-08] MEDS: carvediloL 25 MG TABLET PO (08:00)
[2024-11-08] MEDS: DULoxetine HCl 30 MG CAPSULE.DR PO (08:00)
[2024-11-08] MEDS: hydrALAZINE HCl 10 MG TABLET PO (08:00)
[2024-11-08] MEDS: Simethicone 80 MG TAB.CHEW 160 MG PO (08:00)
[2024-11-08] MEDS: Divalproex Sodium Sprinkles 125 MG CAP.DR.SPR 250 MG PO (08:00)
[2024-11-08] MEDS: Empagliflozin 10 MG TABLET PO (08:00)
[2024-11-08] MEDS: Apixaban 5 MG TABLET PO (08:00)
[2024-11-08] MEDS: amLODIPine Besylate 10 MG TABLET PO (08:00)
[2024-11-08 08:01] LABS: Iron 90 mcg/dL (45-160); Percent Iron Saturation 52 % (15-50); Total Iron Binding Capacity 173 mcg/dL (228-428); Unsaturated Iron Binding 83 ug/dL
[2024-11-08] MEDS: Magnesium Hydrox/Alum Hydrox 30 ML ORAL.SUSP 15 ML PO (08:01)
[2024-11-08] MEDS: prednisoLONE Acetate 1 % Oph Susp 5 ML DRPBTL 1 DROP EYE-BOTH (08:02)
[2024-11-08] MEDS: Brimonidine Tartrate 0.2% Oph 5 ML BOTTLE 1 DROP EYE-BOTH (08:02)
[2024-11-08 08:27] VITALS: BP 129/93; PULSE 65; RESP 16; TEMP 36.1; O2SAT 97
--- NOTE | 2024-11-08 09:17 | MHC.CM.PN ---
Patient is discharged today. Psych has cleared patient. He will return to his [facility] Apartment with 07/12 care. [facility] has set up the 07/12 care. She will provide transportation to home. She will pick him up at 2pm today.
--- NOTE | 2024-11-08 13:10 | P.DS_ITS ---
DS: Providers Provider Date of Service: 11/08/24 Date of admission: 11/03/24 11:14 Date of discharge: 11/08/24 Primary care physician: Tanvir Shi MD Consults: 10/30/24 19:38 ED CARE Team Crisis Consult Stat Comment: Reason for consultation: aggression 10/30/24 22:52 Consult to Psychiatry Stat Consulting Provider: [facility] Reason for consultation: aggression, combative, sent back to ED Has provider been notified: Yes 10/31/24 12:04 Consult to Case Management Stat Comment: 10/31/24 12:05 Consult to Psychiatry Stat Consulting Provider: [facility] Reason for consultation: agitation requested by senior care Has provider been notified: No 11/03/24 11:16 Consult to Psychiatry Routine Consulting Provider: [facility] Reason for consultation: behavioural cognitive , follow up during hospital stay, meds 11/03/24 16:26 Consult to Wound Care Routine Reason for consultation: open area between buttocks DS: Diagnosis Discharge Diagnosis (1) Major neurocognitive disorder due to another medical condition with behavioral disturbance: Status: Acute (2) Mood disorder: Status: Acute DS: Summary Hospital Course Hospital Course: Admission H&P: A 64 years old male with PMH Aifb , CVA w Lt hemiparesis, HfrEF, DM2, Afib, CKD4, cognitive impairment, Mood disorder among others who presented to the hospital from [facility] for combative behaviour. The patient was asking to leave and smoke a cigarette. was aggressive toward staff. he was recently [facility] after hospitalization discharged on 10/30 for similar presentation requiring Psychiatry evaluation and management. Has been waiting placement in ED since 10/31 complicated with delerium. Admitted for management of delerium and behavioural problems pending safe discharge plan. Hospital course: Patient was admitted due to mood disorder with combative behavior for further evaluation and management. He was placed in the ED from 10/31 through 11/03 awaiting psych bed placement however admitted to the hospitalist team due to acute delirium with urinary tract infection. She was treated for the urinary t ract infection with Ceftin x7 days. The patient had a fall on 11/04 he got up out of bed to walk to the bathroom, head strike with a negative workup including negative head CT, neck CT, chest x-ray 4 rib fracture and left hip x-ray for fracture. Subsequently the patient was placed with a sitter. A PT evaluation was done which recommended ambulation with a walker and patient is not a candidate for short-term rehab due to longstanding ambulation difficulties. He will require 24 hour care with close supervision per PT eval upon discharge, which will be arranged at the [facility] apartment that he was residing at with almost 24 hour care previously. The patient was evaluated and followed by Psychiatry who may add medication adjustments and feel that patient does not meet inpatient level care at this time. He has not been combative since admission and has good insight. Psychiatric medication recommendations for Haldol 2 mg b.i.d., Depakote 250 mg b.i.d. and clonazepam 0.5 mg b.i.d. (x3 days then stop). Status at Discharge Cognitive/behavioral status at discharge: improved, no longer delirious Functional status at discharge: uses cane/walker Overall status at discharge: patient is back to baseline Time Attestation Discharge Coordination Time (in mins): 45 Quality: Safe Use of Opioids Does Pt have an Active Cancer Diagnosis on the Problem List?: No Quality: Stroke Does the patient have a stroke diagnosis?: No Physical Exam Vital Signs: Vital Signs: Last Vital Signs Temp 97.0 F 11/08/24 08:27 Pulse 65 11/08/24 08:27 Resp 16 11/08/24 08:27 BP 129/93 H 11/08/24 08:27 Pulse Ox 97 11/08/24 08:27 O2 Del Method Room Air 11/08/24 08:27 BMI result Body Mass Index 21.8 General: AOx3, no acute distress Resp: CTA bilaterally CVS: S1, S2, RRR GI: +BS, NT, no distention Skin: Warm, dry Neuro: A+Ox3. no focal deficit Extremities: No LE edema Psych: Appropriate affect DS: Data Data Completed and Pending Labs on day of discharge: Laboratory Results - last 24 hr 11/08/24 06:02 WBC 6.3 RBC 4.42 L Hgb 13.5 L Hct 41.2 L MCV 93.2 MCH 30.5 MCHC 32.8 RDW 15.5 Plt Count 239 MPV 10.3 Absolute Nucleated RBC 0.000 Nucleated RBC % (auto) 0.0 Sodium 140 Potassium 4.7 Chloride 108 Carbon Dioxide 24 Anion Gap 13 BUN 19 H Creatinine 1.88 H Estim Creat Clear Calc 40.9 Estimated GFR 36 Random Glucose 94 Calcium 8.5 Iron 90 TIBC 173 L % Saturation 52 H Unsat Iron Binding 83 Discharge Plan Discharge Anticipated Discharge Date/Time: 11/08/24 11:52 Patient Disposition: Home Health Service Discharge Diagnosis: acute delirium with underlying neurocognitive disorder (delirium resolved), UTI (resolved) Referrals: Tanvir Shi MD [Primary Care Provider, Medical] - 1 Week Discharge Medications: New clonazepam 0.5 mg Tablet 0.5 mg PO BID Qty: 6 0RF haloperidol 1 mg tablet 2 mg PO BID Qty: 360 0RF Continued latanoprost 0.005 % drops 1 drp ophthalmic (eye) BEDTIME hydralazine 10 mg tablet 10 mg PO BID atorvastatin 80 mg tablet 80 mg PO BEDTIME carvedilol 25 mg tablet 25 mg PO BID nicotine (polacrilex) 2 mg gum 2 mg PO Q2H PRN (Reason: Smoking Cessation) simethicone 180 mg capsule 180 mg PO BID prednisolone acetate 1 % drops,suspension 1 drp ophthalmic (eye) QID magnesium hydroxide [Milk of Magnesia] 400 mg/5 mL Suspension 30 ml PO DAILY PRN (Reason: Constipation) gabapentin 800 mg tablet 800 mg PO TID bisacodyl 10 mg Suppository 10 mg FL DAILY PRN (Reason: Constipation) esomeprazole magnesium 40 mg capsule,delayed release(DR/EC) 40 mg PO DAILY brimonidine 0.2 % drops 1 drp ophthalmic (eye) BID Fleet Enema 19-7 gram/118 mL Enema 118 ml FL DAILY PRN (Reason: Constipation) alum-mag hydroxide-simeth 200-200-20 mg/5 mL Suspension 15 ml Q6H duloxetine 30 mg capsule,delayed release(DR/EC) 30 mg PO DAILY Eliquis 5 mg tablet 5 mg PO BID dapagliflozin propanediol [Farxiga] 10 mg tablet 10 mg PO DAILY diazepam 2 mg Tablet 5 mg PO TID Qty: 90 0RF amlodipine 10 mg Tablet 10 mg PO DAILY Qty: 30 0RF Protocol: Hold for SBP< HOLD for SBP < : 90 divalproex 125 mg Capsule, Delayed Rel Sprinkle 250 mg PO BID Qty: 60 0RF oxycodone 5 mg Tablet 5 mg PO Q4H PRN (Reason: Pain, Moderate(Pain Scale 4-6)) Qty: 30 0RF Rx Instructions: Partial Fill upon patient request. alprazolam 1 mg tablet 1 mg PO BID@0600,1400 Discontinued haloperidol 1 mg Tablet 2 mg PO TID Qty: 90 0RF alprazolam 1 mg tablet 2 mg PO DAILY@2000 Discharge Orders: Discharge Order (Routine); Ordered 11/08/24 Ordered By: Jillian Polo Diet: Low salt diet Activity on Discharge: Use cane or walker Stand Alone Forms: Patient Portal Discharge page Print Language: Moldovan Care Plan Goals: recovery from acute delirium and urinary tract infection Stabilization of neurocognitive disorder with behavioral disturbance Health Concerns: Neurocognitive disorder with behavioral disturbance - improved UTI - completed course of ceftin Mechanical fall - negative w/u. PT eval recommends home services, ambulate with walker. Pt high risk of repeat falls, requires 24 hour care upon discharge per PT eval Plan of Treatment: Per psych recommendations: Continue haldol 2mg PO BID Continue depakote 250mg PO BID Continue clonazepam 0.5mg PO BID x3 days then stop Assessment: see above
--- NOTE | 2024-11-08 13:44 | W.MHC.F2F ---
Service Date Service Date: 11/08/24 Encounter Date of encounter: 11/08/24 Reasons for Services Signs and symptoms assessed: weakness, fall risk Reason for physical therapy: home safety and mobility Homebound: Leaving the home is medically contraindicated at this time without the asist of a device and/or another person due th the listed conditions above and below. Reason homebound: unsteady gait / fall risk Certification: Based on the above findings, I certify that this patient is confined to the home and needs intermittent intermediate care, physical therapy and/or speech therapy, or continues to need occupational therapy. The patient is under my care, and I have initiated the establishment of the plan of care. The patient will be followed by a physician who will periodically review the plan of care. Time Spent With Patient Time: Total time managing care of this patient today ____ minutes.
[2024-11-08 14:00] VITALS: BP 122/97; PULSE 91; RESP 18; TEMP 35.7; O2SAT 96
== END 2024-11-08 14:31 | disposition home health service (06) | DRG 463 ==
LOC: HO.ED 11-03 10:57 → HO.EDOVER 11-03 11:38 → HO.S3 11-03 13:23
PROVIDERS: Admitting Provider Student in an Organized Health Care Education/Training Program; Emergency Provider Emergency Medicine; PCP Internal Medicine; Visit Provider Physician Assistant
DX: N39.0 Urinary tract infection, site not specified (principal); F05 Delirium due to known physiological condition; I42.8 Other cardiomyopathies; I13.0 Hypertensive heart and chronic kidney disease with heart failure and stage 1 through stage 4 chronic kidney disease, or unspecified chronic kidney disease; N18.4 Chronic kidney disease, stage 4 (severe); I69.354 Hemiplegia and hemiparesis following cerebral infarction affecting left non-dominant side; F32.A Depression, unspecified; R41.9 Unspecified symptoms and signs involving cognitive functions and awareness; W19.XXXA Unspecified fall, initial encounter; I50.22 Chronic systolic (congestive) heart failure; I48.0 Paroxysmal atrial fibrillation; Z79.01 Long term (current) use of anticoagulants; Z79.899 Other long term (current) drug therapy
CPT/HCPCS: 36415; 70450; 71045; 72125; 73521; 80048; 80076; 80307; 81001; 83540; 85025; 85027; 87086; 87088; 93005; 97165; 97166; 99285; J1650; S9485

== ENCOUNTER → 2024-10-30 19:28 | Outpatient (BNV) | payer OTHER, SELFPAY | PROVIDERS: Emergency Provider Emergency Medicine; PCP Internal Medicine; Visit Provider Social Worker | DX: F03.918 Unspecified dementia, unspecified severity, with other behavioral disturbance (principal) | CPT/HCPCS: 99231; 99232 ==

== ENCOUNTER → 2024-11-01 11:29 | Outpatient (BNV) | payer MEDICAID, SELFPAY | PROVIDERS: Emergency Provider Emergency Medicine; PCP Internal Medicine; Visit Provider Internal Medicine Cardiovascular Disease | DX: I48.91 Unspecified atrial fibrillation (principal) | CPT/HCPCS: 93010 ==

== ENCOUNTER 2024-11-03 11:14 | Outpatient (BNV) | payer MEDICAID, SELFPAY | END 2024-11-04 07:26 | PROVIDERS: Admitting Provider Student in an Organized Health Care Education/Training Program; Emergency Provider Emergency Medicine; PCP Internal Medicine; Visit Provider Radiology Vascular & Interventional Radiology | DX: M50.30 Other cervical disc degeneration, unspecified cervical region (principal); R90.82 White matter disease, unspecified; M16.0 Bilateral primary osteoarthritis of hip; M19.019 Primary osteoarthritis, unspecified shoulder | CPT/HCPCS: 70450; 71045; 72125; 73521 ==

== ENCOUNTER → 2024-11-03 11:14 | Outpatient (BNV) | payer MEDICAID, SELFPAY | PROVIDERS: Admitting Provider Student in an Organized Health Care Education/Training Program; Emergency Provider Emergency Medicine; PCP Internal Medicine; Visit Provider Student in an Organized Health Care Education/Training Program | DX: F02.818 Dementia in other diseases classified elsewhere, unspecified severity, with other behavioral disturbance (principal); F39 Unspecified mood [affective] disorder | CPT/HCPCS: 99223; 99232; 99239; G0180 ==